=== PATIENT | female | born 1945 | race Caucasian/White ===

== ENCOUNTER 2017-07-08 23:35 | Day surgery (SDC) | payer OTHER ==
[2017-07-09 00:03] VITALS: BMI 25.8
[2017-07-09] MEDS ORDERED: ONDANSETRON 4 MG/2 ML VIAL IVPUSH ONE (00:38)
[2017-07-09] MEDS ORDERED: PANTOPRAZOLE SODIUM 40 MG VIAL IVPUSH ONE (00:38)
[2017-07-09] MEDS ORDERED: RANITIDINE HCL 150 MG TABLET (FP) PO ONE (00:39)
[2017-07-09] MEDS ORDERED: PANTOPRAZOLE SODIUM 40 MG VIAL ONE (01:04)
[2017-07-09] MEDS ORDERED: ONDANSETRON 4 MG/2 ML VIAL ONE (01:04)
[2017-07-09] MEDS ORDERED: ACETAMINOPHEN 1000 MG/100 ML VIAL (NON FORMULARY) IVPB ONE (01:15)
--- NOTE | 2017-07-09 01:15 | PDOC ---
History of Present Illness <Isai Cavazos - Last Filed: 07/09/17 02:41> - General History Source: Patient Exam Limitations: No Limitations - History of Present Illness Initial Comments: 07/09/17 01:15 Patient is a 72-year-old female with history of Pneumonia, pleural effusion assoc with pulmonary infection, HLD, RA, HTN, DM, lung surgery for complaining of upper quadrant pain for over one month. States the pain is sharp twisting 8.5/10 which has worsened this week. Pain is associated with some acid reflux, nausea, vomiting. States the nausea is intermittent and pain is worse when she tries to eat. She feels bloated, burping and gassy. States she has been to her PMD about this problem and testing was recommended including referral to the drywall finisher. However she has declined further treatment and has tried conservative management. She has not eaten in 3 days due to the pain and nausea. She is however making urine because she has been taking sips of water throughout the day. She has not had a bowel movement in days but attributes this to not eating any food. She is passing gas below. Denies fever, chills, dysuria PMD: Dr. Oscar Hines PMHX: as above PSOCHX: neg cig, drug, etoh ALL: cephalexin GENERAL/CONSTITUTIONAL: [No fever or chills. No weakness. No weight change.] HEAD, EYES, EARS, NOSE AND THROAT: [No change in vision. No ear pain or discharge. No sore throat.] CARDIOVASCULAR: [No chest pain or shortness of breath.] RESPIRATORY: [No cough, wheezing, or hemoptysis.] GASTROINTESTINAL: (+) nausea, vomiting, (+)diarrhea (-) constipation. No rectal bleeding.] GENITOURINARY: [No dysuria, frequency, or change in urination.] MUSCULOSKELETAL: [No joint or muscle swelling or pain. No neck or back pain.] SKIN AND BREASTS: [No rash or easy bruising.] NEUROLOGIC: [No headache, vertigo, loss of consciousness, or loss of sensation.] PSYCHIATRIC: [No depression or anxiety.] ENDOCRINE: [No increased thirst. No abnormal weight change.] HEMATOLOGIC/LYMPHATIC: [No anemia, easy bleeding, or history of blood clots.] ALLERGIC/IMMUNOLOGIC: [No hives or skin allergy. No latex allergy.] GENERAL: [The patient is awake, alert, and fully oriented, moderate painful distress.] HEAD: [Normal with no signs of trauma.] EYES: [Pupils equal, round and reactive to light, extraocular movements intact, sclera anicteric, conjunctiva clear.] ENT: [Ears normal, nares patent, oropharynx clear without exudates. Moist mucous membranes.] NECK: [Normal range of motion, supple without lymphadenopathy, JVD, or masses.] LUNGS: [Breath sounds equal, clear to auscultation bilaterally. No wheezes, and no crackles.] HEART: [Regular rate and rhythm, normal S1 and S2 without murmur, rub.] ABDOMEN: [Soft, (+) Davidson's sign, tenderness epigastrum, normoactive bowel sounds. No guarding, no rebound. No masses.] EXTREMITIES: [Normal range of motion, no edema. No clubbing or cyanosis. No cords, erythema, or tenderness.] NEUROLOGICAL: [Cranial nerves II through XII grossly intact. Normal speech, normal gait.] PSYCH: [Normal mood, normal affect.] SKIN: [Warm, Dry, normal turgor, no rashes or lesions noted.] <Iris Neely - Last Filed: 07/09/17 06:53> - General Chief Complaint: Pain, Acute Stated Complaint: STOMACH PAIN Time Seen by Provider: 07/09/17 00:37 Past History <Isai Cavazos - Last Filed: 07/09/17 02:41> - Past Medical History CVA: No Diabetes: Yes HTN: Yes Hypercholesterolemia: Yes - Suicide/Smoking/Psychosocial Hx Smoking History: Never smoked Have you smoked in the past 12 months: No Information on smoking cessation initiated: No Hx Alcohol Use: No Drug/Substance Use Hx: No Substance Use Type: None Hx Substance Use Treatment: No <Iris Neely - Last Filed: 07/09/17 06:53> - Past Medical History Allergies/Adverse Reactions: Allergies Allergy/AdvReac Type Severity Reaction Status Date / Time cephalexin monohydrate Allergy Severe Difficulty Verified 07/09/17 00:02 [From Keflex] Breathing Home Medications: Ambulatory Orders Lisinopril [Prinivil] 10 mg PO DAILY #30 tablet 04/25/16 Metformin HCl 500 mg PO DAILY 07/09/17 Nebivolol HCl [Bystolic] mg PO 07/09/17 *Physical Exam - Vital Signs Last Vital Signs Temp Pulse Resp BP Pulse Ox 97.9 F 83 18 156/87 98 07/09/17 00:02 07/09/17 00:02 07/09/17 00:02 07/09/17 00:02 07/09/17 00:02 <Isai Cavazos - Last Filed: 07/09/17 02:41> - Vital Signs Last Vital Signs Temp Pulse Resp BP Pulse Ox 97.9 F 83 18 156/87 98 07/09/17 00:02 07/09/17 00:02 07/09/17 00:02 07/09/17 00:02 07/09/17 00:02 <Iris Neely - Last Filed: 07/09/17 06:53> Heart Score/ECG Review - ECG Impressions Comment:: 07/09/17 02:40 Twelve-lead EKG was performed and reviewed by me. There is normal sinus rhythm with a normal rate. Rate of [address] abnormality <Isai Cavazos - Last Filed: 07/09/17 02:41> ED Treatment Course - LABORATORY CBC & Chemistry Diagram: 07/09/17 01:02 07/09/17 01:02 - ADDITIONAL ORDERS Additional order review: Laboratory Results 07/09/17 01:02 Sodium 134 L Potassium 4.5 Chloride 96 L Carbon Dioxide 25 Anion Gap 13 BUN 11 Creatinine 0.6 Creat Clearance w eGFR > 60 Random Glucose 103 Calcium 9.5 Total Bilirubin 0.4 D AST 11 L ALT 14 Alkaline Phosphatase 90 Total Protein 7.7 Albumin 3.5 Lipase 87 07/09/17 01:02 RBC 4.55 MCV 65.0 L D MCHC 31.7 L RDW 17.7 H D MPV 8.2 Neutrophils % 68.8 D Lymphocytes % 24.3 D Monocytes % 6.3 Eosinophils % 0.1 D Basophils % 0.5 - Medications Given in the ED: ED Medications Discontinued Medications Generic Name Dose Route Start Last Admin Trade Name Freq PRN Reason Stop Dose Admin Acetaminophen 1,000 mg 07/09/17 01:15 07/09/17 01:24 Ofirmev Injection - IVPB 07/09/17 01:16 1,000 mg ONCE ONE Administration Ondansetron HCl 4 mg 07/09/17 00:38 07/09/17 01:23 Zofran Injection IVPUSH 07/09/17 00:39 4 mg ONCE ONE Administration Pantoprazole Sodium 40 mg 07/09/17 00:38 07/09/17 01:23 Protonix Iv IVPUSH 07/09/17 00:39 40 mg ONCE ONE Administration Ranitidine HCl 300 mg 07/09/17 00:39 07/09/17 01:23 Zantac - PO 07/09/17 00:40 300 mg ONCE ONE Administration <Isai Cavazos - Last Filed: 07/09/17 02:41> - LABORATORY CBC & Chemistry Diagram: 07/09/17 01:02 07/09/17 01:02 - RADIOLOGY Radiology Studies Ordered: Category Date Time Status ABDOMEN US -LIMITED [US] Stat Ultrasound 07/09/17 00:37 Ordered <Iris Neely - Last Filed: 07/09/17 06:53> Medical Decision Making - Medical Decision Making The patient was seen and evaluated in conjunction with GARO Robles under my direct supervision, ancillary studies were reviewed. I independently interviewed and evaluated the patient and I agree with the plan as outlined by GARO Robles. <Isai Cavazos - Last Filed: 07/09/17 02:41> - Medical Decision Making 07/09/17 01:25 Patient is a 72-year-old female with history of Pneumonia, pleural effusion assoc with pulmonary infection, HLD, RA, HTN, DM, lung surgery for complaining of upper quadrant pain for over one month worse with eating, no fever, chills. ddx incl gastritis, gastric ulcer, cholecystitis, cholelithiasis, Labs, US protonix, zantac, zofran IVF labs reviewed not acute findings 07/09/17 03:13 Patient Full Name: FABIANA CLARKE Patient Accession No: [id number] Patient : 1945 Reason for Exam: ruq pain n/v Referring Physician: Patient Name: VINCE JUNG THIS IS A PRELIMINARY REPORT FROM [facility] DATE OF SERVICE: 2017-07-09 00:43:06 IMAGES: 42 EXAM: ULTRASOUND ABDOMEN INCOMPLETE Cholelithiasis, largest gallstone 2.3 cm. Positive sonographic Davidson's sign and thickened gallbladder wall, 9 mm. Gallbladder lumen size not well seen due to shadowing stones. Findings suspicios for acute cholecystitis. Unremarkable liver, right kidney and visualized aorta and pancreas. Normal common duct diameter, 5 mm. THIS DOCUMENT HAS BEEN ELECTRONICALLY SIGNED Shani Richardson M.D. 07/09/2017 01:27 EST Sean. Please call [facility] [employer] [phone] ([phone]) with questions. INTERPRETING RADIOLOGIST: Shani Richardson MD Electronically Signed: Jul 09, 2017 01:28AM ES US reviewed as above will admit to hospital with surgical f/u 07/09/17 06:40 Surgery consulted no answer to page 07/09/17 06:53 surgery called message left for Dr. Morris <Iris Neely - Last Filed: 07/09/17 06:53> *DC/Admit/Observation/Transfer <Isai Cavazos - Last Filed: 07/09/17 02:41> - Discharge Dispostion Admit: Yes <Iris Neely - Last Filed: 07/09/17 06:53> Diagnosis at time of Disposition: Acute cholecystitis - Discharge Dispostion Condition at time of disposition: Stable
[2017-07-09] MEDS ORDERED: ACETAMINOPHEN INJECTION 100 ML IVPB ONE (01:17)
[2017-07-09] MEDS ORDERED: RANITIDINE HCL 150 MG TABLET (FP) ONE (01:27)
[2017-07-09 01:32] LABS: BASO % 0.5 % (0-2.0); EOS % 0.1 % (0-4.5); HEMATOCRIT 29.6 % (32.4-45.2); HEMOGLOBIN 9.4 GM/dL (10.7-15.3); LYMPH % 24.3 % (8-40); MCH 20.6 pg (25.7-33.7); MCHC 31.7 g/dl (32.0-36.0); MEAN PLT VOLUME 8.2 fl (7.5-11.1); MONO % 6.3 % (3.8-10.2); NEUT % 68.8 % (42.8-82.8); PLATELET COUNT 548 K/MM3 (134-434); RBC 4.55 M/mm3 (3.60-5.2); RDW 17.7 % (11.6-15.6); WHITE BLOOD COUNT 8.6 K/mm3 (4.0-10.0)
[2017-07-09 01:53] LABS: ADD RBC MORPHOLOGY YES
[2017-07-09 01:56] LABS: ALBUMIN 3.5 g/dl (3.4-5.0); ANION GAP 13 (8-16); BILIRUBIN,TOTAL 0.4 mg/dL (0.2-1.0); BLOOD UREA NITROGEN 11 mg/dL (7-18); CALCIUM 9.5 mg/dL (8.5-10.1); CHLORIDE 96 mmol/L (98-107); CO2 25 mmol/L (21-32); CREATININE 0.6 mg/dL (0.55-1.02); GLUCOSE,RANDOM 103 mg/dL (74-106); LIPASE 87 U/L (73-393); POTASSIUM 4.5 mmol/L (3.5-5.1); SGOT/AST 11 U/L (15-37); SGPT/ALT 14 U/L (12-78); SODIUM 134 mmol/L (136-145); TOT PROT 7.7 g/dl (6.4-8.2)
[2017-07-09 01:57] LABS: ALK PHOS 90 U/L (45-117)
[2017-07-09] MEDS ORDERED: morphine SULFATE 4 MG/ML VIAL IVPUSH PRN (06:24)
[2017-07-09] MEDS ORDERED: ONDANSETRON 4 MG/2 ML VIAL IVPUSH PRN (06:24)
[2017-07-09] MEDS ORDERED: SODIUM CHLORIDE 1,000 ML IV SCH (06:30)
--- NOTE | 2017-07-09 06:30 | HP ---
CHIEF COMPLAINT: RUQ pain PCP: robert HISTORY OF PRESENT ILLNESS: This is a 72 year old female with a past medical history as below who presented to the ED with a 1 month history of RUQ pain which has worsened x 1 week and is now associated with intermittent nausea and vomiting. The pain worsens with eating. ER course was notable for: (1) US c/w cholecystitis (2)WBC 8.6 (3) Recent Travel: pt denies PAST MEDICAL HISTORY: PNA with pleural effusion and pneumothorax, HTN, DM, RA PAST SURGICAL HISTORY: lung surgery carpal tunnel release R knee arthroscopic meniscus repair Social History: Smoking: pt denies Alcohol: pt denies Drugs: pt denies Family History: mother age 86 due to sepsis, h/o BrCA and colon CA father age 95, Bladder CA one brother and 3 sons all alive and well Allergies cephalexin monohydrate [From Keflex] Allergy (Severe, Verified 07/09/17 00:02) Difficulty Breathing HOME MEDICATIONS: 3 Medication Instructions Recorded Lisinopril [Prinivil] 10 mg PO DAILY #30 tablet 09/02/15 Metformin HCl 500 mg PO DAILY 07/09/17 Nebivolol HCl [Bystolic] mg PO 07/09/17 REVIEW OF SYSTEMS CONSTITUTIONAL: Absent: fever, chills, diaphoresis, generalized weakness, malaise, loss of appetite, weight change HEENT: Absent: rhinorrhea, nasal congestion, throat pain, throat swelling, difficulty swallowing, mouth swelling, ear pain, eye pain, visual changes CARDIOVASCULAR: Absent: chest pain, syncope, palpitations, irregular heart rate, lightheadedness , peripheral edema RESPIRATORY: Absent: cough, shortness of breath, dyspnea with exertion, orthopnea, wheezing, stridor, hemoptysis GASTROINTESTINAL: abdominal pain, nausea, vomiting Absent: abdominal distension, diarrhea, constipation, melena, hematochezia GENITOURINARY: Absent: dysuria, frequency, urgency, hesitancy, hematuria, flank pain, genital pain MUSCULOSKELETAL: Absent: myalgia, arthralgia, joint swelling, back pain, neck pain SKIN: Absent: rash, itching, pallor HEMATOLOGIC/IMMUNOLOGIC: Absent: easy bleeding, easy bruising, lymphadenopathy, frequent infections ENDOCRINE: Absent: unexplained weight gain, unexplained weight loss, heat intolerance, cold intolerance NEUROLOGIC: Absent: headache, focal weakness or paresthesias, dizziness, unsteady gait, seizure, mental status changes, bladder or bowel incontinence PSYCHIATRIC: Absent: anxiety, depression, suicidal or homicidal ideation, hallucinations. PHYSICAL EXAMINATION Vital Signs - 24 hr 3 07/09/17 07/09/17 00:02 06:24 Temperature 97.9 F 99.2 F Pulse Rate 83 Pulse Rate [ 80 Right Apical] Respiratory 18 18 Rate Blood Pressure 156/87 Blood Pressure 148/63 [Right Arm] O2 Sat by Pulse 98 97 Oximetry (%) GENERAL: Awake, alert, and fully oriented, in no acute distress. HEAD: Normal with no signs of trauma. EYES: Pupils equal, round and reactive to light, extraocular movements intact, sclera anicteric, conjunctiva clear. No lid lag. EARS, NOSE, THROAT: Ears normal, nares patent, oropharynx clear without exudates. Moist mucous membranes. NECK: Normal range of motion, supple without lymphadenopathy, JVD, or masses. LUNGS: Breath sounds equal, clear to auscultation bilaterally. No wheezes, and no crackles. No accessory muscle use. HEART: Regular rate and rhythm, normal S1 and S2 without murmur, rub or gallop. ABDOMEN: Soft, tender RUQ and RLQ, not distended, normoactive bowel sounds, no guarding, no rebound, no masses. No hepatomegaly or splenomegaly. MUSCULOSKELETAL: Normal range of motion at all joints. No bony deformities or tenderness. No CVA tenderness. UPPER EXTREMITIES: 2+ pulses, warm, well-perfused. No cyanosis. No clubbing. No peripheral edema. LOWER EXTREMITIES: 2+ pulses, warm, well-perfused. No calf tenderness. No peripheral edema. NEUROLOGICAL: Cranial nerves II-XII intact. Normal speech. Normal gait. PSYCHIATRIC: Cooperative. Good eye contact. Appropriate mood and affect. SKIN: Warm, dry, normal turgor, no rashes or lesions noted, normal capillary refill. Laboratory Results - last 24 hr 3 07/09/17 07/09/17 01:02 01:02 WBC 8.6 RBC 4.55 Hgb 9.4 L Hct 29.6 L MCV 65.0 L D MCH 20.6 L MCHC 31.7 L RDW 17.7 H D Plt Count 548 H D MPV 8.2 Neutrophils % 68.8 D Lymphocytes % 24.3 D Monocytes % 6.3 Eosinophils % 0.1 D Basophils % 0.5 Sodium 134 L Potassium 4.5 Chloride 96 L Carbon Dioxide 25 Anion Gap 13 BUN 11 Creatinine 0.6 Creat Clearance w eGFR > 60 Random Glucose 103 Calcium 9.5 Total Bilirubin 0.4 D AST 11 L ALT 14 Alkaline Phosphatase 90 Total Protein 7.7 Albumin 3.5 Lipase 87 ASSESSMENT/PLAN: 72yF with PMH DM, HTN, RA and PNA presented to the ED with RUQ pain. Cholelithiasis/cystitis - surgical consult - no active fever or elevated WBC, will defer antibiotics - NPO - NS @ 75cc/hr HTN - will need to verify bystolic dose by PCP - cont lisinopril DM - hold metformin - BGM with novolog SS DVT PPX - deferred, anticipated LOS <48h FEN - NS @ 75cc/hr - BMP in am - NPO Dispo: Pt currently requires further observation. Visit type - Emergency Visit Emergency Visit: Yes ED Registration Date: 07/09/17 Care time: The patient presented to the Emergency Department on the above date and was hospitalized for further evaluation of their emergent condition. - New Patient This patient is new to me today: Yes Date on this admission: 07/09/17 - Critical Care Critical Care patient: No Hospitalist Screening - Colonoscopy Questionnaire Colonoscopy Questionnaire: Colonoscopy Questionnaire - Patient: 50 - 75 years old and never had a screening colonoscopy: Yes History of colon or rectal polyps, or CA: No History of IBD, Crohn's disease or UC: No History of abdominal radiation therapy as a child: No - Relative: 1 with colon or rectal CA, or polyps at age 60 or younger: Yes Colon or rectal CA diagnosed at age 45 or younger: No Multiple relatives with colon or rectal CA: No - Outcome: Screening Result: Positive Screen
--- NOTE | 2017-07-09 09:58 | EKG ---
Test Reason : Blood Pressure : / mmHG Vent. Rate : 082 BPM Atrial Rate : 082 BPM P-R Int : 114 ms QRS Dur : 072 ms QT Int : 362 ms P-R-T Axes : 050 -05 017 degrees QTc Int : 422 ms POOR DATA QUALITY, INTERPRETATION MAY BE ADVERSELY AFFECTED SINUS RHYTHM WITH PREMATURE ATRIAL COMPLEXES POSSIBLE LEFT ATRIAL ENLARGEMENT NONSPECIFIC ST ABNORMALITY ABNORMAL ECG Confirmed by GLENNA DUARTE MD ([id number]) on 07/09/2017 9:58:12 AM Referred By: Confirmed By:GLENNA DUARTE MD
--- NOTE | 2017-07-09 13:12 | CONSULT ---
Consult Consult Specialty:: SURGERY Reason for Consultation:: Acute cholecystitis - History of Present Illness Chief Complaint: RUQ abdominal pain History of Present Illness: This is a 72 year old female with a past medical history as below who presented to the ED with a 1 month history of RUQ pain which has worsened x 1 week and is now associated with intermittent nausea and vomiting. The pain worsens with eating. - History Source History Provided By: Patient Limitations to Obtaining History: No Limitations - Past Medical History Cardio/Vascular: Yes: HTN, Hyperlipdemia Rheumatology: Yes: Rheumatoid Arthritis Endocrine: Yes: Diabetes Mellitus (pre - DM) - Past Surgical History Past Surgical History: Yes: Thoracotomy - Alcohol/Substance Use Hx Alcohol Use: No - Smoking History Smoking history: Never smoked Have you smoked in the past 12 months: No - Social History ADL: Independent History of Recent Travel: No Home Medications - Allergies Allergies/Adverse Reactions: Allergies Allergy/AdvReac Type Severity Reaction Status Date / Time cephalexin monohydrate Allergy Severe Difficulty Verified 07/09/17 00:02 [From Keflex] Breathing - Home Medications Home Medications: Ambulatory Orders Lisinopril [Prinivil] 10 mg PO DAILY #30 tablet 09/02/15 Furosemide 20 mg PO DAILY 07/09/17 Metformin HCl 500 mg PO DAILY 07/09/17 Nebivolol HCl [Bystolic] 10 mg PO DAILY 07/09/17 Physical Exam Vital Signs: Vital Signs Temperature 98.6 F 07/09/17 07:34 Pulse Rate 78 07/09/17 07:34 Respiratory Rate 16 07/09/17 07:34 Blood Pressure 142/73 07/09/17 07:34 O2 Sat by Pulse Oximetry (%) 100 07/09/17 07:34 Constitutional: Yes: Well Nourished, No Distress Eyes: Yes: Conjunctiva Clear HENT: Yes: Normocephalic Neck: Yes: Supple Cardiovascular: Yes: Regular Rate and Rhythm Respiratory: Yes: CTA Bilaterally Gastrointestinal: Yes: Tenderness (at RUQ on deep palpation) ...Rectal Exam: Yes: Deferred Extremities: Yes: WNL Neurological: Yes: Alert, Oriented Labs: CBC, BMP 07/09/17 01:02 07/09/17 01:02 Imaging - Results Ultrasound: Report Reviewed, Image Reviewed (GB with multiple stones and thickened wall) Problem List - Problems (1) Acute cholecystitis Assessment/Plan: Laparoscopic cholecystectomy on this hospital stay. Medical risk assessment IV antibioitcs Code(s): K81.0 - ACUTE CHOLECYSTITIS
[2017-07-09] MEDS ORDERED: NEBIVOLOL 2.5 MG TABLET (FP) PO SCH (14:00)
[2017-07-09] MEDS: LISINOPRIL 10 MG TABLET (FP) PO SCH (14:51)
[2017-07-09] MEDS: FUROSEMIDE 20 MG TABLET (FP) PO SCH (15:37)
--- NOTE | 2017-07-09 16:01 | PN ---
Physical Exam: The hospitalist service has been asked by PCP Dr. Oscar Hines to assess this patient in anticipation of undergoing a cholecystectomy on 07/10/17. SUBJECTIVE: Patient seen and examined. She is unable to tolerate any PO intake as it provokes nausea and pain. OBJECTIVE: Vital Signs Period Temp Pulse Resp BP Sys/Spence Pulse Ox Last 24 Hr 97.9 F-99.2 F 78-83 16-18 142-156/63-87 97-100 GENERAL: The patient is awake, alert, and fully oriented, in no acute distress. LUNGS: Breath sounds equal, clear to auscultation bilaterally, no wheezes, no crackles, no accessory muscle use. HEART: Regular rate and rhythm, S1, S2 without murmur, rub or gallop. ABDOMEN: Tenderness over RUQ and RLQ EXTREMITIES: 2+ pulses, warm, well-perfused, no edema. NEUROLOGICAL: Cranial nerves II through XII grossly intact. Normal speech, gait not observed. Laboratory Results - last 24 hr 07/09/17 07/09/17 07/09/17 01:02 01:02 14:57 WBC 8.6 RBC 4.55 Hgb 9.4 L Hct 29.6 L MCV 65.0 L D MCH 20.6 L MCHC 31.7 L RDW 17.7 H D Plt Count 548 H D MPV 8.2 Neutrophils % 68.8 D Lymphocytes % 24.3 D Monocytes % 6.3 Eosinophils % 0.1 D Basophils % 0.5 Hypochromia 3+ Microcytosis 1+ Schistocytes 1+ Sodium 134 L Potassium 4.5 Chloride 96 L Carbon Dioxide 25 Anion Gap 13 BUN 11 Creatinine 0.6 Creat Clearance w eGFR > 60 POC Glucometer 104 Random Glucose 103 Calcium 9.5 Total Bilirubin 0.4 D AST 11 L ALT 14 Alkaline Phosphatase 90 Total Protein 7.7 Albumin 3.5 Lipase 87 Active Medications Generic Name Dose Route Start Last Admin Trade Name Freq PRN Reason Stop Dose Admin Furosemide 20 mg 07/09/17 15:15 Lasix - PO DAILY PRIYANKA Sodium Chloride 1,000 mls @ 75 mls/hr 07/09/17 06:30 07/09/17 06:31 Normal Saline - IV 75 mls/hr ASDIR PRIYANKA Administration Sodium Chloride 1,000 mls @ 100 mls/hr 07/10/17 00:01 Normal Saline - IV ASDIR PRIYANKA Insulin Aspart 1 vial 07/09/17 16:30 Novolog Vial Sliding Scale - SQ ACHS [facility] Protocol Lisinopril 10 mg 07/09/17 14:00 07/09/17 14:51 Prinivil PO 10 mg DAILY [facility] Administration Morphine Sulfate 2 mg 07/09/17 06:24 Morphine Sulfate IVPUSH Q4H PRN PAIN LEVEL 6-10 Nebivolol 10 mg 07/09/17 15:15 Bystolic - PO DAILY [facility] Ondansetron HCl 4 mg 07/09/17 06:24 Zofran Injection IVPUSH Q6H PRN NAUSEA 07/09/17 US abdomen: partially distended gallbladder with gallstones largest 2.3cm , suggestion of wall-thickening; positive vice president of engineering Davidson's sign; suspicious for acute cholecystitis. ASSESSMENT/PLAN 72 year-old female with a PMH signficant for HTN, pneumonia complicated by pneumothorax, LVATS decortication and partial pleurectomy (August 2015), NIDDM, and rheumatoid arthritis. PSH includes LVATS/partial pleurectomy, bilateral carpal tunnel release surgeries, and right knee meniscus arthroscopic repair. Acute cholecystitis --US findings as above --seen and evaluated by Dr. Morris, plan for lap kian tomorrow --no fever, no leukocytosis --unable to tolerate PO, made NPO Hypertension --BP is stable, 140s/70s --continue lisinopril, bystolic --patient states Dr. Hines prescribed lasix PO 20mg about one month ago but she did not notice any change in her blood pressure nor did it cause her to urinate; she took the lasix for only three days and stopped; hold lasix for now NIDDM --Novolog sliding scale coverage Rheumatoid arthritis --no acute issues --on no medications h/o pneumonia LVATS decortication Partial pleurectomy --hospitalized 08/13-->09/02/15 --stable, no acute issues --will get pulmonary input for ari-operative maximization Patient is planned for a lap cholecystectomy on 07/10/17. Patient has no know coronary artery disease. ECG shows sinus rhythm. An echocardiagram in 08/2015 showed normal LV and RV function and no significant valvular pathology. Her hypertension is well-controlled on her current medication regimen of lisinopril and bystolic, and these medications should be continued during the ari- operative period. Patient has had four previous surgeries and there is no known difficulty with anesthesia. She did report she was intolerant of the smell of a latex mask prior to one of her surgeries as it made her nauseous. She is not allergic to latex and uses latex gloves at home. The benefits of the planned procedure outweigh the relative risks. Visit type - Emergency Visit Emergency Visit: Yes ED Registration Date: 07/09/17 Care time: The patient presented to the Emergency Department on the above date and was hospitalized for further evaluation of their emergent condition. - New Patient This patient is new to me today: Yes Date on this admission: 07/09/17 - Critical Care Critical Care patient: No
[2017-07-09] MEDS: NEBIVOLOL 10 MG TABLET (FP) PO SCH (16:33)
[2017-07-09] MEDS: INSULIN SLIDING SCALE (NOVOLOG) 1 VIAL SQ SCH ×2 (17:36→21:31)
[2017-07-10] MEDS ORDERED: SODIUM CHLORIDE 1,000 ML IV SCH (00:01)
[2017-07-10] MEDS: INSULIN SLIDING SCALE (NOVOLOG) 1 VIAL SQ SCH ×3 (06:45→18:12)
[2017-07-10] MEDS ORDERED: PT OWN MED DRAWER 7, Y5N ONE ×2 (07:46→09:14)
[2017-07-10 07:52] LABS: BASO % 0.8 % (0-2.0); HEMATOCRIT 28.1 % (32.4-45.2); HEMOGLOBIN 8.7 GM/dL (10.7-15.3); MCH 20.4 pg (25.7-33.7); MEAN CELL VOLUME 65.8 fl (80-96); MEAN PLT VOLUME 7.8 fl (7.5-11.1); MONO % 6.6 % (3.8-10.2); NEUT % 68.6 % (42.8-82.8); PLATELET COUNT 505 K/MM3 (134-434); RBC 4.27 M/mm3 (3.60-5.2); RDW 17.5 % (11.6-15.6); WHITE BLOOD COUNT 8.5 K/mm3 (4.0-10.0)
[2017-07-10] MEDS ORDERED: ONDANSETRON 4 MG/2 ML VIAL IVPUSH PRN ×2 (08:06→11:44)
[2017-07-10] MEDS ORDERED: LACTATED RINGERS SOLUTION 1,000 ML IV SCH ×2 (08:15→11:44)
[2017-07-10 08:22] LABS: ANION GAP 11 (8-16); BLOOD UREA NITROGEN 16 mg/dL (7-18); CHLORIDE 102 mmol/L (98-107); CO2 25 mmol/L (21-32); CREATININE 0.7 mg/dL (0.55-1.02); GLUCOSE,RANDOM 68 mg/dL (74-106); MAGNESIUM 1.8 mg/dL (1.8-2.4); PHOSPHOROUS 3.1 mg/dL (2.5-4.9); POTASSIUM 4.2 mmol/L (3.5-5.1); SODIUM 138 mmol/L (136-145)
[2017-07-10] MEDS ORDERED: MIDAZOLAM HCL 2 MG/2 ML SINGLE DOSE VIAL ONE (08:34)
[2017-07-10] MEDS ORDERED: AMPICILLIN NA/SULBACTAM NA 1.5 GM VIAL ONE (08:45)
[2017-07-10] MEDS ORDERED: AMPICILLIN NA/SULBACTAM NA 1.5 GM VIAL IVPB ONE (08:45)
[2017-07-10] MEDS ORDERED: SODIUM CHLORIDE 0.9% P/F 10 ML VIAL IJ ONE (08:45)
[2017-07-10] MEDS ORDERED: DEXAMETHASONE SOD PHOSPHATE 4 MG/1 ML VIAL ONE (08:55)
[2017-07-10] MEDS ORDERED: GLYCOPYRROLATE 0.2 MG/1 ML VIAL ONE (08:55)
[2017-07-10] MEDS ORDERED: LIDOCAINE HCL/PF 2% SDV 5ML VIAL ONE (08:55)
[2017-07-10] MEDS ORDERED: ROCURONIUM BROMIDE 50 MG/5 ML VIAL ONE ×2 (08:55→09:39)
[2017-07-10] MEDS ORDERED: KETOROLAC TROMETHAMINE 30 MG/1 ML VIAL ONE (08:55)
[2017-07-10] MEDS ORDERED: NEOSTIGMINE METHYLSULFATE 0.5 MG/ML - 10 ML MDV ONE (08:56)
[2017-07-10] MEDS ORDERED: PROPOFOL 20 ML ONE (08:56)
[2017-07-10] MEDS ORDERED: ePHEDrine SULFATE 50 MG/1 ML AMPULE ONE (09:08)
[2017-07-10] MEDS ORDERED: BUPIVACAINE HCL/PF 0.5% (5MG/ML) 10 ML VIAL IJ ONE (09:28)
[2017-07-10] MEDS: NEBIVOLOL 10 MG TABLET (FP) PO SCH (10:00)
[2017-07-10] MEDS: FUROSEMIDE 20 MG TABLET (FP) PO SCH (10:00)
[2017-07-10] MEDS: LISINOPRIL 10 MG TABLET (FP) PO SCH (10:00)
[2017-07-10] MEDS ORDERED: ACETAMINOPHEN 1000 MG/100 ML VIAL (NON FORMULARY) IVPB ONE ×2 (11:07→11:44)
[2017-07-10] MEDS ORDERED: ACETAMINOPHEN INJECTION 100 ML IVPB ONE (11:20)
--- NOTE | 2017-07-10 11:56 | OP ---
Operative Note - Note: Operative Date: 07/10/17 Pre-Operative Diagnosis: Acute cholecystitis Operation: Attempted laparoscopic cholecystectomy, LION, Open tube cholecystostomy, GB wall and colonic implant biopsy Findings: Enlarged nodular GB with multiple large stones, dense adhesions of the transverse colon and pylorus. serosal implants of adjacent transverse colon.No liver lesions or peritoneal implants noted. Post-Operative Diagnosis: Other (r/o gallbladder cancer, cholelithiasis) Surgeon: Rodrigo Morris Supervisor Paint Department: Lester Freeman (Supervisor Paint Department Surgeon) Anesthesia: General Specimens Removed: Gallbladder wall, colonic implant Estimated Blood Loss (mls): 20 Operative Report Dictated: Yes
--- NOTE | 2017-07-10 12:06 | PN ---
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 Patient and advised transfer to [facility] for further management with Hepato-biliary Service. Dr. Sheela Clarke of [facility] informed and will make arrangements for transfer. Discussed also with Dr. Hines - PMLucrecia. Problem List - Problems (1) Acute cholecystitis Code(s): K81.0 - ACUTE CHOLECYSTITIS
--- NOTE | 2017-07-10 13:32 | PN ---
Progress Note, Physician History of Present Illness: pt seen/ examined. chart reviewed. evens noted. 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 / son at bedside. - Current Medication List Current Medications: Active Medications Lactated Ringer's (Lactated Ringers Solution) 1,000 mls @ 75 mls/hr IV ASDIR PRIYANKA Insulin Aspart (Novolog Vial Sliding Scale -) 1 vial SQ ACHS PRIYANKA PRN Reason: Protocol Lisinopril (Prinivil) 10 mg PO DAILY PRIYANKA Morphine Sulfate (Morphine Sulfate) 2 mg IVPUSH Q4H PRN PRN Reason: PAIN LEVEL 6-10 Nebivolol (Bystolic -) 10 mg PO DAILY PRIYANKA Ondansetron HCl (Zofran Injection) 4 mg IVPUSH Q6H PRN PRN Reason: NAUSEA - Objective Vital Signs: Vital Signs Temperature 97.5 F L 07/10/17 13:00 Pulse Rate 76 07/10/17 13:00 Respiratory Rate 16 07/10/17 13:00 Blood Pressure 142/69 07/10/17 13:00 O2 Sat by Pulse Oximetry (%) 99 07/10/17 13:00 Constitutional: Yes: No Distress, Anxious Eyes: Yes: Conjunctiva Clear Neck: Yes: Supple Cardiovascular: Yes: Regular Rate and Rhythm Respiratory: Yes: CTA Bilaterally Gastrointestinal: Yes: Soft, Other (dressing +) Edema: No Neurological: Yes: Alert Labs: CBC, BMP 07/10/17 07:10 07/10/17 07:10 Problem List - Problems (1) Acute cholecystitis Code(s): K81.0 - ACUTE CHOLECYSTITIS Assessment/Plan Discussed with surgeon Dr. Morris. findings discussed . Also discussed with pt/ pts family by me as well as Dr. Morris. Arrangements are being made for transfer to [facility]-- Accepted there for further management. Pt and family also in agreement I filled transfer papers. Discussed also with nursing staff. Anticipate transfer later today. I wished pt best wishes !!.
[2017-07-10] MEDS ORDERED: LISINOPRIL 10 MG TABLET (FP) PO SCH (13:45)
[2017-07-10] MEDS ORDERED: NEBIVOLOL 10 MG TABLET (FP) PO SCH (14:00)
[2017-07-10] MEDS: morphine SULFATE 4 MG/ML VIAL IVPUSH PRN ×2 (14:47→18:57)
[2017-07-10 16:02] VITALS: BP 151/76; PULSE 80; TEMP 97.6
--- NOTE | 2017-07-10 16:17 | OP ---
DATE OF OPERATION: 07/10/2017 PROCEDURE: Attempted laparoscopic cholecystectomy, laparoscopic lysis of adhesions, converted to open procedure with tube cholecystostomy, gallbladder wall, and colonic implant biopsy. PREOPERATIVE DIAGNOSIS: Acute cholecystitis. POSTOPERATIVE DIAGNOSIS: Rule out gallbladder cancer and cholelithiasis. SURGEON: Rodrigo Morris MD WATER PROJECT ENGINEER SURGEON: Dr. Lydia MD ANESTHESIA: General endotracheal. FINDINGS: This is a 72-year-old female who presents with a 6-psvlh-bluydyg of right upper quadrant pain radiating to the back associated with worsening of symptoms for the past few days. The patient sought medical attention in the emergency department where an ultrasound showed a gallbladder with thickened jimenez and multiple large stones. The patient was admitted for further management of admitting diagnosis of acute cholecystitis. On physical exam, the patient has positive right upper quadrant tenderness on deep palpation and positive Davidson's sign. The patient was advised removal of the gallbladder and consent was obtained after discussing of the risks, benefits, and alternatives of the procedure. DESCRIPTION OF PROCEDURE: The patient was brought to the operating room and placed in supine position. General endotracheal anesthesia was administered. The abdomen was prepped and draped in the usual sterile fashion. Using 0.5% Marcaine, local anesthesia was administered to the proposed incision sites. The peritoneal cavity was entered using the Optiview technique via a 5-mm umbilical incision using a 5-mm 0-degree scope inserted in a 5-mm optical port. Pneumoperitoneum was established. The peritoneal cavity was carefully inspected and was noted to free of any inadvertent injury. At this point, a very distended gallbladder partially covered with omentum was noted, and an attempt to grasp the fundus resulted in advertent puncture of the gallbladder wall where a large stone was noted to be impacted. The omental adhesions were carefully taken down using the hook dissector connected to monopolar cautery combined with the LigaSure vessel sealing device. Upon taking down the omentum, the transverse colon was noted to be firmly adherent to the body of the gallbladder wall. With the presumption that the patient had possible dense adhesions and possible vesicocolonic fistula, the procedure was converted to an open procedure. The pneumoperitoneum was evacuated, and the ports were removed. A 15-cm right subcostal incision was made using a scalpel blade No. 10. Dissection was carried down to subcutaneous tissue. Further dissection using Bovie cautery was done until the fascia at the anterior rectus sheath and the oblique muscles were incised down to the parietal peritoneum. The parietal peritoneum was again incised using the Bovie cautery to enter the peritoneal cavity. At this point, further attempts to separate the transverse colon from the gallbladder proved to be futile as the colonic wall was firmly adherent to the gallbladder. On further inspection, implants of the transverse colon serosa were noted with some evidence of beginning stricture of the transverse colon. On further exploration, the pylorus of the stomach was also noted to be firmly adherent to the proximal body of the gallbladder rendering removal of the gallbladder difficult without possibly injuring the transverse colon and the pylorus. 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 It was decided to abandon the proposed cholecystectomy, and the inadvertent cholecystostomy was enlarged to remove 3 large 2-cm gallstones. A cholecystostomy tube was constructed by applying 2 rows of pursestring suture with polysorb 2-0 and inserting a 16-Burmese Norman catheter via separate stab wound lateral to the subcostal incision. Biopsy of the gallbladder fundus was sent for proper histologic examination. Also, a small piece of the gallbladder body was also excised also for pathologic examination. The nodular implant of the serosa of the transverse colon was also sent for proper histologic examination. A Kodak-Mora drain was deployed into Morison's pouch and exited via one of the 5-mm port sites and connected to bulb suction. The peritoneal cavity was irrigated with sterile normal saline until the return was clear. The wound was closed with continuous Vicryl 2-0 suture for the peritoneum and continuous PDS loop No. 1 suture for the fascia. The skin was closed with tarik. The patient was then successfully extubated and transferred to the post anesthesia care unit in satisfactory condition. Estimated blood loss was about 20 mL. Wound class clean contaminated. The patient received Unasyn prior to the start of the procedure. Markell [id number] MTDD
[2017-07-11] MEDS ORDERED: LISINOPRIL 10 MG TABLET (FP) PO SCH (10:00)
[2017-07-11] MEDS ORDERED: NEBIVOLOL 10 MG TABLET (FP) PO SCH (10:00)
--- NOTE | 2017-07-11 10:25 | DS ---
Physical Examination Vital Signs: Vital Signs Temperature 97.6 F 07/10/17 16:01 Pulse Rate 80 07/10/17 16:01 Respiratory Rate 20 07/10/17 16:01 Blood Pressure 151/76 07/10/17 16:01 O2 Sat by Pulse Oximetry (%) 100 07/10/17 15:30 Findings/Remarks: see progress note 07/10/17 Labs: CBC, BMP 07/10/17 07:10 07/10/17 07:10 Discharge Summary Reason For Visit: ACUTE CHOLECYSTITIS Hospital Course: transfer to [facility] for further care Condition: Stable - Instructions Referrals: Oscar Hines MD [Staff Physician] - Disposition: TRANSFER ACUTE CARE/OTHER HOSP - Home Medications Comprehensive Discharge Medication List: Ambulatory Orders Lisinopril [Prinivil] 10 mg PO DAILY #30 tablet 09/02/15 Furosemide 20 mg PO DAILY 07/09/17 Metformin HCl 500 mg PO DAILY 07/09/17 Nebivolol HCl [Bystolic] 10 mg PO DAILY 07/09/17
--- NOTE | 2017-07-13 15:32 | PATH ---
Surgical Pathology Report Patient Name: VINCE JUNG [facility]. Rec. #: [id number] /Age/Gender: 1945 (Age: 72) / F Account: [id number] Location: [address] [place] [address]/[facility] Taken: 07/10/2017 Received: 07/12/2017 Reported: 07/13/2017 Physicians: Markell Marinelli M.D. Specimen(s) Received A: GALLSTONES B: IMPLANT OF TRANSVERSE COLON C: GALLBLADDER WALL D: GALLBLADDER INTERCEDED WITH TRANSVERSE COLON BX Clinical History Acute cholecystitis Final Diagnosis A. GALLSTONES, REMOVAL: CHOLELITHIASIS. MACROSCOPIC DIAGNOSIS B. TRANSVERSE COLON, IMPLANT, BIOPSY: CARCINOMA. SCANT EVIDENCE. C. GALLBLADDER WALL, BIOPSY: INVASIVE ADENOCARCINOMA, WELL DIFFERENTIATED. D. GALLBLADDER INTERCEDED WITH TRANSVERSE COLON, BIOPSY: INVASIVE ADENOCARCINOMA, WELL DIFFERENTIATED. Comment: Findings discussed with Dr. Morris. Electronically Signed Leyla Parsons M.D. Gross Description A. Received in formalin labeled "gallstones," are 3 dempsey, irregular calculi averaging 1.7 cm in greatest dimension. No soft tissue is present. No sections are submitted, gross only. B. Received in formalin labeled "implant of transverse colon," is a 0.2 cm in greatest dimension dempsey, irregular portion of soft tissue. The specimen is submitted in toto in one cassette. C. Thin formalin labeled "gallbladder wall," is a 3.0 x 2.2 x 0.4 cm aggregate of multiple dempsey-brown, fragmented portions of soft tissue. The specimen is entirely submitted in 3 cassettes. D. Received in formalin labeled "gallbladder interceded with transverse colon," is a 0.8 cm in greatest dimension dempsey-brown soft tissue fragment. The specimen is submitted in toto in one cassette. 07/12/201707/12/2017
== END 2017-07-10 19:15 | disposition short-term general hospital (02) ==
LOC: JER 23:35 → JERBED 07-09 03:23 → UNDOADMOB 07-09 03:23 → INTOOBSV 07-09 03:23 → JERBED 07-09 06:24 → UNDOADMOB 07-09 06:24 → JASUSAT 07-09 06:24 → J5S 07-09 10:20 → JERBED 07-09 10:20 → JASUSAT 07-10 19:15 → UNDODISOB 07-10 19:15
PROVIDERS: ATTEND Internal Medicine
PROC: 0FJ44ZZ Inspection of Gallbladder, Percutaneous Endoscopic Approach (ICD-10-PCS; principal; 2017-07-09)
PROC: 0FT40ZZ Resection of Gallbladder, Open Approach (ICD-10-PCS; 2017-07-09)
PROC: 0F9400Z Drainage of Gallbladder with Drainage Device, Open Approach (ICD-10-PCS; 2017-07-09)
DX: K80.00 Calculus of gallbladder with acute cholecystitis without obstruction (principal); C23 Malignant neoplasm of gallbladder; I10 Essential (primary) hypertension; E11.9 Type 2 diabetes mellitus without complications; K66.0 Peritoneal adhesions (postprocedural) (postinfection); Z53.8 Procedure and treatment not carried out for other reasons; S36.128A Other injury of gallbladder, initial encounter; X58.XXXA Exposure to other specified factors, initial encounter; Y93.9 Activity, unspecified; Y92.234 Operating room of hospital as the place of occurrence of the external cause; Y99.9 Unspecified external cause status
CPT/HCPCS: 36415; 71045-TC-FY; 74018-TC-FY; 76705-TC; 80048; 80053; 82962; 83690; 83735; 84100; 85025; 88300-TC; 88304-TC; 88305-TC; 93005; 93010; 99284-25; G0378; J0131; J7030

== ENCOUNTER 2017-08-25 07:58 | Day surgery (SDC) | payer OTHER ==
[2017-08-24 11:42] VITALS: BMI 24.8
[2017-08-25 08:30] LABS: BASO % 0.5 % (0-2.0); EOS % 3.9 % (0-4.5); HEMATOCRIT 28.5 % (32.4-45.2); HEMOGLOBIN 9.2 GM/dL (10.7-15.3); LYMPH % 22.1 % (8-40); MCH 23.5 pg (25.7-33.7); MCHC 32.2 g/dl (32.0-36.0); MEAN PLT VOLUME 8.4 fl (7.5-11.1); MONO % 8.6 % (3.8-10.2); NEUT % 64.9 % (42.8-82.8); PLATELET COUNT 440 K/MM3 (134-434); RDW 23.8 % (11.6-15.6); WHITE BLOOD COUNT 10.5 K/mm3 (4.0-10.0)
[2017-08-25 08:44] LABS: INR 1.17 (0.82-1.09); PROTHROMBIN TIME (PATIENT) 13.2 SEC (9.98-11.88)
[2017-08-25] MEDS ORDERED: PORTA CATH FLUSH 10 ML IVPUSH PRN (09:29)
[2017-08-25 12:10] VITALS: TEMP 98.4
[2017-08-25 12:41] VITALS: BP 129/66; PULSE 66
== END 2017-08-25 12:44 | disposition home or self-care (01) ==
LOC: JRADIR 07:58
PROVIDERS: ATTEND Nurse Practitioner Family
PROC: 0JH63XZ Insertion of Tunneled Vascular Access Device into Chest Subcutaneous Tissue and Fascia, Percutaneous Approach (ICD-10-PCS; principal; 2017-08-25)
DX: C23 Malignant neoplasm of gallbladder (principal)
CPT/HCPCS: 36561; C1788; 36415; 77001-TC-FY; 82962; 85025; 85610

== ENCOUNTER 2017-09-01 12:58 | Inpatient (IN) | payer OTHER ==
[2017-09-01 13:06] VITALS: BMI 24.8
--- NOTE | 2017-09-01 13:20 | PDOC ---
History of Present Illness - General History Source: Patient Exam Limitations: No Limitations <Halley Ruiz - Last Filed: 09/01/17 15:33> - General History Source: Patient Exam Limitations: No Limitations - History of Present Illness Initial Comments: 09/01/17 13:49 Patient is a 72-year-old female with a significant past medical history of pneumonia, pleural effusion assoc with pulmonary infection, HLD, RA, HTN, DM, lung surgery, and recent open cholecystectomy after complication with laproscopic procedure (sent to [facility] for the open cholecystectomy), who presents today for discharge from surgical site at right upper quadrant today with associated increased pain and distension to her right upper quadrant for about a week. The patient states the incision was well-healed for about 3 weeks before opening this morning. She reportedly used neosporan and covered the wound with a bandaid. She states she is scheduled to start chemotherapy tomorrow. She states her called Dr. Hines this morning to inform him they were coming to the ED. She denies chest pain, shortness of breath, headache and dizziness. She denies fever, chills, nausea, vomit, diarrhea and constipation. She denies dysuria, frequency, urgency and hematuria. PMD: Dr. Oscar Hines PSOCHX: neg cig, drug, etoh ALL: cephalexin <Anju Moran - Last Filed: 09/01/17 16:03> - General Chief Complaint: Wound Stated Complaint: INCISION OPENING (POST-SURG) Past History - Past Medical History CVA: No COPD: No Diabetes: Yes HTN: Yes Hypercholesterolemia: No - Surgical History Cholecystectomy: Yes Lung Surgery: Yes (2YRS AGO) Neurologic Surgery: No Orthopedic Surgery: Yes (rt knee repair) - Immunization History Immunization Up to Date: No - Suicide/Smoking/Psychosocial Hx Smoking History: Never smoked Have you smoked in the past 12 months: No Information on smoking cessation initiated: No Hx Alcohol Use: No Drug/Substance Use Hx: No Substance Use Type: None Hx Substance Use Treatment: No <Halley Ruiz - Last Filed: 09/01/17 15:33> <Anju Moran - Last Filed: 09/01/17 16:03> - Past Medical History Allergies/Adverse Reactions: Allergies Allergy/AdvReac Type Severity Reaction Status Date / Time cephalexin monohydrate Allergy Severe Difficulty Verified 09/01/17 13:01 [From Keflex] Breathing Home Medications: Ambulatory Orders Lisinopril [Prinivil] 10 mg PO DAILY #30 tablet 09/02/15 Metformin HCl 500 mg PO ASDIR 07/09/17 Nebivolol HCl [Bystolic] 10 mg PO DAILY 07/09/17 Review of Systems - Review of Systems Able to Perform ROS?: Yes Comments:: 09/01/17 14:07 CONSTITUTIONAL: Absent: fever, no chills, no fatigue EYES: Absent: visual changes ENT: Absent: ear pain, no sore throat CARDIOVASCULAR: Absent: chest pain, no palpitations RESPIRATORY: Absent: cough, no SOB GASTROINTESTINAL: (+) right upper abdominal pain, distension and rigidity, Absent: no nausea, no vomiting, no constipation, no diarrhea GENITOURINARY: Absent: dysuria, no frequency, no hematuria MUSCULOSKELETAL: Absent: back pain, no arthralgia, no myalgia SKIN: (+) draining surgical incision to RUQ. Absent: rash NEURO: Absent: headache <Anju Moran - Last Filed: 09/01/17 16:03> *Physical Exam - Vital Signs Last Vital Signs Temp Pulse Resp BP Pulse Ox 98.2 F 87 17 146/82 98 09/01/17 13:01 09/01/17 13:01 09/01/17 13:01 09/01/17 13:01 09/01/17 13:01 <Halley Ruiz - Last Filed: 09/01/17 15:33> - Vital Signs Last Vital Signs Temp Pulse Resp BP Pulse Ox 98.2 F 87 17 146/82 98 09/01/17 13:01 09/01/17 13:01 09/01/17 13:01 09/01/17 13:01 09/01/17 13:01 - Physical Exam Comments: 09/01/17 14:08 GENERAL: The patient is in no acute distress. HEAD: Normal with no signs of trauma. EYES: PERRLA, EOMI, sclera anicteric, conjunctiva clear. ENT: Ears normal, nares patent, oropharynx clear without exudates. Moist mucous membranes. NECK: Normal range of motion, supple without lymphadenopathy, JVD, or masses. LUNGS: Breath sounds equal, clear to auscultation bilaterally. No wheezes, and no crackles. HEART:Regular rate and rhythm, normal S1 and S2 without murmur, rub or gallop. ABDOMEN: Soft, with localized firmness and discomfort to palpation to RUQ. Nontender, normoactive bowel sounds. No guarding, no rebound. No masses palpable. EXTREMITIES: Normal range of motion, no edema. No clubbing or cyanosis. No erythema, or tenderness. NEUROLOGICAL: Cranial nerves II through XII grossly intact. Normal speech. No focal neurological deficits. MUSCULOSKELETAL: Back non-tender to palpation, no CVA tenderness SKIN: (+)Right upper quadrant surgical incision is erythematous, indurated, tender to palpation. There is expressive purulence at the incision site. <Anju Moran - Last Filed: 09/01/17 16:03> ED Treatment Course - LABORATORY CBC & Chemistry Diagram: 09/01/17 14:35 09/01/17 14:35 <Halley Ruiz - Last Filed: 09/01/17 15:33> - LABORATORY CBC & Chemistry Diagram: 09/01/17 14:35 09/01/17 14:35 <Anju Moran - Last Filed: 09/01/17 16:03> Medical Decision Making - Medical Decision Making 09/01/17 14:16 Ms Trevizo is a 72-year-old female presents emergency department with swelling and tenderness at her surgical site. Briefly she is a 72-year-old female with a recent diagnosis of cholecystitis, status postoperative Cholecystectomy which was converted to open cholecystectomy. At that point she was noted to have multiple adhesions and an examination that was concerning for cancer. She was transferred to [facility] [place] where she had a completion of her surgery. She status post right subclavian Mediport. Patient states that postoperatively she had a small wound dehiscence. She had been doing packing and dressing changes. As of 3 weeks ago the wound had been completely close, she was seen by the surgeon and follow-up, and what appeared well. Approximately one week ago she noted increased swelling, pain, erythema of the skin. Symptoms progressively worsened until last night when she noted that the wound opened and began draining. She denies fevers although reports subjective chills. No vomiting, diarrhea. On examination: Patient awake, alert, oriented 3. Heart is regular rate and rhythm Lungs are clear. Abdomen is soft and nondistended. Right upper quadrant surgical incision is erythematous, indurated, tender to palpation. There is expressive purulence at the incision site. Differential diagnosis includes but is not limited to: Cellulitis versus abscess versus seroma Will do: Labs CT abdomen and pelvis to evaluate for collection. Will do vancomycin oh (patient has a severe ALLERGY to Keflex) disease. Case reviewed with Dr. Marya Mahmood. She has seen pt in the ER Will admit Clinical IMpression: cellulitis, abscess, initial presentation 09/01/17 15:32 Laboratory Tests 07/10/17 08/25/17 09/01/17 07:10 08:09 14:35 WBC 10.5 H 11.7 H Hgb 9.2 L 8.6 L Hct 28.5 L 27.2 L Plt Count 440 H 419 Sodium Potassium Chloride Carbon Dioxide Anion Gap 11 BUN Creatinine 0.7 Random Glucose 68 L 09/01/17 14:35 WBC Hgb Hct Plt Count Sodium 139 Potassium 4.3 Chloride 105 Carbon Dioxide 26 Anion Gap 8 BUN 10 Creatinine 0.5 L Random Glucose 128 H <Halley Ruiz - Last Filed: 09/01/17 15:33> - Medical Decision Making 09/01/17 13:37 Called the office of Dr. Hines and was informed Dr. Marya Mahmood is covering today. At this time I am waiting for a call back from Dr. Mahmood to have a doctor to doctor regarding this patient. 09/01/17 13:48 Dr. Mahmood returned the call and the case was discussed 09/01/17 14:05 Dr. Marya Mahmood is at bedside. <Anju Moran - Last Filed: 09/01/17 16:03> *DC/Admit/Observation/Transfer - Discharge Dispostion Admit: Yes <Halley Ruiz - Last Filed: 09/01/17 15:33> - Attestations Scribe Attestion: 09/01/17 14:10 Documentation prepared by Anju Moran, acting as medical transcription editor for Halley Ruiz MD <Anju Moran - Last Filed: 09/01/17 16:03> Diagnosis at time of Disposition: Cellulitis Qualifiers: Site of cellulitis: trunk Site of cellulitis of trunk: abdominal wall Qualified Code(s): L03.311 - Cellulitis of abdominal wall - Discharge Dispostion Condition at time of disposition: Stable
[2017-09-01] MEDS ORDERED: VANCOMYCIN 1,000 MG in DEXTROSE 5%-WATER - 250 ML IVPB ONE (13:35)
--- NOTE | 2017-09-01 13:50 | HP ---
Admitting History and Physical - Primary Care Physician PCP: Oscar Hines - Admission Chief Complaint: abd pain , drainage from surgical wound History of Present Illness: 72 ys old femal well known to me admitted for abdominal wall cellulitis. Pt has recently been diagnosed with adeno CA gallbladder- found to have gallbladder cancer here and was transferred to [facility] for omentectomy, small parts of liver removed, colon, small intestine- per pt. She has a portacath for chemotherapy that was scheduled for tomorrow with Dr De Dios. Few days ago, she has been feeling "not well"- noticed the area around the surgical scar to be red, had developed pain and hardness- she [id number] it was part of the healing process. Yesterday night had opening of the wound with drainage. admits to [facility]- did not record a temp. History Source: Patient Limitations to Obtaining History: No Limitations - Past Medical History Cardiovascular: Yes: HTN, Hyperlipdemia Gastrointestinal: Yes: Cancer (gallbladder) Rheumatology: Yes: Rheumatoid Arthritis Endocrine: Yes: Diabetes Mellitus (pre - DM) - Past Surgical History Past Surgical History: Yes: Thoracotomy - Smoking History Smoking history: Never smoked Have you smoked in the past 12 months: No - Alcohol/Substance Use Hx Alcohol Use: No - Social History ADL: Independent History of Recent Travel: No Home Medications - Allergies Allergies/Adverse Reactions: Allergies Allergy/AdvReac Type Severity Reaction Status Date / Time cephalexin monohydrate Allergy Severe Difficulty Verified 09/01/17 13:01 [From Keflex] Breathing - Home Medications Home Medications: Ambulatory Orders Lisinopril [Prinivil] 10 mg PO DAILY #30 tablet 09/02/15 Metformin HCl 500 mg PO ASDIR PRN 07/09/17 Nebivolol HCl [Bystolic] 10 mg PO DAILY 07/09/17 Review of Systems - Review of Systems Constitutional: reports: Chills, Loss of Appetite. denies: Fever, Weakness Gastrointestinal: reports: Abdominal Pain Physical Examination Vital Signs: Vital Signs Temperature 98.2 F 09/01/17 13:01 Pulse Rate 87 09/01/17 13:01 Respiratory Rate 17 09/01/17 13:01 Blood Pressure 146/82 09/01/17 13:01 O2 Sat by Pulse Oximetry (%) 98 09/01/17 13:01 Constitutional: Yes: No Distress, Calm Cardiovascular: Yes: Regular Rate and Rhythm Respiratory: Yes: CTA Bilaterally Gastrointestinal: Yes: Normal Bowel Sounds, Soft, Other (rt upper quadrant surgical scar-- small dehiscence- drainage of serous fluid, surrounding erythema , tender and indurated) Edema: No Imaging - Results EKG: Image Reviewed (NSR) Problem List - Problems (1) Cellulitis Code(s): L03.90 - CELLULITIS, UNSPECIFIED Qualifiers: Site of cellulitis: trunk Site of cellulitis of trunk: abdominal wall Qualified Code(s): L03.311 - Cellulitis of abdominal wall (2) Gallbladder cancer Code(s): C23 - MALIGNANT NEOPLASM OF GALLBLADDER (3) Wound infection after surgery Code(s): T81.4XXA - INFECTION FOLLOWING A PROCEDURE, INITIAL ENCOUNTER (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
[2017-09-01] MEDS ORDERED: VANCOMYCIN 1 GRAM (PRE-DOCKED) 1,000 MG/250 ML BAG IVPB ONE (14:12)
[2017-09-01 14:45] LABS: BASO % 0.6 % (0-2.0); EOS % 0.7 % (0-4.5); HEMATOCRIT 27.2 % (32.4-45.2); HEMOGLOBIN 8.6 GM/dL (10.7-15.3); LYMPH % 19.3 % (8-40); MCH 22.7 pg (25.7-33.7); MCHC 31.5 g/dl (32.0-36.0); MEAN PLT VOLUME 8.2 fl (7.5-11.1); MONO % 5.7 % (3.8-10.2); NEUT % 73.7 % (42.8-82.8); PLATELET COUNT 419 K/MM3 (134-434); RBC 3.78 M/mm3 (3.60-5.2); RDW 23.1 % (11.6-15.6); WHITE BLOOD COUNT 11.7 K/mm3 (4.0-10.0)
[2017-09-01 15:13] LABS: ALBUMIN 2.8 g/dl (3.4-5.0); ALK PHOS 123 U/L (45-117); ANION GAP 8 (8-16); BILIRUBIN,TOTAL 0.3 mg/dL (0.2-1.0); BLOOD UREA NITROGEN 10 mg/dL (7-18); CALCIUM 8.6 mg/dL (8.5-10.1); CHLORIDE 105 mmol/L (98-107); CO2 26 mmol/L (21-32); CREATININE 0.5 mg/dL (0.55-1.02); GLUCOSE,RANDOM 128 mg/dL (74-106); SGPT/ALT 13 U/L (12-78); SODIUM 139 mmol/L (136-145); TOT PROT 6.8 g/dl (6.4-8.2)
[2017-09-01 15:16] LABS: POTASSIUM 4.3 mmol/L (3.5-5.1); SGOT/AST 20 U/L (15-37)
[2017-09-01] MEDS ORDERED: AZTREONAM 2 GM in DEXTROSE 5%-WATER 100 ML IVPB ONE (15:57)
--- NOTE | 2017-09-01 16:11 | PN ---
Progress Note (short form) - Note Progress Note: ID consult dictated imp/reccd wound infection probable abscess 72 year old female with gallbladder cancer- recent surgery in July first here and then at [facility]- discharged from there about one month ago doing well at home wound healing nicely over the weekend noted some chills, incision became hard and indurated then had some drainage overnight from the incision - no fevers in the ED started on vancomycin keflex allergy noted would add azactam and flagyl for bowel coverage ct scan still pending-r/o abscess d/w ED doctor Problem List - Problems (1) Wound infection after surgery Code(s): T81.4XXA - INFECTION FOLLOWING A PROCEDURE, INITIAL ENCOUNTER (2) Gallbladder cancer Code(s): C23 - MALIGNANT NEOPLASM OF GALLBLADDER
--- NOTE | 2017-09-01 16:18 | PN ---
Progress Note (short form) - Note Progress Note: Consult dictated 72 year old female presented to [facility] ER and found to have cholelithiasis with multiple GI complaints. At time of surgery found to have extensive gall bladder cancer and patient transferred to [facility]. On 07/14/17 underwent partial hepatectomy, cholecystectomy, duodenctomy, gastrojejunostomy, and partial colectomy. Found to have invasive adenocarcinoma involving serosal sufaces of colon and duodenum, extending to involve colon. Omentectomy positive for adenoca. Adenoca involving 4/5 lymph nodes - pericolonic. Gallbladder with adenoca with extension into hepatic parenchyma. Had colon, hepatic flexure, duodenal resection, omentectomy, cholecystectomy, and partial hepatectomy. Patient was scheduled for chemotherapy on 09/02. (Cis mesa grande and Gemcitibine) Over last several days, developed painful area of surgical scar with cellulitis , and drainage. CT pending to assess possibility of abscess Chemotherapy to be deferred. Of note, patient also had an occlusive thrombus in the left gastrocnemius, No anticoagulation administered in view of its distal poition which had not progressed on repeat sono. Suggest: ID Sono/duplex LE's DVT prophylaxis Surgical assessment GI assessment New port has been placed by Dr. Wells and dressing can be removed on 09/02.
--- NOTE | 2017-09-01 16:48 | CONS ---
DATE OF CONSULTATION: 09/01/2017 HISTORY OF PRESENT ILLNESS: This is a 72-year-old female who is seen in the ER for evaluation of erythema, cellulitis, drainage at the site of a right upper quadrant surgical scar. The patient is a 72-year-old female who presented with nonspecific GI complaints over several months' duration. She developed anorexia, early satiety, emesis. She presented to the [facility] ER and was found to have cholelithiasis. She initially underwent a laparoscopic surgery which was converted to an open procedure. She was found to have extensive gallbladder cancer, and the procedure was cancelled. She was transferred to [facility] on July 14, 2017, underwent a partial hepatectomy, cholecystectomy, duodenectomy, gastrojejunostomy, and partial colectomy with 4 positive nodes. Pathology revealed lymph nodes, 2 lymph nodes in the portal area negative for cancer. There was adenocarcinoma involving the omentum and fibroadipose tissue of the omentum. There was adenocarcinoma involving the serosal surface of the colon and duodenum extending to involve the mucosa of the colon. There was adenocarcinoma involving 4 or 5 lymph nodes. 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 It was a stage T4, N2, M1. Postoperatively, the patient was seen and plans were to begin adjunctive chemotherapy with cisplatinum and Gemzar. The patient unfortunately developed over the past several days pain in the right upper quadrant at the surgical scar with tenderness, erythema, and drainage. It appears she has cellulitis and perhaps even an abscess of the surgical scar site. The patient also underwent venous imaging of the lower extremity, and she had full patency and normal vessel compressibility of the left common femoral, left saphenofemoral junction, left proximal femoral, left mid femoral, and left distal femoral, left popliteal, left peroneal, left posterior tibial, left greater saphenous above the knee, and left greater saphenous veins. There was acute occlusive thrombus seen in the left gastrocnemius. It demonstrated an incompressible vein. HEALTHCARE MAINTENANCE: The patient had a mammogram in 2016. She never had a colonoscopy. She never had endoscopy. She had a Pap smear more than 30 years ago. A CAT scan was done which revealed multiple pulmonary nodules. REVIEW OF SYSTEMS: No headaches. No diplopia. No epistaxis. No dysphagia. No chest pain. Right upper quadrant pain. Erythema. Tenderness. Drainage. No dysuria, hematuria. Various musculoskeletal complaints. LABORATORY: Temperature 98.2, blood pressure 146/82 weight 123. Chemistry: Sodium 139, potassium 43, chloride 105, CO2 of 26, BUN 10, creatinine clearance greater than 60, glucose 128, lactate 0.9, calcium 8.6, bilirubin 0.3 AST 20, ALT 13, alkaline phosphatase 123, protein 6.8, albumin 2.8, WBC 11.7, hematocrit 27.2, MCV 72, platelets 419, 74 polycytes, 19 lymphocytes. CAT scan pending. IMPRESSION: Patient with history of gallbladder cancer, invasive adenocarcinoma status post partial hepatectomy, status post cholecystectomy, status post , status post gastrojejunostomy, status post partial colectomy with 4 positive nodes. Currently with cellulitis at the surgical site with some drainage, questionable abscess, CT pending. Chemotherapy which was planned, to be deferred. Will monitor. Thank you. RILEY HART M.D. [id number]
--- NOTE | 2017-09-01 18:20 | CONS ---
DATE OF CONSULTATION: 09/01/2017 HISTORY OF PRESENT ILLNESS: This is a 72-year-old woman who I know from an extensive admission in 2016 when she had pneumonia and empyema requiring VATS decortication. She did well with that admission and apparently came here in early July 09 when she was admitted with acute cholecystitis. She was taken to the operating room where she was found to have malignant gallbladder cancer. She was transferred to [facility] for further management. At [facility] she underwent further resection of the gallbladder tumor including part of her liver, part of her pancreas, and part of her colon; this is all according to the patient. No records are currently available. She was there for 2 weeks and ultimately discharged home. She says she has been home for about a month. She went for her postoperative check a week later where the wound was healing very nicely, there were no drains, everything had been removed. She was getting ready to start chemotherapy, which was scheduled to start tomorrow. This past weekend she developed chills. She noted that the incision became indurated and warm. Last night she started having some drainage, and she presented to the emergency room. In the ER she was noted to have minimal drainage from the site. She denies chest pain, shortness of breath. She has no headache or dizziness. She has no diarrhea or dysuria. She has no nausea or vomiting. She has been able to eat. She is allergic to CEPHALEXIN. PAST MEDICAL HISTORY: Notable for diabetes, hypertension, hypercholesterolemia. She had empyema and required VATS decortication. She is status post cholecystectomy , and the extensive right upper quadrant surgery in July of this year, and she has had right knee repair. SOCIAL HISTORY: No history of any cigarette or substance use. She is , she lives with her spouse. She is allergic to KEFLEX. Her medications at home include lisinopril, metformin, and Bystolic. REVIEW OF SYSTEMS: Notable for right upper quadrant pain. PHYSICAL EXAMINATION: General: She is awake and alert. Vital signs: Temperature 98.2, pulse 87, blood pressure 146/82, respiratory rate 17. She weighs 123 pounds. HEENT: Normocephalic. Eyes are anicteric. Neck: Supple. Lungs: Clear to auscultation. Heart: Regular rate and rhythm. Abdomen: Soft. She has erythema extending along her entire right upper quadrant incision which is large, about 10 cm. She has minimal drainage from the middle of the wound. LABORATORY: Notable for a white count of 11.7, hemoglobin 8.6, platelets of 419. BUN and creatinine are 8 and 0.5. Urinalysis is negative, and cultures are pending. CAT scan is still pending. IMPRESSION: In summary, this is an elderly woman, 72-year-old with gallbladder cancer, status post extensive right upper quadrant surgery, most likely has a wound infection, probable abscess. No fevers in the ER, but she has had some chills. Cultures have been sent. She was started on vancomycin. She has a KEFLEX allergy. Would add Azactam and Flagyl for gram-negative and anaerobic coverage for bowel coverage. CAT scan is still pending. The above was discussed with the ER doctor as well as her primary doctor. Further recommendations to follow. Drainage from the wound has been sent as well for culture. HOPE GRIFFIN M.D. [id number] ALEJANDRA
[2017-09-02] MEDS: AZTREONAM 1 GM in DEXTROSE 5%-WATER - 50 ML IVPB SCH ×3 (03:05→17:24)
[2017-09-02] MEDS ORDERED: PT OWN MED DRAWER 7, Y5N ONE ×2 (10:01→16:52)
[2017-09-02] MEDS: NEBIVOLOL 10 MG TABLET (FP) PO SCH (10:05)
[2017-09-02] MEDS: LISINOPRIL 10 MG TABLET (FP) PO SCH (10:05)
[2017-09-02 10:40] LABS: HEMATOCRIT 26.3 % (32.4-45.2); HEMOGLOBIN 8.6 GM/dL (10.7-15.3); MCH 23.3 pg (25.7-33.7); MCHC 32.6 g/dl (32.0-36.0); MEAN CELL VOLUME 71.4 fl (80-96); MEAN PLT VOLUME 7.9 fl (7.5-11.1); PLATELET COUNT 418 K/MM3 (134-434); RBC 3.69 M/mm3 (3.60-5.2); RDW 22.7 % (11.6-15.6); WHITE BLOOD COUNT 6.8 K/mm3 (4.0-10.0)
--- NOTE | 2017-09-02 10:48 | PN ---
Progress Note, Physician Chief Complaint: ID History as summarized and reviewed Currently she looks and feels well - Current Medication List Current Medications: Active Medications Heparin Sodium (Porcine) (Heparin -) 5,000 unit SQ BID [facility] Metronidazole (Flagyl 500mg Premixed Ivpb -) 500 mg in 100 mls @ 100 mls/hr IVPB Q8H-IV [facility] Last Admin: 09/02/17 10:06 Dose: 100 mls/hr Aztreonam 1 gm/ Dextrose 50 mls @ 100 mls/hr IVPB Q8H-IV [facility] PRN Reason: Protocol Last Admin: 09/02/17 03:05 Dose: 100 mls/hr Vancomycin HCl 1,000 mg/ (Dextrose) 250 mls @ 166.667 mls/hr IVPB Q24H [facility] PRN Reason: Protocol Lisinopril (Prinivil) 10 mg PO DAILY [facility] Last Admin: 09/02/17 10:05 Dose: 10 mg Nebivolol (Bystolic -) 10 mg PO DAILY [facility] Last Admin: 09/02/17 10:05 Dose: 10 mg - Objective Vital Signs: Vital Signs Temperature 98.4 F 09/02/17 06:21 Pulse Rate 68 09/02/17 06:21 Respiratory Rate 18 09/02/17 06:21 Blood Pressure 136/63 09/02/17 06:21 O2 Sat by Pulse Oximetry (%) 18 L 09/01/17 16:50 Constitutional: Yes: No Distress Neck: Yes: WNL, Supple Cardiovascular: Yes: Regular Rate and Rhythm, S1, S2 Respiratory: Yes: WNL, Regular, CTA Bilaterally Gastrointestinal: Yes: WNL, Normal Bowel Sounds, Soft (tenderness along incision little serosanguinous drainage NO erythema) Assessment/Plan Laboratory Tests 09/01/17 09/02/17 14:35 10:20 WBC 11.7 H Pending Hgb Pending Hct Pending Plt Count Pending Assessment Suspect post operative hematoma Issue of cellulitis raised (erythema ) Continue current antibiotics as ordered Surgical consult Will call Dr Arturo Martinez MD
[2017-09-02 11:04] LABS: ALBUMIN 2.7 g/dl (3.4-5.0); ALK PHOS 115 U/L (45-117); ANION GAP 9 (8-16); BILIRUBIN,TOTAL 0.3 mg/dL (0.2-1.0); BLOOD UREA NITROGEN 7 mg/dL (7-18); CALCIUM 8.4 mg/dL (8.5-10.1); CHLORIDE 105 mmol/L (98-107); CO2 28 mmol/L (21-32); CREATININE 0.5 mg/dL (0.55-1.02); GLUCOSE,RANDOM 137 mg/dL (74-106); POTASSIUM 3.6 mmol/L (3.5-5.1); SGOT/AST 11 U/L (15-37); SGPT/ALT 11 U/L (12-78); SODIUM 142 mmol/L (136-145); TOT PROT 6.6 g/dl (6.4-8.2)
[2017-09-02] MEDS: VANCOMYCIN 1,000 MG in DEXTROSE 5%-WATER - 250 ML IVPB SCH (11:07)
--- NOTE | 2017-09-02 12:02 | PN ---
Progress Note, Physician Chief Complaint: no distress - Current Medication List Current Medications: Active Medications Heparin Sodium (Porcine) (Heparin -) 5,000 unit SQ BID [facility] Metronidazole (Flagyl 500mg Premixed Ivpb -) 500 mg in 100 mls @ 100 mls/hr IVPB Q8H-IV [facility] Last Admin: 09/02/17 10:06 Dose: 100 mls/hr Aztreonam 1 gm/ Dextrose 50 mls @ 100 mls/hr IVPB Q8H-IV [facility] PRN Reason: Protocol Last Admin: 09/02/17 11:07 Dose: 100 mls/hr Vancomycin HCl 1,000 mg/ (Dextrose) 250 mls @ 166.667 mls/hr IVPB Q24H [facility] PRN Reason: Protocol Last Admin: 09/02/17 11:07 Dose: 166.667 mls/hr Lisinopril (Prinivil) 10 mg PO DAILY [facility] Last Admin: 09/02/17 10:05 Dose: 10 mg Nebivolol (Bystolic -) 10 mg PO DAILY [facility] Last Admin: 09/02/17 10:05 Dose: 10 mg - Objective Vital Signs: Vital Signs Temperature 98.4 F 09/02/17 06:21 Pulse Rate 68 09/02/17 06:21 Respiratory Rate 18 09/02/17 06:21 Blood Pressure 136/63 09/02/17 06:21 O2 Sat by Pulse Oximetry (%) 18 L 09/01/17 16:50 Constitutional: Yes: No Distress, Calm Cardiovascular: Yes: Regular Rate and Rhythm Respiratory: Yes: CTA Bilaterally Gastrointestinal: Yes: Normal Bowel Sounds, Soft, Tenderness, Other (decreased erythema at right upper quadrant , serous fluid +, indurated, tender) Edema: No Labs: CBC, BMP 09/02/17 10:20 09/02/17 10:20 Problem List - Problems (1) Cellulitis Code(s): L03.90 - CELLULITIS, UNSPECIFIED Qualifiers: Site of cellulitis: trunk Site of cellulitis of trunk: abdominal wall Qualified Code(s): L03.311 - Cellulitis of abdominal wall (2) Gallbladder cancer Code(s): C23 - MALIGNANT NEOPLASM OF GALLBLADDER (3) Wound infection after surgery Code(s): T81.4XXA - INFECTION FOLLOWING A PROCEDURE, INITIAL ENCOUNTER (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
--- NOTE | 2017-09-02 12:59 | EKG ---
Test Reason : Blood Pressure : / mmHG Vent. Rate : 071 BPM Atrial Rate : 071 BPM P-R Int : 124 ms QRS Dur : 074 ms QT Int : 390 ms P-R-T Axes : 057 -10 014 degrees QTc Int : 423 ms NORMAL SINUS RHYTHM NORMAL ECG WHEN COMPARED WITH ECG OF 09-JUL-2017 01:11, PREMATURE ATRIAL COMPLEXES ARE NO LONGER PRESENT Confirmed by BERNARDO SEXTON MD ([id number]) on 09/02/2017 12:58:35 PM Referred By: Confirmed By:BERNARDO SEXTON MD
--- NOTE | 2017-09-02 19:40 | CONSULT ---
Consult - History of Present Illness History of Present Illness: 72 ys old female admitted for abdominal wound drainage. Pt has recently been diagnosed with adeno CA of the gallbladder, was transferred to [facility] and underwent radical cholecystectomy with partial gastrectomy and colectomy 2 months ago Few days ago, she has been feeling "not well"- noticed the area around the surgical scar to be red, had developed pain and hardness- she [id number] it was part of the healing process. Yesterday night had opening of the wound with drainage. admits to chills- did not record a temp. - Past Medical History Cardio/Vascular: Yes: HTN, Hyperlipdemia Gastrointestinal: Yes: Cancer (gallbladder) ...: No Rheumatology: Yes: Rheumatoid Arthritis Endocrine: Yes: Diabetes Mellitus (pre - DM) - Past Surgical History Past Surgical History: Yes: Thoracotomy - Alcohol/Substance Use Hx Alcohol Use: No - Smoking History Smoking history: Never smoked Have you smoked in the past 12 months: No - Social History ADL: Independent History of Recent Travel: No Home Medications - Allergies Allergies/Adverse Reactions: Allergies Allergy/AdvReac Type Severity Reaction Status Date / Time cephalexin monohydrate Allergy Severe Difficulty Verified 09/01/17 13:01 [From Keflex] Breathing - Home Medications Home Medications: Ambulatory Orders Lisinopril [Prinivil] 10 mg PO DAILY #30 tablet 09/02/15 Metformin HCl 500 mg PO ASDIR PRN 07/09/17 Nebivolol HCl [Bystolic] 10 mg PO DAILY 07/09/17 Physical Exam Vital Signs: Vital Signs Temperature 98.1 F 09/02/17 14:25 Pulse Rate 70 09/02/17 14:25 Respiratory Rate 18 09/02/17 10:00 Blood Pressure 146/68 09/02/17 14:25 O2 Sat by Pulse Oximetry (%) 18 L 09/01/17 16:50 Wound/Incision: Yes: Clean/Dry, Draining (thick purulent fluid at medial aspect of extended Nelli incision) Labs: CBC, BMP 09/02/17 10:20 09/02/17 10:20 Problem List - Problems (1) Wound infection after surgery Assessment/Plan: delayed post-op wound infection Wound opening enlarged to 3 cm and 2 cc of thick purulent fluid was drained. The wound cavity (4 x 2 cm) was irrigated with sterile NS and lightly packed with sterile gauze. For daily wound care with NS irrigation and light gauze packing continue antimicrobial Rx. Code(s): T81.4XXA - INFECTION FOLLOWING A PROCEDURE, INITIAL ENCOUNTER
[2017-09-02] MEDS: HEPARIN NA (PORCINE) 5,000 UNITS/ML 1ML VIAL SQ SCH (21:27)
[2017-09-03] MEDS ORDERED: PT OWN MED DRAWER 7, Y5N ONE ×3 (02:42→17:22)
[2017-09-03] MEDS: AZTREONAM 1 GM in DEXTROSE 5%-WATER - 50 ML IVPB SCH ×3 (02:43→17:24)
[2017-09-03 08:18] LABS: HEMATOCRIT 25.6 % (32.4-45.2); HEMOGLOBIN 8.5 GM/dL (10.7-15.3); MCH 23.5 pg (25.7-33.7); MCHC 33.1 g/dl (32.0-36.0); MEAN CELL VOLUME 71.1 fl (80-96); PLATELET COUNT 419 K/MM3 (134-434); RBC 3.61 M/mm3 (3.60-5.2); RDW 22.5 % (11.6-15.6); WHITE BLOOD COUNT 6.6 K/mm3 (4.0-10.0)
[2017-09-03 09:02] LABS: ALBUMIN 2.5 g/dl (3.4-5.0); ALK PHOS 99 U/L (45-117); ANION GAP 5 (8-16); BILIRUBIN,TOTAL 0.3 mg/dL (0.2-1.0); BLOOD UREA NITROGEN 7 mg/dL (7-18); CHLORIDE 108 mmol/L (98-107); CO2 28 mmol/L (21-32); CREATININE 0.4 mg/dL (0.55-1.02); GLUCOSE,RANDOM 109 mg/dL (74-106); POTASSIUM 3.7 mmol/L (3.5-5.1); SGOT/AST 7 U/L (15-37); SGPT/ALT 8 U/L (12-78); SODIUM 141 mmol/L (136-145); TOT PROT 5.9 g/dl (6.4-8.2)
[2017-09-03] MEDS: LISINOPRIL 10 MG TABLET (FP) PO SCH (09:17)
[2017-09-03] MEDS: HEPARIN NA (PORCINE) 5,000 UNITS/ML 1ML VIAL SQ SCH ×2 (09:17→21:33)
[2017-09-03] MEDS: NEBIVOLOL 10 MG TABLET (FP) PO SCH (09:18)
--- NOTE | 2017-09-03 09:43 | PN ---
Progress Note (short form) - Note Progress Note: Pt seen/ examined. Chart reviewed comfortable s/p i/d yesterday Vital Signs Temp 98 F 09/03/17 05:09 Pulse 68 09/03/17 05:09 Resp 20 09/03/17 05:09 BP 148/85 09/03/17 05:09 Pulse Ox 18 L 09/01/17 16:50 Intake & Output 09/02/17 09/02/17 09/03/17 11:59 23:59 11:59 Intake Total 250 800 150 Balance 250 800 150 Weight 125 lb 4 oz 123 lb Intake: IVPB 150 250 150 Oral 100 550 Other: Voiding Method Toilet Toilet # Unmeasured Voids Void 1 2 2 Bowel Movement Yes Yes No # Bowel Movements 1 1 Weight Measurement Method Built in Bedscale Built in Bedscale Active Medications Heparin Sodium (Porcine) (Heparin -) 5,000 unit SQ BID [facility] Last Admin: 09/03/17 09:17 Dose: 5,000 unit Metronidazole (Flagyl 500mg Premixed Ivpb -) 500 mg in 100 mls @ 100 mls/hr IVPB Q8H-IV [facility] Last Admin: 09/03/17 09:13 Dose: 100 mls/hr Aztreonam 1 gm/ Dextrose 50 mls @ 100 mls/hr IVPB Q8H-IV [facility] PRN Reason: Protocol Last Admin: 09/03/17 09:18 Dose: 100 mls/hr Vancomycin HCl 1,000 mg/ (Dextrose) 250 mls @ 166.667 mls/hr IVPB Q24H [facility] PRN Reason: Protocol Last Admin: 09/02/17 11:07 Dose: 166.667 mls/hr Lisinopril (Prinivil) 10 mg PO DAILY [facility] Last Admin: 09/03/17 09:17 Dose: 10 mg Nebivolol (Bystolic -) 10 mg PO DAILY [facility] Last Admin: 09/03/17 09:18 Dose: 10 mg CBC, BMP 09/03/17 07:25 09/03/17 07:25 Microbiology 09/01/17 13:31 Blood Culture - Preliminary Blood - Peripheral Venous NO GROWTH OBTAINED AFTER 24 HOURS, INCUBATION TO CONTINUE FOR 4 DAYS. 09/01/17 13:31 Blood Culture - Preliminary Blood - Peripheral Venous NO GROWTH OBTAINED AFTER 24 HOURS, INCUBATION TO CONTINUE FOR 4 DAYS. Physical Constitutional: Yes: No Distress, Calm Cardiovascular: Yes: Regular Rate and Rhythm. Chest -- Port + Respiratory: Yes: CTA Bilaterally Gastrointestinal: Yes: Normal Bowel Sounds, Soft, Tenderness, Other (decreased erythema at right upper quadrant , serous fluid +, indurated, tender) Edema: No Problem List - Problems (1) Cellulitis Code(s): L03.90 - CELLULITIS, UNSPECIFIED Qualifiers: Site of cellulitis: trunk Site of cellulitis of trunk: abdominal wall Qualified Code(s): L03.311 - Cellulitis of abdominal wall (2) Gallbladder cancer Code(s): C23 - MALIGNANT NEOPLASM OF GALLBLADDER (3) Wound infection after surgery Code(s): T81.4XXA - INFECTION FOLLOWING A PROCEDURE, INITIAL ENCOUNTER (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 will follow
[2017-09-03] MEDS: VANCOMYCIN 1,000 MG in DEXTROSE 5%-WATER - 250 ML IVPB SCH (11:52)
--- NOTE | 2017-09-03 12:21 | PN ---
Progress Note (short form) - Note Progress Note: Patient seen and examined Surgical note reviewed post op wound infection/abscess opened , drained, irrigated and packed. Patient offers no complaints and feels well. Last Vital Signs Temp Pulse Resp BP Pulse Ox 98 F 68 20 148/85 18 L 09/03/17 05:09 09/03/17 05:09 09/03/17 05:09 09/03/17 05:09 09/01/17 16:50 HEENT: CAM, EOM Intact Oropharynx: No thrush, No mucositis Cor: RSR, No murmurs, No gallops Lungs: Clear to P&A Abd: Soft, Normal bowel sounds, No organomegaly, wound site dressed Ext:No significant edema Skin: No rashes, Integument intact CBC, BMP 09/03/17 07:25 09/03/17 07:25 Current Medications Generic Name Dose Route Start Last Admin Trade Name Freq PRN Reason Stop Dose Admin Heparin Sodium (Porcine) 5,000 unit 09/02/17 22:00 09/03/17 09:17 Heparin - SQ 5,000 unit BID [facility] Administration Metronidazole 500 mg in 100 mls @ 100 mls/hr 09/02/17 02:00 09/03/17 09:13 Flagyl 500mg Premixed Ivpb - IVPB 100 mls/hr Q8H-IV [facility] Administration Aztreonam 1 gm/ Dextrose 50 mls @ 100 mls/hr 09/02/17 02:00 09/03/17 09:18 IVPB 100 mls/hr Q8H-IV [facility] Administration Protocol Vancomycin HCl 1,000 mg/ 250 mls @ 166.667 mls/hr 09/02/17 10:00 09/03/17 11: 52 Dextrose IVPB 166.667 mls/hr Q24H [facility] Administration Protocol Lisinopril 10 mg 09/02/17 10:00 09/03/17 09:17 Prinivil PO 10 mg DAILY [facility] Administration Nebivolol 10 mg 09/02/17 10:00 09/03/17 09:18 Bystolic - PO 10 mg DAILY [facility] Administration Impression: Post op wound/abscess collection drained, irrigated , and packed On IV antibiotics per ID Anemia Plan current therapy Defer chemotherapy for now.
--- NOTE | 2017-09-03 14:15 | PN ---
Progress Note, Physician Chief Complaint: ID Appreciated Dr Morris intervention opening wound with finding of purulent drainage Vancomycin metronidazole and Aztreonam - Current Medication List Current Medications: Active Medications Heparin Sodium (Porcine) (Heparin -) 5,000 unit SQ BID [facility] Last Admin: 09/03/17 09:17 Dose: 5,000 unit Metronidazole (Flagyl 500mg Premixed Ivpb -) 500 mg in 100 mls @ 100 mls/hr IVPB Q8H-IV [facility] Last Admin: 09/03/17 09:13 Dose: 100 mls/hr Aztreonam 1 gm/ Dextrose 50 mls @ 100 mls/hr IVPB Q8H-IV [facility] PRN Reason: Protocol Last Admin: 09/03/17 09:18 Dose: 100 mls/hr Vancomycin HCl 1,000 mg/ (Dextrose) 250 mls @ 166.667 mls/hr IVPB Q24H [facility] PRN Reason: Protocol Last Admin: 09/03/17 11:52 Dose: 166.667 mls/hr Lisinopril (Prinivil) 10 mg PO DAILY [facility] Last Admin: 09/03/17 09:17 Dose: 10 mg Nebivolol (Bystolic -) 10 mg PO DAILY [facility] Last Admin: 09/03/17 09:18 Dose: 10 mg - Objective Vital Signs: Vital Signs Temperature 98 F 09/03/17 05:09 Pulse Rate 68 09/03/17 05:09 Respiratory Rate 20 09/03/17 05:09 Blood Pressure 148/85 09/03/17 05:09 O2 Sat by Pulse Oximetry (%) 18 L 09/01/17 16:50 Constitutional: Yes: No Distress HENT: Yes: WNL, Atraumatic Neck: Yes: WNL, Supple Cardiovascular: Yes: Regular Rate and Rhythm, S1, S2. No: Murmur Respiratory: Yes: WNL, Regular, CTA Bilaterally Gastrointestinal: Yes: WNL, Normal Bowel Sounds, Hepatomegaly, Other (wound open some bloody drainage on dressing but no pus seen). No: Tenderness Labs: CBC, BMP 09/03/17 07:25 09/03/17 07:25 Assessment/Plan Microbiology 09/01/17 13:34 Skin - Cellulitis Gram Stain - Final 09/01/17 13:34 Skin - Cellulitis Wound Culture - Preliminary Non Lactose Fermenting Gnb 09/01/17 13:31 Blood - Peripheral Venous Blood Culture - Preliminary NO GROWTH OBTAINED AFTER 24 HOURS, INCUBATION TO CONTINUE FOR 4 DAYS. 09/01/17 13:31 Blood - Peripheral Venous Blood Culture - Preliminary NO GROWTH OBTAINED AFTER 24 HOURS, INCUBATION TO CONTINUE FOR 4 DAYS. Laboratory Tests 09/03/17 09/03/17 07:25 07:25 WBC 6.6 Hct 25.6 L Plt Count 419 BUN 7 Creatinine 0.4 L Assessment Surgical wound infection Original wound culture NLF gram negative Not sure if deeper wound c/s sent yesterday Plan She looks well no fever or WBC elevation Sent wound culture from within wound Await prelim culture Same antibiotic Vanco mac Martinez MD
[2017-09-04] MEDS ORDERED: PT OWN MED DRAWER 7, Y5N ONE ×3 (02:00→16:41)
[2017-09-04] MEDS: AZTREONAM 1 GM in DEXTROSE 5%-WATER - 50 ML IVPB SCH ×3 (02:03→17:10)
--- NOTE | 2017-09-04 09:00 | PN ---
Progress Note (short form) - Note Progress Note: pt seen/ examined comfortable pain under control afebrile feels better eating ok Vital Signs Temp 97.6 F 09/04/17 06:00 Pulse 67 09/04/17 06:00 Resp 18 09/04/17 06:00 BP 162/93 09/04/17 06:00 Pulse Ox 97 09/03/17 22:00 Intake & Output 09/03/17 09/03/17 09/04/17 11:59 23:59 11:59 Intake Total 900 150 150 Balance 900 150 150 Weight 123 lb 126 lb 6 oz Intake: IVPB 550 150 150 Oral 350 Other: Voiding Method Toilet Toilet # Unmeasured Voids Void 1 2 4 Bowel Movement No Weight Measurement Method Built in Bedscale Built in Bedscale Active Medications Heparin Sodium (Porcine) (Heparin -) 5,000 unit SQ BID [facility] Last Admin: 09/03/17 21:33 Dose: 5,000 unit Metronidazole (Flagyl 500mg Premixed Ivpb -) 500 mg in 100 mls @ 100 mls/hr IVPB Q8H-IV [facility] Last Admin: 09/04/17 02:03 Dose: 100 mls/hr Aztreonam 1 gm/ Dextrose 50 mls @ 100 mls/hr IVPB Q8H-IV [facility] PRN Reason: Protocol Last Admin: 09/04/17 02:03 Dose: 100 mls/hr Vancomycin HCl 1,000 mg/ (Dextrose) 250 mls @ 166.667 mls/hr IVPB Q24H [facility] PRN Reason: Protocol Last Admin: 09/03/17 11:52 Dose: 166.667 mls/hr Lisinopril (Prinivil) 10 mg PO DAILY [facility] Last Admin: 09/03/17 09:17 Dose: 10 mg Nebivolol (Bystolic -) 10 mg PO DAILY [facility] Last Admin: 09/03/17 09:18 Dose: 10 mg CBC, BMP 09/03/17 07:25 09/03/17 07:25 Microbiology 09/01/17 13:31 Blood Culture - Preliminary Blood - Peripheral Venous NO GROWTH OBTAINED AFTER 48 HOURS, INCUBATION TO CONTINUE FOR 3 DAYS. 09/01/17 13:31 Blood Culture - Preliminary Blood - Peripheral Venous NO GROWTH OBTAINED AFTER 48 HOURS, INCUBATION TO CONTINUE FOR 3 DAYS. 09/01/17 13:34 Gram Stain - Final Skin - Cellulitis Wound Culture - Preliminary Non Lactose Fermenting Gnb Physical Constitutional: Yes: No Distress, Calm. comfortable. Cardiovascular: Yes: Regular Rate and Rhythm. Chest -- Port + Respiratory: Yes: CTA Bilaterally Gastrointestinal: Yes: Normal Bowel Sounds, Soft, Tenderness, Other (decreased erythema at right upper quadrant , serous fluid +, indurated, tender) Edema: No Problem List - Problems (1) Cellulitis Code(s): L03.90 - CELLULITIS, UNSPECIFIED Qualifiers: Site of cellulitis: trunk Site of cellulitis of trunk: abdominal wall Qualified Code(s): L03.311 - Cellulitis of abdominal wall (2) Gallbladder cancer Code(s): C23 - MALIGNANT NEOPLASM OF GALLBLADDER (3) Wound infection after surgery Code(s): T81.4XXA - INFECTION FOLLOWING A PROCEDURE, INITIAL ENCOUNTER (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 monitor bp. will follow discussed with pts also.
--- NOTE | 2017-09-04 09:41 | PN ---
Progress Note (short form) - Note Progress Note: ID Doing well No complaints Selected Entries 09/04/17 06:00 Temperature 97.6 F Pulse Rate 67 Respiratory 18 Rate Blood Pressure 162/93 Abd soft nontender incision packed no cellulitis min drainage on packing only Microbiology 09/01/17 13:34 Skin - Cellulitis Gram Stain - Final 09/01/17 13:34 Skin - Cellulitis Wound Culture - Preliminary Non Lactose Fermenting Gnb Laboratory Tests 09/03/17 09/03/17 07:25 07:25 WBC 6.6 Hgb 8.5 L Hct 25.6 L Plt Count 419 Creatinine 0.4 L Creat Clearance w eGFR > 60 Assessment Clinically she can be discharged Culture available latter today and could go home preferably with po antibiotic based on culture. Hopefully not some panresistant organism As drainage accomplished she could go with nothing in that case Juan GE
[2017-09-04] MEDS: NEBIVOLOL 10 MG TABLET (FP) PO SCH (09:54)
[2017-09-04] MEDS: LISINOPRIL 10 MG TABLET (FP) PO SCH (09:54)
[2017-09-04] MEDS: HEPARIN NA (PORCINE) 5,000 UNITS/ML 1ML VIAL SQ SCH ×2 (09:56→21:40)
--- NOTE | 2017-09-04 11:54 | PN ---
Progress Note (short form) - Note Progress Note: Patient has no new complaints Denies wound pain and excessive wound drainage Abd: wound with minimal purulent drainage and no fluid collection from wound cavity A/P: resolving delayed wuond infection antibitic management per ID daily wound care with NS irrigation and light packing to keep skin open until cavity is obliterated with granulation tissue. Problem List - Problems (1) Wound infection after surgery Code(s): T81.4XXA - INFECTION FOLLOWING A PROCEDURE, INITIAL ENCOUNTER
[2017-09-04 19:46] VITALS: TEMP 97.8
[2017-09-05] MEDS ORDERED: PT OWN MED DRAWER 7, Y5N ONE ×2 (02:55→10:06)
[2017-09-05] MEDS: AZTREONAM 1 GM in DEXTROSE 5%-WATER - 50 ML IVPB SCH ×2 (02:59→10:41)
--- NOTE | 2017-09-05 10:00 | PN ---
Progress Note, Physician Chief Complaint: ID Aztreonam continues Feels well - Current Medication List Current Medications: Active Medications Heparin Sodium (Porcine) (Heparin -) 5,000 unit SQ BID [facility] Last Admin: 09/04/17 21:40 Dose: 5,000 unit Aztreonam 1 gm/ Dextrose 50 mls @ 100 mls/hr IVPB Q8H-IV PRIYANKA PRN Reason: Protocol Last Admin: 09/05/17 02:59 Dose: 100 mls/hr Lisinopril (Prinivil) 10 mg PO DAILY [facility] Last Admin: 09/04/17 09:54 Dose: 10 mg Nebivolol (Bystolic -) 10 mg PO DAILY [facility] Last Admin: 09/04/17 09:54 Dose: 10 mg - Objective Vital Signs: Vital Signs Temperature 97.8 F 09/05/17 06:00 Pulse Rate 54 L 09/05/17 06:00 Respiratory Rate 20 09/05/17 06:00 Blood Pressure 134/58 09/05/17 06:00 O2 Sat by Pulse Oximetry (%) 96 09/04/17 21:00 Constitutional: Yes: Well Nourished, No Distress Neck: Yes: WNL, Supple Cardiovascular: Yes: WNL, Regular Rate and Rhythm, S1, S2 Respiratory: Yes: WNL, Regular, CTA Bilaterally Gastrointestinal: Yes: WNL, Normal Bowel Sounds, Soft, Other (Wound clear packed ). No: Tenderness, Tenderness, Epigastrium Labs: CBC, BMP 09/03/17 07:25 09/03/17 07:25 Assessment/Plan Microbiology 09/03/17 17:00 Abdomen Gram Stain - Final 09/01/17 13:34 Skin - Cellulitis Gram Stain - Final 09/01/17 13:34 Skin - Cellulitis Wound Culture - Final Enterobacter Cloacae 09/03/17 17:00 Abdomen Wound Culture - Preliminary NO GROWTH OBTAINED AFTER 24 HOURS INCUBATION, REINCUBATED. 09/01/17 13:31 Blood - Peripheral Venous Blood Culture - Preliminary NO GROWTH OBTAINED AFTER 72 HOURS, INCUBATION TO CONTINUE FOR 2 DAYS. 09/01/17 13:31 Blood - Peripheral Venous Blood Culture - Preliminary NO GROWTH OBTAINED AFTER 72 HOURS, INCUBATION TO CONTINUE FOR 2 DAYS. Laboratory Tests 09/03/17 09/03/17 07:25 07:25 WBC 6.6 Plt Count 419 BUN 7 Creatinine 0.4 L Assessment Wound infection Enterobacter Doing well now wound packed Plan Give Levoflox 500mg daily for 5 days Surgical follow up Discussed wit Dr Arturo Martinez MD
[2017-09-05] MEDS: LISINOPRIL 10 MG TABLET (FP) PO SCH (10:23)
[2017-09-05] MEDS: HEPARIN NA (PORCINE) 5,000 UNITS/ML 1ML VIAL SQ SCH (10:23)
[2017-09-05] MEDS: NEBIVOLOL 10 MG TABLET (FP) PO SCH (10:23)
[2017-09-05 11:55] VITALS: BP 146/78; PULSE 62
--- NOTE | 2017-09-05 13:25 | DS ---
Physical Examination Vital Signs: Vital Signs Temperature 97.8 F 09/05/17 06:00 Pulse Rate 62 09/05/17 10:00 Respiratory Rate 18 09/05/17 10:00 Blood Pressure 146/78 09/05/17 10:00 O2 Sat by Pulse Oximetry (%) 96 09/04/17 21:00 Findings/Remarks: feels well. no complains Constitutional: Yes: No Distress, Calm Eyes: Yes: Conjunctiva Clear Neck: Yes: Supple Cardiovascular: Yes: Regular Rate and Rhythm Respiratory: Yes: CTA Bilaterally Gastrointestinal: Yes: Soft Edema: No Wound/Incision: Yes: Dressing Dry and Intact Neurological: Yes: Alert Psychiatric: Yes: Alert Labs: CBC, BMP 09/03/17 07:25 09/03/17 07:25 Discharge Summary Reason For Visit: CELLULITIS Current Active Problems Cellulitis (Acute) Gallbladder cancer (Acute) Wound infection after surgery (Acute) Hospital Course: Admitted for infection at surgical site treated with Abx s/p i/d w/c - Enterococci much better stable for d/c pt taught hew to irrigate and clean will d/c on po levaquin pt in agreement f/u closely in office meds reviewed/ reconcilled discussed with nursing staff d/c time 35 min in examining/ documenting and coordating care. Condition: Stable - Instructions Referrals: Oscar Hines MD [Primary Care Provider] - Disposition: HOME - Home Medications Comprehensive Discharge Medication List: Ambulatory Orders Lisinopril [Prinivil] 10 mg PO DAILY #30 tablet 09/02/15 Nebivolol HCl [Bystolic] 10 mg PO DAILY 07/09/17 levoFLOXacin [Levaquin -] 500 mg PO DAILY@0600 5 Days #5 tablet 09/05/17
== END 2017-09-05 14:15 | disposition home or self-care (01) | DRG 863 ==
LOC: JER 12:58 → JERBED 14:26 → J6S 17:55
PROVIDERS: ADMIT Internal Medicine; ATTEND Internal Medicine
DX: T81.4XXA Infection following a procedure, initial encounter (principal); L03.311 Cellulitis of abdominal wall; C23 Malignant neoplasm of gallbladder; E78.5 Hyperlipidemia, unspecified; I10 Essential (primary) hypertension; M06.9 Rheumatoid arthritis, unspecified; E11.9 Type 2 diabetes mellitus without complications; Z79.84 Long term (current) use of oral hypoglycemic drugs; Y83.8 Other surgical procedures as the cause of abnormal reaction of the patient, or of later complication, without mention of misadventure at the time of the procedure; D64.9 Anemia, unspecified; B95.2 Enterococcus as the cause of diseases classified elsewhere
CPT/HCPCS: 36415; 74177-TC; 80053; 83605; 85025; 85027; 87040; 87070; 87186; 87205; 93005; 93010; 99283-25; G0480; J1644

== ENCOUNTER 2017-09-23 07:32 | Day surgery (SDC) | payer OTHER ==
[2017-09-23] MEDS ORDERED: SODIUM CHLORIDE 500 ML IV ONE (08:00)
[2017-09-23] MEDS ORDERED: DEXAMETHASONE INJECTION 20 MG in SODIUM CHLORIDE 50 ML IVPB ONE (08:30)
[2017-09-23] MEDS ORDERED: PALONOSETRON HCL 0.25 MG/5 ML VIAL IVPUSH ONE (08:30)
[2017-09-23] MEDS ORDERED: GEMCITABINE HCL 1,482 MG in SODIUM CHLORIDE 250 ML IV ONE (09:00)
[2017-09-23] MEDS ORDERED: SODIUM CHLORIDE IV ONE (09:30)
[2017-09-23] MEDS ORDERED: CISPLATIN IV ONE (09:30)
[2017-09-23 09:52] LABS: BASO % 0.4 % (0-2.0); EOS % 2.4 % (0-4.5); HEMATOCRIT 27.7 % (32.4-45.2); HEMOGLOBIN 8.7 GM/dL (10.7-15.3); LYMPH % 23.1 % (8-40); MCH 22.3 pg (25.7-33.7); MCHC 31.6 g/dl (32.0-36.0); MEAN CELL VOLUME 70.5 fl (80-96); MEAN PLT VOLUME 8.5 fl (7.5-11.1); NEUT % 65.1 % (42.8-82.8); PLATELET COUNT 470 K/MM3 (134-434); RBC 3.92 M/mm3 (3.60-5.2); WHITE BLOOD COUNT 10.2 K/mm3 (4.0-10.0)
[2017-09-23 10:17] LABS: ANION GAP 6 (8-16); BILIRUBIN,DIRECT < 0.2 mg/dL (0.0-0.2); BILIRUBIN,TOTAL 0.3 mg/dL (0.2-1.0); BLOOD UREA NITROGEN 12 mg/dL (7-18); CALCIUM 8.5 mg/dL (8.5-10.1); CHLORIDE 104 mmol/L (98-107); CO2 27 mmol/L (21-32); CREATININE 0.6 mg/dL (0.55-1.02); GLUCOSE,RANDOM 107 mg/dL (74-106); MAGNESIUM 1.6 mg/dL (1.8-2.4); POTASSIUM 4.2 mmol/L (3.5-5.1); SGOT/AST 14 U/L (15-37); SGPT/ALT 13 U/L (12-78); SODIUM 137 mmol/L (136-145); TOT PROT 6.9 g/dl (6.4-8.2)
[2017-09-23 10:18] LABS: ALK PHOS 148 U/L (45-117)
[2017-09-23] MEDS ORDERED: POTASSIUM CHLORIDE 10 MEQ, MAGNESIUM SULFATE 1 GM in SODIUM CHLORIDE 500 ML IVPB ONE (10:30)
[2017-09-23] MEDS ORDERED: IRON SUCROSE INJECTION 100 MG in SODIUM CHLORIDE 100 ML IVPB ONE (13:30)
[2017-09-23] MEDS ORDERED: CYANOCOBALAMIN (VITAMIN B-12) 1000 MCG/1 ML VIAL IM ONE (13:30)
[2017-09-23] MEDS: MAGNESIUM SULFATE IN WATER 2 GM/50 ML IVPB IVPB ONE ×2 (13:37→13:47)
[2017-09-23 16:17] VITALS: PULSE 69
[2017-09-23 16:18] VITALS: TEMP 98.2
[2017-09-23 16:31] VITALS: BP 149/84
== END 2017-09-23 16:00 | disposition home or self-care (01) ==
LOC: JONCBLOOD 07:32 → JONCCHEMO 07:32 → J7W 11:28 → JONCCHEMO 16:00
PROVIDERS: ATTEND Internal Medicine Hematology & Oncology
PROC: 3E033GC Introduction of Other Therapeutic Substance into Peripheral Vein, Percutaneous Approach (ICD-10-PCS; principal; 2017-09-23)
DX: D64.9 Anemia, unspecified (principal); C23 Malignant neoplasm of gallbladder
CPT/HCPCS: 36415; 76705; 80053; 80076; 83735; 85025; 96365; 96367; 96372; J1756

== ENCOUNTER 2017-10-06 07:38 | Day surgery (SDC) | payer OTHER ==
[2017-10-06] MEDS ORDERED: SODIUM CHLORIDE 500 ML IV ONE ×2 (08:00→13:15)
[2017-10-06] MEDS ORDERED: DEXAMETHASONE INJECTION 20 MG in SODIUM CHLORIDE 50 ML IVPB ONE (08:30)
[2017-10-06] MEDS ORDERED: PALONOSETRON HCL 0.25 MG/5 ML VIAL IVPUSH ONE (08:30)
[2017-10-06] MEDS ORDERED: GEMCITABINE HCL 1,482 MG in SODIUM CHLORIDE 250 ML IV ONE (09:00)
[2017-10-06] MEDS ORDERED: POTASSIUM CHLORIDE 10 MEQ, MAGNESIUM SULFATE 1 GM in SODIUM CHLORIDE 500 ML IVPB ONE (09:30)
[2017-10-06 11:18] LABS: BASO % 1.4 % (0-2.0); EOS % 2.7 % (0-4.5); HEMATOCRIT 30.2 % (32.4-45.2); HEMOGLOBIN 9.6 GM/dL (10.7-15.3); LYMPH % 25.4 % (8-40); MCH 22.5 pg (25.7-33.7); MCHC 31.8 g/dl (32.0-36.0); MEAN CELL VOLUME 70.9 fl (80-96); MEAN PLT VOLUME 7.7 fl (7.5-11.1); MONO % 7.6 % (3.8-10.2); NEUT % 62.9 % (42.8-82.8); PLATELET COUNT 356 K/MM3 (134-434); RBC 4.25 M/mm3 (3.60-5.2); RDW 21.5 % (11.6-15.6); WHITE BLOOD COUNT 7.8 K/mm3 (4.0-10.0)
[2017-10-06 11:40] LABS: ALBUMIN 3.3 g/dl (3.4-5.0); ANION GAP 7 (8-16); BLOOD UREA NITROGEN 12 mg/dL (7-18); CALCIUM 8.6 mg/dL (8.5-10.1); CHLORIDE 106 mmol/L (98-107); CO2 25 mmol/L (21-32); GLUCOSE,RANDOM 108 mg/dL (74-106); POTASSIUM 4.2 mmol/L (3.5-5.1); SODIUM 138 mmol/L (136-145)
[2017-10-06 12:34] LABS: ALK PHOS 148 U/L (45-117); BILIRUBIN,TOTAL 0.2 mg/dL (0.2-1.0); CREATININE 0.6 mg/dL (0.55-1.02); SGOT/AST 11 U/L (15-37); SGPT/ALT 19 U/L (12-78); TOT PROT 7.5 g/dl (6.4-8.2)
[2017-10-06 13:10] LABS: BILIRUBIN,DIRECT < 0.2 mg/dL (0.0-0.2); MAGNESIUM 1.7 mg/dL (1.8-2.4)
[2017-10-06] MEDS ORDERED: INSULIN (LEVEMIR) 100 UNITS/ML UNITS SQ ONE (13:59)
[2017-10-06 14:14] LABS: ANISOCYTOSIS 1+; PLATELET ESTIMATE NORMAL
[2017-10-06 18:18] VITALS: TEMP 97.8
[2017-10-06 18:30] VITALS: BP 148/78; PULSE 74
[2017-10-06] MEDS ORDERED: PORTA CATH FLUSH 10 ML IVPUSH ONE (18:30)
== END 2017-10-06 21:55 | disposition home or self-care (01) ==
LOC: JONCNONCHE 07:38 → JONCCHEMO 07:38 → J7W 12:42 → JONCCHEMO 21:55
PROVIDERS: ATTEND Internal Medicine Hematology & Oncology
DX: Z51.11 Encounter for antineoplastic chemotherapy (principal); C23 Malignant neoplasm of gallbladder
CPT/HCPCS: 36415; 80053; 80076; 83735; 85025; 96361; 96375; 96413; J1100; J2469

== ENCOUNTER 2017-10-14 07:16 | Day surgery (SDC) | payer OTHER ==
[2017-10-14] MEDS ORDERED: SODIUM CHLORIDE 500 ML IV ONE (08:00)
[2017-10-14] MEDS ORDERED: DEXAMETHASONE INJECTION 20 MG in SODIUM CHLORIDE 50 ML IVPB ONE (08:30)
[2017-10-14] MEDS ORDERED: PALONOSETRON HCL 0.25 MG/5 ML VIAL IVPUSH ONE (08:30)
[2017-10-14] MEDS ORDERED: GEMCITABINE HCL 1,482 MG in SODIUM CHLORIDE 250 ML IV ONE (09:00)
[2017-10-14] MEDS ORDERED: SODIUM CHLORIDE IV ONE (09:30)
[2017-10-14] MEDS ORDERED: CISPLATIN IV ONE (09:30)
[2017-10-14 12:27] LABS: BASO % 0.4 % (0-2.0); EOS % 1.6 % (0-4.5); HEMATOCRIT 28.6 % (32.4-45.2); HEMOGLOBIN 9.1 GM/dL (10.7-15.3); LYMPH % 28.8 % (8-40); MCH 22.3 pg (25.7-33.7); MCHC 31.7 g/dl (32.0-36.0); MEAN CELL VOLUME 70.3 fl (80-96); MEAN PLT VOLUME 7.9 fl (7.5-11.1); MONO % 7.5 % (3.8-10.2); NEUT % 61.7 % (42.8-82.8); PLATELET COUNT 294 K/MM3 (134-434); RBC 4.06 M/mm3 (3.60-5.2); RDW 20.1 % (11.6-15.6); WHITE BLOOD COUNT 6.6 K/mm3 (4.0-10.0)
[2017-10-14 12:54] LABS: CHLORIDE 104 mmol/L (98-107); POTASSIUM 3.8 mmol/L (3.5-5.1); SODIUM 137 mmol/L (136-145)
[2017-10-14 13:13] LABS: ALBUMIN 3.2 g/dl (3.4-5.0); ALK PHOS 130 U/L (45-117); ANION GAP 10 (8-16); BILIRUBIN,DIRECT < 0.2 mg/dL (0.0-0.2); BILIRUBIN,TOTAL 0.2 mg/dL (0.2-1.0); BLOOD UREA NITROGEN 14 mg/dL (7-18); CALCIUM 8.6 mg/dL (8.5-10.1); CO2 23 mmol/L (21-32); CREATININE 0.5 mg/dL (0.55-1.02); GLUCOSE,RANDOM 114 mg/dL (74-106); MAGNESIUM 1.5 mg/dL (1.8-2.4); SGOT/AST 10 U/L (15-37); SGPT/ALT 17 U/L (12-78); TOT PROT 7.1 g/dl (6.4-8.2)
[2017-10-14 17:48] VITALS: TEMP 98
[2017-10-14] MEDS ORDERED: PORTA CATH FLUSH 10 ML IVPUSH ONE ×2 (17:48→17:51)
[2017-10-14 17:53] VITALS: BP 159/88; PULSE 80
[2017-10-15] MEDS ORDERED: POTASSIUM CHLORIDE 10 MEQ, MAGNESIUM SULFATE 1 GM in SODIUM CHLORIDE 500 ML IVPB ONE (10:30)
== END 2017-10-14 17:30 | disposition home or self-care (01) ==
LOC: JONCCHEMO 07:16 → J7W 11:28 → JONCCHEMO 17:30
PROVIDERS: ATTEND Internal Medicine Hematology & Oncology
PROC: 3E04305 Introduction of Other Antineoplastic into Central Vein, Percutaneous Approach (ICD-10-PCS; principal; 2017-10-14)
PROC: 3E043GC Introduction of Other Therapeutic Substance into Central Vein, Percutaneous Approach (ICD-10-PCS; 2017-10-14)
PROC: 3E0437Z Introduction of Electrolytic and Water Balance Substance into Central Vein, Percutaneous Approach (ICD-10-PCS; 2017-10-14)
DX: Z51.11 Encounter for antineoplastic chemotherapy (principal); C23 Malignant neoplasm of gallbladder; E11.9 Type 2 diabetes mellitus without complications
CPT/HCPCS: 36415; 80048; 80076; 83735; 85025; 96361; 96375; 96413; 96417; J1100; J2469

== ENCOUNTER 2017-10-28 07:33 | Day surgery (SDC) | payer OTHER ==
[2017-10-28] MEDS ORDERED: SODIUM CHLORIDE 500 ML IV ONE (09:00)
[2017-10-28 09:06] LABS: BASO % 1.4 % (0-2.0); HEMATOCRIT 30.9 % (32.4-45.2); HEMOGLOBIN 9.4 GM/dL (10.7-15.3); MCHC 30.6 g/dl (32.0-36.0); MEAN CELL VOLUME 71.9 fl (80-96); MEAN PLT VOLUME 8.2 fl (7.5-11.1); MONO % 5.1 % (3.8-10.2); NEUT % 70.5 % (42.8-82.8); PLATELET COUNT 518 K/MM3 (134-434); RDW 22.1 % (11.6-15.6); WHITE BLOOD COUNT 18.8 K/mm3 (4.0-10.0)
[2017-10-28 09:36] LABS: ALBUMIN 3.2 g/dl (3.4-5.0); ANION GAP 11 (8-16); BILIRUBIN,TOTAL 0.1 mg/dL (0.2-1.0); BLOOD UREA NITROGEN 13 mg/dL (7-18); CALCIUM 8.5 mg/dL (8.5-10.1); CHLORIDE 105 mmol/L (98-107); CO2 24 mmol/L (21-32); CREATININE 0.5 mg/dL (0.55-1.02); GLUCOSE,RANDOM 87 mg/dL (74-106); SGPT/ALT 20 U/L (12-78); SODIUM 140 mmol/L (136-145); TOT PROT 6.9 g/dl (6.4-8.2)
[2017-10-28 09:37] LABS: ALK PHOS 166 U/L (45-117)
[2017-10-28 09:38] LABS: POTASSIUM 4.7 mmol/L (3.5-5.1); SGOT/AST 19 U/L (15-37)
[2017-10-28] MEDS ORDERED: PALONOSETRON HCL 0.25 MG/5 ML VIAL IVPUSH ONE (10:00)
[2017-10-28] MEDS ORDERED: DEXAMETHASONE INJECTION 20 MG in SODIUM CHLORIDE 100 ML IVPB ONE (10:00)
[2017-10-28 10:19] VITALS: TEMP 98
[2017-10-28] MEDS ORDERED: PORTA CATH FLUSH 10 ML IVPUSH ONE (10:21)
[2017-10-28] MEDS ORDERED: GEMCITABINE HCL 1,482 MG in SODIUM CHLORIDE 250 ML IV ONE (10:30)
[2017-10-28] MEDS ORDERED: SODIUM CHLORIDE IV ONE (11:00)
[2017-10-28] MEDS ORDERED: CISPLATIN IV ONE (11:00)
[2017-10-28 11:13] LABS: ALBUMIN 3.3 g/dl (3.4-5.0); ALK PHOS 167 U/L (45-117); BILIRUBIN,DIRECT < 0.2 mg/dL (0.0-0.2); BILIRUBIN,TOTAL 0.2 mg/dL (0.2-1.0); MAGNESIUM 1.4 mg/dL (1.8-2.4); SGOT/AST 14 U/L (15-37); SGPT/ALT 20 U/L (12-78); TOT PROT 6.8 g/dl (6.4-8.2)
[2017-10-28 11:30] LABS: ANISOCYTOSIS 1+; MACROCYTOSIS 1+
[2017-10-28] MEDS ORDERED: POTASSIUM CHLORIDE 10 MEQ, MAGNESIUM SULFATE 1 GM in SODIUM CHLORIDE 500 ML IVPB ONE (12:00)
[2017-10-28] MEDS ORDERED: MAGNESIUM 1GM/D5W - 1 GM/100 ML IVPB IVPB ONE (12:15)
[2017-10-28 17:10] VITALS: BP 134/75; PULSE 74
== END 2017-10-28 15:35 | disposition home or self-care (01) ==
LOC: JONCCHEMO 07:33 → J7W 09:32 → JONCCHEMO 15:35
PROVIDERS: ATTEND Internal Medicine Hematology & Oncology
DX: Z51.11 Encounter for antineoplastic chemotherapy (principal); C23 Malignant neoplasm of gallbladder
CPT/HCPCS: 36415; 80053; 80076; 83735; 85025; 96361; 96366; 96367; 96375; 96413; 96417; J1100; J2469

== ENCOUNTER 2017-10-29 07:22 | Day surgery (SDC) | payer OTHER ==
[2017-10-29] MEDS ORDERED: IRON SUCROSE INJECTION 200 MG in SODIUM CHLORIDE 100 ML IVPB ONE (10:00)
[2017-10-29] MEDS ORDERED: SODIUM CHLORIDE 500 ML IV ONE (10:00)
[2017-10-29] MEDS ORDERED: MAGNESIUM SULF 50% (8.12 MEQ/2 ML-1 GM VIAL) ONE (11:36)
[2017-10-29] MEDS ORDERED: DEXTROSE IV SCH (12:00)
[2017-10-29] MEDS ORDERED: POTASSIUM ACETATE IV SCH (12:00)
[2017-10-29] MEDS ORDERED: [UNRECOGNIZED DRUG - OTHER] IV SCH (12:00)
[2017-10-29] MEDS ORDERED: MAGNESIUM SULFATE IV SCH (12:00)
[2017-10-29 12:28] LABS: BASO % 0.5 % (0-2.0); EOS % 0.6 % (0-4.5); HEMATOCRIT 26.8 % (32.4-45.2); HEMOGLOBIN 8.5 GM/dL (10.7-15.3); LYMPH % 8.6 % (8-40); MCH 22.4 pg (25.7-33.7); MCHC 31.6 g/dl (32.0-36.0); MEAN CELL VOLUME 70.8 fl (80-96); MONO % 7.9 % (3.8-10.2); NEUT % 82.4 % (42.8-82.8); PLATELET COUNT 568 K/MM3 (134-434); RBC 3.79 M/mm3 (3.60-5.2); RDW 21.6 % (11.6-15.6); WHITE BLOOD COUNT 14.9 K/mm3 (4.0-10.0)
[2017-10-29 12:59] LABS: ANION GAP 9 (8-16); BLOOD UREA NITROGEN 15 mg/dL (7-18); CALCIUM 8.3 mg/dL (8.5-10.1); CHLORIDE 106 mmol/L (98-107); CO2 25 mmol/L (21-32); CREATININE 0.6 mg/dL (0.55-1.02); GLUCOSE,RANDOM 109 mg/dL (74-106); MAGNESIUM 1.8 mg/dL (1.8-2.4); POTASSIUM 4.1 mmol/L (3.5-5.1); SODIUM 140 mmol/L (136-145)
[2017-10-29] MEDS ORDERED: POTASSIUM CHLORIDE 20 MEQ, MAGNESIUM SULFATE 1 GM in DEXTROSE 5%-0.45% SALINE 1,000 ML IVPB ONE (13:30)
--- NOTE | 2017-10-29 13:43 | HP ---
Admitting History and Physical - Admission Chief Complaint: Dehydration. chemotherapy induced. 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 - Smoking History Smoking history: Never smoked Have you smoked in the past 12 months: No - Alcohol/Substance Use Hx Alcohol Use: No - Social History ADL: Independent History of Recent Travel: No Home Medications - Allergies Allergies/Adverse Reactions: Allergies Allergy/AdvReac Type Severity Reaction Status Date / Time cephalexin monohydrate Allergy Severe Difficulty Verified 09/01/17 13:01 [From [employer]] Breathing - Home Medications Home Medications: Ambulatory Orders Lisinopril [Prinivil] 10 mg PO DAILY #30 tablet 09/02/15 Nebivolol HCl [Bystolic] 10 mg PO DAILY 07/09/17 levoFLOXacin [Levaquin -] 500 mg PO DAILY@0600 5 Days #5 tablet 09/05/17 Review of Systems - Review of Systems Constitutional: reports: Unintentional Wgt. Loss Eyes: denies: Blurred Vision, Double Vision HENT: denies: Difficult Swallowing Neck: denies: Decreased ROM, Swollen Glands, Tenderness Cardiovascular: denies: Chest Pain, Shortness of Breath Respiratory: denies: Cough, Exercise Intolerance, SOB, SOB on Exertion Gastrointestinal: reports: Nausea, Vomiting Breasts: reports: No Symptoms Reported Musculoskeletal: denies: Back Pain Integumentary: reports: Wound, Other (RUQ) Neurological: reports: No Symptoms Endocrine: reports: No Symptoms Hematology/Lymphatic: denies: Easily Bruised, Excessive Bleeding, Swollen Glands Psychiatric: reports: No Symptoms Physical Examination Constitutional: Yes: No Distress Eyes: Yes: PERRL. No: Sclera Icterus HENT: Yes: Normocephalic. No: Epistaxis, Hoarseness, Thrush, Tonsillar Exudate Neck: Yes: Supple, Trachea Midline. No: Lymphadenopathy, Tenderness, Thyromegaly Cardiovascular: Yes: Regular Rate and Rhythm Respiratory: Yes: CTA Bilaterally Gastrointestinal: Yes: Vomiting, Other (RUQ wound) Renal/: No: CVA Tenderness - Left, CVA Tenderness - Right Breast(s): Yes: WNL, Left, Right Musculoskeletal: Yes: Back Pain Extremities: Yes: WNL Edema: No Integumentary: No: Erythema, Rash Wound/Incision: Yes: Other (RUQ site of prior GB surgerdrainage) ...Motor Strength: WNL Psychiatric: Yes: WNL Labs: CBC, BMP 10/29/17 11:45 10/29/17 11:45 Problem List - Problems (1) Gallbladder cancer Assessment/Plan: s/p surgery . On chemotherapy with Cis platin and gemzar Cycle , day 2 - for hydration. Code(s): C23 - MALIGNANT NEOPLASM OF GALLBLADDER (2) Wound infection after surgery Assessment/Plan: RUQ drainage s/p gall bladder surgery. Code(s): T81.4XXA - INFECTION FOLLOWING A PROCEDURE, INITIAL ENCOUNTER (3) Iron deficiency anemia due to chronic blood loss Assessment/Plan: For IV venofer Code(s): D50.0 - IRON DEFICIENCY ANEMIA SECONDARY TO BLOOD LOSS (CHRONIC) (4) Dehydration Assessment/Plan: post chemotherapy. Code(s): E86.0 - DEHYDRATION
[2017-10-29 17:31] VITALS: BP 155/80; PULSE 60; TEMP 97.9
[2017-10-29] MEDS ORDERED: PORTA CATH FLUSH 10 ML IVPUSH ONE (17:31)
== END 2017-10-29 16:40 | disposition home or self-care (01) ==
LOC: JONCNONCHE 07:22 → J7W 11:18 → JONCNONCHE 16:40
PROVIDERS: ATTEND Internal Medicine Hematology & Oncology
PROC: 3E033GC Introduction of Other Therapeutic Substance into Peripheral Vein, Percutaneous Approach (ICD-10-PCS; principal; 2017-10-29)
DX: D50.9 Iron deficiency anemia, unspecified (principal)
CPT/HCPCS: 36415; 80048; 83735; 85025; 96360; 96361; 96365; J1756

== ENCOUNTER 2017-11-04 07:20 | Day surgery (SDC) | payer OTHER ==
[2017-11-04] MEDS ORDERED: SODIUM CHLORIDE 500 ML IV ONE (09:00)
[2017-11-04 09:19] LABS: BASO % 1.5 % (0-2.0); EOS % 0.7 % (0-4.5); HEMATOCRIT 28.7 % (32.4-45.2); HEMOGLOBIN 9.1 GM/dL (10.7-15.3); LYMPH % 31.3 % (8-40); MCH 22.5 pg (25.7-33.7); MCHC 31.6 g/dl (32.0-36.0); MEAN CELL VOLUME 71.2 fl (80-96); MEAN PLT VOLUME 8.1 fl (7.5-11.1); MONO % 5.8 % (3.8-10.2); NEUT % 60.7 % (42.8-82.8); PLATELET COUNT 520 K/MM3 (134-434); RBC 4.03 M/mm3 (3.60-5.2); RDW 21.7 % (11.6-15.6); WHITE BLOOD COUNT 7.7 K/mm3 (4.0-10.0)
[2017-11-04 09:44] LABS: ALBUMIN 3.6 g/dl (3.4-5.0); ALK PHOS 130 U/L (45-117); ANION GAP 6 (8-16); BILIRUBIN,TOTAL 0.1 mg/dL (0.2-1.0); BLOOD UREA NITROGEN 10 mg/dL (7-18); CALCIUM 8.9 mg/dL (8.5-10.1); CHLORIDE 107 mmol/L (98-107); CO2 28 mmol/L (21-32); CREATININE 0.6 mg/dL (0.55-1.02); GLUCOSE,RANDOM 89 mg/dL (74-106); POTASSIUM 4.7 mmol/L (3.5-5.1); SGOT/AST 13 U/L (15-37); SGPT/ALT 25 U/L (12-78); SODIUM 141 mmol/L (136-145); TOT PROT 7.3 g/dl (6.4-8.2)
[2017-11-04 09:45] LABS: ALBUMIN 3.5 g/dl (3.4-5.0); BILIRUBIN,DIRECT < 0.2 mg/dL (0.0-0.2); BILIRUBIN,TOTAL 0.2 mg/dL (0.2-1.0); MAGNESIUM 1.7 mg/dL (1.8-2.4); SGOT/AST 14 U/L (15-37); SGPT/ALT 24 U/L (12-78); TOT PROT 7.2 g/dl (6.4-8.2)
[2017-11-04 09:46] LABS: ALK PHOS 132 U/L (45-117)
[2017-11-04] MEDS ORDERED: PALONOSETRON HCL 0.25 MG/5 ML VIAL IVPUSH ONE (10:00)
[2017-11-04] MEDS ORDERED: DEXAMETHASONE INJECTION 20 MG in SODIUM CHLORIDE 50 ML IVPB ONE (10:00)
[2017-11-04] MEDS ORDERED: SODIUM CHLORIDE IV ONE (10:30)
[2017-11-04] MEDS ORDERED: CISPLATIN IV ONE (10:30)
[2017-11-04] MEDS ORDERED: GEMCITABINE HCL 1,482 MG in SODIUM CHLORIDE 250 ML IV ONE (11:30)
[2017-11-04] MEDS ORDERED: POTASSIUM CHLORIDE 10 MEQ, MAGNESIUM SULFATE 1 GM in SODIUM CHLORIDE 500 ML IVPB ONE (12:00)
[2017-11-04 17:45] VITALS: BP 150/78; PULSE 69; TEMP 97.8
== END 2017-11-04 16:00 | disposition home or self-care (01) ==
LOC: JONCCHEMO 07:20 → J7W 09:53 → JONCCHEMO 16:00
PROVIDERS: ATTEND Internal Medicine Hematology & Oncology
DX: C23 Malignant neoplasm of gallbladder (principal)
CPT/HCPCS: 36415; 80053; 80076; 83735; 85025; 96361; 96367; 96375; 96413; 96415; 96417; J1100; J2469

== ENCOUNTER → 2017-11-19 | Day surgery (SDC) | payer OTHER | END | disposition home or self-care (01) | LOC: JRADIR 10:23 | PROVIDERS: ATTEND Surgery | PROC: BW11YZZ Fluoroscopy of Abdomen and Pelvis using Other Contrast (ICD-10-PCS; principal; 2017-11-19) | DX: K63.2 Fistula of intestine (principal); Z98.890 Other specified postprocedural states | CPT/HCPCS: 20501; 74150-TC; 76080-TC-FY ==

== ENCOUNTER 2017-12-23 07:43 | Day surgery (SDC) | payer OTHER ==
[2017-12-23] MEDS ORDERED: MAGNESIUM SULFATE IVPB SCH (10:30)
[2017-12-23] MEDS ORDERED: IRON SUCROSE INJECTION 300 MG in SODIUM CHLORIDE 250 ML IVPB ONE (10:30)
[2017-12-23] MEDS ORDERED: POTASSIUM CHLORIDE 20 MEQ, MAGNESIUM SULFATE 1 GM in DEXTROSE 5%-NORMAL SALINE 500 ML IVPB SCH (10:30)
[2017-12-23] MEDS ORDERED: DEXTROSE 5% IVPB SCH (10:30)
[2017-12-23] MEDS ORDERED: POTASSIUM CHLORIDE IVPB SCH (10:30)
[2017-12-23] MEDS ORDERED: NORMAL SALINE IVPB SCH (10:30)
[2017-12-23 17:38] VITALS: TEMP 97.8
[2017-12-23 17:51] VITALS: BP 146/72; PULSE 68
[2017-12-23] MEDS ORDERED: PORTA CATH FLUSH 10 ML IVPUSH ONE (17:51)
== END 2017-12-23 15:45 | disposition home or self-care (01) ==
LOC: JONCCHEMO 07:43 → J7W 09:59 → JONCCHEMO 15:45
PROVIDERS: ATTEND Internal Medicine Hematology & Oncology
PROC: 3E033GC Introduction of Other Therapeutic Substance into Peripheral Vein, Percutaneous Approach (ICD-10-PCS; principal; 2017-12-23)
DX: D50.9 Iron deficiency anemia, unspecified (principal); C23 Malignant neoplasm of gallbladder; D70.9 Neutropenia, unspecified; C79.9 Secondary malignant neoplasm of unspecified site
CPT/HCPCS: 96361; 96365; 96415; 96417; J1756

== ENCOUNTER 2017-12-30 07:21 | Day surgery (SDC) | payer OTHER ==
[2017-12-30] MEDS ORDERED: SODIUM CHLORIDE 500 ML IV ONE (09:00)
[2017-12-30] MEDS ORDERED: DEXAMETHASONE INJECTION 20 MG in SODIUM CHLORIDE 50 ML IVPB ONE (10:00)
[2017-12-30] MEDS ORDERED: PALONOSETRON HCL 0.25 MG/5 ML VIAL IVPUSH ONE (10:00)
[2017-12-30] MEDS ORDERED: CISPLATIN IV ONE (10:30)
[2017-12-30] MEDS ORDERED: SODIUM CHLORIDE IV ONE (10:30)
[2017-12-30 10:33] LABS: BASO % 0.2 % (0-2.0); EOS % 2.8 % (0-4.5); HEMATOCRIT 29.3 % (32.4-45.2); HEMOGLOBIN 9.8 GM/dL (10.7-15.3); LYMPH % 30.8 % (8-40); MCH 25.9 pg (25.7-33.7); MCHC 33.4 g/dl (32.0-36.0); MEAN CELL VOLUME 77.6 fl (80-96); MEAN PLT VOLUME 7.9 fl (7.5-11.1); MONO % 4.6 % (3.8-10.2); NEUT % 61.6 % (42.8-82.8); PLATELET COUNT 182 K/MM3 (134-434); RBC 3.78 M/mm3 (3.60-5.2); RDW 21.6 % (11.6-15.6); WHITE BLOOD COUNT 6.3 K/mm3 (4.0-10.0)
[2017-12-30 11:03] LABS: ALBUMIN 3.4 g/dl (3.4-5.0); ANION GAP 9 MMOL/L (8-16); BILIRUBIN,DIRECT < 0.2 mg/dL (0.0-0.2); BILIRUBIN,TOTAL 0.2 mg/dL (0.2-1.0); BLOOD UREA NITROGEN 13 mg/dL (7-18); CALCIUM 8.6 mg/dL (8.5-10.1); CHLORIDE 105 mmol/L (98-107); CO2 28 mmol/L (21-32); CREATININE 0.4 mg/dL (0.55-1.02); GLUCOSE,RANDOM 93 mg/dL (74-106); MAGNESIUM 1.2 mg/dL (1.8-2.4); POTASSIUM 3.8 mmol/L (3.5-5.1); SGOT/AST 20 U/L (15-37); SODIUM 142 mmol/L (136-145); TOT PROT 6.7 g/dl (6.4-8.2)
[2017-12-30 11:09] LABS: ALK PHOS 101 U/L (45-117); SGPT/ALT 26 U/L (12-78)
[2017-12-30] MEDS ORDERED: GEMCITABINE HCL 1,482 MG in SODIUM CHLORIDE 250 ML IV ONE (11:30)
[2017-12-30] MEDS ORDERED: POTASSIUM CHLORIDE 10 MEQ, MAGNESIUM SULFATE 1 GM in SODIUM CHLORIDE 500 ML IVPB ONE (12:00)
[2017-12-30] MEDS ORDERED: MAGNESIUM SULF 50% (8.12 MEQ/2 ML-1 GM VIAL) IVPB ONE (12:00)
[2017-12-30 12:12] VITALS: TEMP 97.4
[2017-12-30] MEDS ORDERED: PORTA CATH FLUSH 10 ML IVPUSH ONE (12:20)
[2017-12-30 15:40] LABS: ANISOCYTOSIS 1+; PLATELET ESTIMATE ADEQUATE
[2017-12-30 16:28] VITALS: BP 160/87; PULSE 76
== END 2017-12-30 16:00 | disposition home or self-care (01) ==
LOC: JONCCHEMO 07:21 → J7W 09:55 → JONCCHEMO 16:00
PROVIDERS: ATTEND Internal Medicine Hematology & Oncology
DX: Z51.11 Encounter for antineoplastic chemotherapy (principal); C23 Malignant neoplasm of gallbladder; C79.9 Secondary malignant neoplasm of unspecified site; D70.9 Neutropenia, unspecified; D50.9 Iron deficiency anemia, unspecified
CPT/HCPCS: 36415; 80048; 80076; 83735; 85025; 96361; 96375; 96413; 96417; J1100; J2469

== ENCOUNTER 2017-12-31 07:22 | Day surgery (SDC) | payer OTHER ==
[2017-12-31] MEDS ORDERED: PEGFILGRASTIM 6 MG/0.6 ML DISP.SYRIN SQ ONE (10:00)
[2017-12-31 17:04] VITALS: BP 158/70; PULSE 68
[2017-12-31 17:06] VITALS: TEMP 68
== END 2017-12-31 12:45 | disposition home or self-care (01) ==
LOC: JONCCHEMO 07:22 → J7W 12:20 → JONCCHEMO 12:45
PROVIDERS: ATTEND Internal Medicine Hematology & Oncology
PROC: 3E013GC Introduction of Other Therapeutic Substance into Subcutaneous Tissue, Percutaneous Approach (ICD-10-PCS; principal; 2017-12-31)
DX: C23 Malignant neoplasm of gallbladder (principal); C79.9 Secondary malignant neoplasm of unspecified site; D50.9 Iron deficiency anemia, unspecified; D70.9 Neutropenia, unspecified; Z76.89 Persons encountering health services in other specified circumstances
CPT/HCPCS: 96372; J2505

== ENCOUNTER 2018-01-13 07:36 | Day surgery (SDC) | payer OTHER ==
[2018-01-13] MEDS ORDERED: SODIUM CHLORIDE 500 ML IV ONE (08:00)
[2018-01-13] MEDS ORDERED: PALONOSETRON HCL 0.25 MG/5 ML VIAL IVPUSH ONE (08:30)
[2018-01-13] MEDS ORDERED: DEXAMETHASONE INJECTION 20 MG in SODIUM CHLORIDE 50 ML IVPB ONE (08:30)
[2018-01-13] MEDS ORDERED: GEMCITABINE HCL 1,482 MG in SODIUM CHLORIDE 250 ML IV ONE (09:00)
[2018-01-13 09:29] LABS: BASO % 0.2 % (0-2.0); EOS % 0.9 % (0-4.5); HEMATOCRIT 30.7 % (32.4-45.2); LYMPH % 19.3 % (8-40); MCH 26.4 pg (25.7-33.7); MCHC 32.6 g/dl (32.0-36.0); MEAN PLT VOLUME 7.6 fl (7.5-11.1); NEUT % 70.6 % (42.8-82.8); PLATELET COUNT 515 K/MM3 (134-434); RBC 3.79 M/mm3 (3.60-5.2); RDW 21.7 % (11.6-15.6); WHITE BLOOD COUNT 14.2 K/mm3 (4.0-10.0)
[2018-01-13] MEDS ORDERED: SODIUM CHLORIDE IV ONE (09:30)
[2018-01-13] MEDS ORDERED: CISPLATIN IV ONE (09:30)
[2018-01-13 10:05] LABS: ALBUMIN 3.5 g/dl (3.4-5.0); ALK PHOS 135 U/L (45-117); BILIRUBIN,DIRECT < 0.2 mg/dL (0.0-0.2); BILIRUBIN,TOTAL 0.2 mg/dL (0.2-1.0); MAGNESIUM 1.2 mg/dL (1.8-2.4); SGOT/AST 14 U/L (15-37); SGPT/ALT 21 U/L (12-78); TOT PROT 6.7 g/dl (6.4-8.2)
[2018-01-13 10:19] LABS: ALBUMIN 3.4 g/dl (3.4-5.0); ALK PHOS 140 U/L (45-117); ANION GAP 15 MMOL/L (8-16); BILIRUBIN,TOTAL 0.2 mg/dL (0.2-1.0); BLOOD UREA NITROGEN 10 mg/dL (7-18); CALCIUM 8.3 mg/dL (8.5-10.1); CHLORIDE 108 mmol/L (98-107); CO2 18 mmol/L (21-32); CREATININE 0.5 mg/dL (0.55-1.02); GLUCOSE,RANDOM 97 mg/dL (74-106); SGOT/AST 25 U/L (15-37); SGPT/ALT 22 U/L (12-78); SODIUM 141 mmol/L (136-145); TOT PROT 6.7 g/dl (6.4-8.2)
[2018-01-13] MEDS ORDERED: POTASSIUM CHLORIDE 10 MEQ, MAGNESIUM SULFATE 1 GM in SODIUM CHLORIDE 500 ML IVPB ONE (10:30)
[2018-01-13] MEDS ORDERED: MAGNESIUM SULF 50% (8.12 MEQ/2 ML-1 GM VIAL) IVPB ONE (11:00)
[2018-01-13 11:32] LABS: ANISOCYTOSIS 1+; MACROCYTOSIS 0; PLATELET ESTIMATE INCREASED
[2018-01-13] MEDS ORDERED: IRON SUCROSE INJECTION 100 MG in SODIUM CHLORIDE 100 ML IVPB ONE (13:15)
[2018-01-13 14:37] VITALS: TEMP 97.7
[2018-01-13] MEDS ORDERED: PORTA CATH FLUSH 10 ML IVPUSH ONE (14:37)
[2018-01-13 17:08] VITALS: BP 163/97; PULSE 82
== END 2018-01-13 17:09 | disposition home or self-care (01) ==
LOC: JONCCHEMO 07:36 → J7W 09:56 → JONCCHEMO 17:09
PROVIDERS: ATTEND Internal Medicine Hematology & Oncology
PROC: 3E04305 Introduction of Other Antineoplastic into Central Vein, Percutaneous Approach (ICD-10-PCS; principal; 2018-01-13)
PROC: 3E043GC Introduction of Other Therapeutic Substance into Central Vein, Percutaneous Approach (ICD-10-PCS; 2018-01-13)
PROC: 3E0437Z Introduction of Electrolytic and Water Balance Substance into Central Vein, Percutaneous Approach (ICD-10-PCS; 2018-01-13)
DX: Z51.11 Encounter for antineoplastic chemotherapy (principal); C23 Malignant neoplasm of gallbladder; I10 Essential (primary) hypertension; D64.9 Anemia, unspecified
CPT/HCPCS: 36415; 80053; 80076; 83735; 85025; 96361; 96367; 96375; 96413; 96417; J1100; J1756; J2469

== ENCOUNTER 2018-01-20 07:32 | Day surgery (SDC) | payer OTHER ==
[2018-01-20] MEDS ORDERED: SODIUM CHLORIDE 500 ML IV ONE ×2 (08:00→14:00)
[2018-01-20] MEDS ORDERED: PALONOSETRON HCL 0.25 MG/5 ML VIAL IVPUSH ONE (08:30)
[2018-01-20] MEDS ORDERED: DEXAMETHASONE INJECTION 20 MG in SODIUM CHLORIDE 50 ML IVPB ONE (08:30)
[2018-01-20] MEDS ORDERED: GEMCITABINE HCL 1,482 MG in SODIUM CHLORIDE 250 ML IV ONE (09:00)
[2018-01-20] MEDS ORDERED: SODIUM CHLORIDE IV ONE (09:30)
[2018-01-20] MEDS ORDERED: CISPLATIN IV ONE (09:30)
[2018-01-20 09:54] LABS: BASO % 0.8 % (0-2.0); EOS % 0.5 % (0-4.5); HEMOGLOBIN 10.1 GM/dL (10.7-15.3); LYMPH % 30.1 % (8-40); MCH 26.9 pg (25.7-33.7); MCHC 32.7 g/dl (32.0-36.0); MEAN CELL VOLUME 82.2 fl (80-96); MEAN PLT VOLUME 7.8 fl (7.5-11.1); MONO % 7.2 % (3.8-10.2); NEUT % 61.4 % (42.8-82.8); PLATELET COUNT 384 K/MM3 (134-434); RBC 3.77 M/mm3 (3.60-5.2); WHITE BLOOD COUNT 7.5 K/mm3 (4.0-10.0)
[2018-01-20 10:29] LABS: ALBUMIN 3.7 g/dl (3.4-5.0); ANION GAP 7 MMOL/L (8-16); BILIRUBIN,DIRECT < 0.2 mg/dL (0.0-0.2); BLOOD UREA NITROGEN 18 mg/dL (7-18); CALCIUM 9.2 mg/dL (8.5-10.1); CHLORIDE 104 mmol/L (98-107); CO2 28 mmol/L (21-32); GLUCOSE,RANDOM 110 mg/dL (74-106); MAGNESIUM 1.7 mg/dL (1.8-2.4); POTASSIUM 5.2 mmol/L (3.5-5.1); SGOT/AST 18 U/L (15-37); SGPT/ALT 23 U/L (13-61); SODIUM 139 mmol/L (136-145)
[2018-01-20] MEDS ORDERED: POTASSIUM CHLORIDE 10 MEQ, MAGNESIUM SULFATE 1 GM in SODIUM CHLORIDE 500 ML IVPB ONE (10:30)
[2018-01-20 10:37] LABS: ALK PHOS 112 U/L (45-117); ALK PHOS 113 U/L (45-117); BILIRUBIN,TOTAL 0.1 mg/dL (0.2-1.0); BILIRUBIN,TOTAL 0.2 mg/dL (0.2-1.0); CREATININE 0.7 mg/dL (0.55-1.02); SGOT/AST 12 U/L (15-37); SGPT/ALT 23 U/L (13-61); TOT PROT 6.8 g/dl (6.4-8.2); TOT PROT 6.9 g/dl (6.4-8.2)
[2018-01-20 11:36] LABS: ANISOCYTOSIS 3+; MACROCYTOSIS 0; PLATELET ESTIMATE NORMAL
[2018-01-20] MEDS ORDERED: IRON SUCROSE INJECTION 100 MG in SODIUM CHLORIDE 100 ML IVPB ONE (12:15)
[2018-01-20 18:08] VITALS: PULSE 68; TEMP 97.7
[2018-01-20 18:25] VITALS: BP 151/65
[2018-01-20] MEDS ORDERED: PORTA CATH FLUSH 10 ML IVPUSH ONE (18:25)
== END 2018-01-20 17:20 | disposition home or self-care (01) ==
LOC: JONCCHEMO 07:32 → J7W 10:43 → JONCCHEMO 17:30
PROVIDERS: ATTEND Internal Medicine Hematology & Oncology
DX: Z51.11 Encounter for antineoplastic chemotherapy (principal); C23 Malignant neoplasm of gallbladder; D50.9 Iron deficiency anemia, unspecified; C79.9 Secondary malignant neoplasm of unspecified site; D70.9 Neutropenia, unspecified
CPT/HCPCS: 36415; 80053; 80076; 83735; 85025; 96361; 96367; 96375; 96413; 96417; J1100; J1756; J2469

== ENCOUNTER 2018-01-21 07:24 | Day surgery (SDC) | payer OTHER ==
[2018-01-21] MEDS ORDERED: PEGFILGRASTIM 6 MG/0.6 ML DISP.SYRIN SQ ONE (09:00)
[2018-01-21 15:19] VITALS: BP 162/78; PULSE 67; TEMP 97.7
== END 2018-01-21 13:30 | disposition home or self-care (01) ==
LOC: JONCCHEMO 07:24 → J7W 13:22 → JONCCHEMO 13:30
PROVIDERS: ATTEND Internal Medicine Hematology & Oncology
PROC: 3E013GC Introduction of Other Therapeutic Substance into Subcutaneous Tissue, Percutaneous Approach (ICD-10-PCS; principal; 2018-01-21)
DX: C23 Malignant neoplasm of gallbladder (principal); C79.9 Secondary malignant neoplasm of unspecified site; D50.9 Iron deficiency anemia, unspecified; Z76.89 Persons encountering health services in other specified circumstances
CPT/HCPCS: 96372; J2505

== ENCOUNTER 2018-02-03 07:27 | Day surgery (SDC) | payer OTHER ==
[2018-02-03] MEDS ORDERED: SODIUM CHLORIDE 500 ML IV ONE (08:00)
[2018-02-03] MEDS ORDERED: DEXAMETHASONE INJECTION 20 MG in SODIUM CHLORIDE 50 ML IVPB ONE (08:30)
[2018-02-03] MEDS ORDERED: PALONOSETRON HCL 0.25 MG/5 ML VIAL IVPUSH ONE (08:30)
[2018-02-03] MEDS ORDERED: GEMCITABINE HCL 1,482 MG in SODIUM CHLORIDE 250 ML IV ONE (09:00)
[2018-02-03 09:02] LABS: BASO % 0.4 % (0-2.0); EOS % 1.2 % (0-4.5); HEMOGLOBIN 10.6 GM/dL (10.7-15.3); LYMPH % 16.6 % (8-40); MCH 27.5 pg (25.7-33.7); MCHC 32.2 g/dl (32.0-36.0); MEAN CELL VOLUME 85.4 fl (80-96); MEAN PLT VOLUME 7.9 fl (7.5-11.1); MONO % 9.6 % (3.8-10.2); NEUT % 72.2 % (42.8-82.8); PLATELET COUNT 383 K/MM3 (134-434); RBC 3.87 M/mm3 (3.60-5.2); RDW 22.2 % (11.6-15.6); WHITE BLOOD COUNT 16.8 K/mm3 (4.0-10.0)
[2018-02-03] MEDS ORDERED: CISPLATIN IV ONE (09:30)
[2018-02-03] MEDS ORDERED: SODIUM CHLORIDE IV ONE (09:30)
[2018-02-03 09:37] LABS: ALBUMIN 3.7 g/dl (3.4-5.0); ALK PHOS 151 U/L (45-117); ANION GAP 11 MMOL/L (8-16); BILIRUBIN,DIRECT < 0.2 mg/dL (0.0-0.2); BILIRUBIN,TOTAL 0.2 mg/dL (0.2-1); BLOOD UREA NITROGEN 16 mg/dL (7-18); CALCIUM 9.3 mg/dL (8.5-10.1); CHLORIDE 103 mmol/L (98-107); CO2 26 mmol/L (21-32); CREATININE 0.7 mg/dL (0.55-1.3); GLUCOSE,RANDOM 92 mg/dL (74-106); MAGNESIUM 1.5 mg/dL (1.8-2.4); POTASSIUM 5.2 mmol/L (3.5-5.1); SGOT/AST 12 U/L (15-37); SGPT/ALT 22 U/L (13-61); SODIUM 140 mmol/L (136-145); TOT PROT 7.1 g/dl (6.4-8.2)
[2018-02-03] MEDS ORDERED: amLODIPine BESYLATE 5 MG TABLET (FP) PO PRN (09:55)
[2018-02-03] MEDS ORDERED: MAGNESIUM SULF 50% (8.12 MEQ/2 ML-1 GM VIAL) ONE (10:08)
[2018-02-03] MEDS ORDERED: MAGNESIUM SULF 50% (8.12 MEQ/2 ML-1 GM VIAL) IVPB ONE (10:15)
[2018-02-03] MEDS ORDERED: POTASSIUM CHLORIDE 10 MEQ, MAGNESIUM SULFATE 1 GM in SODIUM CHLORIDE 500 ML IVPB ONE (10:30)
[2018-02-03] MEDS ORDERED: SODIUM CHLORIDE IVPB ONE (10:45)
[2018-02-03] MEDS ORDERED: MAGNESIUM SULFATE IVPB ONE (10:45)
[2018-02-03 11:19] LABS: ANISOCYTOSIS 1+; MACROCYTOSIS 1+; PLATELET ESTIMATE NORMAL
[2018-02-03 16:40] VITALS: TEMP 98.1
[2018-02-03 16:48] VITALS: BP 137/72; PULSE 68
[2018-02-03] MEDS ORDERED: PORTA CATH FLUSH 10 ML IVPUSH ONE (16:48)
[2018-02-04 08:08] LABS: SERUM IRON SATURATION 14 % (15-55); TOTAL IRON BINDING CAPACITY 312 ug/dL (250-450); UIBC 268 ug/dL (118-369)
== END 2018-02-03 15:15 | disposition home or self-care (01) ==
LOC: JONCCHEMO 07:27 → J7W 09:46 → JONCCHEMO 15:15
PROVIDERS: ATTEND Internal Medicine Hematology & Oncology
DX: Z51.11 Encounter for antineoplastic chemotherapy (principal); C23 Malignant neoplasm of gallbladder; C79.9 Secondary malignant neoplasm of unspecified site; D50.9 Iron deficiency anemia, unspecified
CPT/HCPCS: 36415; 80053; 80076; 82728; 83540; 83550; 83735; 85025; 96361; 96367; 96375; 96413; 96417; J1100; J2469

== ENCOUNTER 2018-02-10 07:30 | Day surgery (SDC) | payer OTHER ==
[2018-02-10] MEDS ORDERED: SODIUM CHLORIDE 500 ML IV ONE ×2 (09:00→13:30)
[2018-02-10] MEDS ORDERED: PALONOSETRON HCL 0.25 MG/5 ML VIAL IVPUSH ONE (10:00)
[2018-02-10] MEDS ORDERED: DEXAMETHASONE INJECTION 20 MG in SODIUM CHLORIDE 50 ML IVPB ONE (10:00)
[2018-02-10] MEDS ORDERED: CISPLATIN IV ONE (10:30)
[2018-02-10] MEDS ORDERED: SODIUM CHLORIDE IV ONE (10:30)
[2018-02-10 10:37] LABS: BASO % 1.7 % (0-2.0); EOS % 2.5 % (0-4.5); HEMATOCRIT 32.1 % (32.4-45.2); HEMOGLOBIN 10.4 GM/dL (10.7-15.3); LYMPH % 43.5 % (8-40); MCH 28.2 pg (25.7-33.7); MCHC 32.2 g/dl (32.0-36.0); MEAN CELL VOLUME 87.7 fl (80-96); MEAN PLT VOLUME 8.7 fl (7.5-11.1); MONO % 11.3 % (3.8-10.2); PLATELET COUNT 331 K/MM3 (134-434); RBC 3.66 M/mm3 (3.60-5.2); RDW 20.9 % (11.6-15.6); WHITE BLOOD COUNT 4.8 K/mm3 (4.0-10.0)
[2018-02-10 11:17] LABS: ACANTHOCYTES 1+; ALBUMIN 3.5 g/dl (3.4-5.0); ALK PHOS 115 U/L (45-117); ANION GAP 7 MMOL/L (8-16); ANISOCYTOSIS 2+; BILIRUBIN,DIRECT < 0.2 mg/dL (0.0-0.2); BILIRUBIN,TOTAL 0.1 mg/dL (0.2-1); BLOOD UREA NITROGEN 14 mg/dL (7-18); CALCIUM 9.1 mg/dL (8.5-10.1); CHLORIDE 105 mmol/L (98-107); CO2 25 mmol/L (21-32); CREATININE 0.5 mg/dL (0.55-1.3); GLUCOSE,RANDOM 96 mg/dL (74-106); MACROCYTOSIS 0; MAGNESIUM 1.6 mg/dL (1.8-2.4); PLATELET ESTIMATE NORMAL; SGOT/AST 16 U/L (15-37); SGPT/ALT 25 U/L (13-61); SICKELED CELLS 1+; SODIUM 138 mmol/L (136-145); TOT PROT 6.7 g/dl (6.4-8.2)
[2018-02-10] MEDS ORDERED: GEMCITABINE HCL 1,482 MG in SODIUM CHLORIDE 250 ML IV ONE (11:30)
[2018-02-10] MEDS ORDERED: POTASSIUM CHLORIDE 10 MEQ, MAGNESIUM SULFATE 1 GM in SODIUM CHLORIDE 500 ML IVPB ONE (12:00)
[2018-02-10] MEDS ORDERED: FOSAPREPITANT DIMEGLUMINE 150 MG in SODIUM CHLORIDE 150 ML IVPB ONE (13:15)
[2018-02-10] MEDS ORDERED: MAGNESIUM SULF 50% (8.12 MEQ/2 ML-1 GM VIAL) IVPB ONE (13:30)
[2018-02-10] MEDS ORDERED: PORTA CATH FLUSH 10 ML IVPUSH ONE (17:23)
[2018-02-10 17:24] VITALS: BP 149/65; PULSE 74; TEMP 98.1
== END 2018-02-10 17:35 | disposition home or self-care (01) ==
LOC: JONCCHEMO 07:30 → J7W 11:02 → JONCCHEMO 17:35
PROVIDERS: ATTEND Internal Medicine Hematology & Oncology
DX: Z51.11 Encounter for antineoplastic chemotherapy (principal); C23 Malignant neoplasm of gallbladder; C79.9 Secondary malignant neoplasm of unspecified site; D50.9 Iron deficiency anemia, unspecified
CPT/HCPCS: 36415; 80053; 80076; 83735; 85025; 96361; 96367; 96375; 96413; 96417; J1100; J1453; J2469

== ENCOUNTER 2018-02-11 07:18 | Day surgery (SDC) | payer OTHER ==
[2018-02-11] MEDS ORDERED: PEGFILGRASTIM 6 MG/0.6 ML DISP.SYRIN SQ ONE (10:00)
[2018-02-11 15:37] VITALS: BP 178/82; PULSE 72; TEMP 97.8
== END 2018-02-11 13:45 | disposition home or self-care (01) ==
LOC: JONCCHEMO 07:18 → J7W 13:30 → JONCCHEMO 13:45
PROVIDERS: ATTEND Internal Medicine Hematology & Oncology
PROC: 3E013GC Introduction of Other Therapeutic Substance into Subcutaneous Tissue, Percutaneous Approach (ICD-10-PCS; principal; 2018-02-11)
DX: C23 Malignant neoplasm of gallbladder (principal); C79.9 Secondary malignant neoplasm of unspecified site; D50.9 Iron deficiency anemia, unspecified; Z76.89 Persons encountering health services in other specified circumstances
CPT/HCPCS: 96372; J2505

== ENCOUNTER 2018-02-24 07:38 | Day surgery (SDC) | payer OTHER ==
[2018-02-24] MEDS ORDERED: SODIUM CHLORIDE 500 ML IV ONE (09:00)
[2018-02-24] MEDS ORDERED: PALONOSETRON HCL 0.25 MG/5 ML VIAL IVPUSH ONE (10:00)
[2018-02-24] MEDS ORDERED: DEXAMETHASONE INJECTION 20 MG in SODIUM CHLORIDE 50 ML IVPB ONE (10:00)
[2018-02-24] MEDS ORDERED: SODIUM CHLORIDE IV ONE (10:30)
[2018-02-24] MEDS ORDERED: CISPLATIN IV ONE (10:30)
[2018-02-24 11:22] LABS: ALBUMIN 3.6 g/dl (3.4-5.0); ALK PHOS 160 U/L (45-117); ANION GAP 10 MMOL/L (8-16); BILIRUBIN,DIRECT 0.1 mg/dL (0.0-0.2); BILIRUBIN,TOTAL 0.2 mg/dL (0.2-1); BLOOD UREA NITROGEN 15 mg/dL (7-18); CALCIUM 8.8 mg/dL (8.5-10.1); CHLORIDE 105 mmol/L (98-107); CO2 26 mmol/L (21-32); CREATININE 0.5 mg/dL (0.55-1.3); GLUCOSE,RANDOM 97 mg/dL (74-106); POTASSIUM 4.9 mmol/L (3.5-5.1); SGOT/AST 20 U/L (15-37); SGPT/ALT 23 U/L (13-61); SODIUM 141 mmol/L (136-145); TOT PROT 6.8 g/dl (6.4-8.2)
[2018-02-24] MEDS ORDERED: GEMCITABINE HCL 1,482 MG in SODIUM CHLORIDE 250 ML IV ONE (11:30)
[2018-02-24] MEDS ORDERED: SODIUM CHLORIDE 500 ML IV STA (11:53)
[2018-02-24] MEDS ORDERED: POTASSIUM CHLORIDE 10 MEQ, MAGNESIUM SULFATE 1 GM in SODIUM CHLORIDE 500 ML IVPB ONE (12:00)
[2018-02-24 12:38] LABS: MAGNESIUM 1.4 mg/dL (1.8-2.4)
[2018-02-24 14:08] LABS: BASO % 0.5 % (0-2.0); EOS % 0.9 % (0-4.5); HEMATOCRIT 29.6 % (32.4-45.2); HEMOGLOBIN 9.5 GM/dL (10.7-15.3); LYMPH % 16.8 % (8-40); MCH 27.9 pg (25.7-33.7); MCHC 32.1 g/dl (32.0-36.0); MEAN PLT VOLUME 7.9 fl (7.5-11.1); MONO % 8.2 % (3.8-10.2); NEUT % 73.6 % (42.8-82.8); PLATELET COUNT 378 K/MM3 (134-434); RBC 3.41 M/mm3 (3.60-5.2); RDW 22.3 % (11.6-15.6); WHITE BLOOD COUNT 15.2 K/mm3 (4.0-10.0)
[2018-02-24] MEDS ORDERED: MAGNESIUM SULF 50% (8.12 MEQ/2 ML-1 GM VIAL) ONE (14:49)
[2018-02-24 15:06] LABS: ANISOCYTOSIS 2+; MACROCYTOSIS 1+; OVALOCYTE 1+; PLATELET ESTIMATE NORMAL
[2018-02-24] MEDS ORDERED: MAGNESIUM SULF 50% (8.12 MEQ/2 ML-1 GM VIAL) IVPB ONE ×2 (15:15→15:41)
[2018-02-24 16:34] VITALS: TEMP 97.5
[2018-02-24] MEDS ORDERED: PORTA CATH FLUSH 10 ML IVPUSH ONE (16:34)
[2018-02-24 17:33] VITALS: BP 148/60; PULSE 72
== END 2018-02-24 17:35 | disposition home or self-care (01) ==
LOC: JONCCHEMO 07:38 → J7W 12:13 → JONCCHEMO 17:35
PROVIDERS: ATTEND Internal Medicine Hematology & Oncology
DX: Z51.11 Encounter for antineoplastic chemotherapy (principal); C23 Malignant neoplasm of gallbladder; C79.9 Secondary malignant neoplasm of unspecified site
CPT/HCPCS: 36415; 80053; 80076; 82728; 83735; 85025; 96361; 96367; 96375; 96413; 96417; J1100; J2469

== ENCOUNTER 2018-03-03 07:16 | Day surgery (SDC) | payer OTHER ==
[2018-03-03] MEDS ORDERED: SODIUM CHLORIDE 500 ML IV ONE (09:00)
[2018-03-03] MEDS ORDERED: PALONOSETRON HCL 0.25 MG/5 ML VIAL IVPUSH ONE (10:00)
[2018-03-03] MEDS ORDERED: DEXAMETHASONE INJECTION 20 MG in SODIUM CHLORIDE 50 ML IVPB ONE (10:00)
[2018-03-03] MEDS ORDERED: CISPLATIN IV ONE (10:30)
[2018-03-03] MEDS ORDERED: SODIUM CHLORIDE IV ONE (10:30)
[2018-03-03 11:14] LABS: BASO % 0.7 % (0-2.0); EOS % 0.8 % (0-4.5); LYMPH % 28.6 % (8-40); MCH 28.7 pg (25.7-33.7); MCHC 33.4 g/dl (32.0-36.0); MEAN CELL VOLUME 85.9 fl (80-96); MEAN PLT VOLUME 7.5 fl (7.5-11.1); MONO % 6.9 % (3.8-10.2); PLATELET COUNT 348 K/MM3 (134-434); RBC 3.49 M/mm3 (3.60-5.2); RDW 20.8 % (11.6-15.6); WHITE BLOOD COUNT 7.3 K/mm3 (4.0-10.0)
[2018-03-03] MEDS ORDERED: amLODIPine BESYLATE 5 MG TABLET (FP) PO ONE (11:15)
[2018-03-03] MEDS ORDERED: amLODIPine BESYLATE 5 MG TABLET (FP) PO PRN (11:16)
[2018-03-03] MEDS ORDERED: GEMCITABINE HCL 1,482 MG in SODIUM CHLORIDE 250 ML IV ONE (11:30)
[2018-03-03 11:55] LABS: ALBUMIN 3.8 g/dl (3.4-5.0); ALK PHOS 113 U/L (45-117); ANION GAP 8 MMOL/L (8-16); BILIRUBIN,DIRECT 0.1 mg/dL (0.0-0.2); BILIRUBIN,TOTAL 0.3 mg/dL (0.2-1); BLOOD UREA NITROGEN 13 mg/dL (7-18); CALCIUM 8.5 mg/dL (8.5-10.1); CHLORIDE 105 mmol/L (98-107); CO2 27 mmol/L (21-32); CREATININE 0.4 mg/dL (0.55-1.3); GLUCOSE,RANDOM 93 mg/dL (74-106); MAGNESIUM 1.4 mg/dL (1.8-2.4); POTASSIUM 4.2 mmol/L (3.5-5.1); SGOT/AST 14 U/L (15-37); SGPT/ALT 24 U/L (13-61); SODIUM 140 mmol/L (136-145); TOT PROT 6.7 g/dl (6.4-8.2)
[2018-03-03] MEDS ORDERED: POTASSIUM CHLORIDE 10 MEQ, MAGNESIUM SULFATE 1 GM in SODIUM CHLORIDE 500 ML IVPB ONE (12:00)
[2018-03-03 14:09] LABS: ANISOCYTOSIS 1+; MACROCYTOSIS 1+; PLATELET ESTIMATE NORMAL
[2018-03-03] MEDS ORDERED: MAGNESIUM SULF 50% (8.12 MEQ/2 ML-1 GM VIAL) ONE (15:00)
[2018-03-03] MEDS ORDERED: MAGNESIUM SULFATE IVPB ONE (15:15)
[2018-03-03] MEDS ORDERED: SODIUM CHLORIDE IVPB ONE (15:15)
[2018-03-03 15:16] VITALS: TEMP 16
[2018-03-03] MEDS ORDERED: PORTA CATH FLUSH 10 ML IVPUSH ONE (15:16)
[2018-03-03 17:23] VITALS: BP 144/66; PULSE 72
== END 2018-03-03 17:25 | disposition home or self-care (01) ==
LOC: JONCCHEMO 07:16 → J7W 10:39 → JONCCHEMO 17:25
PROVIDERS: ATTEND Internal Medicine Hematology & Oncology
DX: Z51.11 Encounter for antineoplastic chemotherapy (principal); C23 Malignant neoplasm of gallbladder; C79.9 Secondary malignant neoplasm of unspecified site
CPT/HCPCS: 36415; 80048; 80076; 82728; 83735; 85025; 96361; 96375; 96413; 96417; J1100; J2469

== ENCOUNTER 2018-03-04 07:37 | Day surgery (SDC) | payer OTHER ==
[2018-03-04] MEDS ORDERED: PEGFILGRASTIM 6 MG/0.6 ML DISP.SYRIN SQ ONE (10:00)
[2018-03-04 16:39] VITALS: BP 159/56; PULSE 66; TEMP 97.7
== END 2018-03-04 15:45 | disposition home or self-care (01) ==
LOC: JONCCHEMO 07:37 → J7W 15:34 → JONCCHEMO 15:45
PROVIDERS: ATTEND Internal Medicine Hematology & Oncology
PROC: 3E013GC Introduction of Other Therapeutic Substance into Subcutaneous Tissue, Percutaneous Approach (ICD-10-PCS; principal; 2018-03-04)
DX: C23 Malignant neoplasm of gallbladder (principal); C79.9 Secondary malignant neoplasm of unspecified site; Z76.89 Persons encountering health services in other specified circumstances
CPT/HCPCS: 96372; J2505

== ENCOUNTER 2018-03-17 07:28 | Day surgery (SDC) | payer OTHER ==
[2018-03-17] MEDS ORDERED: SODIUM CHLORIDE 500 ML IV ONE (08:00)
[2018-03-17] MEDS ORDERED: PALONOSETRON HCL 0.25 MG/5 ML VIAL IVPUSH ONE (08:30)
[2018-03-17] MEDS ORDERED: DEXAMETHASONE INJECTION 20 MG in SODIUM CHLORIDE 50 ML IVPB ONE (08:30)
[2018-03-17] MEDS ORDERED: GEMCITABINE HCL 1,482 MG in SODIUM CHLORIDE 250 ML IV ONE (09:00)
[2018-03-17] MEDS ORDERED: SODIUM CHLORIDE IV ONE (09:30)
[2018-03-17] MEDS ORDERED: CISPLATIN IV ONE (09:30)
[2018-03-17 09:38] VITALS: TEMP 97.7
[2018-03-17 10:28] LABS: BASO % 0.5 % (0-2.0); EOS % 0.8 % (0-4.5); HEMATOCRIT 34.2 % (32.4-45.2); LYMPH % 17.5 % (8-40); MCH 28.5 pg (25.7-33.7); MCHC 32.3 g/dl (32.0-36.0); MEAN CELL VOLUME 88.4 fl (80-96); MEAN PLT VOLUME 8.1 fl (7.5-11.1); MONO % 8.7 % (3.8-10.2); NEUT % 72.5 % (42.8-82.8); PLATELET COUNT 358 K/MM3 (134-434); RBC 3.87 M/mm3 (3.60-5.2); RDW 22.3 % (11.6-15.6); WHITE BLOOD COUNT 5.3 K/mm3 (4.0-10.0)
[2018-03-17] MEDS ORDERED: POTASSIUM CHLORIDE 10 MEQ, MAGNESIUM SULFATE 1 GM in SODIUM CHLORIDE 500 ML IVPB ONE (10:30)
[2018-03-17 10:49] LABS: ALBUMIN 3.8 g/dl (3.4-5.0); ALK PHOS 145 U/L (45-117); ANION GAP 7 MMOL/L (8-16); BILIRUBIN,DIRECT 0.1 mg/dL (0.0-0.2); BILIRUBIN,TOTAL 0.2 mg/dL (0.2-1); BLOOD UREA NITROGEN 17 mg/dL (7-18); CALCIUM 8.8 mg/dL (8.5-10.1); CHLORIDE 104 mmol/L (98-107); CO2 29 mmol/L (21-32); CREATININE 0.6 mg/dL (0.55-1.3); GLUCOSE,RANDOM 97 mg/dL (74-106); MAGNESIUM 1.3 mg/dL (1.8-2.4); POTASSIUM 4.2 mmol/L (3.5-5.1); SGOT/AST 17 U/L (15-37); SGPT/ALT 22 U/L (13-61); SODIUM 140 mmol/L (136-145); TOT PROT 6.8 g/dl (6.4-8.2)
[2018-03-17] MEDS ORDERED: MAGNESIUM SULF 50% (8.12 MEQ/2 ML-1 GM VIAL) IVPB ONE (11:30)
[2018-03-17 11:39] LABS: ANISOCYTOSIS 1+; MACROCYTOSIS 1+; OVALOCYTE 1+; PLATELET ESTIMATE NORMAL
[2018-03-17] MEDS ORDERED: PORTA CATH FLUSH 10 ML IVPUSH ONE (15:11)
[2018-03-17 16:37] VITALS: BP 151/64; PULSE 76
== END 2018-03-17 16:41 | disposition home or self-care (01) ==
LOC: JONCCHEMO 07:28 → J7W 10:31 → JONCCHEMO 16:41
PROVIDERS: ATTEND Internal Medicine Hematology & Oncology
PROC: 3E04305 Introduction of Other Antineoplastic into Central Vein, Percutaneous Approach (ICD-10-PCS; principal; 2018-03-17)
PROC: 3E043GC Introduction of Other Therapeutic Substance into Central Vein, Percutaneous Approach (ICD-10-PCS; 2018-03-17)
PROC: 3E0437Z Introduction of Electrolytic and Water Balance Substance into Central Vein, Percutaneous Approach (ICD-10-PCS; 2018-03-17)
DX: Z51.11 Encounter for antineoplastic chemotherapy (principal); C23 Malignant neoplasm of gallbladder; I10 Essential (primary) hypertension; E11.9 Type 2 diabetes mellitus without complications
CPT/HCPCS: 36415; 80053; 80076; 82378; 83735; 85025; 86301; 96361; 96367; 96375; 96413; 96417; J1100; J2469

== ENCOUNTER 2018-03-24 07:13 | Day surgery (SDC) | payer OTHER ==
[2018-03-24] MEDS ORDERED: SODIUM CHLORIDE 500 ML IV ONE (08:00)
[2018-03-24] MEDS ORDERED: PALONOSETRON HCL 0.25 MG/5 ML VIAL IVPUSH ONE (08:30)
[2018-03-24] MEDS ORDERED: DEXAMETHASONE INJECTION 20 MG in SODIUM CHLORIDE 50 ML IVPB ONE (08:30)
[2018-03-24] MEDS ORDERED: GEMCITABINE HCL 1,482 MG in SODIUM CHLORIDE 250 ML IV ONE (09:00)
[2018-03-24] MEDS ORDERED: CISPLATIN IV ONE (09:30)
[2018-03-24] MEDS ORDERED: SODIUM CHLORIDE IV ONE (09:30)
[2018-03-24] MEDS ORDERED: POTASSIUM CHLORIDE 20 MEQ, MAGNESIUM SULFATE 1 GM in SODIUM CHLORIDE 500 ML IVPB ONE (10:30)
[2018-03-24 11:19] LABS: BASO % 1.2 % (0-2.0); EOS % 0.6 % (0-4.5); HEMATOCRIT 32.2 % (32.4-45.2); HEMOGLOBIN 10.5 GM/dL (10.7-15.3); LYMPH % 27.8 % (8-40); MCH 28.8 pg (25.7-33.7); MCHC 32.5 g/dl (32.0-36.0); MEAN CELL VOLUME 88.5 fl (80-96); MEAN PLT VOLUME 7.9 fl (7.5-11.1); MONO % 9.3 % (3.8-10.2); NEUT % 61.1 % (42.8-82.8); PLATELET COUNT 295 K/MM3 (134-434); RBC 3.64 M/mm3 (3.60-5.2); RDW 20.7 % (11.6-15.6); WHITE BLOOD COUNT 6.2 K/mm3 (4.0-10.0)
[2018-03-24 12:06] LABS: ALBUMIN 3.9 g/dl (3.4-5.0); ALK PHOS 123 U/L (45-117); ANION GAP 8 MMOL/L (8-16); BILIRUBIN,DIRECT 0.1 mg/dL (0.0-0.2); BILIRUBIN,TOTAL 0.2 mg/dL (0.2-1); BLOOD UREA NITROGEN 9 mg/dL (7-18); CALCIUM 8.3 mg/dL (8.5-10.1); CHLORIDE 107 mmol/L (98-107); CO2 24 mmol/L (21-32); CREATININE 0.5 mg/dL (0.55-1.3); GLUCOSE,RANDOM 105 mg/dL (74-106); MAGNESIUM 1.2 mg/dL (1.8-2.4); POTASSIUM 4.4 mmol/L (3.5-5.1); SGOT/AST 17 U/L (15-37); SGPT/ALT 22 U/L (13-61); SODIUM 139 mmol/L (136-145)
[2018-03-24] MEDS ORDERED: SODIUM CHLORIDE 500 ML IV STA (13:13)
[2018-03-24] MEDS ORDERED: MAGNESIUM SULF 50% (8.12 MEQ/2 ML-1 GM VIAL) IVPB ONE (14:00)
[2018-03-24 15:32] LABS: ACANTHOCYTES 1+; ANISOCYTOSIS 2+; MACROCYTOSIS 0; PLATELET ESTIMATE NORMAL; TEAR DROP CELLS 1+
[2018-03-24 17:30] VITALS: BP 148/78; PULSE 76; TEMP 98.3
== END 2018-03-24 17:35 | disposition home or self-care (01) ==
LOC: JONCCHEMO 07:13 → J7W 13:40 → JONCCHEMO 17:35
PROVIDERS: ATTEND Internal Medicine Hematology & Oncology
DX: Z51.11 Encounter for antineoplastic chemotherapy (principal); C23 Malignant neoplasm of gallbladder; E11.9 Type 2 diabetes mellitus without complications; I10 Essential (primary) hypertension
CPT/HCPCS: 36415; 80053; 80076; 83735; 85025; 96361; 96367; 96375; 96413; 96417; J1100; J2469

== ENCOUNTER 2018-03-25 07:33 | Day surgery (SDC) | payer OTHER ==
[2018-03-25] MEDS ORDERED: PEGFILGRASTIM 6 MG/0.6 ML DISP.SYRIN SQ ONE (09:00)
[2018-03-25 14:43] VITALS: BP 168/60; PULSE 74; TEMP 98
== END 2018-03-25 14:44 | disposition home or self-care (01) ==
LOC: JONCCHEMO 07:33 → J7W 14:31 → JONCCHEMO 14:44
PROVIDERS: ATTEND Internal Medicine Hematology & Oncology
PROC: 3E013GC Introduction of Other Therapeutic Substance into Subcutaneous Tissue, Percutaneous Approach (ICD-10-PCS; principal; 2018-03-25)
DX: C23 Malignant neoplasm of gallbladder (principal); E11.9 Type 2 diabetes mellitus without complications; I10 Essential (primary) hypertension; Z76.89 Persons encountering health services in other specified circumstances
CPT/HCPCS: 96372; J2505

== ENCOUNTER 2018-04-07 08:04 | Day surgery (SDC) | payer OTHER ==
[2018-04-07] MEDS ORDERED: SODIUM CHLORIDE 500 ML IV ONE (09:00)
[2018-04-07 09:09] LABS: BASO % 0.5 % (0-2.0); EOS % 0.9 % (0-4.5); HEMATOCRIT 31.4 % (32.4-45.2); HEMOGLOBIN 10.6 GM/dL (10.7-15.3); LYMPH % 10.7 % (8-40); MCH 30.2 pg (25.7-33.7); MCHC 33.6 g/dl (32.0-36.0); MEAN CELL VOLUME 89.8 fl (80-96); MEAN PLT VOLUME 8.3 fl (7.5-11.1); MONO % 8.1 % (3.8-10.2); NEUT % 79.8 % (42.8-82.8); PLATELET COUNT 365 K/MM3 (134-434); RDW 20.4 % (11.6-15.6); WHITE BLOOD COUNT 18.3 K/mm3 (4.0-10.0)
[2018-04-07 09:45] LABS: ALBUMIN 3.7 g/dl (3.4-5.0); ALK PHOS 176 U/L (45-117); ANION GAP 10 MMOL/L (8-16); BILIRUBIN,DIRECT 0.1 mg/dL (0.0-0.2); BILIRUBIN,TOTAL 0.2 mg/dL (0.2-1); BLOOD UREA NITROGEN 16 mg/dL (7-18); CALCIUM 8.4 mg/dL (8.5-10.1); CHLORIDE 105 mmol/L (98-107); CO2 25 mmol/L (21-32); CREATININE 0.8 mg/dL (0.55-1.3); GLUCOSE,RANDOM 121 mg/dL (74-106); MAGNESIUM 1.3 mg/dL (1.8-2.4); POTASSIUM 4.3 mmol/L (3.5-5.1); SGOT/AST 12 U/L (15-37); SGPT/ALT 20 U/L (13-61); SODIUM 140 mmol/L (136-145)
[2018-04-07] MEDS ORDERED: MAGNESIUM SULF 50% (8.12 MEQ/2 ML-1 GM VIAL) IVPB ONE (09:52)
[2018-04-07] MEDS ORDERED: SODIUM CHLORIDE 500 ML IV STA (09:53)
[2018-04-07] MEDS ORDERED: DEXAMETHASONE SODIUM PHOSPHATE 20 MG in SODIUM CHLORIDE 50 ML IVPB ONE (10:00)
[2018-04-07] MEDS ORDERED: PALONOSETRON HCL 0.25 MG/5 ML VIAL IVPUSH ONE (10:00)
[2018-04-07 10:15] VITALS: TEMP 97.7
[2018-04-07] MEDS ORDERED: PORTA CATH FLUSH 10 ML IVPUSH ONE (10:16)
[2018-04-07] MEDS ORDERED: CISPLATIN IV ONE (10:30)
[2018-04-07] MEDS ORDERED: SODIUM CHLORIDE IV ONE (10:30)
[2018-04-07] MEDS ORDERED: GEMCITABINE HCL 1,482 MG in SODIUM CHLORIDE 250 ML IV ONE (11:30)
[2018-04-07] MEDS ORDERED: POTASSIUM CHLORIDE 10 MEQ, MAGNESIUM SULFATE 1 GM in SODIUM CHLORIDE 500 ML IVPB ONE (12:00)
[2018-04-07 12:06] LABS: ANISOCYTOSIS 1+; MACROCYTOSIS 1+; OVALOCYTE 1+; PLATELET ESTIMATE NORMAL
[2018-04-07 15:10] VITALS: BP 138/67; PULSE 73
== END 2018-04-07 14:15 | disposition home or self-care (01) ==
LOC: JONCCHEMO 08:04 → J7W 09:52 → JONCCHEMO 14:15
PROVIDERS: ATTEND Internal Medicine Hematology & Oncology
DX: Z51.11 Encounter for antineoplastic chemotherapy (principal); C23 Malignant neoplasm of gallbladder
CPT/HCPCS: 36415; 80053; 80076; 83735; 85025; 96361; 96367; 96375; 96413; 96417; J2469; J7030

== ENCOUNTER 2018-04-14 07:35 | Day surgery (SDC) | payer OTHER ==
[2018-04-14] MEDS ORDERED: SODIUM CHLORIDE 500 ML IV ONE (09:00)
[2018-04-14 09:35] LABS: BASO % 0.8 % (0-2.0); EOS % 1.4 % (0-4.5); HEMATOCRIT 28.1 % (32.4-45.2); HEMOGLOBIN 9.7 GM/dL (10.7-15.3); LYMPH % 31.4 % (8-40); MCH 30.8 pg (25.7-33.7); MCHC 34.5 g/dl (32.0-36.0); MEAN CELL VOLUME 89.3 fl (80-96); MONO % 8.5 % (3.8-10.2); NEUT % 57.9 % (42.8-82.8); PLATELET COUNT 308 K/MM3 (134-434); RBC 3.14 M/mm3 (3.60-5.2); RDW 18.2 % (11.6-15.6); WHITE BLOOD COUNT 6.6 K/mm3 (4.0-10.0)
[2018-04-14] MEDS ORDERED: PALONOSETRON HCL 0.25 MG/5 ML VIAL IVPUSH ONE (10:00)
[2018-04-14] MEDS ORDERED: DEXAMETHASONE SODIUM PHOSPHATE 20 MG in SODIUM CHLORIDE 50 ML IVPB ONE (10:00)
[2018-04-14 10:03] LABS: ALBUMIN 3.5 g/dl (3.4-5.0); ALK PHOS 118 U/L (45-117); ANION GAP 9 MMOL/L (8-16); BILIRUBIN,DIRECT 0.1 mg/dL (0.0-0.2); BILIRUBIN,TOTAL 0.1 mg/dL (0.2-1); BLOOD UREA NITROGEN 16 mg/dL (7-18); CHLORIDE 105 mmol/L (98-107); CO2 24 mmol/L (21-32); CREATININE 0.6 mg/dL (0.55-1.3); GLUCOSE,RANDOM 104 mg/dL (74-106); MAGNESIUM 1.1 mg/dL (1.8-2.4); POTASSIUM 4.4 mmol/L (3.5-5.1); SGOT/AST 11 U/L (15-37); SGPT/ALT 20 U/L (13-61); SODIUM 137 mmol/L (136-145); TOT PROT 6.4 g/dl (6.4-8.2)
[2018-04-14] MEDS ORDERED: CISPLATIN IV ONE (10:30)
[2018-04-14] MEDS ORDERED: SODIUM CHLORIDE IV ONE (10:30)
[2018-04-14] MEDS ORDERED: GEMCITABINE HCL 1,482 MG in SODIUM CHLORIDE 250 ML IV ONE (11:30)
[2018-04-14] MEDS ORDERED: MAGNESIUM SULF 50% (8.12 MEQ/2 ML-1 GM VIAL) IVPB ONE (12:00)
[2018-04-14] MEDS ORDERED: POTASSIUM CHLORIDE 10 MEQ, MAGNESIUM SULFATE 1 GM in SODIUM CHLORIDE 500 ML IVPB ONE (12:00)
[2018-04-14 16:11] VITALS: BP 126/67; PULSE 69; TEMP 98
[2018-04-14] MEDS ORDERED: PORTA CATH FLUSH 10 ML IVPUSH ONE (16:11)
== END 2018-04-14 17:03 | disposition home or self-care (01) ==
LOC: JONCCHEMO 07:35 → J7W 10:17 → JONCCHEMO 17:03
PROVIDERS: ATTEND Internal Medicine Hematology & Oncology
DX: Z51.11 Encounter for antineoplastic chemotherapy (principal); C23 Malignant neoplasm of gallbladder
CPT/HCPCS: 36415; 80053; 80076; 83735; 85025; 96361; 96367; 96375; 96413; 96417; J2469

== ENCOUNTER 2018-04-15 07:31 | Day surgery (SDC) | payer OTHER ==
[2018-04-15] MEDS ORDERED: PEGFILGRASTIM 6 MG/0.6 ML DISP.SYRIN SQ ONE (10:00)
[2018-04-15 16:38] VITALS: BP 158/70; PULSE 62; TEMP 97.9
== END 2018-04-15 14:15 | disposition home or self-care (01) ==
LOC: JONCCHEMO 07:31 → J7W 13:58 → JONCCHEMO 14:15
PROVIDERS: ATTEND Internal Medicine Hematology & Oncology
PROC: 3E013GC Introduction of Other Therapeutic Substance into Subcutaneous Tissue, Percutaneous Approach (ICD-10-PCS; principal; 2018-04-15)
DX: C23 Malignant neoplasm of gallbladder (principal); Z76.89 Persons encountering health services in other specified circumstances
CPT/HCPCS: 96372; J2505

== ENCOUNTER 2018-05-18 05:45 | Day surgery (SDC) | payer OTHER ==
[2018-05-18] MEDS ORDERED: PALONOSETRON HCL 0.25 MG/5 ML VIAL IVPUSH ONE (08:00)
[2018-05-18] MEDS ORDERED: SODIUM CHLORIDE 250 ML IV ONE (08:00)
[2018-05-18] MEDS ORDERED: DEXAMETHASONE SODIUM PHOSPHATE 20 MG in SODIUM CHLORIDE 50 ML IVPB ONE (08:00)
[2018-05-18] MEDS ORDERED: WATER IVPB ONE (08:30)
[2018-05-18] MEDS ORDERED: WATER IV ONE (08:30)
[2018-05-18] MEDS ORDERED: OXALIPLATIN IV ONE (08:30)
[2018-05-18] MEDS ORDERED: DEXTROSE 5% IVPB ONE (08:30)
[2018-05-18] MEDS ORDERED: DEXTROSE 5% IV ONE (08:30)
[2018-05-18] MEDS ORDERED: LEUCOVORIN IVPB ONE (08:30)
[2018-05-18] MEDS ORDERED: FLUOROURACIL CP ONE (10:30)
[2018-05-18] MEDS ORDERED: SODIUM CHLORIDE CP ONE (10:30)
[2018-05-18 13:00] VITALS: PULSE 66; TEMP 98.1
[2018-05-18 13:02] VITALS: BP 154/73
== END 2018-05-18 12:30 | disposition home or self-care (01) ==
LOC: JONCCHEMO 05:45 → J7W 08:58 → JONCCHEMO 12:30
PROVIDERS: ATTEND Internal Medicine Hematology & Oncology
DX: Z51.11 Encounter for antineoplastic chemotherapy (principal); C23 Malignant neoplasm of gallbladder
CPT/HCPCS: 96366; 96367; 96375; 96413; 96415; 96417; G0498; J2469; J9263

== ENCOUNTER 2018-05-20 05:37 | Day surgery (SDC) | payer OTHER ==
[2018-05-20 12:58] VITALS: BP 139/89; PULSE 62; TEMP 97.7
[2018-05-20] MEDS ORDERED: PORTA CATH FLUSH 10 ML IVPUSH ONE (12:59)
== END 2018-05-20 11:50 | disposition home or self-care (01) ==
LOC: JONCCHEMO 05:37 → J7W 11:29 → JONCCHEMO 11:50
PROVIDERS: ATTEND Internal Medicine Hematology & Oncology
PROC: 3E013GC Introduction of Other Therapeutic Substance into Subcutaneous Tissue, Percutaneous Approach (ICD-10-PCS; principal; 2018-05-20)
DX: Z53.8 Procedure and treatment not carried out for other reasons (principal)

== ENCOUNTER 2018-06-01 10:17 | Day surgery (SDC) | payer OTHER ==
[~2018-06-01 10:17] MED LIST: DEXAMETHASONE SODIUM PHOSPHATE 20 MG in SODIUM CHLORIDE 50 ML IVPB ONE; PALONOSETRON HCL 0.25 MG/5 ML VIAL IVPUSH ONE; SODIUM CHLORIDE 250 ML IV ONE
[2018-06-01] MEDS ORDERED: DEXTROSE 5% IV ONE (10:30)
[2018-06-01] MEDS ORDERED: LEUCOVORIN IVPB ONE (10:30)
[2018-06-01] MEDS ORDERED: DEXTROSE 5% IVPB ONE (10:30)
[2018-06-01] MEDS ORDERED: OXALIPLATIN IV ONE (10:30)
[2018-06-01] MEDS ORDERED: WATER IVPB ONE (10:30)
[2018-06-01] MEDS ORDERED: WATER IV ONE (10:30)
[2018-06-01] MEDS ORDERED: MAGNESIUM SULF 50% (8.12 MEQ/2 ML-1 GM VIAL) IVPB ONE (11:00)
[2018-06-01] MEDS ORDERED: SODIUM CHLORIDE CP ONE (12:30)
[2018-06-01] MEDS ORDERED: FLUOROURACIL CP ONE (12:30)
[2018-06-01 16:29] VITALS: TEMP 97.9
[2018-06-01 16:39] VITALS: BP 162/70; PULSE 77
[2018-06-01] MEDS ORDERED: PORTA CATH FLUSH 10 ML IVPUSH ONE (16:39)
== END 2018-06-01 15:00 | disposition home or self-care (01) ==
LOC: JONCCHEMO 10:17 → J7W 10:17 → JONCCHEMO 15:00
PROVIDERS: ATTEND Internal Medicine Hematology & Oncology
DX: Z51.11 Encounter for antineoplastic chemotherapy (principal); C23 Malignant neoplasm of gallbladder
CPT/HCPCS: 96366; 96367; 96375; 96413; 96415; 96417; G0498; J2469; J9263

== ENCOUNTER 2018-06-03 06:38 | Day surgery (SDC) | payer OTHER ==
[2018-06-03 13:57] VITALS: BP 164/77; PULSE 63; TEMP 97.5
[2018-06-03] MEDS ORDERED: PORTA CATH FLUSH 10 ML IVPUSH ONE (14:23)
== END 2018-06-03 14:24 | disposition home or self-care (01) ==
LOC: JONCNONCHE 06:38 → J7W 13:33 → JONCNONCHE 14:24
PROVIDERS: ATTEND Internal Medicine Hematology & Oncology
PROC: 3E013GC Introduction of Other Therapeutic Substance into Subcutaneous Tissue, Percutaneous Approach (ICD-10-PCS; principal; 2018-06-03)
DX: Z53.8 Procedure and treatment not carried out for other reasons (principal)

== ENCOUNTER 2018-06-15 07:18 | Day surgery (SDC) | payer OTHER ==
[2018-06-15] MEDS ORDERED: SODIUM CHLORIDE 250 ML IV ONE (09:30)
[2018-06-15] MEDS ORDERED: PALONOSETRON HCL 0.25 MG/5 ML VIAL IVPUSH ONE (10:00)
[2018-06-15] MEDS ORDERED: DEXAMETHASONE SODIUM PHOSPHATE 20 MG in SODIUM CHLORIDE 50 ML IVPB ONE (10:00)
[2018-06-15] MEDS ORDERED: WATER IVPB ONE (10:30)
[2018-06-15] MEDS ORDERED: OXALIPLATIN IV ONE (10:30)
[2018-06-15] MEDS ORDERED: DEXTROSE 5% IV ONE (10:30)
[2018-06-15] MEDS ORDERED: DEXTROSE 5% IVPB ONE (10:30)
[2018-06-15] MEDS ORDERED: LEUCOVORIN IVPB ONE (10:30)
[2018-06-15] MEDS ORDERED: WATER IV ONE (10:30)
[2018-06-15] MEDS ORDERED: MAGNESIUM SULF 50% (8.12 MEQ/2 ML-1 GM VIAL) IVPB ONE (10:30)
[2018-06-15] MEDS ORDERED: SODIUM CHLORIDE CP ONE (12:30)
[2018-06-15] MEDS ORDERED: FLUOROURACIL CP ONE (12:30)
[2018-06-15] MEDS ORDERED: PORTA CATH FLUSH 10 ML IVPUSH ONE (16:16)
[2018-06-15 16:17] VITALS: BP 144/79; PULSE 74; TEMP 98
== END 2018-06-15 15:00 | disposition home or self-care (01) ==
LOC: JONCCHEMO 07:18 → J7W 08:47 → JONCCHEMO 15:00
PROVIDERS: ATTEND Internal Medicine Hematology & Oncology
DX: Z51.11 Encounter for antineoplastic chemotherapy (principal); C23 Malignant neoplasm of gallbladder
CPT/HCPCS: 96366; 96367; 96375; 96413; 96415; 96417; G0498; J2469; J9263

== ENCOUNTER 2018-06-16 22:31 | Emergency (ER) | payer OTHER ==
[2018-06-16 22:47] VITALS: BP 162/67; PULSE 62; TEMP 98.1; BMI 28.1
--- NOTE | 2018-06-16 23:44 | PDOC ---
Attending Attestation - HPI HPI: 06/17/18 00:14 The patient is a 72 year old female with a PMH of dm, htn, on chemo with Dr. De Dios for lung nodules presents to the ER for malfunction of her chemo port. Patient noticed some bleeding from the chemo port. Patient reports that she was able to reconnect her pump and stop the bleeding. Patient notes the infusion was unable to run because the tubing was clotted. Patient denies any symptoms. Allergies: Cephalexin monohydrate PSHx: cholecystectomy, lung surgery, right knee repair Social Hx: No reported alcohol, drug or cigarette use. - Physicial Exam PE: 06/17/18 00:18 ADULT PHYSICAL EXAM Constitutional: Awake, alert, oriented. No acute distress. Cardiovascular: Regular rate. Regular rhythm. S1, S2 regular. Distal pulses are 2+ and symmetric. Pulmonary/Chest: No evidence of respiratory distress. Clear to auscultation bilaterally No wheezing, rales or rhonchi. (+) Clotted blood in the tubing; port is not actively bleeding. Abdominal: Soft and non-distended. There is no tenderness. No rebound, guarding or rigidity. No organomegaly. No palpable masses. Good bowel sounds. Musculoskeletal: No edema. No cyanosis. No clubbing. Full range of motion in all extremities. Nocalf tenderness. Radial/pedal pulses are intact and 2+ bilaterally Skin: Skin is warm and dry. No petechiae. No purpura. Neurological: Alert and oriented to person, place, and time. Cranial nerves II -XII are grossly intact. Psychiatric: Good eye contact. Normal interaction, affect and behavior. <Zee Will - Last Filed: 06/17/18 00:15> - Resident Resident Name: Ruth Sharp - Attending Attestation I have performed the following: I have examined & evaluated the patient, The case was reviewed & discussed with the resident, I agree w/resident's findings & plan, Exceptions are as noted - Medical Decision Making 06/16/18 23:44 I, Dr. Maria Luisa Jiménez, DO, attest that this document has been prepared under my direction and personally reviewed by me in its entirety. I further attest, that it accurately reflects all work, treatment, procedures and medical decision -making performed by me. 06/17/18 00:02 a/p: 72yo female currently on chemo with dr. de dios for lung nodules with a malfunction of her chemo port tonight and had some bleeding -no active bleeding -was able to reconnect her pump and stop the bleeding, but now has blood clotted in the tubing and her infusion will not run -will replace her chemo access external needle and will reconnect her chemo port and will be stable for dc home -denies all complaints -sitting up and smiling -nontoxic in appearance 06/17/18 00:04 resident was able to obtain new port access from the chemo infusion floor and will have the nurse replace the access 06/17/18 01:26 the access has been replaced and the pump is running. the patient is stable for dc to home and follow up tomorrow as scheduled. <Maria Luisa Jiménez - Last Filed: 06/17/18 01:27>
--- NOTE | 2018-06-16 23:52 | PDOC ---
History of Present Illness - General Chief Complaint: Bleeding from PICC Line Stated Complaint: CHEMO PATIENT Time Seen by Provider: 06/16/18 23:13 - History of Present Illness Initial Comments: Farzana Trevizo is a 72yo woman with a PMH of HTN, gallbladder CA s/p surgical resection, GERD, and lung CA currently receiving chemotherapy who presents with bleeding from her chemo port. She states that she was receiving a 48hr chemotherapy infusion at home, and the catheter accidentally disconnected while she was cooking. She did not initially notice until she felt wetness on her shirt and noticed that the disconnected end of the catheter was bleeding into her shirt. She held it upright immediately to prevent additional bleeding, turned off the infusion, and came to the ED immediately. Ms Trevizo states that she did not bleed other than what is visible on her shirt. She denies dizziness, SOB, or any other symptom at this time. She reports only her chronic GERD and numbness/tingling secondary to her chemotherapy. Past History - Past Medical History Allergies/Adverse Reactions: Allergies Allergy/AdvReac Type Severity Reaction Status Date / Time cephalexin monohydrate Allergy Severe Difficulty Verified 09/01/17 13:01 [From [employer]] Breathing Home Medications: Ambulatory Orders Lisinopril [Prinivil] 10 mg PO DAILY #30 tablet 09/02/15 Nebivolol HCl [Bystolic] 10 mg PO DAILY 07/09/17 levoFLOXacin [Levaquin -] 500 mg PO DAILY@0600 5 Days #5 tablet 09/05/17 CVA: No COPD: No Diabetes: Yes HTN: Yes Hypercholesterolemia: No - Surgical History Cholecystectomy: Yes Lung Surgery: Yes (2YRS AGO) Neurologic Surgery: No Orthopedic Surgery: Yes (rt knee repair) - Immunization History Immunization Up to Date: No - Suicide/Smoking/Psychosocial Hx Smoking History: Unknown if ever smoked Have you smoked in the past 12 months: No Hx Alcohol Use: No Drug/Substance Use Hx: No Substance Use Type: None Hx Substance Use Treatment: No Review of Systems - Review of Systems Comments:: General: No fevers, no chills, no weight or appetite change, no malaise HEENT: No changes in vision, no changes in hearing, no congestion, no sore throat CV: No chest pain, no palpitations, no LE edema. h/o HTN Pulm: No SOB, no cough, no wheezing GI: No nausea or vomiting, no change in bowel habits, no melena. +GERD : No frequency, no urgency, no dysuria Musc: No back pain, no joint swelling, no recent injury Skin: No rash, no lesions, no erythema Endo: No excessive thirst, no heat/cold intolerance Heme: No unusual bruising or bleeding, no swollen glands Neuro: No syncope, +numbness/tingling in extremities. No focal weakness Vasc: No claudication Psych: No recent change in mood, no SI or HI *Physical Exam - Vital Signs Last Vital Signs Temp Pulse Resp BP Pulse Ox 98.1 F 62 20 162/67 98 06/16/18 22:42 06/16/18 22:42 06/16/18 22:42 06/16/18 22:42 06/16/18 22:42 - Physical Exam Comments: General: Comfortable, no acute distress HEENT: PERRL, EOMI, MMM, voice normal, normal neck ROM Cards: RRR Pulm: Comfortable on room air Chest: Chemo port in right upper anterior chest w/ catheter in place. Coagulated blood noted in catheter. Abd: Soft, nontender, nondistended Ext: Atraumatic. No LE edema. ROM intact. Vasc: Extremities WWP. Skin: Normal color, no rashes or lesions Neuro: A&Ox3, CN grossly intact, normal speech, motor/sensory grossly intact and symmetric Psych: Mood appropriate to situation Moderate Sedation - Procedure Monitoring Vital Signs: Procedure Monitoring Vital Signs Temperature 98.1 F 06/16/18 22:42 Pulse Rate 62 06/16/18 22:42 Respiratory Rate 20 06/16/18 22:42 Blood Pressure 162/67 06/16/18 22:42 O2 Sat by Pulse Oximetry (%) 98 06/16/18 22:42 Medical Decision Making - Medical Decision Making 06/16/18 23:52 Farzana Trevizo is a 72yo woman with a PMH of HTN, gallbladder CA s/p surgical resection, GERD, and lung CA currently receiving chemotherapy who presents with bleeding from her chemo port after her infusion catheter accidentally disconnected at home. - No longer bleeding, catheter re-connected in triage - No new or concerning symptoms. Pt reports a minimal amount of bleeding, almost entirely visible on her clothes. No labs or additional workup at this time. - Chemo catheter appears to be hemolized, will likely need to be replaced. May need to obtain from heme/onc floor. 06/17/18 00:17 - New port access kit obtained from 7th floor infusion room - Replaced successfully by nurse Osmin - Pt has appointment for catheter removal tomorrow at 2pm. Advised to keep appointment. Discussed return precautions. She states understanding. 06/17/18 00:41 - Difficulty getting chemotherapy infusion started again. Heme/onc floor called ; hematology nurse will come to the ED to restart the infusion Update: - Port flushed, infusion reconnected and restarted. Observed running without issues prior to discharge - Discussed follow up - Ms Trevizo has a scheduled appointment tomorrow with heme/onc at 2pm and plans to attend the appointment. Will return to the ED for any additional bleeding. Seen and discussed with Dr Jiménez. Ruth Sharp PGY1 *DC/Admit/Observation/Transfer Diagnosis at time of Disposition: Bleeding - Discharge Dispostion Disposition: HOME Condition at time of disposition: Stable Decision to Admit order: No - Referrals Referrals: Oscar Hines MD [Primary Care Provider] - Isai De Dios MD [Staff Physician] - - Patient Instructions Additional Instructions: Discharge Instructions: - You were seen in the emergency department for bleeding from your chemotherapy catheter. Your catheter was replaced and was working properly prior to discharge - Please go to your previously scheduled follow up appointment tomorrow afternoon for catheter removal and follow up. - Seek immediate medical care if you have any additional bleeding, feel lightheaded or weak, lose consciousness, feel your heart racing, or have any medical emergency such as chest pain or shortness of breath. - Post Discharge Activity
[2018-06-17] MEDS ORDERED: ALTEPLASE 2 MG VIAL IVPUSH ONE (01:02)
[2018-06-17] MEDS ORDERED: ALTEPLASE 2 MG VIAL ONE (01:03)
== END 2018-06-17 01:40 | disposition home or self-care (01) ==
LOC: JER 22:31
DX: T82.514A Breakdown (mechanical) of infusion catheter, initial encounter (principal); Y82.8 Other medical devices associated with adverse incidents; Y92.098 Other place in other non-institutional residence as the place of occurrence of the external cause; C34.90 Malignant neoplasm of unspecified part of unspecified bronchus or lung; I10 Essential (primary) hypertension; K21.9 Gastro-esophageal reflux disease without esophagitis; E11.9 Type 2 diabetes mellitus without complications
CPT/HCPCS: 99281-25

== ENCOUNTER 2018-06-17 06:39 | Day surgery (SDC) | payer OTHER ==
[2018-06-17 18:16] VITALS: BP 114/66; PULSE 61; TEMP 98.2
[2018-06-17] MEDS ORDERED: PORTA CATH FLUSH 10 ML IVPUSH ONE (18:17)
== END 2018-06-17 17:30 | disposition home or self-care (01) ==
LOC: JONCCHEMO 06:39 → J7W 14:15 → JONCCHEMO 17:30
PROVIDERS: ATTEND Internal Medicine Hematology & Oncology

== ENCOUNTER 2018-06-29 06:40 | Day surgery (SDC) | payer OTHER ==
[2018-06-29] MEDS ORDERED: PALONOSETRON HCL 0.25 MG/5 ML VIAL IVPUSH ONE (08:00)
[2018-06-29] MEDS ORDERED: DEXAMETHASONE SODIUM PHOSPHATE 20 MG in SODIUM CHLORIDE 50 ML IVPB ONE (08:00)
[2018-06-29] MEDS ORDERED: SODIUM CHLORIDE 250 ML IV ONE (08:00)
[2018-06-29] MEDS ORDERED: DEXTROSE 5% IV ONE (08:30)
[2018-06-29] MEDS ORDERED: LEUCOVORIN IVPB ONE (08:30)
[2018-06-29] MEDS ORDERED: WATER IVPB ONE (08:30)
[2018-06-29] MEDS ORDERED: WATER IV ONE (08:30)
[2018-06-29] MEDS ORDERED: DEXTROSE 5% IVPB ONE (08:30)
[2018-06-29] MEDS ORDERED: OXALIPLATIN IV ONE (08:30)
[2018-06-29] MEDS ORDERED: SODIUM CHLORIDE CP ONE (10:30)
[2018-06-29] MEDS ORDERED: FLUOROURACIL CP ONE (10:30)
[2018-06-29 11:22] LABS: ALBUMIN 3.4 g/dl (3.4-5.0); ALK PHOS 121 U/L (45-117); BILIRUBIN,DIRECT 0.1 mg/dL (0.0-0.2); BILIRUBIN,TOTAL 0.2 mg/dL (0.2-1); MAGNESIUM 1.5 mg/dL (1.8-2.4); SGOT/AST 24 U/L (15-37); SGPT/ALT 32 U/L (13-61); TOT PROT 6.6 g/dl (6.4-8.2)
[2018-06-29] MEDS ORDERED: amLODIPine BESYLATE 5 MG TABLET (FP) PO ONE (12:00)
[2018-06-29] MEDS ORDERED: MAGNESIUM SULF 50% (8.12 MEQ/2 ML-1 GM VIAL) IVPB ONE (12:00)
[2018-06-29 12:30] LABS: ANION GAP 7 MMOL/L (8-16); BLOOD UREA NITROGEN 17 mg/dL (7-18); CALCIUM 8.4 mg/dL (8.5-10.1); CHLORIDE 106 mmol/L (98-107); CO2 26 mmol/L (21-32); CREATININE 0.6 mg/dL (0.55-1.3); GLUCOSE,RANDOM 98 mg/dL (74-106); POTASSIUM 4.4 mmol/L (3.5-5.1); SODIUM 139 mmol/L (136-145)
[2018-06-29 16:39] VITALS: BP 146/70; PULSE 66; TEMP 98.1
[2018-06-29] MEDS ORDERED: PORTA CATH FLUSH 10 ML IVPUSH ONE (16:39)
== END 2018-06-29 15:40 | disposition home or self-care (01) ==
LOC: JONCCHEMO 06:40 → J7W 09:23 → JONCCHEMO 15:40
PROVIDERS: ATTEND Internal Medicine Hematology & Oncology
DX: Z51.11 Encounter for antineoplastic chemotherapy (principal); C23 Malignant neoplasm of gallbladder
CPT/HCPCS: 36415; 80053; 80076; 83735; 96361; 96366; 96367; 96375; 96413; 96415; 96417; J2469; J9263

== ENCOUNTER 2018-07-01 07:09 | Day surgery (SDC) | payer OTHER ==
[2018-07-01] MEDS ORDERED: PORTA CATH FLUSH 10 ML IVPUSH ONE (13:50)
[2018-07-01 13:51] VITALS: BP 152/55; PULSE 54; TEMP 98.2
== END 2018-07-01 13:50 | disposition home or self-care (01) ==
LOC: JONCCHEMO 07:09 → J7W 13:42 → JONCCHEMO 13:50
PROVIDERS: ATTEND Internal Medicine Hematology & Oncology
DX: Z53.8 Procedure and treatment not carried out for other reasons (principal)

== ENCOUNTER 2018-07-13 08:22 | Day surgery (SDC) | payer OTHER ==
[~2018-07-13 08:22] MED LIST changes: -DEXAMETHASONE SODIUM PHOSPHATE 20 MG in SODIUM CHLORIDE 50 ML IVPB ONE; -PALONOSETRON HCL 0.25 MG/5 ML VIAL IVPUSH ONE; -SODIUM CHLORIDE 250 ML IV ONE; +SODIUM CHLORIDE 500 ML IV ONE
[2018-07-13] MEDS ORDERED: PALONOSETRON HCL 0.25 MG/5 ML VIAL IVPUSH ONE (09:30)
[2018-07-13] MEDS ORDERED: DEXAMETHASONE SODIUM PHOSPHATE 20 MG in SODIUM CHLORIDE 50 ML IVPB ONE (09:30)
[2018-07-13] MEDS ORDERED: LEUCOVORIN IVPB ONE (10:00)
[2018-07-13] MEDS ORDERED: OXALIPLATIN IV ONE (10:00)
[2018-07-13] MEDS ORDERED: DEXTROSE 5% IVPB ONE (10:00)
[2018-07-13] MEDS ORDERED: WATER IV ONE (10:00)
[2018-07-13] MEDS ORDERED: WATER IVPB ONE (10:00)
[2018-07-13] MEDS ORDERED: DEXTROSE 5% IV ONE (10:00)
[2018-07-13] MEDS ORDERED: MAGNESIUM SULF 50% (8.12 MEQ/2 ML-1 GM VIAL) IVPB ONE (10:45)
[2018-07-13 11:13] LABS: BASO % 0.6 % (0-2.0); EOS % 2.2 % (0-4.5); HEMATOCRIT 33.7 % (32.4-45.2); HEMOGLOBIN 11.4 GM/dL (10.7-15.3); LYMPH % 31.4 % (8-40); MCH 30.2 pg (25.7-33.7); MCHC 33.8 g/dl (32.0-36.0); MEAN CELL VOLUME 89.3 fl (80-96); MEAN PLT VOLUME 8.6 fl (7.5-11.1); MONO % 12.1 % (3.8-10.2); NEUT % 53.7 % (42.8-82.8); PLATELET COUNT 183 K/MM3 (134-434); RBC 3.77 M/mm3 (3.60-5.2); RDW 13.6 % (11.6-15.6); WHITE BLOOD COUNT 5.6 K/mm3 (4.0-10.0)
[2018-07-13 11:44] LABS: ALBUMIN 3.4 g/dl (3.4-5.0); ALK PHOS 141 U/L (45-117); ANION GAP 6 MMOL/L (8-16); BILIRUBIN,DIRECT < 0.1 mg/dL (0.0-0.2); BILIRUBIN,TOTAL 0.4 mg/dL (0.2-1); BLOOD UREA NITROGEN 24 mg/dL (7-18); CALCIUM 8.3 mg/dL (8.5-10.1); CHLORIDE 108 mmol/L (98-107); CO2 26 mmol/L (21-32); CREATININE 0.7 mg/dL (0.55-1.3); GLUCOSE,RANDOM 110 mg/dL (74-106); MAGNESIUM 1.3 mg/dL (1.8-2.4); POTASSIUM 3.8 mmol/L (3.5-5.1); SGOT/AST 21 U/L (15-37); SGPT/ALT 29 U/L (13-61); SODIUM 140 mmol/L (136-145); TOT PROT 6.3 g/dl (6.4-8.2)
[2018-07-13] MEDS ORDERED: SODIUM CHLORIDE IV ONE (12:00)
[2018-07-13] MEDS ORDERED: FLUOROURACIL IV ONE (12:00)
[2018-07-13 16:35] VITALS: BP 152/81; PULSE 68; TEMP 98.3
[2018-07-13] MEDS ORDERED: PORTA CATH FLUSH 10 ML IVPUSH ONE (16:35)
== END 2018-07-13 15:45 | disposition home or self-care (01) ==
LOC: JONCCHEMO 08:22 → J7W 10:05 → JONCCHEMO 15:45
PROVIDERS: ATTEND Internal Medicine Hematology & Oncology
DX: Z51.11 Encounter for antineoplastic chemotherapy (principal); C23 Malignant neoplasm of gallbladder
CPT/HCPCS: 36415; 80048; 80076; 83735; 85025; 96361; 96366; 96367; 96375; 96413; 96415; 96417; G0498; J2469; J9263

== ENCOUNTER 2018-07-15 07:09 | Day surgery (SDC) | payer OTHER ==
[2018-07-15 17:36] VITALS: BP 139/59; PULSE 67; TEMP 97.8
[2018-07-15] MEDS ORDERED: PORTA CATH FLUSH 10 ML IVPUSH ONE (17:37)
== END 2018-07-15 17:39 | disposition home or self-care (01) ==
LOC: JONCCHEMO 07:09 → J7W 17:15 → JONCCHEMO 17:39
PROVIDERS: ATTEND Internal Medicine Hematology & Oncology
DX: Z53.8 Procedure and treatment not carried out for other reasons (principal)

== ENCOUNTER 2018-07-22 07:19 | Day surgery (SDC) | payer OTHER ==
[2018-07-22] MEDS ORDERED: MAGNESIUM SULFATE 2 GM in DEXTROSE 5%-WATER - 100 ML IVPB ONE (10:30)
[2018-07-22 12:25] VITALS: PULSE 66; TEMP 98.2
[2018-07-22 12:32] VITALS: BP 138/64
[2018-07-22] MEDS ORDERED: PORTA CATH FLUSH 10 ML IVPUSH ONE (12:32)
== END 2018-07-22 12:15 | disposition home or self-care (01) ==
LOC: JONCCHEMO 07:19 → J7W 10:47 → JONCCHEMO 12:15
PROVIDERS: ATTEND Internal Medicine Hematology & Oncology
DX: C23 Malignant neoplasm of gallbladder (principal); Z76.89 Persons encountering health services in other specified circumstances
CPT/HCPCS: 96365; 96417

== ENCOUNTER 2018-07-25 07:07 | Day surgery (SDC) | payer OTHER ==
[2018-07-25] MEDS ORDERED: MAGNESIUM SULFATE 2 GM in DEXTROSE 5%-WATER - 100 ML IVPB ONE (10:00)
[2018-07-25 17:23] VITALS: BP 143/86; PULSE 68
[2018-07-25] MEDS ORDERED: PORTA CATH FLUSH 10 ML IVPUSH ONE (17:23)
== END 2018-07-25 14:15 | disposition home or self-care (01) ==
LOC: JONCNONCHE 07:07 → J7W 12:54 → JONCNONCHE 14:15
PROVIDERS: ATTEND Internal Medicine Hematology & Oncology
PROC: 3E043GC Introduction of Other Therapeutic Substance into Central Vein, Percutaneous Approach (ICD-10-PCS; principal; 2018-07-25)
DX: Z76.89 Persons encountering health services in other specified circumstances (principal); C23 Malignant neoplasm of gallbladder
CPT/HCPCS: 96365

== ENCOUNTER 2018-07-27 07:22 | Day surgery (SDC) | payer OTHER ==
[2018-07-27] MEDS ORDERED: amLODIPine BESYLATE 5 MG TABLET (FP) PO ONE (09:45)
[2018-07-27] MEDS ORDERED: MAGNESIUM SULF 50% (8.12 MEQ/2 ML-1 GM VIAL) IVPB ONE (09:45)
[2018-07-27] MEDS ORDERED: PALONOSETRON HCL 0.25 MG/5 ML VIAL IVPUSH ONE (10:00)
[2018-07-27] MEDS ORDERED: ATROPINE SO4 0.4 MG/1 ML VIAL NR ONE (10:00)
[2018-07-27] MEDS ORDERED: DEXAMETHASONE SODIUM PHOSPHATE 10 MG in SODIUM CHLORIDE 50 ML IVPB ONE (10:00)
[2018-07-27] MEDS ORDERED: DEXTROSE 5% IVPB ONE (10:30)
[2018-07-27] MEDS ORDERED: DEXTROSE 5% IV ONE (10:30)
[2018-07-27] MEDS ORDERED: WATER IV ONE (10:30)
[2018-07-27] MEDS ORDERED: OXALIPLATIN IV ONE (10:30)
[2018-07-27] MEDS ORDERED: WATER IVPB ONE (10:30)
[2018-07-27] MEDS ORDERED: LEUCOVORIN IVPB ONE (10:30)
[2018-07-27 10:46] LABS: BLOOD UREA NITROGEN 17 mg/dL (7-18); CHLORIDE 105 mmol/L (98-107); CREATININE 0.8 mg/dL (0.55-1.3); GLUCOSE,RANDOM 102 mg/dL (74-106); POTASSIUM 4.5 mmol/L (3.5-5.1); SODIUM 138 mmol/L (136-145)
[2018-07-27 10:47] LABS: ALBUMIN 3.5 g/dl (3.4-5.0); ALK PHOS 141 U/L (45-117); ANION GAP 6 MMOL/L (8-16); BILIRUBIN,DIRECT 0.1 mg/dL (0.0-0.2); BILIRUBIN,TOTAL 0.4 mg/dL (0.2-1); CALCIUM 8.9 mg/dL (8.5-10.1); CO2 28 mmol/L (21-32); MAGNESIUM 1.4 mg/dL (1.8-2.4); SGOT/AST 22 U/L (15-37); SGPT/ALT 32 U/L (13-61); TOT PROT 6.6 g/dl (6.4-8.2)
[2018-07-27] MEDS ORDERED: IRINOTECAN HCL 260 MG in DEXTROSE 5%-WATER - 500 ML IVPB ONE (11:00)
[2018-07-27] MEDS ORDERED: FLUOROURACIL 2,500 MG/50 ML VIAL IVPUSH ONE (12:00)
[2018-07-27] MEDS ORDERED: FLUOROURACIL CP ONE (12:30)
[2018-07-27] MEDS ORDERED: SODIUM CHLORIDE CP ONE (12:30)
[2018-07-27 14:12] VITALS: TEMP 98.1
[2018-07-27 14:35] VITALS: BP 160/73; PULSE 64
== END 2018-07-27 14:00 | disposition home or self-care (01) ==
LOC: JONCCHEMO 07:22 → J7W 09:24 → JONCCHEMO 14:00
PROVIDERS: ATTEND Internal Medicine Hematology & Oncology
PROC: 3E04305 Introduction of Other Antineoplastic into Central Vein, Percutaneous Approach (ICD-10-PCS; principal; 2018-07-27)
PROC: 3E04305 Introduction of Other Antineoplastic into Central Vein, Percutaneous Approach (ICD-10-PCS; 2018-07-27)
PROC: 3E043GC Introduction of Other Therapeutic Substance into Central Vein, Percutaneous Approach (ICD-10-PCS; 2018-07-27)
DX: Z51.11 Encounter for antineoplastic chemotherapy (principal); C23 Malignant neoplasm of gallbladder
CPT/HCPCS: 36415; 80048; 80076; 82378; 83735; 86301; 96367; 96368; 96375; 96413; 96415; 96417; G0498; J2469; J9263

== ENCOUNTER 2018-07-29 05:58 | Day surgery (SDC) | payer OTHER ==
[2018-07-29 18:32] VITALS: BP 126/70; PULSE 68; TEMP 97.9
[2018-07-29] MEDS ORDERED: PORTA CATH FLUSH 10 ML IVPUSH ONE (18:32)
== END 2018-07-29 14:20 | disposition home or self-care (01) ==
LOC: JONCCHEMO 05:58 → J7W 13:58 → JONCCHEMO 14:20
PROVIDERS: ATTEND Internal Medicine Hematology & Oncology
PROC: 3E013GC Introduction of Other Therapeutic Substance into Subcutaneous Tissue, Percutaneous Approach (ICD-10-PCS; principal; 2018-07-29)
DX: Z53.8 Procedure and treatment not carried out for other reasons (principal)

== ENCOUNTER 2018-08-10 07:10 | Day surgery (SDC) | payer OTHER ==
[2018-08-10] MEDS ORDERED: PALONOSETRON HCL 0.25 MG/5 ML VIAL IVPUSH ONE (10:00)
[2018-08-10] MEDS ORDERED: DEXAMETHASONE SODIUM PHOSPHATE 10 MG in SODIUM CHLORIDE 50 ML IVPB ONE (10:00)
[2018-08-10] MEDS ORDERED: DEXTROSE 5% IVPB ONE (10:30)
[2018-08-10] MEDS ORDERED: WATER IV ONE (10:30)
[2018-08-10] MEDS ORDERED: WATER IVPB ONE (10:30)
[2018-08-10] MEDS ORDERED: DEXTROSE 5% IV ONE (10:30)
[2018-08-10] MEDS ORDERED: OXALIPLATIN IV ONE (10:30)
[2018-08-10] MEDS ORDERED: LEUCOVORIN IVPB ONE (10:30)
[2018-08-10 11:39] LABS: ALBUMIN 3.5 g/dl (3.4-5.0); ALK PHOS 128 U/L (45-117); ANION GAP 7 MMOL/L (8-16); BILIRUBIN,DIRECT 0.1 mg/dL (0.0-0.2); BILIRUBIN,TOTAL 0.2 mg/dL (0.2-1); BLOOD UREA NITROGEN 15 mg/dL (7-18); CALCIUM 8.2 mg/dL (8.5-10.1); CHLORIDE 106 mmol/L (98-107); CO2 27 mmol/L (21-32); CREATININE 0.7 mg/dL (0.55-1.3); GLUCOSE,RANDOM 128 mg/dL (74-106); MAGNESIUM 1.3 mg/dL (1.8-2.4); SGOT/AST 24 U/L (15-37); SGPT/ALT 28 U/L (13-61); SODIUM 140 mmol/L (136-145); TOT PROT 6.6 g/dl (6.4-8.2)
[2018-08-10] MEDS ORDERED: FLUOROURACIL CP ONE (12:30)
[2018-08-10] MEDS ORDERED: SODIUM CHLORIDE CP ONE (12:30)
[2018-08-10] MEDS ORDERED: MAGNESIUM SULF 50% (8.12 MEQ/2 ML-1 GM VIAL) IVPB ONE (14:45)
[2018-08-10 17:09] VITALS: BP 161/69; PULSE 73; TEMP 98.1
[2018-08-10] MEDS ORDERED: PORTA CATH FLUSH 10 ML IVPUSH ONE (17:10)
== END 2018-08-10 16:30 | disposition home or self-care (01) ==
LOC: JONCCHEMO 07:10 → J7W 09:36 → JONCCHEMO 16:30
PROVIDERS: ATTEND Internal Medicine Hematology & Oncology
DX: Z51.11 Encounter for antineoplastic chemotherapy (principal); C23 Malignant neoplasm of gallbladder
CPT/HCPCS: 36415; 80048; 80076; 83735; 96366; 96367; 96375; 96413; 96415; 96417; G0498; J2469; J9263

== ENCOUNTER 2018-08-12 07:20 | Day surgery (SDC) | payer OTHER ==
[2018-08-12 15:53] VITALS: BP 159/72; PULSE 62; TEMP 98.2
[2018-08-12] MEDS ORDERED: PORTA CATH FLUSH 10 ML IVPUSH ONE (15:53)
== END 2018-08-12 15:30 | disposition home or self-care (01) ==
LOC: JONCCHEMO 07:20 → J7W 15:03 → JONCCHEMO 15:30
PROVIDERS: ATTEND Internal Medicine Hematology & Oncology
DX: Z53.8 Procedure and treatment not carried out for other reasons (principal)

== ENCOUNTER 2018-08-24 07:06 | Day surgery (SDC) | payer OTHER ==
[2018-08-24] MEDS ORDERED: DEXAMETHASONE SODIUM PHOSPHATE 10 MG in SODIUM CHLORIDE 50 ML IVPB ONE (08:00)
[2018-08-24] MEDS ORDERED: PALONOSETRON HCL 0.25 MG/5 ML VIAL IVPUSH ONE (08:00)
[2018-08-24] MEDS ORDERED: WATER IVPB ONE (08:30)
[2018-08-24] MEDS ORDERED: OXALIPLATIN IV ONE (08:30)
[2018-08-24] MEDS ORDERED: LEUCOVORIN IVPB ONE (08:30)
[2018-08-24] MEDS ORDERED: DEXTROSE 5% IVPB ONE (08:30)
[2018-08-24] MEDS ORDERED: DEXTROSE 5% IV ONE (08:30)
[2018-08-24] MEDS ORDERED: WATER IV ONE (08:30)
[2018-08-24] MEDS ORDERED: MAGNESIUM SULF 50% (8.12 MEQ/2 ML-1 GM VIAL) IVPB ONE (09:30)
[2018-08-24 10:15] LABS: ALBUMIN 3.4 g/dl (3.4-5.0); ALK PHOS 140 U/L (45-117); ANION GAP 4 MMOL/L (8-16); BILIRUBIN,TOTAL 0.2 mg/dL (0.2-1); BLOOD UREA NITROGEN 15 mg/dL (7-18); CALCIUM 8.9 mg/dL (8.5-10.1); CHLORIDE 106 mmol/L (98-107); CO2 29 mmol/L (21-32); CREATININE 0.7 mg/dL (0.55-1.3); GLUCOSE,RANDOM 102 mg/dL (74-106); MAGNESIUM 1.5 mg/dL (1.8-2.4); POTASSIUM 4.1 mmol/L (3.5-5.1); SGOT/AST 27 U/L (15-37); SGPT/ALT 33 U/L (13-61); SODIUM 138 mmol/L (136-145); TOT PROT 6.9 g/dl (6.4-8.2)
[2018-08-24] MEDS ORDERED: FLUOROURACIL CP ONE (10:30)
[2018-08-24] MEDS ORDERED: SODIUM CHLORIDE CP ONE (10:30)
[2018-08-24] MEDS ORDERED: amLODIPine BESYLATE 5 MG TABLET (FP) PO ONE (10:30)
[2018-08-24] MEDS ORDERED: PORTA CATH FLUSH 10 ML IVPUSH ONE (15:43)
[2018-08-24 15:47] VITALS: BP 154/82; PULSE 67; TEMP 98.3
== END 2018-08-24 14:30 | disposition home or self-care (01) ==
LOC: JONCCHEMO 07:06 → J7W 09:01 → JONCCHEMO 14:30 → J7W 14:41
PROVIDERS: ATTEND Internal Medicine Hematology & Oncology
PROC: 3E04305 Introduction of Other Antineoplastic into Central Vein, Percutaneous Approach (ICD-10-PCS; principal; 2018-08-24)
PROC: 3E04305 Introduction of Other Antineoplastic into Central Vein, Percutaneous Approach (ICD-10-PCS; 2018-08-24)
PROC: 3E043GC Introduction of Other Therapeutic Substance into Central Vein, Percutaneous Approach (ICD-10-PCS; 2018-08-24)
DX: Z51.11 Encounter for antineoplastic chemotherapy (principal); C23 Malignant neoplasm of gallbladder; I10 Essential (primary) hypertension; E11.9 Type 2 diabetes mellitus without complications
CPT/HCPCS: 36415; 80053; 83735; 96366; 96367; 96375; 96413; 96415; 96417; G0498; J2469; J9263

== ENCOUNTER 2018-08-26 07:04 | Day surgery (SDC) | payer OTHER ==
[2018-08-26 17:58] VITALS: BP 162/84; PULSE 71; TEMP 98.3
[2018-08-26] MEDS ORDERED: PORTA CATH FLUSH 10 ML IVPUSH ONE (17:58)
== END 2018-08-26 13:15 | disposition home or self-care (01) ==
LOC: JONCCHEMO 07:04 → J7W 13:17
PROVIDERS: ATTEND Internal Medicine Hematology & Oncology
PROC: 2W54XYZ Removal of Other Device on Chest Wall (ICD-10-PCS; principal; 2018-08-26)
DX: Z53.8 Procedure and treatment not carried out for other reasons (principal)

== ENCOUNTER 2018-09-28 07:15 | Day surgery (SDC) | payer OTHER ==
[2018-09-28] MEDS ORDERED: PALONOSETRON HCL 0.25 MG/5 ML VIAL IVPUSH ONE (10:00)
[2018-09-28] MEDS ORDERED: DEXAMETHASONE SODIUM PHOSPHATE 10 MG in SODIUM CHLORIDE 50 ML IVPB ONE (10:00)
[2018-09-28 10:01] LABS: BASO % 0.4 % (0-2.0); EOS % 2.2 % (0-4.5); HEMATOCRIT 36.4 % (32.4-45.2); HEMOGLOBIN 11.7 GM/dL (10.7-15.3); LYMPH % 32.3 % (8-40); MCHC 32.1 g/dl (32.0-36.0); MEAN CELL VOLUME 90.4 fl (80-96); MEAN PLT VOLUME 9.3 fl (7.5-11.1); MONO % 10.5 % (3.8-10.2); NEUT % 54.6 % (42.8-82.8); PLATELET COUNT 190 K/MM3 (134-434); RBC 4.03 M/mm3 (3.60-5.2); RDW 15.6 % (11.6-15.6); WHITE BLOOD COUNT 6.4 K/mm3 (4.0-10.0)
[2018-09-28 10:16] LABS: ALBUMIN 3.6 g/dl (3.4-5.0); BILIRUBIN,TOTAL 0.2 mg/dL (0.2-1); CALCIUM 9.1 mg/dL (8.5-10.1); CREATININE 0.7 mg/dL (0.55-1.3); MAGNESIUM 1.9 mg/dL (1.8-2.4); POTASSIUM 4.5 mmol/L (3.5-5.1); PREALBUMIN 22.8 mg/dl (20-40); TOT PROT 6.7 g/dl (6.4-8.2)
[2018-09-28] MEDS ORDERED: DEXTROSE 5% IVPB ONE (10:30)
[2018-09-28] MEDS ORDERED: LEUCOVORIN IVPB ONE (10:30)
[2018-09-28] MEDS ORDERED: DEXTROSE 5% IV ONE (10:30)
[2018-09-28] MEDS ORDERED: WATER IVPB ONE (10:30)
[2018-09-28] MEDS ORDERED: OXALIPLATIN IV ONE (10:30)
[2018-09-28] MEDS ORDERED: WATER IV ONE (10:30)
[2018-09-28] MEDS ORDERED: FLUOROURACIL CP ONE (12:30)
[2018-09-28] MEDS ORDERED: SODIUM CHLORIDE CP ONE (12:30)
[2018-09-28] MEDS ORDERED: PORTA CATH FLUSH 10 ML IVPUSH ONE (16:23)
[2018-09-28 16:24] VITALS: BP 144/79; PULSE 67; TEMP 98
== END 2018-09-28 14:20 | disposition home or self-care (01) ==
LOC: JONCCHEMO 07:15 → J7W 09:00 → JONCCHEMO 14:20
PROVIDERS: ATTEND Internal Medicine Hematology & Oncology
PROC: 3E04305 Introduction of Other Antineoplastic into Central Vein, Percutaneous Approach (ICD-10-PCS; principal; 2018-09-28)
PROC: 3E043GC Introduction of Other Therapeutic Substance into Central Vein, Percutaneous Approach (ICD-10-PCS; 2018-09-28)
DX: Z51.11 Encounter for antineoplastic chemotherapy (principal); C23 Malignant neoplasm of gallbladder; E11.9 Type 2 diabetes mellitus without complications; I10 Essential (primary) hypertension
CPT/HCPCS: 36415; 80053; 83735; 84134; 85025; 96374; 96375; G0498; J2469

== ENCOUNTER 2018-09-30 07:12 | Day surgery (SDC) | payer OTHER | END 2018-09-30 13:05 | disposition home or self-care (01) | LOC: JONCCHEMO 07:12 → J7W 12:42 → JONCCHEMO 13:05 ==

== ENCOUNTER 2018-10-12 07:01 | Day surgery (SDC) | payer OTHER | END 2018-10-12 14:20 | disposition home or self-care (01) | LOC: JONCCHEMO 07:01 → J7W 09:28 → JONCCHEMO 14:20 ==

== ENCOUNTER 2018-10-19 05:52 | Day surgery (SDC) | payer OTHER ==
[2018-10-19] MEDS ORDERED: DEXAMETHASONE SODIUM PHOSPHATE 8 MG, ONDANSETRON INJECTION 8 MG in SODIUM CHLORIDE 100 ML IVPB ONE (09:00)
[2018-10-19] MEDS ORDERED: WATER IVPB ONE (09:30)
[2018-10-19] MEDS ORDERED: DEXTROSE 5% IVPB ONE (09:30)
[2018-10-19] MEDS ORDERED: LEUCOVORIN IVPB ONE (09:30)
[2018-10-19 09:34] LABS: BLOOD UREA NITROGEN 33.3 mg/dL (7-18); CALCIUM 8.6 mg/dL (8.5-10.1); CREATININE 0.7 mg/dL (0.55-1.3); MAGNESIUM 1.6 mg/dL (1.8-2.4); POTASSIUM 3.9 mmol/L (3.5-5.1)
[2018-10-19] MEDS ORDERED: SODIUM CHLORIDE 250 ML IV ONE (10:00)
[2018-10-19] MEDS ORDERED: MAGNESIUM SULF 50% (8.12 MEQ/2 ML-1 GM VIAL) IVPB ONE (10:00)
[2018-10-19] MEDS ORDERED: MAGNESIUM SULF 50% (8.12 MEQ/2 ML-1 GM VIAL) ONE (10:19)
[2018-10-19 10:26] LABS: ALBUMIN 3.6 g/dl (3.4-5.0); BILIRUBIN,DIRECT 0.1 mg/dL (0.0-0.2); BILIRUBIN,TOTAL 0.2 mg/dL (0.2-1); TOT PROT 6.9 g/dl (6.4-8.2)
[2018-10-19] MEDS ORDERED: FLUOROURACIL 500 MG/10 ML VIAL IVPUSH ONE (10:30)
[2018-10-19 16:27] VITALS: BP 131/67; PULSE 69; TEMP 98.2
[2018-10-19] MEDS ORDERED: PORTA CATH FLUSH 10 ML IVPUSH ONE (16:27)
== END 2018-10-19 15:20 | disposition home or self-care (01) ==
LOC: JONCCHEMO 05:52 → J7W 08:35 → JONCCHEMO 15:20
PROVIDERS: ATTEND Internal Medicine Hematology & Oncology
PROC: 3E04305 Introduction of Other Antineoplastic into Central Vein, Percutaneous Approach (ICD-10-PCS; principal; 2018-10-19)
PROC: 3E043GC Introduction of Other Therapeutic Substance into Central Vein, Percutaneous Approach (ICD-10-PCS; 2018-10-19)
PROC: 3E043GC Introduction of Other Therapeutic Substance into Central Vein, Percutaneous Approach (ICD-10-PCS; 2018-10-19)
DX: Z51.11 Encounter for antineoplastic chemotherapy (principal); C23 Malignant neoplasm of gallbladder
CPT/HCPCS: 36415; 80048; 80076; 83735; 96361; 96409; 96415; 96417; J2405; J9190

== ENCOUNTER 2018-10-26 07:15 | Day surgery (SDC) | payer OTHER ==
[2018-10-26] MEDS ORDERED: DEXAMETHASONE SODIUM PHOSPHATE 8 MG, ONDANSETRON INJECTION 8 MG in SODIUM CHLORIDE 100 ML IVPB ONE (09:00)
[2018-10-26] MEDS ORDERED: LEUCOVORIN IVPB ONE (09:30)
[2018-10-26] MEDS ORDERED: DEXTROSE 5% IVPB ONE (09:30)
[2018-10-26] MEDS ORDERED: WATER IVPB ONE (09:30)
[2018-10-26] MEDS ORDERED: FLUOROURACIL 2,500 MG/50 ML VIAL IVPUSH ONE (10:30)
[2018-10-26] MEDS ORDERED: MAGNESIUM SULF 50% (8.12 MEQ/2 ML-1 GM VIAL) IVPB ONE (10:30)
[2018-10-26 11:11] LABS: ALBUMIN 3.5 g/dl (3.4-5.0); BILIRUBIN,DIRECT 0.1 mg/dL (0.0-0.2); BILIRUBIN,TOTAL 0.3 mg/dL (0.2-1); BLOOD UREA NITROGEN 18.4 mg/dL (7-18); CALCIUM 8.6 mg/dL (8.5-10.1); CREATININE 0.7 mg/dL (0.55-1.3); MAGNESIUM 1.5 mg/dL (1.8-2.4); POTASSIUM 3.9 mmol/L (3.5-5.1); TOT PROT 6.6 g/dl (6.4-8.2)
[2018-10-26 17:46] VITALS: TEMP 97.9
[2018-10-26 17:56] VITALS: BP 121/46; PULSE 55
[2018-10-26] MEDS ORDERED: PORTA CATH FLUSH 10 ML IVPUSH ONE (17:56)
== END 2018-10-26 15:30 | disposition home or self-care (01) ==
LOC: JONCCHEMO 07:15 → J7W 10:17 → JONCCHEMO 15:30
PROVIDERS: ATTEND Internal Medicine Hematology & Oncology
PROC: 3E04305 Introduction of Other Antineoplastic into Central Vein, Percutaneous Approach (ICD-10-PCS; principal; 2018-10-26)
PROC: 3E043GC Introduction of Other Therapeutic Substance into Central Vein, Percutaneous Approach (ICD-10-PCS; 2018-10-26)
DX: Z51.11 Encounter for antineoplastic chemotherapy (principal); C23 Malignant neoplasm of gallbladder
CPT/HCPCS: 36415; 80048; 80076; 83735; 96365; 96366; 96367; 96375; 96409; 96415; 96417; J2405

== ENCOUNTER 2018-11-09 07:17 | Day surgery (SDC) | payer OTHER ==
[2018-11-09] MEDS ORDERED: DEXAMETHASONE SODIUM PHOSPHATE 8 MG, ONDANSETRON INJECTION 8 MG in SODIUM CHLORIDE 100 ML IVPB ONE (09:00)
[2018-11-09] MEDS ORDERED: DEXTROSE 5% IVPB ONE (09:30)
[2018-11-09] MEDS ORDERED: WATER IVPB ONE (09:30)
[2018-11-09] MEDS ORDERED: LEUCOVORIN IVPB ONE (09:30)
[2018-11-09] MEDS ORDERED: FLUOROURACIL 2,500 MG/50 ML VIAL IVPUSH ONE (10:30)
[2018-11-09] MEDS ORDERED: MAGNESIUM SULF 50% (8.12 MEQ/2 ML-1 GM VIAL) IVPB ONE (10:30)
[2018-11-09 11:31] LABS: ALBUMIN 3.6 g/dl (3.4-5.0); BILIRUBIN,DIRECT 0.1 mg/dL (0.0-0.2); BILIRUBIN,TOTAL 0.2 mg/dL (0.2-1); BLOOD UREA NITROGEN 17.8 mg/dL (7-18); CALCIUM 8.7 mg/dL (8.5-10.1); CREATININE 0.9 mg/dL (0.55-1.3); MAGNESIUM 1.8 mg/dL (1.8-2.4); POTASSIUM 4.2 mmol/L (3.5-5.1); TOT PROT 6.5 g/dl (6.4-8.2)
[2018-11-09 17:13] VITALS: TEMP 97.9
[2018-11-09 17:28] VITALS: BP 139/49; PULSE 53
[2018-11-09] MEDS ORDERED: PORTA CATH FLUSH 10 ML IVPUSH ONE (17:28)
== END 2018-11-09 15:45 | disposition home or self-care (01) ==
LOC: JONCCHEMO 07:17 → J7W 10:18 → JONCCHEMO 15:45
PROVIDERS: ATTEND Internal Medicine Hematology & Oncology
PROC: 3E04305 Introduction of Other Antineoplastic into Central Vein, Percutaneous Approach (ICD-10-PCS; principal; 2018-11-09)
PROC: 3E043GC Introduction of Other Therapeutic Substance into Central Vein, Percutaneous Approach (ICD-10-PCS; 2018-11-09)
PROC: 3E043GC Introduction of Other Therapeutic Substance into Central Vein, Percutaneous Approach (ICD-10-PCS; 2018-11-09)
DX: Z51.11 Encounter for antineoplastic chemotherapy (principal); C23 Malignant neoplasm of gallbladder
CPT/HCPCS: 36415; 80048; 80076; 83735; 86301; 96365; 96366; 96367; 96375; 96409; 96415; 96417; J2405

== ENCOUNTER 2018-11-16 06:48 | Day surgery (SDC) | payer OTHER ==
[2018-11-16] MEDS ORDERED: DEXAMETHASONE SODIUM PHOSPHATE 8 MG, ONDANSETRON INJECTION 8 MG in SODIUM CHLORIDE 100 ML IVPB ONE (10:00)
[2018-11-16] MEDS ORDERED: MAGNESIUM SULF 50% (8.12 MEQ/2 ML-1 GM VIAL) IVPB ONE (10:15)
[2018-11-16] MEDS ORDERED: LEUCOVORIN IVPB ONE (10:30)
[2018-11-16] MEDS ORDERED: WATER IVPB ONE (10:30)
[2018-11-16] MEDS ORDERED: DEXTROSE 5% IVPB ONE (10:30)
[2018-11-16 10:49] LABS: HEMATOCRIT 33.7 % (32.4-45.2); MCH 29.8 pg (25.7-33.7); MCHC 32.7 g/dl (32.0-36.0); MEAN PLT VOLUME 8.4 fl (7.5-11.1); PLATELET COUNT 206 K/MM3 (134-434); RDW 15.3 % (11.6-15.6)
[2018-11-16 11:05] LABS: ALBUMIN 3.5 g/dl (3.4-5.0); BILIRUBIN,DIRECT 0.1 mg/dL (0.0-0.2); BILIRUBIN,TOTAL 0.1 mg/dL (0.2-1); BLOOD UREA NITROGEN 28.7 mg/dL (7-18); CALCIUM 8.7 mg/dL (8.5-10.1); CREATININE 0.9 mg/dL (0.55-1.3); MAGNESIUM 1.9 mg/dL (1.8-2.4); POTASSIUM 4.1 mmol/L (3.5-5.1); TOT PROT 6.4 g/dl (6.4-8.2)
[2018-11-16] MEDS ORDERED: FLUOROURACIL 2,500 MG/50 ML VIAL IVPUSH ONE (11:30)
[2018-11-16 14:53] VITALS: TEMP 98.3
[2018-11-16] MEDS ORDERED: PORTA CATH FLUSH 10 ML IVPUSH ONE (14:58)
[2018-11-16 15:08] VITALS: BP 125/55; PULSE 65
== END 2018-11-16 15:25 | disposition home or self-care (01) ==
LOC: JONCCHEMO 06:48 → J7W 09:45 → JONCCHEMO 15:25
PROVIDERS: ATTEND Internal Medicine Hematology & Oncology
PROC: 3E043GC Introduction of Other Therapeutic Substance into Central Vein, Percutaneous Approach (ICD-10-PCS; principal; 2018-11-16)
PROC: 3E043GC Introduction of Other Therapeutic Substance into Central Vein, Percutaneous Approach (ICD-10-PCS; 2018-11-16)
DX: C23 Malignant neoplasm of gallbladder (principal); D64.9 Anemia, unspecified; C79.9 Secondary malignant neoplasm of unspecified site; E11.9 Type 2 diabetes mellitus without complications; I10 Essential (primary) hypertension; E83.42 Hypomagnesemia
CPT/HCPCS: 36415; 80048; 80076; 83735; 85027; 96365; 96366; 96367; 96375; 96415; 96417; J2405

== ENCOUNTER 2018-11-23 07:21 | Day surgery (SDC) | payer OTHER ==
[2018-11-23 09:12] LABS: BASO % 0.4 % (0-2.0); EOS % 4.1 % (0-4.5); HEMATOCRIT 31.1 % (32.4-45.2); HEMOGLOBIN 10.5 GM/dL (10.7-15.3); LYMPH % 44.3 % (8-40); MCH 30.7 pg (25.7-33.7); MCHC 33.9 g/dl (32.0-36.0); MEAN CELL VOLUME 90.7 fl (80-96); MEAN PLT VOLUME 8.2 fl (7.5-11.1); MONO % 5.1 % (3.8-10.2); NEUT % 46.1 % (42.8-82.8); PLATELET COUNT 166 K/MM3 (134-434); RBC 3.43 M/mm3 (3.60-5.2); WHITE BLOOD COUNT 5.9 K/mm3 (4.0-10.0)
[2018-11-23 09:32] LABS: ALBUMIN 3.3 g/dl (3.4-5.0); BILIRUBIN,DIRECT 0.1 mg/dL (0.0-0.2); BILIRUBIN,TOTAL 0.3 mg/dL (0.2-1); BLOOD UREA NITROGEN 26.8 mg/dL (7-18); CALCIUM 8.4 mg/dL (8.5-10.1); CREATININE 0.9 mg/dL (0.55-1.3); MAGNESIUM 1.7 mg/dL (1.8-2.4); POTASSIUM 3.9 mmol/L (3.5-5.1); TOT PROT 6.1 g/dl (6.4-8.2)
[2018-11-23] MEDS ORDERED: MAGNESIUM SULF 50% (8.12 MEQ/2 ML-1 GM VIAL) IVPB ONE (09:46)
[2018-11-23] MEDS ORDERED: DEXAMETHASONE SODIUM PHOSPHATE 8 MG, ONDANSETRON INJECTION 8 MG in SODIUM CHLORIDE 100 ML IVPB ONE (10:00)
[2018-11-23] MEDS ORDERED: DEXTROSE 5% IVPB ONE (10:30)
[2018-11-23] MEDS ORDERED: WATER IVPB ONE (10:30)
[2018-11-23] MEDS ORDERED: LEUCOVORIN IVPB ONE (10:30)
[2018-11-23] MEDS ORDERED: FLUOROURACIL 500 MG/10 ML VIAL IVPUSH ONE (11:30)
[2018-11-23 12:57] VITALS: TEMP 97.9
[2018-11-23 14:34] VITALS: BP 120/60; PULSE 72
== END 2018-11-23 14:20 | disposition home or self-care (01) ==
LOC: JONCCHEMO 07:21 → J7W 09:38 → JONCCHEMO 14:20
PROVIDERS: ATTEND Internal Medicine Hematology & Oncology
PROC: 3E04305 Introduction of Other Antineoplastic into Central Vein, Percutaneous Approach (ICD-10-PCS; principal; 2018-11-23)
PROC: 3E043GC Introduction of Other Therapeutic Substance into Central Vein, Percutaneous Approach (ICD-10-PCS; 2018-11-23)
PROC: 3E043GC Introduction of Other Therapeutic Substance into Central Vein, Percutaneous Approach (ICD-10-PCS; 2018-11-23)
DX: Z51.11 Encounter for antineoplastic chemotherapy (principal); C23 Malignant neoplasm of gallbladder; C79.9 Secondary malignant neoplasm of unspecified site; D64.9 Anemia, unspecified; E11.9 Type 2 diabetes mellitus without complications; I10 Essential (primary) hypertension; E83.42 Hypomagnesemia
CPT/HCPCS: 36415; 80048; 80076; 83735; 85025; 86301; 96365; 96366; 96367; 96409; 96415; 96417; J9190

== ENCOUNTER 2018-12-07 05:38 | Day surgery (SDC) | payer OTHER ==
[2018-12-07] MEDS ORDERED: MAGNESIUM SULF 50% (8.12 MEQ/2 ML-1 GM VIAL) IVPB ONE (09:30)
[2018-12-07 09:53] LABS: ALBUMIN 3.5 g/dl (3.4-5.0); BILIRUBIN,DIRECT 0.1 mg/dL (0.0-0.2); BILIRUBIN,TOTAL 0.3 mg/dL (0.2-1); BLOOD UREA NITROGEN 24.6 mg/dL (7-18); CALCIUM 8.8 mg/dL (8.5-10.1); CREATININE 0.9 mg/dL (0.55-1.3); MAGNESIUM 1.6 mg/dL (1.8-2.4); POTASSIUM 3.6 mmol/L (3.5-5.1); TOT PROT 6.3 g/dl (6.4-8.2)
[2018-12-07] MEDS ORDERED: MAGNESIUM SULFATE 2 GM in SODIUM CHLORIDE 100 ML IVPB ONE (10:00)
[2018-12-07] MEDS ORDERED: DEXTROSE 5% IVPB ONE (10:30)
[2018-12-07] MEDS ORDERED: LEUCOVORIN IVPB ONE (10:30)
[2018-12-07] MEDS ORDERED: WATER IVPB ONE (10:30)
[2018-12-07] MEDS: DEXAMETHASONE SODIUM PHOSPHATE 8 MG, ONDANSETRON INJECTION 8 MG in SODIUM CHLORIDE 100 ML IVPB ONE ×2 (11:22→11:24)
[2018-12-07] MEDS ORDERED: FLUOROURACIL 2,500 MG/50 ML VIAL IVPUSH ONE (11:30)
[2018-12-07 14:59] VITALS: BP 116/52; PULSE 62; TEMP 98.4
[2018-12-07] MEDS ORDERED: PORTA CATH FLUSH 10 ML IVPUSH ONE (14:59)
== END 2018-12-07 14:10 | disposition home or self-care (01) ==
LOC: JONCCHEMO 05:38 → J7W 08:39 → JONCCHEMO 14:10
PROVIDERS: ATTEND Internal Medicine Hematology & Oncology
PROC: 3E04305 Introduction of Other Antineoplastic into Central Vein, Percutaneous Approach (ICD-10-PCS; principal; 2018-12-07)
PROC: 3E033GC Introduction of Other Therapeutic Substance into Peripheral Vein, Percutaneous Approach (ICD-10-PCS; 2018-12-07)
DX: Z51.11 Encounter for antineoplastic chemotherapy (principal); C23 Malignant neoplasm of gallbladder; I10 Essential (primary) hypertension; D64.9 Anemia, unspecified; E11.9 Type 2 diabetes mellitus without complications; H40.9 Unspecified glaucoma
CPT/HCPCS: 36415; 80048; 80053; 80076; 83735; 96365; 96366; 96367; 96375; 96409; 96415; 96417

== ENCOUNTER 2018-12-14 07:15 | Day surgery (SDC) | payer OTHER ==
[2018-12-14] MEDS ORDERED: DEXAMETHASONE SODIUM PHOSPHATE 8 MG, ONDANSETRON INJECTION 8 MG in SODIUM CHLORIDE 100 ML IVPB ONE (09:30)
[2018-12-14 09:42] LABS: BASO % 0.8 % (0-2.0); EOS % 3.6 % (0-4.5); HEMATOCRIT 32.6 % (32.4-45.2); HEMOGLOBIN 10.8 GM/dL (10.7-15.3); LYMPH % 45.9 % (8-40); MCH 30.6 pg (25.7-33.7); MEAN CELL VOLUME 92.7 fl (80-96); MEAN PLT VOLUME 8.5 fl (7.5-11.1); MONO % 10.2 % (3.8-10.2); NEUT % 39.5 % (42.8-82.8); PLATELET COUNT 216 K/MM3 (134-434); RBC 3.52 M/mm3 (3.60-5.2); RDW 16.6 % (11.6-15.6); WHITE BLOOD COUNT 6.2 K/mm3 (4.0-10.0)
[2018-12-14] MEDS ORDERED: MAGNESIUM SULF 50% (8.12 MEQ/2 ML-1 GM VIAL) IVPB ONE (10:00)
[2018-12-14] MEDS ORDERED: WATER IVPB ONE (10:00)
[2018-12-14] MEDS ORDERED: DEXTROSE 5% IVPB ONE (10:00)
[2018-12-14] MEDS ORDERED: LEUCOVORIN IVPB ONE (10:00)
[2018-12-14 10:10] LABS: ALBUMIN 3.4 g/dl (3.4-5.0); BLOOD UREA NITROGEN 25.9 mg/dL (7-18); CALCIUM 8.7 mg/dL (8.5-10.1); CREATININE 1.5 mg/dL (0.55-1.3); MAGNESIUM 1.5 mg/dL (1.8-2.4); TOT PROT 6.4 g/dl (6.4-8.2)
[2018-12-14 10:38] LABS: BILIRUBIN,TOTAL 1.1 mg/dL (0.2-1)
[2018-12-14] MEDS ORDERED: SODIUM CHLORIDE 500 ML IV STA (10:56)
[2018-12-14] MEDS ORDERED: FLUOROURACIL 500 MG/10 ML VIAL IVPUSH ONE (11:00)
[2018-12-14] MEDS ORDERED: PORTA CATH FLUSH 10 ML IVPUSH ONE (14:52)
[2018-12-14 14:53] VITALS: BP 130/71; PULSE 78; TEMP 98.1
== END 2018-12-14 14:59 | disposition home or self-care (01) ==
LOC: JONCCHEMO 07:15 → J7W 09:11 → JONCCHEMO 14:59
PROVIDERS: ATTEND Internal Medicine Hematology & Oncology
PROC: 3E04305 Introduction of Other Antineoplastic into Central Vein, Percutaneous Approach (ICD-10-PCS; principal; 2018-12-14)
PROC: 3E043GC Introduction of Other Therapeutic Substance into Central Vein, Percutaneous Approach (ICD-10-PCS; 2018-12-14)
PROC: 3E043GC Introduction of Other Therapeutic Substance into Central Vein, Percutaneous Approach (ICD-10-PCS; 2018-12-14)
DX: Z51.11 Encounter for antineoplastic chemotherapy (principal); C23 Malignant neoplasm of gallbladder; I10 Essential (primary) hypertension; E11.9 Type 2 diabetes mellitus without complications
CPT/HCPCS: 36415; 80053; 83735; 85025; 96361; 96365; 96366; 96367; 96375; 96409; 96415; 96417; J2405; J9190

== ENCOUNTER 2018-12-21 07:08 | Day surgery (SDC) | payer OTHER ==
[2018-12-21 08:57] LABS: BASO % 0.8 % (0-2.0); EOS % 3.6 % (0-4.5); HEMATOCRIT 32.3 % (32.4-45.2); HEMOGLOBIN 10.7 GM/dL (10.7-15.3); LYMPH % 34.3 % (8-40); MCH 30.8 pg (25.7-33.7); MCHC 33.1 g/dl (32.0-36.0); MEAN PLT VOLUME 7.8 fl (7.5-11.1); MONO % 7.4 % (3.8-10.2); NEUT % 53.9 % (42.8-82.8); PLATELET COUNT 174 K/MM3 (134-434); RBC 3.48 M/mm3 (3.60-5.2); RDW 17.4 % (11.6-15.6); WHITE BLOOD COUNT 6.9 K/mm3 (4.0-10.0)
[2018-12-21 09:27] LABS: ALBUMIN 3.4 g/dl (3.4-5.0); BILIRUBIN,DIRECT 0.1 mg/dL (0.0-0.2); BILIRUBIN,TOTAL 0.2 mg/dL (0.2-1); BLOOD UREA NITROGEN 19.6 mg/dL (7-18); CALCIUM 8.8 mg/dL (8.5-10.1); MAGNESIUM 1.7 mg/dL (1.8-2.4); POTASSIUM 4.3 mmol/L (3.5-5.1); TOT PROT 6.2 g/dl (6.4-8.2)
[2018-12-21] MEDS ORDERED: DEXAMETHASONE SODIUM PHOSPHATE 8 MG, ONDANSETRON INJECTION 8 MG in SODIUM CHLORIDE 100 ML IVPB ONE (09:30)
[2018-12-21] MEDS ORDERED: DEXTROSE 5% IVPB ONE (10:00)
[2018-12-21] MEDS ORDERED: LEUCOVORIN IVPB ONE (10:00)
[2018-12-21] MEDS ORDERED: WATER IVPB ONE (10:00)
[2018-12-21] MEDS ORDERED: SODIUM CHLORIDE 1,000 ML IV SCH (10:30)
[2018-12-21] MEDS ORDERED: MAGNESIUM SULF 50% (8.12 MEQ/2 ML-1 GM VIAL) IVPB ONE (10:30)
[2018-12-21] MEDS ORDERED: FLUOROURACIL 500 MG/10 ML VIAL IVPUSH ONE (11:00)
[2018-12-21 16:16] VITALS: TEMP 98
[2018-12-21] MEDS ORDERED: PORTA CATH FLUSH 10 ML IVPUSH ONE (16:22)
[2018-12-21 16:47] VITALS: BP 141/51; PULSE 57
== END 2018-12-21 16:48 | disposition home or self-care (01) ==
LOC: JONCCHEMO 07:08 → J7W 10:02 → JONCCHEMO 16:48
PROVIDERS: ATTEND Internal Medicine Hematology & Oncology
PROC: 3E04305 Introduction of Other Antineoplastic into Central Vein, Percutaneous Approach (ICD-10-PCS; principal; 2018-12-21)
PROC: 3E043GC Introduction of Other Therapeutic Substance into Central Vein, Percutaneous Approach (ICD-10-PCS; 2018-12-21)
PROC: 3E043GC Introduction of Other Therapeutic Substance into Central Vein, Percutaneous Approach (ICD-10-PCS; 2018-12-21)
DX: Z51.11 Encounter for antineoplastic chemotherapy (principal); C23 Malignant neoplasm of gallbladder; I10 Essential (primary) hypertension; E11.9 Type 2 diabetes mellitus without complications
CPT/HCPCS: 36415; 80048; 80076; 83735; 85025; 96361; 96365; 96366; 96367; 96375; 96409; 96415; 96417; J2405; J7030; J9190

== ENCOUNTER 2019-01-04 07:08 | Day surgery (SDC) | payer OTHER ==
[2019-01-04] MEDS ORDERED: DEXAMETHASONE SODIUM PHOSPHATE 8 MG, ONDANSETRON INJECTION 8 MG in SODIUM CHLORIDE 100 ML IVPB ONE (09:30)
[2019-01-04] MEDS ORDERED: WATER IVPB ONE (10:00)
[2019-01-04] MEDS ORDERED: DEXTROSE 5% IVPB ONE (10:00)
[2019-01-04] MEDS ORDERED: LEUCOVORIN IVPB ONE (10:00)
[2019-01-04 10:39] LABS: BASO % 0.7 % (0-2.0); EOS % 4.7 % (0-4.5); HEMATOCRIT 31.4 % (32.4-45.2); HEMOGLOBIN 10.6 GM/dL (10.7-15.3); MCH 30.9 pg (25.7-33.7); MCHC 33.7 g/dl (32.0-36.0); MEAN CELL VOLUME 91.8 fl (80-96); MEAN PLT VOLUME 7.6 fl (7.5-11.1); NEUT % 44.6 % (42.8-82.8); PLATELET COUNT 203 K/MM3 (134-434); RBC 3.42 M/mm3 (3.60-5.2); RDW 18.3 % (11.6-15.6)
[2019-01-04] MEDS ORDERED: FLUOROURACIL 500 MG/10 ML VIAL IVPUSH ONE (11:00)
[2019-01-04 11:16] LABS: ALBUMIN 3.5 g/dl (3.4-5.0); BILIRUBIN,DIRECT 0.1 mg/dL (0.0-0.2); BILIRUBIN,TOTAL 0.4 mg/dL (0.2-1); BLOOD UREA NITROGEN 17.4 mg/dL (7-18); CALCIUM 8.9 mg/dL (8.5-10.1); CREATININE 0.8 mg/dL (0.55-1.3); MAGNESIUM 1.8 mg/dL (1.8-2.4); POTASSIUM 3.7 mmol/L (3.5-5.1); TOT PROT 6.3 g/dl (6.4-8.2)
[2019-01-04 14:08] VITALS: PULSE 61; TEMP 98
[2019-01-04 15:08] VITALS: BP 111/43
[2019-01-04] MEDS ORDERED: PORTA CATH FLUSH 10 ML IVPUSH ONE (18:10)
== END 2019-01-04 14:30 | disposition home or self-care (01) ==
LOC: JONCCHEMO 07:08 → J7W 10:34 → JONCCHEMO 14:30
PROVIDERS: ATTEND Internal Medicine Hematology & Oncology
PROC: 3E04305 Introduction of Other Antineoplastic into Central Vein, Percutaneous Approach (ICD-10-PCS; principal; 2019-01-04)
PROC: 3E043GC Introduction of Other Therapeutic Substance into Central Vein, Percutaneous Approach (ICD-10-PCS; 2019-01-04)
DX: Z51.11 Encounter for antineoplastic chemotherapy (principal); C23 Malignant neoplasm of gallbladder; I10 Essential (primary) hypertension; E11.9 Type 2 diabetes mellitus without complications
CPT/HCPCS: 36415; 80048; 80076; 82728; 83540; 83550; 83735; 85025; 96365; 96367; 96375; 96409; J2405; J9190

== ENCOUNTER 2019-01-11 07:31 | Day surgery (SDC) | payer OTHER ==
[2019-01-11] MEDS ORDERED: DEXAMETHASONE SODIUM PHOSPHATE 8 MG, ONDANSETRON INJECTION 8 MG in SODIUM CHLORIDE 100 ML IVPB ONE (10:00)
[2019-01-11] MEDS ORDERED: WATER IVPB ONE (10:30)
[2019-01-11] MEDS ORDERED: MAGNESIUM SULF 50% (8.12 MEQ/2 ML-1 GM VIAL) IVPB ONE (10:30)
[2019-01-11] MEDS ORDERED: DEXTROSE 5% IVPB ONE (10:30)
[2019-01-11] MEDS ORDERED: LEUCOVORIN IVPB ONE (10:30)
[2019-01-11 10:50] LABS: BASO % 0.3 % (0-2.0); EOS % 3.1 % (0-4.5); HEMATOCRIT 29.9 % (32.4-45.2); LYMPH % 44.6 % (8-40); MCH 31.1 pg (25.7-33.7); MCHC 33.4 g/dl (32.0-36.0); MEAN CELL VOLUME 93.2 fl (80-96); MEAN PLT VOLUME 8.5 fl (7.5-11.1); MONO % 7.8 % (3.8-10.2); NEUT % 44.2 % (42.8-82.8); PLATELET COUNT 193 K/MM3 (134-434); RBC 3.21 M/mm3 (3.60-5.2); RDW 18.5 % (11.6-15.6); WHITE BLOOD COUNT 6.2 K/mm3 (4.0-10.0)
[2019-01-11 11:14] LABS: ALBUMIN 3.4 g/dl (3.4-5.0); BILIRUBIN,DIRECT 0.1 mg/dL (0.0-0.2); BILIRUBIN,TOTAL 0.3 mg/dL (0.2-1); BLOOD UREA NITROGEN 27.6 mg/dL (7-18); CALCIUM 8.6 mg/dL (8.5-10.1); CREATININE 0.8 mg/dL (0.55-1.3); MAGNESIUM 1.6 mg/dL (1.8-2.4)
[2019-01-11] MEDS ORDERED: SODIUM CHLORIDE 500 ML IV ONE (11:30)
[2019-01-11] MEDS ORDERED: FLUOROURACIL 2,500 MG/50 ML VIAL IVPUSH ONE (11:30)
[2019-01-11 16:12] VITALS: TEMP 97.9
[2019-01-11] MEDS ORDERED: PORTA CATH FLUSH 10 ML IVPUSH ONE (16:13)
[2019-01-11 16:31] VITALS: PULSE 63
[2019-01-11 16:39] VITALS: BP 95/47
== END 2019-01-11 16:40 | disposition home or self-care (01) ==
LOC: JONCCHEMO 07:31 → J7W 09:38 → JONCCHEMO 16:40
PROVIDERS: ATTEND Internal Medicine Hematology & Oncology
PROC: 3E033GC Introduction of Other Therapeutic Substance into Peripheral Vein, Percutaneous Approach (ICD-10-PCS; principal; 2019-01-11)
PROC: 3E0337Z Introduction of Electrolytic and Water Balance Substance into Peripheral Vein, Percutaneous Approach (ICD-10-PCS; 2019-01-11)
DX: Z76.89 Persons encountering health services in other specified circumstances (principal); C23 Malignant neoplasm of gallbladder; I10 Essential (primary) hypertension; E11.9 Type 2 diabetes mellitus without complications
CPT/HCPCS: 36415; 80053; 80076; 82728; 83540; 83550; 83735; 85025; 96361; 96365; 96366; 96367; 96375; 96409; 96415; 96417

== ENCOUNTER 2019-01-18 10:02 | Day surgery (SDC) | payer OTHER ==
[2019-01-18 09:38] LABS: BASO % 0.4 % (0-2.0); EOS % 3.5 % (0-4.5); HEMATOCRIT 29.4 % (32.4-45.2); HEMOGLOBIN 9.7 GM/dL (10.7-15.3); LYMPH % 31.7 % (8-40); MCH 31.1 pg (25.7-33.7); MEAN CELL VOLUME 94.3 fl (80-96); MEAN PLT VOLUME 8.1 fl (7.5-11.1); MONO % 5.3 % (3.8-10.2); NEUT % 59.1 % (42.8-82.8); PLATELET COUNT 166 K/MM3 (134-434); RBC 3.11 M/mm3 (3.60-5.2); RDW 17.7 % (11.6-15.6); WHITE BLOOD COUNT 6.7 K/mm3 (4.0-10.0)
[~2019-01-18 10:02] MED LIST changes: +DEXAMETHASONE SODIUM PHOSPHATE 8 MG, ONDANSETRON INJECTION 8 MG in SODIUM CHLORIDE 100 ML IVPB ONE; -SODIUM CHLORIDE 500 ML IV ONE
[2019-01-18 10:15] LABS: ALBUMIN 3.2 g/dl (3.4-5.0); BILIRUBIN,DIRECT 0.2 mg/dL (0.0-0.2); BILIRUBIN,TOTAL 0.4 mg/dL (0.2-1); BLOOD UREA NITROGEN 18.2 mg/dL (7-18); CALCIUM 8.9 mg/dL (8.5-10.1); MAGNESIUM 1.4 mg/dL (1.8-2.4); POTASSIUM 4.4 mmol/L (3.5-5.1); TOT PROT 5.8 g/dl (6.4-8.2)
[2019-01-18] MEDS ORDERED: WATER IVPB ONE (10:30)
[2019-01-18] MEDS ORDERED: LEUCOVORIN IVPB ONE (10:30)
[2019-01-18] MEDS ORDERED: DEXTROSE 5% IVPB ONE (10:30)
[2019-01-18] MEDS ORDERED: MAGNESIUM SULF 50% (8.12 MEQ/2 ML-1 GM VIAL) IVPB ONE (10:40)
[2019-01-18] MEDS ORDERED: FLUOROURACIL 2,500 MG/50 ML VIAL IVPUSH ONE (11:30)
[2019-01-18 16:09] VITALS: PULSE 76; TEMP 98.1
[2019-01-18] MEDS ORDERED: PORTA CATH FLUSH 10 ML IVPUSH ONE (16:09)
[2019-01-18 16:24] VITALS: BP 104/64
== END 2019-01-18 13:26 | disposition home or self-care (01) ==
LOC: JONCCHEMO 10:02 → J7W 10:03 → JONCCHEMO 13:26
PROVIDERS: ATTEND Internal Medicine Hematology & Oncology
DX: Z76.89 Persons encountering health services in other specified circumstances (principal); C23 Malignant neoplasm of gallbladder; I10 Essential (primary) hypertension; E11.9 Type 2 diabetes mellitus without complications
CPT/HCPCS: 36415; 80048; 80076; 83735; 85025; 96365; 96366; 96367; 96375; 96409; 96415; 96417

== ENCOUNTER 2019-02-01 05:27 | Day surgery (SDC) | payer OTHER ==
[2019-02-01] MEDS ORDERED: WATER IVPB ONE (09:30)
[2019-02-01] MEDS ORDERED: DEXTROSE 5% IVPB ONE (09:30)
[2019-02-01] MEDS ORDERED: DEXAMETHASONE INJECTION 8 MG, ONDANSETRON INJECTION 8 MG in SODIUM CHLORIDE 100 ML IVPB ONE (09:30)
[2019-02-01] MEDS ORDERED: LEUCOVORIN IVPB ONE (09:30)
[2019-02-01] MEDS ORDERED: FLUOROURACIL 500 MG/10 ML VIAL IVPUSH ONE (10:30)
[2019-02-01] MEDS ORDERED: MAGNESIUM SULF 50% (8.12 MEQ/2 ML-1 GM VIAL) IVPB ONE (10:30)
[2019-02-01 10:40] LABS: BASO % 0.9 % (0-2.0); EOS % 3.8 % (0-4.5); HEMATOCRIT 27.8 % (32.4-45.2); HEMOGLOBIN 9.3 GM/dL (10.7-15.3); LYMPH % 23.2 % (8-40); MCH 31.2 pg (25.7-33.7); MCHC 33.4 g/dl (32.0-36.0); MEAN CELL VOLUME 93.4 fl (80-96); MONO % 13.6 % (3.8-10.2); NEUT % 58.5 % (42.8-82.8); PLATELET COUNT 246 K/MM3 (134-434); RBC 2.98 M/mm3 (3.60-5.2); RDW 18.1 % (11.6-15.6); WHITE BLOOD COUNT 6.3 K/mm3 (4.0-10.0)
[2019-02-01 11:06] LABS: BLOOD UREA NITROGEN 15.4 mg/dL (7-18); CALCIUM 8.3 mg/dL (8.5-10.1); CREATININE 0.7 mg/dL (0.55-1.3); MAGNESIUM 1.4 mg/dL (1.8-2.4); POTASSIUM 3.5 mmol/L (3.5-5.1)
[2019-02-01 15:06] VITALS: TEMP 98.3
[2019-02-01 15:10] VITALS: BP 129/64; PULSE 63
[2019-02-01] MEDS ORDERED: PORTA CATH FLUSH 10 ML IVPUSH ONE (15:10)
== END 2019-02-01 15:10 | disposition home or self-care (01) ==
LOC: JONCCHEMO 05:27 → J7W 09:51 → JONCCHEMO 15:10
PROVIDERS: ATTEND Internal Medicine Hematology & Oncology
PROC: 3E04305 Introduction of Other Antineoplastic into Central Vein, Percutaneous Approach (ICD-10-PCS; principal; 2019-02-01)
PROC: 3E043GC Introduction of Other Therapeutic Substance into Central Vein, Percutaneous Approach (ICD-10-PCS; 2019-02-01)
PROC: 3E043GC Introduction of Other Therapeutic Substance into Central Vein, Percutaneous Approach (ICD-10-PCS; 2019-02-01)
DX: Z51.11 Encounter for antineoplastic chemotherapy (principal); C23 Malignant neoplasm of gallbladder
CPT/HCPCS: 36415; 80048; 82728; 83540; 83550; 83735; 85025; 96365; 96366; 96367; 96375; 96409; 96415; 96417; J1100; J9190

== ENCOUNTER 2019-02-08 05:46 | Day surgery (SDC) | payer OTHER ==
[2019-02-08] MEDS ORDERED: DEXAMETHASONE SODIUM PHOSPHATE 8 MG, ONDANSETRON INJECTION 8 MG in SODIUM CHLORIDE 100 ML IVPB ONE (09:30)
[2019-02-08] MEDS ORDERED: LEUCOVORIN IVPB ONE (10:00)
[2019-02-08] MEDS ORDERED: WATER IVPB ONE (10:00)
[2019-02-08] MEDS ORDERED: DEXTROSE 5% IVPB ONE (10:00)
[2019-02-08] MEDS ORDERED: FLUOROURACIL 500 MG/10 ML VIAL IVPUSH ONE (11:00)
[2019-02-08 11:09] LABS: BASO % 0.5 % (0-2.0); EOS % 3.1 % (0-4.5); HEMATOCRIT 30.8 % (32.4-45.2); HEMOGLOBIN 10.3 GM/dL (10.7-15.3); LYMPH % 31.7 % (8-40); MCH 31.2 pg (25.7-33.7); MCHC 33.5 g/dl (32.0-36.0); MEAN CELL VOLUME 93.2 fl (80-96); MONO % 10.5 % (3.8-10.2); NEUT % 54.2 % (42.8-82.8); PLATELET COUNT 314 K/MM3 (134-434); RBC 3.31 M/mm3 (3.60-5.2); RDW 17.6 % (11.6-15.6); WHITE BLOOD COUNT 9.3 K/mm3 (4.0-10.0)
[2019-02-08 11:42] LABS: ALBUMIN 3.5 g/dl (3.4-5.0); BILIRUBIN,DIRECT 0.1 mg/dL (0.0-0.2); BILIRUBIN,TOTAL 0.3 mg/dL (0.2-1); BLOOD UREA NITROGEN 23.1 mg/dL (7-18); CALCIUM 9.3 mg/dL (8.5-10.1); MAGNESIUM 1.5 mg/dL (1.8-2.4); POTASSIUM 4.3 mmol/L (3.5-5.1); TOT PROT 6.5 g/dl (6.4-8.2)
[2019-02-08 12:40] LABS: ANISOCYTOSIS 1+; MACROCYTOSIS 1+; OVALOCYTE 1+; PLATELET ESTIMATE NORMAL
[2019-02-08] MEDS ORDERED: MAGNESIUM SULF 50% (8.12 MEQ/2 ML-1 GM VIAL) IVPB ONE (13:15)
[2019-02-08 17:40] VITALS: TEMP 98.2
[2019-02-08] MEDS ORDERED: PORTA CATH FLUSH 10 ML IVPUSH ONE (17:40)
[2019-02-08 17:41] VITALS: BP 121/58; PULSE 64
== END 2019-02-08 16:30 | disposition home or self-care (01) ==
LOC: JONCCHEMO 05:46 → J7W 09:59 → JONCCHEMO 16:30
PROVIDERS: ATTEND Internal Medicine Hematology & Oncology
PROC: 3E033GC Introduction of Other Therapeutic Substance into Peripheral Vein, Percutaneous Approach (ICD-10-PCS; principal; 2019-02-08)
PROC: 3E013GC Introduction of Other Therapeutic Substance into Subcutaneous Tissue, Percutaneous Approach (ICD-10-PCS; 2019-02-08)
DX: Z76.89 Persons encountering health services in other specified circumstances (principal); C23 Malignant neoplasm of gallbladder
CPT/HCPCS: 36415; 80048; 80076; 83735; 85025; 96367; 96375; 96409; 96415; 96417; J2405; J9190

== ENCOUNTER 2019-02-15 07:12 | Day surgery (SDC) | payer OTHER ==
[2019-02-15] MEDS ORDERED: DEXAMETHASONE SODIUM PHOSPHATE 8 MG, ONDANSETRON INJECTION 8 MG in SODIUM CHLORIDE 100 ML IVPB ONE (09:30)
[2019-02-15] MEDS ORDERED: LEUCOVORIN IVPB ONE (10:00)
[2019-02-15] MEDS ORDERED: WATER IVPB ONE (10:00)
[2019-02-15] MEDS ORDERED: DEXTROSE 5% IVPB ONE (10:00)
[2019-02-15 10:57] LABS: BASO % 0.7 % (0-2.0); EOS % 3.8 % (0-4.5); HEMATOCRIT 32.3 % (32.4-45.2); HEMOGLOBIN 10.6 GM/dL (10.7-15.3); MCH 31.1 pg (25.7-33.7); MCHC 32.8 g/dl (32.0-36.0); MEAN PLT VOLUME 8.3 fl (7.5-11.1); MONO % 6.5 % (3.8-10.2); PLATELET COUNT 213 K/MM3 (134-434); RDW 17.8 % (11.6-15.6); WHITE BLOOD COUNT 8.3 K/mm3 (4.0-10.0)
[2019-02-15] MEDS ORDERED: FLUOROURACIL 2,500 MG/50 ML VIAL IVPUSH ONE (11:00)
[2019-02-15 11:23] LABS: ALBUMIN 3.5 g/dl (3.4-5.0); BILIRUBIN,TOTAL 0.4 mg/dL (0.2-1); BLOOD UREA NITROGEN 17.9 mg/dL (7-18); CALCIUM 8.9 mg/dL (8.5-10.1); CREATININE 0.9 mg/dL (0.55-1.3); MAGNESIUM 1.4 mg/dL (1.8-2.4); POTASSIUM 4.2 mmol/L (3.5-5.1); TOT PROT 6.3 g/dl (6.4-8.2)
[2019-02-15 17:07] VITALS: BP 133/57; PULSE 75; TEMP 97.7
[2019-02-15] MEDS ORDERED: PORTA CATH FLUSH 10 ML IVPUSH ONE (17:07)
== END 2019-02-15 15:30 | disposition home or self-care (01) ==
LOC: JONCCHEMO 07:12 → J7W 11:44 → JONCCHEMO 15:30
PROVIDERS: ATTEND Internal Medicine Hematology & Oncology
PROC: 3E04305 Introduction of Other Antineoplastic into Central Vein, Percutaneous Approach (ICD-10-PCS; principal; 2019-02-15)
PROC: 3E043GC Introduction of Other Therapeutic Substance into Central Vein, Percutaneous Approach (ICD-10-PCS; 2019-02-15)
DX: Z51.11 Encounter for antineoplastic chemotherapy (principal); C23 Malignant neoplasm of gallbladder
CPT/HCPCS: 36415; 80053; 83735; 85025; 96365; 96366; 96367; 96375; 96409; 96415; 96417; J2405

== ENCOUNTER 2019-03-08 05:31 | Day surgery (SDC) | payer OTHER ==
[2019-03-08 09:38] LABS: BASO % 0.7 % (0-2.0); HEMATOCRIT 31.3 % (32.4-45.2); HEMOGLOBIN 10.3 GM/dL (10.7-15.3); LYMPH % 37.5 % (8-40); MCH 31.5 pg (25.7-33.7); MCHC 33.1 g/dl (32.0-36.0); MEAN CELL VOLUME 95.3 fl (80-96); MONO % 13.2 % (3.8-10.2); NEUT % 44.6 % (42.8-82.8); PLATELET COUNT 196 K/MM3 (134-434); RBC 3.28 M/mm3 (3.60-5.2); RDW 17.2 % (11.6-15.6); WHITE BLOOD COUNT 5.1 K/mm3 (4.0-10.0)
[2019-03-08] MEDS ORDERED: DEXAMETHASONE SODIUM PHOSPHATE 8 MG, ONDANSETRON INJECTION 8 MG in SODIUM CHLORIDE 100 ML IVPB ONE (10:00)
[2019-03-08 10:05] LABS: ALBUMIN 3.3 g/dl (3.4-5.0); BILIRUBIN,TOTAL 0.3 mg/dL (0.2-1); BLOOD UREA NITROGEN 16.6 mg/dL (7-18); CALCIUM 8.9 mg/dL (8.5-10.1); CREATININE 0.9 mg/dL (0.55-1.3); MAGNESIUM 1.9 mg/dL (1.8-2.4); POTASSIUM 3.7 mmol/L (3.5-5.1); TOT PROT 6.2 g/dl (6.4-8.2)
[2019-03-08] MEDS ORDERED: LEUCOVORIN IVPB ONE (10:30)
[2019-03-08] MEDS ORDERED: DEXTROSE 5% IVPB ONE (10:30)
[2019-03-08] MEDS ORDERED: WATER IVPB ONE (10:30)
[2019-03-08] MEDS ORDERED: FLUOROURACIL 2,500 MG/50 ML VIAL IVPUSH ONE (11:30)
[2019-03-08 15:21] VITALS: TEMP 97.9
[2019-03-08 15:22] VITALS: BP 148/70; PULSE 77
== END 2019-03-08 14:15 | disposition home or self-care (01) ==
LOC: JONCCHEMO 05:31 → J7W 11:01 → JONCCHEMO 14:15
PROVIDERS: ATTEND Internal Medicine Hematology & Oncology
PROC: 3E04305 Introduction of Other Antineoplastic into Central Vein, Percutaneous Approach (ICD-10-PCS; principal; 2019-03-08)
PROC: 3E043GC Introduction of Other Therapeutic Substance into Central Vein, Percutaneous Approach (ICD-10-PCS; 2019-03-08)
DX: Z51.11 Encounter for antineoplastic chemotherapy (principal); C23 Malignant neoplasm of gallbladder
CPT/HCPCS: 36415; 80053; 83735; 85025; 96365; 96366; 96375; 96409

== ENCOUNTER 2019-03-15 07:09 | Day surgery (SDC) | payer OTHER ==
[2019-03-15] MEDS ORDERED: DEXAMETHASONE SODIUM PHOSPHATE 8 MG, ONDANSETRON INJECTION 8 MG in SODIUM CHLORIDE 100 ML IVPB ONE (10:00)
[2019-03-15] MEDS ORDERED: WATER IVPB ONE (10:30)
[2019-03-15] MEDS ORDERED: LEUCOVORIN IVPB ONE (10:30)
[2019-03-15] MEDS ORDERED: DEXTROSE 5% IVPB ONE (10:30)
[2019-03-15 11:10] LABS: BASO % 0.5 % (0-2.0); EOS % 2.2 % (0-4.5); HEMATOCRIT 32.5 % (32.4-45.2); HEMOGLOBIN 10.7 GM/dL (10.7-15.3); LYMPH % 24.1 % (8-40); MCH 31.3 pg (25.7-33.7); MCHC 32.9 g/dl (32.0-36.0); MEAN CELL VOLUME 95.1 fl (80-96); MONO % 8.6 % (3.8-10.2); NEUT % 64.6 % (42.8-82.8); PLATELET COUNT 247 K/MM3 (134-434); RBC 3.42 M/mm3 (3.60-5.2); RDW 16.6 % (11.6-15.6)
[2019-03-15] MEDS ORDERED: FLUOROURACIL 2,500 MG/50 ML VIAL IVPUSH ONE (11:30)
[2019-03-15 11:49] LABS: ALBUMIN 3.5 g/dl (3.4-5.0); BILIRUBIN,DIRECT 0.1 mg/dL (0.0-0.2); BILIRUBIN,TOTAL 0.3 mg/dL (0.2-1); BLOOD UREA NITROGEN 18.9 mg/dL (7-18); CALCIUM 8.6 mg/dL (8.5-10.1); CREATININE 0.9 mg/dL (0.55-1.3); MAGNESIUM 1.5 mg/dL (1.8-2.4); POTASSIUM 3.6 mmol/L (3.5-5.1); TOT PROT 6.4 g/dl (6.4-8.2)
[2019-03-15] MEDS ORDERED: MAGNESIUM SULF 50% (8.12 MEQ/2 ML-1 GM VIAL) IVPB ONE (13:04)
[2019-03-15 16:29] VITALS: TEMP 98.8
[2019-03-15 16:32] VITALS: BP 104/50; PULSE 65
== END 2019-03-15 16:00 | disposition home or self-care (01) ==
LOC: JONCCHEMO 07:09 → J7W 10:14 → JONCCHEMO 16:00
PROVIDERS: ATTEND Internal Medicine Hematology & Oncology
PROC: 3E04305 Introduction of Other Antineoplastic into Central Vein, Percutaneous Approach (ICD-10-PCS; principal; 2019-03-15)
PROC: 3E043GC Introduction of Other Therapeutic Substance into Central Vein, Percutaneous Approach (ICD-10-PCS; 2019-03-15)
PROC: 3E043GC Introduction of Other Therapeutic Substance into Central Vein, Percutaneous Approach (ICD-10-PCS; 2019-03-15)
DX: Z51.11 Encounter for antineoplastic chemotherapy (principal); C23 Malignant neoplasm of gallbladder
CPT/HCPCS: 36415; 80053; 80076; 83735; 85025; 96365; 96366; 96367; 96409

== ENCOUNTER 2019-03-22 05:47 | Day surgery (SDC) | payer OTHER ==
[2019-03-22] MEDS ORDERED: MAGNESIUM SULFATE IVPB ONE ×2 (10:00)
[2019-03-22] MEDS ORDERED: DEXTROSE IVPB ONE ×2 (10:00)
[2019-03-22] MEDS ORDERED: POTASSIUM CHLORIDE IVPB ONE ×2 (10:00)
[2019-03-22] MEDS ORDERED: [UNRECOGNIZED DRUG - OTHER] IVPB ONE (10:00)
[2019-03-22] MEDS ORDERED: [UNRECOGNIZED DRUG - OTHER] IVPB ONE (10:00)
[2019-03-22] MEDS ORDERED: DEXAMETHASONE SODIUM PHOSPHATE 8 MG, ONDANSETRON INJECTION 8 MG in SODIUM CHLORIDE 100 ML IVPB ONE (10:00)
[2019-03-22 10:08] LABS: BASO % 0.5 % (0-2.0); EOS % 1.9 % (0-4.5); HEMATOCRIT 32.8 % (32.4-45.2); HEMOGLOBIN 10.8 GM/dL (10.7-15.3); LYMPH % 27.4 % (8-40); MCHC 32.8 g/dl (32.0-36.0); MEAN CELL VOLUME 94.5 fl (80-96); MONO % 7.7 % (3.8-10.2); NEUT % 62.5 % (42.8-82.8); PLATELET COUNT 231 K/MM3 (134-434); RBC 3.47 M/mm3 (3.60-5.2); RDW 16.5 % (11.6-15.6); WHITE BLOOD COUNT 7.3 K/mm3 (4.0-10.0)
[2019-03-22 10:47] LABS: ALBUMIN 3.6 g/dl (3.4-5.0); BILIRUBIN,TOTAL 0.4 mg/dL (0.2-1); BLOOD UREA NITROGEN 20.6 mg/dL (7-18); CALCIUM 9.1 mg/dL (8.5-10.1); CREATININE 0.7 mg/dL (0.55-1.3); MAGNESIUM 1.5 mg/dL (1.8-2.4); POTASSIUM 3.9 mmol/L (3.5-5.1); TOT PROT 6.7 g/dl (6.4-8.2)
[2019-03-22] MEDS ORDERED: LEUCOVORIN IVPB ONE (11:30)
[2019-03-22] MEDS ORDERED: DEXTROSE 5% IVPB ONE (11:30)
[2019-03-22] MEDS ORDERED: FLUOROURACIL 2,500 MG/50 ML VIAL IVPUSH ONE (11:30)
[2019-03-22] MEDS ORDERED: WATER IVPB ONE (11:30)
[2019-03-22 13:44] VITALS: TEMP 98.2
[2019-03-22] MEDS ORDERED: PORTA CATH FLUSH 10 ML IVPUSH ONE (13:44)
[2019-03-22 15:17] VITALS: BP 124/69; PULSE 73
== END 2019-03-22 15:19 | disposition home or self-care (01) ==
LOC: JONCCHEMO 05:47 → J7W 09:22 → JONCCHEMO 15:19
PROVIDERS: ATTEND Internal Medicine Hematology & Oncology
PROC: 3E04305 Introduction of Other Antineoplastic into Central Vein, Percutaneous Approach (ICD-10-PCS; principal; 2019-03-22)
PROC: 3E043GC Introduction of Other Therapeutic Substance into Central Vein, Percutaneous Approach (ICD-10-PCS; 2019-03-22)
PROC: 3E043GC Introduction of Other Therapeutic Substance into Central Vein, Percutaneous Approach (ICD-10-PCS; 2019-03-22)
DX: Z51.11 Encounter for antineoplastic chemotherapy (principal); C23 Malignant neoplasm of gallbladder
CPT/HCPCS: 36415; 80053; 82378; 82728; 83540; 83550; 83735; 85025; 96365; 96366; 96367; 96409; J2405

== ENCOUNTER 2019-04-19 08:21 | Day surgery (SDC) | payer OTHER ==
[2019-04-19 09:10] LABS: BASO % 0.7 % (0-2.0); EOS % 3.5 % (0-4.5); HEMATOCRIT 32.5 % (32.4-45.2); HEMOGLOBIN 10.9 GM/dL (10.7-15.3); LYMPH % 36.3 % (8-40); MCH 30.7 pg (25.7-33.7); MCHC 33.5 g/dl (32.0-36.0); MEAN CELL VOLUME 91.6 fl (80-96); MEAN PLT VOLUME 8.1 fl (7.5-11.1); MONO % 11.2 % (3.8-10.2); NEUT % 48.3 % (42.8-82.8); PLATELET COUNT 243 K/MM3 (134-434); RBC 3.54 M/mm3 (3.60-5.2); RDW 15.5 % (11.6-15.6); WHITE BLOOD COUNT 6.1 K/mm3 (4.0-10.0)
[2019-04-19 09:38] LABS: ALBUMIN 3.4 g/dl (3.4-5.0); BILIRUBIN,DIRECT 0.1 mg/dL (0.0-0.2); BILIRUBIN,TOTAL 0.3 mg/dL (0.2-1); BLOOD UREA NITROGEN 24.6 mg/dL (7-18); CALCIUM 8.8 mg/dL (8.5-10.1); CREATININE 0.8 mg/dL (0.55-1.3); MAGNESIUM 1.5 mg/dL (1.8-2.4); POTASSIUM 4.1 mmol/L (3.5-5.1); TOT PROT 6.5 g/dl (6.4-8.2)
[2019-04-19] MEDS ORDERED: DEXAMETHASONE SODIUM PHOSPHATE 8 MG, ONDANSETRON INJECTION 8 MG in SODIUM CHLORIDE 100 ML IVPB ONE (10:00)
[2019-04-19] MEDS ORDERED: MAGNESIUM SULF 50% (8.12 MEQ/2 ML-1 GM VIAL) ONE (10:14)
[2019-04-19] MEDS ORDERED: LEUCOVORIN IVPB ONE (10:30)
[2019-04-19] MEDS ORDERED: WATER IVPB ONE (10:30)
[2019-04-19] MEDS ORDERED: DEXTROSE 5% IVPB ONE (10:30)
[2019-04-19] MEDS ORDERED: SODIUM CHLORIDE 250 ML IV ONE (11:00)
[2019-04-19] MEDS ORDERED: MAGNESIUM SULF 50% (8.12 MEQ/2 ML-1 GM VIAL) IVPB ONE (11:00)
[2019-04-19] MEDS ORDERED: FLUOROURACIL 500 MG/10 ML VIAL IVPUSH ONE (11:30)
[2019-04-19 17:05] VITALS: BP 125/57; PULSE 68; TEMP 98
[2019-04-19] MEDS ORDERED: PORTA CATH FLUSH 10 ML IVPUSH ONE (17:05)
== END 2019-04-19 14:45 | disposition home or self-care (01) ==
LOC: JONCCHEMO 08:21 → J7W 08:27 → JONCCHEMO 14:45
PROVIDERS: ATTEND Internal Medicine Hematology & Oncology
PROC: 3E04305 Introduction of Other Antineoplastic into Central Vein, Percutaneous Approach (ICD-10-PCS; principal; 2019-04-19)
PROC: 3E043GC Introduction of Other Therapeutic Substance into Central Vein, Percutaneous Approach (ICD-10-PCS; 2019-04-19)
PROC: 3E043GC Introduction of Other Therapeutic Substance into Central Vein, Percutaneous Approach (ICD-10-PCS; 2019-04-19)
DX: Z51.11 Encounter for antineoplastic chemotherapy (principal); C23 Malignant neoplasm of gallbladder
CPT/HCPCS: 36415; 80053; 80076; 83735; 85025; 96365; 96366; 96367; 96409; J9190

== ENCOUNTER 2019-04-26 07:14 | Day surgery (SDC) | payer OTHER ==
[2019-04-26] MEDS ORDERED: DEXAMETHASONE SODIUM PHOSPHATE 8 MG, ONDANSETRON INJECTION 8 MG in SODIUM CHLORIDE 100 ML IVPB ONE (09:30)
[2019-04-26] MEDS ORDERED: DEXTROSE 5% IVPB ONE (10:00)
[2019-04-26] MEDS ORDERED: WATER IVPB ONE (10:00)
[2019-04-26] MEDS ORDERED: LEUCOVORIN IVPB ONE (10:00)
[2019-04-26] MEDS ORDERED: FLUOROURACIL 500 MG/10 ML VIAL IVPUSH ONE (11:00)
[2019-04-26 11:11] LABS: BASO % 0.5 % (0-2.0); EOS % 3.1 % (0-4.5); HEMATOCRIT 35.1 % (32.4-45.2); HEMOGLOBIN 11.6 GM/dL (10.7-15.3); LYMPH % 29.9 % (8-40); MCH 30.2 pg (25.7-33.7); MEAN CELL VOLUME 91.5 fl (80-96); MEAN PLT VOLUME 8.8 fl (7.5-11.1); MONO % 9.7 % (3.8-10.2); NEUT % 56.8 % (42.8-82.8); PLATELET COUNT 267 K/MM3 (134-434); RBC 3.84 M/mm3 (3.60-5.2); RDW 15.5 % (11.6-15.6)
[2019-04-26 11:36] LABS: ALBUMIN 3.8 g/dl (3.4-5.0); BILIRUBIN,TOTAL 0.2 mg/dL (0.2-1); BLOOD UREA NITROGEN 24.2 mg/dL (7-18); CALCIUM 8.7 mg/dL (8.5-10.1); CREATININE 0.9 mg/dL (0.55-1.3); MAGNESIUM 1.4 mg/dL (1.8-2.4); POTASSIUM 3.8 mmol/L (3.5-5.1); TOT PROT 6.8 g/dl (6.4-8.2)
[2019-04-26] MEDS ORDERED: MAGNESIUM SULF 50% (8.12 MEQ/2 ML-1 GM VIAL) IVPB ONE (12:36)
[2019-04-26 15:22] VITALS: BP 140/73; PULSE 79; TEMP 97.5
[2019-04-26] MEDS ORDERED: PORTA CATH FLUSH 10 ML IVPUSH ONE (15:22)
== END 2019-04-26 16:20 | disposition home or self-care (01) ==
LOC: JONCCHEMO 07:14 → J7W 10:06 → JONCCHEMO 16:20
PROVIDERS: ATTEND Internal Medicine Hematology & Oncology
PROC: 3E043GC Introduction of Other Therapeutic Substance into Central Vein, Percutaneous Approach (ICD-10-PCS; principal; 2019-04-26)
PROC: 3E043GC Introduction of Other Therapeutic Substance into Central Vein, Percutaneous Approach (ICD-10-PCS; 2019-04-26)
DX: Z76.89 Persons encountering health services in other specified circumstances (principal); C23 Malignant neoplasm of gallbladder
CPT/HCPCS: 36415; 80053; 83735; 85025; 96365; 96366; 96367; 96375; J2405; J9190

== ENCOUNTER 2019-05-17 05:36 | Day surgery (SDC) | payer OTHER ==
[2019-05-17 09:22] LABS: BASO % 0.6 % (0-2.0); EOS % 4.1 % (0-4.5); HEMATOCRIT 35.9 % (32.4-45.2); HEMOGLOBIN 11.7 GM/dL (10.7-15.3); LYMPH % 38.1 % (8-40); MCH 29.7 pg (25.7-33.7); MCHC 32.6 g/dl (32.0-36.0); MEAN CELL VOLUME 91.3 fl (80-96); MEAN PLT VOLUME 8.2 fl (7.5-11.1); MONO % 10.1 % (3.8-10.2); NEUT % 47.1 % (42.8-82.8); PLATELET COUNT 250 K/MM3 (134-434); RBC 3.93 M/mm3 (3.60-5.2); RDW 15.2 % (11.6-15.6); WHITE BLOOD COUNT 6.3 K/mm3 (4.0-10.0)
[2019-05-17 09:56] LABS: ALBUMIN 3.5 g/dl (3.4-5.0); BILIRUBIN,TOTAL 0.2 mg/dL (0.2-1); BLOOD UREA NITROGEN 18.9 mg/dL (7-18); CALCIUM 9.3 mg/dL (8.5-10.1); CREATININE 0.8 mg/dL (0.55-1.3); MAGNESIUM 1.7 mg/dL (1.8-2.4); POTASSIUM 4.4 mmol/L (3.5-5.1); TOT PROT 6.7 g/dl (6.4-8.2)
[2019-05-17] MEDS ORDERED: DEXAMETHASONE SODIUM PHOSPHATE 8 MG, ONDANSETRON INJECTION 8 MG in SODIUM CHLORIDE 100 ML IVPB ONE (10:00)
[2019-05-17] MEDS ORDERED: DEXTROSE 5% IVPB ONE (10:30)
[2019-05-17] MEDS ORDERED: LEUCOVORIN IVPB ONE (10:30)
[2019-05-17] MEDS ORDERED: WATER IVPB ONE (10:30)
[2019-05-17] MEDS ORDERED: MAGNESIUM SULF 50% (8.12 MEQ/2 ML-1 GM VIAL) IVPB SCH (10:45)
[2019-05-17] MEDS ORDERED: ACETAMINOPHEN 325 MG TABLET (FP) ONE (11:02)
[2019-05-17] MEDS ORDERED: FLUOROURACIL 2,500 MG/50 ML VIAL IVPUSH ONE (11:30)
[2019-05-17 16:29] VITALS: TEMP 97.8
[2019-05-17 16:33] VITALS: BP 124/69; PULSE 66
[2019-05-17] MEDS ORDERED: PORTA CATH FLUSH 10 ML IVPUSH ONE (16:33)
== END 2019-05-17 14:30 | disposition home or self-care (01) ==
LOC: JONCCHEMO 05:36 → J7W 09:44 → JONCCHEMO 14:30
PROVIDERS: ATTEND Internal Medicine Hematology & Oncology
PROC: 3E04305 Introduction of Other Antineoplastic into Central Vein, Percutaneous Approach (ICD-10-PCS; principal; 2019-05-17)
PROC: 3E043GC Introduction of Other Therapeutic Substance into Central Vein, Percutaneous Approach (ICD-10-PCS; 2019-05-17)
PROC: 3E043GC Introduction of Other Therapeutic Substance into Central Vein, Percutaneous Approach (ICD-10-PCS; 2019-05-17)
DX: Z51.11 Encounter for antineoplastic chemotherapy (principal); C23 Malignant neoplasm of gallbladder
CPT/HCPCS: 36415; 80053; 83735; 85025; 96365; 96366; 96367; 96409

== ENCOUNTER 2019-05-24 07:05 | Day surgery (SDC) | payer OTHER ==
[2019-05-24] MEDS ORDERED: DEXAMETHASONE SODIUM PHOSPHATE 8 MG, ONDANSETRON INJECTION 8 MG in SODIUM CHLORIDE 100 ML IVPB ONE (10:00)
[2019-05-24] MEDS ORDERED: MAGNESIUM SULF 50% (8.12 MEQ/2 ML-1 GM VIAL) IVPB ONE (10:15)
[2019-05-24] MEDS ORDERED: DEXTROSE 5% IVPB ONE (10:30)
[2019-05-24] MEDS ORDERED: LEUCOVORIN IVPB ONE (10:30)
[2019-05-24] MEDS ORDERED: WATER IVPB ONE (10:30)
[2019-05-24 10:39] LABS: BASO % 0.7 % (0-2.0); EOS % 3.5 % (0-4.5); HEMOGLOBIN 11.5 GM/dL (10.7-15.3); LYMPH % 34.4 % (8-40); MCH 29.8 pg (25.7-33.7); MCHC 32.9 g/dl (32.0-36.0); MEAN CELL VOLUME 90.4 fl (80-96); MEAN PLT VOLUME 8.3 fl (7.5-11.1); MONO % 7.5 % (3.8-10.2); NEUT % 53.9 % (42.8-82.8); PLATELET COUNT 265 K/MM3 (134-434); RBC 3.88 M/mm3 (3.60-5.2); WHITE BLOOD COUNT 6.8 K/mm3 (4.0-10.0)
[2019-05-24 11:24] LABS: ALBUMIN 3.6 g/dl (3.4-5.0); ALK PHOS 107 U/L (45-117); BILIRUBIN,DIRECT < 0.1 mg/dL (0.0-0.2); BILIRUBIN,TOTAL 0.3 mg/dL (0.2-1); MAGNESIUM 1.4 mg/dL (1.8-2.4); SGOT/AST 13 U/L (15-37); SGPT/ALT 23 U/L (13-61); TOT PROT 6.7 g/dl (6.4-8.2)
[2019-05-24] MEDS ORDERED: FLUOROURACIL 2,500 MG/50 ML VIAL IVPUSH ONE (11:30)
[2019-05-24 12:08] LABS: BLOOD UREA NITROGEN 17.7 mg/dL (7-18)
[2019-05-24 13:52] VITALS: TEMP 97.7
[2019-05-24] MEDS ORDERED: PORTA CATH FLUSH 10 ML IVPUSH ONE (14:06)
[2019-05-24 14:54] VITALS: BP 148/74; PULSE 68
== END 2019-05-24 14:30 | disposition home or self-care (01) ==
LOC: JONCCHEMO 07:05 → J7W 10:00 → JONCCHEMO 14:30
PROVIDERS: ATTEND Internal Medicine Hematology & Oncology
PROC: 3E04305 Introduction of Other Antineoplastic into Central Vein, Percutaneous Approach (ICD-10-PCS; principal; 2019-05-24)
PROC: 3E04305 Introduction of Other Antineoplastic into Central Vein, Percutaneous Approach (ICD-10-PCS; 2019-05-24)
PROC: 3E043GC Introduction of Other Therapeutic Substance into Central Vein, Percutaneous Approach (ICD-10-PCS; 2019-05-24)
PROC: 3E043GC Introduction of Other Therapeutic Substance into Central Vein, Percutaneous Approach (ICD-10-PCS; 2019-05-24)
DX: Z51.11 Encounter for antineoplastic chemotherapy (principal); C23 Malignant neoplasm of gallbladder; I10 Essential (primary) hypertension; E11.9 Type 2 diabetes mellitus without complications; D64.9 Anemia, unspecified
CPT/HCPCS: 36415; 80048; 80076; 83735; 85025; 96365; 96366; 96367; 96409

== ENCOUNTER 2019-05-31 05:29 | Day surgery (SDC) | payer OTHER ==
[2019-05-31] MEDS ORDERED: DEXAMETHASONE SODIUM PHOSPHATE 8 MG, ONDANSETRON INJECTION 8 MG in SODIUM CHLORIDE 100 ML IVPB ONE (09:30)
[2019-05-31] MEDS ORDERED: DEXTROSE 5% IVPB ONE (10:00)
[2019-05-31] MEDS ORDERED: WATER IVPB ONE (10:00)
[2019-05-31] MEDS ORDERED: LEUCOVORIN IVPB ONE (10:00)
[2019-05-31 10:55] LABS: BASO % 0.5 % (0-2.0); HEMATOCRIT 36.4 % (32.4-45.2); HEMOGLOBIN 12.1 GM/dL (10.7-15.3); LYMPH % 28.3 % (8-40); MCH 29.7 pg (25.7-33.7); MCHC 33.2 g/dl (32.0-36.0); MEAN CELL VOLUME 89.5 fl (80-96); MEAN PLT VOLUME 8.2 fl (7.5-11.1); MONO % 7.2 % (3.8-10.2); PLATELET COUNT 231 K/MM3 (134-434); RBC 4.06 M/mm3 (3.60-5.2); RDW 14.9 % (11.6-15.6); WHITE BLOOD COUNT 8.4 K/mm3 (4.0-10.0)
[2019-05-31] MEDS ORDERED: LISINOPRIL 10 MG TABLET (FP) PO ONE (11:00)
[2019-05-31] MEDS ORDERED: FLUOROURACIL 500 MG/10 ML VIAL IVPUSH ONE (11:00)
[2019-05-31] MEDS ORDERED: MAGNESIUM SULF 50% (8.12 MEQ/2 ML-1 GM VIAL) IVPB ONE (11:00)
[2019-05-31 11:30] LABS: ALBUMIN 3.9 g/dl (3.4-5.0); BILIRUBIN,DIRECT 0.1 mg/dL (0.0-0.2); BILIRUBIN,TOTAL 0.2 mg/dL (0.2-1); MAGNESIUM 1.5 mg/dL (1.8-2.4)
[2019-05-31 12:00] LABS: BLOOD UREA NITROGEN 21.4 mg/dL (7-18); CREATININE 0.7 mg/dL (0.55-1.3); POTASSIUM 3.8 mmol/L (3.5-5.1)
[2019-05-31 14:21] VITALS: TEMP 98
[2019-05-31] MEDS ORDERED: PORTA CATH FLUSH 10 ML IVPUSH ONE (14:33)
[2019-05-31 16:31] VITALS: BP 137/63; PULSE 76
== END 2019-05-31 16:10 | disposition home or self-care (01) ==
LOC: JONCCHEMO 05:29 → J7W 09:50 → JONCCHEMO 16:10
PROVIDERS: ATTEND Internal Medicine Hematology & Oncology
PROC: 3E04305 Introduction of Other Antineoplastic into Central Vein, Percutaneous Approach (ICD-10-PCS; principal; 2019-05-31)
PROC: 3E043GC Introduction of Other Therapeutic Substance into Central Vein, Percutaneous Approach (ICD-10-PCS; 2019-05-31)
PROC: 3E043GC Introduction of Other Therapeutic Substance into Central Vein, Percutaneous Approach (ICD-10-PCS; 2019-05-31)
DX: Z51.11 Encounter for antineoplastic chemotherapy (principal); C23 Malignant neoplasm of gallbladder; E11.9 Type 2 diabetes mellitus without complications
CPT/HCPCS: 36415; 80053; 80076; 83735; 85025; 96365; 96366; 96367; 96409; J2405; J9190

== ENCOUNTER 2019-06-14 05:39 | Day surgery (SDC) | payer OTHER ==
[2019-06-14] MEDS ORDERED: DEXAMETHASONE SODIUM PHOSPHATE 8 MG, ONDANSETRON INJECTION 8 MG in SODIUM CHLORIDE 100 ML IVPB ONE (09:30)
[2019-06-14] MEDS ORDERED: DEXTROSE 5% IVPB ONE (10:00)
[2019-06-14] MEDS ORDERED: WATER IVPB ONE (10:00)
[2019-06-14] MEDS ORDERED: LEUCOVORIN IVPB ONE (10:00)
[2019-06-14] MEDS ORDERED: MAGNESIUM SULF 50% (8.12 MEQ/2 ML-1 GM VIAL) ONE (10:30)
[2019-06-14] MEDS ORDERED: MAGNESIUM SULF 50% (8.12 MEQ/2 ML-1 GM VIAL) IVPB ONE (11:00)
[2019-06-14] MEDS ORDERED: FLUOROURACIL 500 MG/10 ML VIAL IVPUSH ONE (11:00)
[2019-06-14 11:14] LABS: BASO % 0.7 % (0-2.0); EOS % 4.2 % (0-4.5); HEMATOCRIT 35.9 % (32.4-45.2); HEMOGLOBIN 11.9 GM/dL (10.7-15.3); LYMPH % 31.8 % (8-40); MCH 29.7 pg (25.7-33.7); MCHC 33.2 g/dl (32.0-36.0); MEAN CELL VOLUME 89.5 fl (80-96); MONO % 12.3 % (3.8-10.2); PLATELET COUNT 212 K/MM3 (134-434); RBC 4.01 M/mm3 (3.60-5.2); RDW 15.5 % (11.6-15.6); WHITE BLOOD COUNT 6.1 K/mm3 (4.0-10.0)
[2019-06-14 11:48] LABS: ALBUMIN 3.6 g/dl (3.4-5.0); BILIRUBIN,DIRECT 0.1 mg/dL (0.0-0.2); BILIRUBIN,TOTAL 0.3 mg/dL (0.2-1); BLOOD UREA NITROGEN 17.7 mg/dL (7-18); CALCIUM 8.8 mg/dL (8.5-10.1); CREATININE 0.9 mg/dL (0.55-1.3); MAGNESIUM 1.7 mg/dL (1.8-2.4); POTASSIUM 3.9 mmol/L (3.5-5.1); TOT PROT 6.9 g/dl (6.4-8.2)
[2019-06-14 14:42] VITALS: TEMP 97.8
[2019-06-14 16:16] VITALS: BP 136/74; PULSE 82
== END 2019-06-14 16:00 | disposition home or self-care (01) ==
LOC: JONCCHEMO 05:39 → J7W 10:22 → JONCCHEMO 16:00
PROVIDERS: ATTEND Internal Medicine Hematology & Oncology
PROC: 3E04305 Introduction of Other Antineoplastic into Central Vein, Percutaneous Approach (ICD-10-PCS; principal; 2019-06-14)
PROC: 3E043GC Introduction of Other Therapeutic Substance into Central Vein, Percutaneous Approach (ICD-10-PCS; 2019-06-14)
PROC: 3E043GC Introduction of Other Therapeutic Substance into Central Vein, Percutaneous Approach (ICD-10-PCS; 2019-06-14)
DX: Z51.11 Encounter for antineoplastic chemotherapy (principal); C23 Malignant neoplasm of gallbladder; E11.9 Type 2 diabetes mellitus without complications
CPT/HCPCS: 36415; 80048; 80076; 82728; 83540; 83550; 83735; 85025; 96365; 96366; 96367; 96409; J2405; J9190

== ENCOUNTER 2019-06-21 05:41 | Day surgery (SDC) | payer OTHER ==
[2019-06-21] MEDS ORDERED: DEXAMETHASONE SODIUM PHOSPHATE 8 MG, ONDANSETRON INJECTION 8 MG in SODIUM CHLORIDE 100 ML IVPB ONE (09:30)
[2019-06-21] MEDS ORDERED: LEUCOVORIN CALCIUM IVPB ONE (10:00)
[2019-06-21] MEDS ORDERED: WATER IVPB ONE (10:00)
[2019-06-21] MEDS ORDERED: DEXTROSE 5% IVPB ONE (10:00)
[2019-06-21] MEDS ORDERED: FLUOROURACIL 500 MG/10 ML VIAL IVPUSH ONE (11:00)
[2019-06-21 11:56] LABS: BASO % 0.7 % (0-2.0); EOS % 3.5 % (0-4.5); HEMATOCRIT 35.7 % (32.4-45.2); HEMOGLOBIN 11.9 GM/dL (10.7-15.3); LYMPH % 35.6 % (8-40); MCH 29.6 pg (25.7-33.7); MCHC 33.2 g/dl (32.0-36.0); MEAN CELL VOLUME 89.2 fl (80-96); MEAN PLT VOLUME 8.7 fl (7.5-11.1); MONO % 8.7 % (3.8-10.2); NEUT % 51.5 % (42.8-82.8); PLATELET COUNT 214 K/MM3 (134-434); RBC 4.01 M/mm3 (3.60-5.2); RDW 15.5 % (11.6-15.6); WHITE BLOOD COUNT 6.6 K/mm3 (4.0-10.0)
[2019-06-21 12:24] LABS: ALBUMIN 3.7 g/dl (3.4-5.0); BILIRUBIN,DIRECT 0.1 mg/dL (0.0-0.2); BILIRUBIN,TOTAL 0.4 mg/dL (0.2-1); BLOOD UREA NITROGEN 22.9 mg/dL (7-18); CALCIUM 8.8 mg/dL (8.5-10.1); POTASSIUM 3.6 mmol/L (3.5-5.1); TOT PROT 6.6 g/dl (6.4-8.2)
[2019-06-21 13:38] LABS: MAGNESIUM 1.3 mg/dL (1.8-2.4)
[2019-06-21] MEDS ORDERED: MAGNESIUM SULF 50% (8.12 MEQ/2 ML-1 GM VIAL) IVPB ONE (14:30)
[2019-06-21 16:43] VITALS: TEMP 97.8
[2019-06-21] MEDS ORDERED: PORTA CATH FLUSH 10 ML IVPUSH ONE (17:18)
[2019-06-21 17:35] VITALS: BP 100/49; PULSE 59
== END 2019-06-21 17:45 | disposition home or self-care (01) ==
LOC: JONCCHEMO 05:41 → J7W 10:47 → JONCCHEMO 17:45
PROVIDERS: ATTEND Internal Medicine Hematology & Oncology
PROC: 3E033GC Introduction of Other Therapeutic Substance into Peripheral Vein, Percutaneous Approach (ICD-10-PCS; principal; 2019-06-21)
PROC: 3E04305 Introduction of Other Antineoplastic into Central Vein, Percutaneous Approach (ICD-10-PCS; 2019-06-21)
PROC: 3E043GC Introduction of Other Therapeutic Substance into Central Vein, Percutaneous Approach (ICD-10-PCS; 2019-06-21)
DX: Z76.89 Persons encountering health services in other specified circumstances (principal); C23 Malignant neoplasm of gallbladder; I10 Essential (primary) hypertension
CPT/HCPCS: 36415; 80048; 80076; 83735; 85025; 96366; 96367; 96409; J2405; J9190

== ENCOUNTER 2019-06-27 13:10 | Inpatient (IN) | payer OTHER ==
[2019-06-27 13:27] VITALS: BMI 26.4
[2019-06-27] MEDS ORDERED: morphine CARPU-JECT 4 MG/1 ML DISP.SYRIN IVPUSH ONE (14:31)
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
--- NOTE | 2019-06-27 14:43 | PDOC ---
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 This morning lost balance and tripped on stairs, falling forward down 5 steps, hitting head on cement and then onto her car fender, landed on L shoulder. Denies LOC, vision changes, not on anticoagulation. Can still move and feel L arm. Denies fever, headache, nausea/vomiting, neck pain, chest pain/SOB. Has R medial knee pain with resulting balance instability for past 2mo after dog ran into knee. Ambulates with 2 hands steadying herself at home. Dr Chris galindo Past History - Past Medical History Allergies/Adverse Reactions: Allergies Allergy/AdvReac Type Severity Reaction Status Date / Time cephalexin monohydrate Allergy Severe Difficulty Verified 09/01/17 13:01 [From Keflex] Breathing Home Medications: Ambulatory Orders Lisinopril [Prinivil] 10 mg PO DAILY #30 tablet 09/02/15 Nebivolol HCl [Bystolic] 10 mg PO DAILY 07/09/17 Gabapentin 300 mg PO HS 12/14/18 CVA: No COPD: No Diabetes: No HTN: Yes Hypercholesterolemia: No Other medical history: GALLBLADDER CA WITH MEJIA TO LUNG - Surgical History Cholecystectomy: Yes Lung Surgery: Yes (2YRS AGO) Neurologic Surgery: No Orthopedic Surgery: Yes (rt knee repair) - Immunization History Immunization Up to Date: No - Psycho Social/Smoking Cessation Hx Smoking History: Never smoked Have you smoked in the past 12 months: No Hx Alcohol Use: No Drug/Substance Use Hx: No Substance Use Type: None Hx Substance Use Treatment: No Review of Systems - Review of Systems Constitutional: No: Chills, Fever HEENTM: No: Eye Pain, Nose Pain Respiratory: No: Cough, Shortness of Breath, Stridor Cardiac (ROS): No: Chest Pain, Palpitations ABD/GI: No: Abdominal Distended, Constipated, Diarrhea, Nausea, Vomiting : No: Burning, Dysuria Musculoskeletal: Yes: Joint Pain. No: Back Pain Integumentary: No: Bruising, Flushing Neurological: No: Headache, Seizure Psychiatric: No: Anxiety, Depression Endocrine: No: Intolerance to Cold, Intolerance to Heat Hematologic/Lymphatic: No: Anemia, Blood Clots *Physical Exam - Vital Signs Last Vital Signs Temp Pulse Resp BP Pulse Ox 97.4 F L 58 L 20 124/55 L 100 06/27/19 13:23 06/27/19 13:23 06/27/19 13:23 06/27/19 13:23 06/27/19 13:23 - Physical Exam General Appearance: Yes: Nourished, Appropriately Dressed, Moderate Distress HEENT: positive: EOMI, HUNTER, Normal Voice, Hearing Grossly Normal, Other (2x 3cm lacerations over L eyebrow, no active bleeding). negative: Scleral Icterus (R), Scleral Icterus (L) Neck: positive: Supple. negative: Tender, Rigid Respiratory/Chest: positive: Lungs Clear, Normal Breath Sounds. negative: Chest Tender, Respiratory Distress Cardiovascular: positive: Regular Rhythm, S1, S2, Bradycardia. negative: Edema , Murmur Comments:: 06/27/19 15:25 2+ radial pulses vanessa Gastrointestinal/Abdominal: positive: Normal Bowel Sounds, Flat, Soft. negative : Tender, Organomegaly Extremity: positive: Normal Capillary Refill, Other (L arm normal sensation, 5/ 5 wrist/finger strength, tender glenohumeral joint and proximal forearm, palpable deformity L shoulder) Integumentary: positive: Normal Color. negative: Dry Neurologic: positive: presser and blocker knitted goods II-XII NML intact, Fully Oriented, Alert, Normal Mood/ Affect, Normal Response, Motor Strength 5/5, Respond to painful stimul, Responsive. negative: Sensory Deficit, Confused, Disoriented Procedures - Laceration/Wound Repair Left Face Wound Length: 2.6 to 5.0 cm (2x 3cm lacerations and 1cm laceration cephalad/ lateral to L eye) Wound Explored: clean Wound's Depth, Shape: into muscle Irrigated w/ Saline: Yes Amount of Anesthetic (ccs): 0 Wound Debrided: minimal Wound Repaired With: Dermabond Layer Closure: No Sterile Dressing Applied: No ED Treatment Course - LABORATORY CBC & Chemistry Diagram: 06/27/19 15:10 06/27/19 15:10 Medical Decision Making - Medical Decision Making 06/27/19 14:43 Head/facial bone/c-spine CT - no acute brain bleed/infarct/mass, stable vanessa noncalcified upper lobe pulm nodules, no cervical fx L shoulder XR - closed comminuted L humeral head fracture R knee XR - no fracture/dislocation EKG sinus bradycardia, HR 58, QTc 408, unchanged TWI III, V1 WBC 10.9 --- 74-year-old female with 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 Arm neurovascular intact. Leukocytosis likely stress/chemo related XR showed closed comminuted L humeral head fracture. L arm neurovascular intact. R knee likely MCL strain vs meniscal tear. No knee fracture/dislocation on XR Given 4 morphine, 0.5L NS. Face lacs repaired w dermabond. Placed arm in sling Consulted Dr Perez ortho - advised not emergent surgery, place sling, will eval pt tmrw Pt uses both hands to steady herself and walk around house, does not feel safe walking w 1 useable hand Admitted m/s Dr Norton for closed L humeral head fracture requiring PT and ortho eval - pending facial bone CT PCP Donny Discharge - Discharge Information Problems reviewed: Yes Clinical Impression/Diagnosis: Fracture of humeral head, left, closed Qualifiers: Encounter type: initial encounter Qualified Code(s): S42.292A - Other displaced fracture of upper end of left humerus, initial encounter for closed fracture Face lacerations Qualifiers: Encounter type: initial encounter Qualified Code(s): S01.81XA - Laceration without foreign body of other part of head, initial encounter Condition: Improved - Follow up/Referral Referrals: Oscar Hines MD [Primary Care Provider] - - Patient Discharge Instructions - Post Discharge Activity
[2019-06-27] MEDS ORDERED: morphine SULFATE 4 MG/ML VIAL ONE (14:52)
[2019-06-27] MEDS ORDERED: SODIUM CHLORIDE 0.9% 500 ML INFUS.BAG IV ONE (15:19)
--- NOTE | 2019-06-27 15:27 | PDOC ---
Attending Attestation - Resident Resident Name: Joey Pittman - ED Attending Attestation I have performed the following: I have examined & evaluated the patient, The case was reviewed & discussed with the resident, I agree w/resident's findings & plan, Exceptions are as noted - HPI HPI: 74 yo F history gallbladder CA with mets, on chemo, presents with L shoulder pain s/p fall. She states she lost balance, fell on stairs, hit her head on cement, then fell onto car fender, injuring her face and left shoulder. No LOC. Denies weakness, numbness, vision changes, LOC. No N/V, cp, SOB. She sustained laceration to her L periorbital area and c/o pain to the L shoulder. - Physicial Exam PE: GENERAL: Awake, alert, and fully oriented, in no acute distress HEAD: +2 lacerations to the superior orbital rim EYES: PERRLA, EOMI, sclera anicteric, conjunctiva clear ENT: Auricles normal inspection, hearing grossly normal, nares patent, oropharynx clear without exudates. Moist mucosa NECK: Normal ROM, supple, no lymphadenopathy, JVD, or masses LUNGS: Breath sounds equal, clear to auscultation bilaterally. No wheezes, and no crackles HEART: Regular rate and rhythm, normal S1 and S2, no murmurs, rubs or gallops ABDOMEN: Soft, nontender, normoactive bowel sounds. No guarding, no rebound. No masses EXTREMITIES: +Pain to the L shoulder, dec ROM due to pain. +Tenderness to the proximal humerus, +deformity. Remainder of extremities with normal range of motion, no edema. No clubbing or cyanosis. No cords, erythema, or tenderness NEUROLOGICAL: Cranial nerves II through XII grossly intact. Normal speech, normal gait. Motor and sensation intact SKIN: Warm, dry, normal turgor, no rashes or lesions noted. - Medical Decision Making Pt with head injury, proximal humerus fracture. Will obtain CTH, c-spine, facial bones. Lac repair. Sling to LUE. Will admit, as she is unable to ambulate without using her arms for assistance.
[2019-06-27 15:52] LABS: BASO % 0.3 % (0-2.0); EOS % 0.5 % (0-4.5); HEMATOCRIT 35.7 % (32.4-45.2); HEMOGLOBIN 11.8 GM/dL (10.7-15.3); LYMPH % 11.1 % (8-40); MCH 29.8 pg (25.7-33.7); MCHC 33.2 g/dl (32.0-36.0); MEAN CELL VOLUME 89.9 fl (80-96); MEAN PLT VOLUME 8.4 fl (7.5-11.1); MONO % 4.6 % (3.8-10.2); NEUT % 83.5 % (42.8-82.8); PLATELET COUNT 194 K/MM3 (134-434); RBC 3.97 M/mm3 (3.60-5.2); RDW 16.2 % (11.6-15.6); WHITE BLOOD COUNT 10.9 K/mm3 (4.0-10.0)
--- NOTE | 2019-06-27 16:11 | EKG ---
Test Reason : Blood Pressure : / mmHG Vent. Rate : 058 BPM Atrial Rate : 058 BPM P-R Int : 134 ms QRS Dur : 072 ms QT Int : 416 ms P-R-T Axes : 000 -11 007 degrees QTc Int : 408 ms SINUS BRADYCARDIA MARKED T WAVE ABNORMALITY, CONSIDER INFERIOR ISCHEMIA ABNORMAL ECG Confirmed by MD FAUSTO, NICOLE ([id number]) on 06/27/2019 4:11:33 PM Referred By: Confirmed By:NICOLE LAMBERT MD
[2019-06-27 16:28] LABS: ALBUMIN 3.8 g/dl (3.4-5.0); BILIRUBIN,TOTAL 0.4 mg/dL (0.2-1); BLOOD UREA NITROGEN 19.3 mg/dL (7-18); CALCIUM 8.8 mg/dL (8.5-10.1); CREATININE 0.9 mg/dL (0.55-1.3); POTASSIUM 4.5 mmol/L (3.5-5.1); TOT PROT 6.9 g/dl (6.4-8.2)
[2019-06-27 16:33] LABS: INR 1.04 (0.83-1.09); PROTHROMBIN TIME (PATIENT) 12.3 SEC (9.7-13.0)
[2019-06-27] MEDS ORDERED: oxyCODONE HCL 5 MG TABLET PO PRN (18:34)
--- NOTE | 2019-06-27 19:27 | HP ---
Admitting History and Physical - Primary Care Physician PCP: Oscar Hines - Admission Chief Complaint: Mechanical Fall, L- Shoulder Pain, Right Knee Pain History of Present Illness: This is a 74 y/o woman with a significant medical history of Gallbladder CA w/ mets (on 3rd line chemo, 5FU/Leucovoram), HTN. Who presents to the ED with s/p fall, left shoulder pain, and chronic right knee pain. Patient reports falling down the stairs after losing her balance, falling onto her face, hitting her head, left shoulder, on the cement outside and car fender. Patient denies LOC, vision changes. Patient denies fever, chills, cough, SOB, dizziness, headache, CP, palpitations, AP, N/V/D, constipation, dysuria. Patient reports having R medial knee pain with resulting balance instability for the past 2 months, secondary to her dog running into her knee. Last Tetanus- unknown History Source: Patient, Family Member Limitations to Obtaining History: No Limitations - Past Medical History Cardiovascular: Yes: HTN, Hyperlipdemia Hepatobiliary: Yes: Other (gall bladder cancer -s/p surgery) Heme/Onc: Yes: Anemia, Current Chemotherapy, Thrombocytopenia Infectious Disease: Yes: Other (surgical site -RUQ drainage) Rheumatology: Yes: Rheumatoid Arthritis Endocrine: Yes: Diabetes Mellitus (pre - DM) - Past Surgical History Past Surgical History: Yes: Cholecystectomy (Radical), Thoracotomy Additional Past Surgical History: Partial Gastrectomy and Colectomy - Smoking History Smoking history: Never smoked Have you smoked in the past 12 months: No - Alcohol/Substance Use Hx Alcohol Use: No History of Substance Use: reports: None - Social History Usual Living Arrangement: Yes: With Spouse ADL: Independent History of Recent Travel: No Home Medications - Allergies Allergies/Adverse Reactions: Allergies Allergy/AdvReac Type Severity Reaction Status Date / Time cephalexin monohydrate Allergy Severe Difficulty Verified 09/01/17 13:01 [From Keflex] Breathing - Home Medications Home Medications: Ambulatory Orders Lisinopril [Prinivil] 10 mg PO DAILY #30 tablet 09/02/15 Nebivolol HCl [Bystolic] 10 mg PO DAILY 07/09/17 Gabapentin 300 mg PO HS 12/14/18 Acetaminophen W/ Codeine #3 [Tylenol # 3 -] 1 tab PO Q6H #10 tablet MDD 4 Family Medical History Family History: Unable to Obtain Review of Systems - Review of Systems Constitutional: reports: No Symptoms Eyes: reports: No Symptoms HENT: reports: No Symptoms Neck: reports: No Symptoms Cardiovascular: reports: No Symptoms Respiratory: reports: No Symptoms Gastrointestinal: reports: No Symptoms Genitourinary: reports: No Symptoms Breasts: reports: No Symptoms Reported Musculoskeletal: reports: Extremity Pain, Joint Pain, Joint Swelling Integumentary: reports: Bruising, Erythema, Wound Neurological: reports: Unsteady Gait Hematology/Lymphatic: reports: No Symptoms Psychiatric: reports: No Symptoms Pain Intensity: 6 Physical Examination Vital Signs: Vital Signs Temperature 97.4 F L 06/27/19 13:23 Pulse Rate 58 L 06/27/19 13:23 Respiratory Rate 20 06/27/19 13:23 Blood Pressure 124/55 L 06/27/19 13:23 O2 Sat by Pulse Oximetry (%) 100 06/27/19 13:23 Constitutional: Yes: Well Nourished, No Distress, Calm Eyes: Yes: Conjunctiva Clear, EOM Intact, PERRL, Other (Left orbit- eccyhmotic bruising) HENT: Yes: Normocephalic, Other (lac above L- brow- dermabond) Neck: Yes: WNL, Supple, Trachea Midline Cardiovascular: Yes: Regular Rate and Rhythm, S1, S2 Respiratory: Yes: WNL, Regular, CTA Bilaterally Gastrointestinal: Yes: WNL, Normal Bowel Sounds, Soft ...Rectal Exam: Yes: Deferred Renal/: Yes: WNL Breast(s): Yes: WNL Musculoskeletal: Yes: Joint Swelling (TTP), Other (sling to L- arm) Extremities: Yes: Deformity Edema: No Peripheral Pulses WNL: Yes Integumentary: Yes: Bruising, Erythema, Laceration (repaired with dermabond) Wound/Incision: Yes: Other (dermabond- L brow) Neurological: Yes: WNL, Alert, Oriented, Cran Nerves II-XII Intact ...Motor Strength: LUE (LROM), LLE, RUE, RLE Psychiatric: Yes: WNL, Alert, Oriented Labs: CBC, BMP 06/27/19 15:10 06/27/19 15:10 Laboratory Results - last 24 hr 06/27/19 06/27/19 06/27/19 15:10 15:10 15:10 WBC 10.9 H RBC 3.97 Hgb 11.8 Hct 35.7 MCV 89.9 MCH 29.8 MCHC 33.2 RDW 16.2 H Plt Count 194 MPV 8.4 Absolute Neuts (auto) 9.1 H Neutrophils % 83.5 H D Lymphocytes % 11.1 D Monocytes % 4.6 Eosinophils % 0.5 D Basophils % 0.3 Nucleated RBC % 0 PT with INR 12.30 INR 1.04 Sodium 138 Potassium 4.5 Chloride 102 Carbon Dioxide 27 Anion Gap 9 BUN 19.3 H Creatinine 0.9 Est GFR (CKD-EPI)AfAm 74.04 Est GFR (CKD-EPI)NonAf 63.88 Random Glucose 135 H Calcium 8.8 Total Bilirubin 0.4 AST 23 ALT 19 Alkaline Phosphatase 111 Total Protein 6.9 Albumin 3.8 Anti-A Titer Blood Type Antibody Screen 06/27/19 06/27/19 16:00 17:30 WBC RBC Hgb Hct MCV MCH MCHC RDW Plt Count MPV Absolute Neuts (auto) Neutrophils % Lymphocytes % Monocytes % Eosinophils % Basophils % Nucleated RBC % PT with INR INR Sodium Potassium Chloride Carbon Dioxide Anion Gap BUN Creatinine Est GFR (CKD-EPI)AfAm Est GFR (CKD-EPI)NonAf Random Glucose Calcium Total Bilirubin AST ALT Alkaline Phosphatase Total Protein Albumin Anti-A Titer Cancelled Blood Type Cancelled B POSITIVE Antibody Screen Cancelled Negative Intake & Output 06/25/19 06/26/19 06/27/19 06/28/19 23:59 23:59 23:59 23:59 Weight 51.71 kg Current Medications Generic Name Dose Route Start Last Admin Trade Name Freq PRN Reason Stop Dose Admin Gabapentin 300 mg 06/28/19 02:55 Neurontin - PO HS PRN restless leg Lisinopril 10 mg 06/28/19 10:00 Prinivil PO DAILY PRIYANKA Nebivolol 10 mg 06/28/19 10:00 Bystolic - PO DAILY PRIYANKA Oxycodone HCl 5 mg 06/27/19 18:33 Roxicodone - PO Q6H PRN PAIN LEVEL 4 - 6 Oxycodone HCl 10 mg 06/27/19 18:34 06/27/19 22:50 Roxicodone - PO 10 mg Q6H PRN Administration PAIN LEVEL 7 - 10 Imaging - Results X-ray: Report Reviewed, Image Reviewed Cat Scan: Report Reviewed, Image Reviewed EKG: Image Reviewed Problem List - Problems (1) Fracture of humeral head, left, closed Assessment/Plan: Secondary to mechanical fall Shoulder Xray- closed comminuted left humerus head fx Appreciate Ortho consult Sling Elevate extremity Neurovascular checks Ofirmev, Oxycodone prn Code(s): S42.292A - OTH DISP FX OF UPPER END OF LEFT HUMERUS, INIT FOR CLOS FX Qualifiers: Encounter type: initial encounter Qualified Code(s): S42.292A - Other displaced fracture of upper end of left humerus, initial encounter for closed fracture (2) Fall Assessment/Plan: Likely mechanical Shoulder Xray- communited L humeral head fx C-spine- neg fx Head CT- neg ICH Facial Bones CT- neg fx R-Knee xray- neg fx/dislocation Orthostatics Monitor BP PT eval Code(s): W19.XXXA - UNSPECIFIED FALL, INITIAL ENCOUNTER (3) Face lacerations Assessment/Plan: dermabond applied in ED Wound care Head Ct- neg ICH Facial Bones- neg fx Code(s): S01.81XA - LACERATION W/O FOREIGN BODY OF OTH PART OF HEAD, INIT ENCNTR Qualifiers: Encounter type: initial encounter Qualified Code(s): S01.81XA - Laceration without foreign body of other part of head, initial encounter (4) HLD (hyperlipidemia) Assessment/Plan: stable No current med Code(s): E78.5 - HYPERLIPIDEMIA, UNSPECIFIED (5) HTN (hypertension) Assessment/Plan: stable Monitor Bp Continue home med with parameters Monitor renal function Code(s): I10 - ESSENTIAL (PRIMARY) HYPERTENSION Assessment/Plan This is a 74 y/o woman with a significant medical history of Gallbladder CA w/ mets (on 3rd line chemo, 5FU/Leucovoram), HTN. Admitted for L- Humeral Fracture secondary to Mechanical Fall for further evaluation of their emergent condition. Plan: See Problem List FEN PO fluids as tolerated Replete lytes prn Low Na Diet Visit type - Emergency Visit Emergency Visit: Yes ED Registration Date: 06/27/19 Care time: The patient presented to the Emergency Department on the above date and was hospitalized for further evaluation of their emergent condition. - New Patient This patient is new to me today: Yes Date on this admission: 06/27/19 - Critical Care Critical Care patient: No
--- NOTE | 2019-06-27 20:10 | PN ---
Progress Note (short form) - Note Progress Note: Patient seen and examined Well known to me History of metastatic gallbladder ca s/p surgery on 3rd line of chemotherpay with 5FU/ leucovorum. Disease in lungs and retroperitoneum relatively stable and/or improved on therapy. Fell today with trauma to left orbit and sustained fracture of left humeral head. Has right knee with pain and swelling also to be evaluated Non smoker, non drinker, no illicit drugs , no exposures Past history of rheumatoid arthritis, chest surgery and GB surgery, HBP ROS - myalgias, arthralgias neuropathy all prior to fall Last Vital Signs Temp Pulse Resp BP Pulse Ox 97.4 F L 58 L 20 124/55 L 100 06/27/19 13:23 06/27/19 13:23 06/27/19 13:23 06/27/19 13:23 06/27/19 13:23 HEENT: left orbit with ecchymoses and traumatic area s/p fall Oropharynx: No thrush, No mucositis Neck: Supple Nodes: Without adenopathy Breasts: Without masses Cor: RSR, No murmurs, No gallops Lungs: Clear to P&A Abd: Soft, Normal bowel sounds, No organomegaly Ext:left shoulder splinted Skin: No rashes, Integument intact CBC, BMP 06/27/19 15:10 06/27/19 15:10 Current Medications Generic Name Dose Route Start Last Admin Trade Name Freq PRN Reason Stop Dose Admin Oxycodone HCl 5 mg 06/27/19 18:33 Roxicodone - PO Q6H PRN PAIN LEVEL 4 - 6 Oxycodone HCl 10 mg 06/27/19 18:34 Roxicodone - PO Q6H PRN PAIN LEVEL 7 - 10 Impression: Fracture of left humeral head Left orbital trauma Right knee pain Metastatic Gall bladder ca Chemotherapy Due for next cycle of chemotherapy treatment on 06/28- will defer pending ortho evaluation.
[2019-06-27] MEDS ORDERED: oxyCODONE HCL 5 MG TABLET ONE (22:36)
[2019-06-28] MEDS ORDERED: DIPHTH,PERTUSS(ACELL),TET VAC 0.5 ML VIAL IM ONE (05:00)
[2019-06-28 05:27] VITALS: TEMP 98.6
[2019-06-28] MEDS ORDERED: oxyCODONE HCL 5 MG TABLET ONE ×2 (06:05→12:55)
[2019-06-28] MEDS: oxyCODONE HCL 5 MG TABLET PO PRN ×2 (06:07→12:50)
[2019-06-28] MEDS ORDERED: GABAPENTIN 300 MG CAPSULE PO PRN (06:45)
[2019-06-28 08:38] LABS: HEMATOCRIT 30.5 % (32.4-45.2); HEMOGLOBIN 10.2 GM/dL (10.7-15.3); MCH 29.8 pg (25.7-33.7); MCHC 33.3 g/dl (32.0-36.0); MEAN CELL VOLUME 89.4 fl (80-96); MEAN PLT VOLUME 8.6 fl (7.5-11.1); PLATELET COUNT 167 K/MM3 (134-434); RBC 3.42 M/mm3 (3.60-5.2); RDW 15.6 % (11.6-15.6)
[2019-06-28 08:55] LABS: INR 1.16 (0.83-1.09); PROTHROMBIN TIME (PATIENT) 13.7 SEC (9.7-13.0)
[2019-06-28 08:59] LABS: ALBUMIN 3.1 g/dl (3.4-5.0); BILIRUBIN,TOTAL 0.7 mg/dL (0.2-1); BLOOD UREA NITROGEN 16.3 mg/dL (7-18); CALCIUM 8.4 mg/dL (8.5-10.1); CREATININE 0.8 mg/dL (0.55-1.3); MAGNESIUM 1.5 mg/dL (1.8-2.4); TOT PROT 5.8 g/dl (6.4-8.2)
--- NOTE | 2019-06-28 09:29 | PN ---
Progress Note (short form) - Note Progress Note: Pt seen and examined in the ER. She is right hand dominant 74 year old female 1 day s/p fall, and a history of metastatic gall bladder cancer. She c/o pain left upper arm. In sling. AVSS PE LUE is NVI + moderate swelling and ecchymosis Good ROM left elbow, forearm, wrist, fingers X-rays Show a highly comminuted, left proximal humerus fracture, in overall acceptable alignment. Imp 74 yo F, R hand dom, with metastatic CA, highly comminuted left proximal humerus fracture Rec Non operative treatment. Sling No orthopedic reason for admission She should f/u with me in the office in 7-10 days.
[2019-06-28] MEDS ORDERED: LISINOPRIL 10 MG TABLET (FP) PO SCH (10:00)
[2019-06-28] MEDS ORDERED: NEBIVOLOL 10 MG TABLET (FP) PO SCH (10:00)
--- NOTE | 2019-06-28 11:10 | DS ---
Physical Examination Vital Signs: Vital Signs Temperature 98.6 F 06/28/19 04:55 Pulse Rate 66 06/28/19 10:16 Respiratory Rate 20 06/28/19 10:16 Blood Pressure 114/58 L 06/28/19 10:16 O2 Sat by Pulse Oximetry (%) 96 06/28/19 10:16 Constitutional: Yes: No Distress, Calm, Other (left forehead laceration-- surgical glue+, periorbital eccymosis) Cardiovascular: Yes: Regular Rate and Rhythm Respiratory: Yes: CTA Bilaterally Gastrointestinal: Yes: Normal Bowel Sounds, Soft. No: Tenderness Extremities: Yes: Other (left shoulder sling) Edema: No Labs: CBC, BMP 06/28/19 07:57 06/28/19 07:57 Discharge Summary Problems reviewed: Yes Reason For Visit: FRACTURE OF HEAD OF HUMERUS Current Active Problems Face lacerations (Acute) Fall (Acute) Fracture of humeral head, left, closed (Acute) Hospital Course: Admitting History and Physical - Primary Care Physician PCP: Oscar Hines - Admission Chief Complaint: Mechanical Fall, L- Shoulder Pain, Right Knee Pain History of Present Illness: This is a 74 y/o woman with a significant medical history of Gallbladder CA w/ mets (on 3rd line chemo, 5FU/Leucovoram), HTN. Who presents to the ED with s/p fall, left shoulder pain, and chronic right knee pain. Patient reports falling down the stairs after losing her balance, falling onto her face, hitting her head, left shoulder, on the cement outside and car fender. Patient denies LOC, vision changes. Patient denies fever, chills, cough, SOB, dizziness, headache, CP, palpitations, AP, N/V/D, constipation, dysuria. Patient reports having R medial knee pain with resulting balance instability for the past 2 months, secondary to her dog running into her knee. Last Tetanus- unknown Pt examined in ER She is feeling better Seen by Ortho-- recommends sling for shoulder Right knee-- no interventions Holding off chemo for tomorrow Pt may be dc home She ambulates steady with cane-- I had the pt walk in the room Condition: Improved - Instructions Referrals: Oscar Hines MD [Primary Care Provider] - Disposition: HOME - Home Medications Comprehensive Discharge Medication List: Ambulatory Orders Lisinopril [Prinivil] 10 mg PO DAILY #30 tablet 09/02/15 Nebivolol HCl [Bystolic] 10 mg PO DAILY 07/09/17 Gabapentin 300 mg PO HS 12/14/18 Acetaminophen W/ Codeine #3 [Tylenol # 3 -] 1 tab PO Q6H #10 tablet MDD 4
[2019-06-28 12:21] VITALS: BP 109/65; PULSE 67
== END 2019-06-28 13:10 | disposition home or self-care (01) | DRG 563 ==
LOC: JER 13:10 → JERBED 15:13
PROVIDERS: ADMIT Internal Medicine; ATTEND Internal Medicine
DX: S42.292A Other displaced fracture of upper end of left humerus, initial encounter for closed fracture (principal); S01.81XA Laceration without foreign body of other part of head, initial encounter; E78.5 Hyperlipidemia, unspecified; I10 Essential (primary) hypertension; W19.XXXA Unspecified fall, initial encounter; Y92.89 Other specified places as the place of occurrence of the external cause; Y93.89 Activity, other specified; Y99.9 Unspecified external cause status
CPT/HCPCS: 36415; 70450-TC; 70486-TC; 72125-TC; 73030-TC-LT-FY; 73562-TC-RT-FY; 80053; 83735; 85025; 85027; 85610; 86850; 86900; 86901; 93005; 93010; 99285-25

== ENCOUNTER 2019-07-12 05:41 | Day surgery (SDC) | payer OTHER ==
[2019-07-12] MEDS ORDERED: DEXAMETHASONE SODIUM PHOSPHATE 8 MG, ONDANSETRON INJECTION 8 MG in SODIUM CHLORIDE 100 ML IVPB ONE (10:00)
[2019-07-12 10:25] LABS: BASO % 0.9 % (0-2.0); EOS % 3.9 % (0-4.5); HEMATOCRIT 31.5 % (32.4-45.2); HEMOGLOBIN 10.4 GM/dL (10.7-15.3); MCH 29.5 pg (25.7-33.7); MEAN CELL VOLUME 89.3 fl (80-96); MEAN PLT VOLUME 7.9 fl (7.5-11.1); MONO % 11.6 % (3.8-10.2); NEUT % 48.6 % (42.8-82.8); PLATELET COUNT 340 K/MM3 (134-434); RBC 3.52 M/mm3 (3.60-5.2); RDW 16.3 % (11.6-15.6); WHITE BLOOD COUNT 5.5 K/mm3 (4.0-10.0)
[2019-07-12] MEDS ORDERED: LEUCOVORIN IVPB ONE (10:30)
[2019-07-12] MEDS ORDERED: MAGNESIUM SULF 50% (8.12 MEQ/2 ML-1 GM VIAL) IVPB ONE (10:30)
[2019-07-12] MEDS ORDERED: WATER IVPB ONE (10:30)
[2019-07-12] MEDS ORDERED: DEXTROSE 5% IVPB ONE (10:30)
[2019-07-12 10:59] LABS: ALBUMIN 3.3 g/dl (3.4-5.0); BILIRUBIN,TOTAL 0.6 mg/dL (0.2-1); BLOOD UREA NITROGEN 15.4 mg/dL (7-18); CALCIUM 8.9 mg/dL (8.5-10.1); CREATININE 0.8 mg/dL (0.55-1.3); MAGNESIUM 1.8 mg/dL (1.8-2.4); POTASSIUM 4.3 mmol/L (3.5-5.1); TOT PROT 6.5 g/dl (6.4-8.2)
[2019-07-12] MEDS ORDERED: FLUOROURACIL 500 MG/10 ML VIAL IVPUSH ONE (11:30)
[2019-07-12 14:43] VITALS: TEMP 98.1
[2019-07-12 14:44] VITALS: BP 125/41; PULSE 61
== END 2019-07-12 14:48 | disposition home or self-care (01) ==
LOC: JONCCHEMO 05:41 → J7W 10:08 → JONCCHEMO 14:48
PROVIDERS: ATTEND Internal Medicine Hematology & Oncology
PROC: 3E033GC Introduction of Other Therapeutic Substance into Peripheral Vein, Percutaneous Approach (ICD-10-PCS; principal; 2019-07-12)
DX: Z76.89 Persons encountering health services in other specified circumstances (principal); C23 Malignant neoplasm of gallbladder
CPT/HCPCS: 36415; 80053; 82977; 83735; 85025; 96365; 96366; 96367; 96375; J9190

== ENCOUNTER 2019-10-17 07:08 | Day surgery (SDC) | payer OTHER ==
[2019-10-17] MEDS ORDERED: ATROPINE SO4 0.4 MG/1 ML VIAL SQ ONE (10:00)
[2019-10-17] MEDS ORDERED: PALONOSETRON HCL 0.25 MG/5 ML VIAL IVPUSH ONE (10:00)
[2019-10-17] MEDS ORDERED: FOSAPREPITANT DIMEGLUMINE 150 MG in SODIUM CHLORIDE 150 ML IVPB ONE (10:00)
[2019-10-17] MEDS ORDERED: DEXAMETHASONE SODIUM PHOSPHATE 10 MG in SODIUM CHLORIDE 50 ML IVPB ONE (10:00)
[2019-10-17] MEDS ORDERED: LEUCOVORIN INJECTION - 572 MG in DEXTROSE 5%-WATER - 250 ML IVPB ONE (10:30)
[2019-10-17] MEDS ORDERED: SODIUM CHLORIDE 0.9% 500 ML INFUS.BAG IV ONE (10:40)
[2019-10-17 10:47] LABS: BASO % 0.5 % (0-2.0); EOS % 2.8 % (0-4.5); HEMATOCRIT 32.1 % (32.4-45.2); HEMOGLOBIN 10.4 GM/dL (10.7-15.3); LYMPH % 23.3 % (8-40); MCH 28.7 pg (25.7-33.7); MCHC 32.4 g/dl (32.0-36.0); MEAN CELL VOLUME 88.4 fl (80-96); MEAN PLT VOLUME 8.4 fl (7.5-11.1); MONO % 10.8 % (3.8-10.2); NEUT % 62.6 % (42.8-82.8); PLATELET COUNT 267 K/MM3 (134-434); RBC 3.63 M/mm3 (3.60-5.2); RDW 15.8 % (11.6-15.6); WHITE BLOOD COUNT 6.6 K/mm3 (4.0-10.0)
[2019-10-17] MEDS ORDERED: IRINOTECAN HCL IVPB ONE (11:00)
[2019-10-17] MEDS ORDERED: DEXTROSE 5% IVPB ONE (11:00)
[2019-10-17] MEDS ORDERED: WATER IVPB ONE (11:00)
[2019-10-17] MEDS ORDERED: IRON SUCROSE INJECTION 200 MG in SODIUM CHLORIDE 90 ML IVPB ONE (11:00)
[2019-10-17 11:12] LABS: ALBUMIN 3.4 g/dl (3.4-5.0); BILIRUBIN,DIRECT 0.1 mg/dL (0.0-0.2); BILIRUBIN,TOTAL 0.2 mg/dL (0.2-1); BLOOD UREA NITROGEN 15.6 mg/dL (7-18); CALCIUM 8.6 mg/dL (8.5-10.1); MAGNESIUM 1.6 mg/dL (1.8-2.4); POTASSIUM 4.3 mmol/L (3.5-5.1); TOT PROT 6.6 g/dl (6.4-8.2)
[2019-10-17] MEDS ORDERED: MAGNESIUM SULF 50% (8.12 MEQ/2 ML-1 GM VIAL) IVPB ONE (11:18)
[2019-10-17] MEDS ORDERED: SODIUM CHLORIDE CP ONE (12:30)
[2019-10-17] MEDS ORDERED: FLUOROURACIL CP ONE (12:30)
[2019-10-17 18:07] VITALS: TEMP 98.3
[2019-10-17 18:08] VITALS: BP 118/70; PULSE 72
== END 2019-10-17 17:30 | disposition home or self-care (01) ==
LOC: JONCCHEMO 07:08
PROVIDERS: ATTEND Internal Medicine Hematology & Oncology
DX: Z51.11 Encounter for antineoplastic chemotherapy (principal); C23 Malignant neoplasm of gallbladder; D50.9 Iron deficiency anemia, unspecified
CPT/HCPCS: 36415; 80048; 80076; 83735; 85025; 96361; 96366; 96367; 96375; 96413; 96415; G0498; J1453; J1756; J2469; J9206

== ENCOUNTER 2019-10-31 05:42 | Day surgery (SDC) | payer OTHER ==
[2019-10-31] MEDS ORDERED: MAGNESIUM SULFATE 2 GM in DEXTROSE 5%-WATER - 100 ML IVPB ONE (10:00)
[2019-10-31] MEDS ORDERED: IRON SUCROSE INJECTION 200 MG in SODIUM CHLORIDE 100 ML IVPB ONE (10:00)
[2019-10-31] MEDS ORDERED: SODIUM CHLORIDE 500 ML IV ONE (11:00)
[2019-10-31] MEDS ORDERED: PALONOSETRON HCL 0.25 MG/5 ML VIAL IVPUSH ONE (11:00)
[2019-10-31] MEDS ORDERED: FOSAPREPITANT DIMEGLUMINE 150 MG in SODIUM CHLORIDE 150 ML IVPB ONE (11:00)
[2019-10-31] MEDS ORDERED: ATROPINE SO4 0.4 MG/1 ML VIAL SQ ONE (11:00)
[2019-10-31] MEDS ORDERED: DEXAMETHASONE SODIUM PHOSPHATE 10 MG in SODIUM CHLORIDE 50 ML IVPB ONE (11:00)
[2019-10-31] MEDS ORDERED: amLODIPine BESYLATE 5 MG TABLET (FP) PO ONE (11:20)
[2019-10-31] MEDS ORDERED: LEUCOVORIN INJECTION - 572 MG in DEXTROSE 5%-WATER - 250 ML IVPB ONE (11:30)
[2019-10-31 11:44] LABS: BASO % 0.6 % (0-2.0); EOS % 2.4 % (0-4.5); HEMATOCRIT 32.5 % (32.4-45.2); HEMOGLOBIN 10.5 GM/dL (10.7-15.3); LYMPH % 24.5 % (8-40); MCH 28.3 pg (25.7-33.7); MCHC 32.3 g/dl (32.0-36.0); MEAN CELL VOLUME 87.5 fl (80-96); MEAN PLT VOLUME 8.3 fl (7.5-11.1); NEUT % 61.5 % (42.8-82.8); PLATELET COUNT 253 K/MM3 (134-434); RBC 3.72 M/mm3 (3.60-5.2); RDW 15.4 % (11.6-15.6); WHITE BLOOD COUNT 6.1 K/mm3 (4.0-10.0)
[2019-10-31 11:58] LABS: ALBUMIN 3.5 g/dl (3.4-5.0); BILIRUBIN,DIRECT 0.1 mg/dL (0.0-0.2); BILIRUBIN,TOTAL 0.2 mg/dL (0.2-1); BLOOD UREA NITROGEN 8.5 mg/dL (7-18); CALCIUM 8.7 mg/dL (8.5-10.1); CREATININE 0.6 mg/dL (0.55-1.3); MAGNESIUM 1.7 mg/dL (1.8-2.4); TOT PROT 6.3 g/dl (6.4-8.2)
[2019-10-31] MEDS ORDERED: DEXTROSE 5% IVPB ONE (12:00)
[2019-10-31] MEDS ORDERED: IRINOTECAN HCL IVPB ONE (12:00)
[2019-10-31] MEDS ORDERED: WATER IVPB ONE (12:00)
[2019-10-31] MEDS ORDERED: FLUOROURACIL CP ONE (13:30)
[2019-10-31] MEDS ORDERED: SODIUM CHLORIDE CP ONE (13:30)
[2019-10-31] MEDS ORDERED: PORTA CATH FLUSH 10 ML IVPUSH ONE (14:27)
[2019-10-31 14:28] VITALS: TEMP 98.1
[2019-10-31 16:30] LABS: PH,URINE 5.5 (5.0-8.0); URINE APPEARANCE CLEAR; URINE BILIRUBIN NEGATIVE (NEGATIVE); URINE COLOR YELLOW; URINE GLUCOSE (UA) NEGATIVE (NEGATIVE); URINE KETONE NEGATIVE (NEGATIVE); URINE LEUK ESTERASE NEGATIVE (NEGATIVE); URINE NITRITE NEGATIVE (NEGATIVE); URINE PROTEIN NEGATIVE (NEGATIVE); URINE UROBILINOGEN 0.2 mg/dL (0.2-1.0)
[2019-10-31 17:29] VITALS: BP 162/76; PULSE 67
== END 2019-10-31 16:35 | disposition home or self-care (01) ==
LOC: JONCCHEMO 05:42
PROVIDERS: ATTEND Nurse Practitioner Family
DX: Z51.11 Encounter for antineoplastic chemotherapy (principal); C23 Malignant neoplasm of gallbladder; D50.9 Iron deficiency anemia, unspecified
CPT/HCPCS: 36415; 80048; 80076; 81003; 83735; 85025; 87086; 96361; 96366; 96367; 96375; 96413; G0498; J1453; J1756; J2469; J9206

== ENCOUNTER 2019-11-14 09:03 | Day surgery (SDC) | payer OTHER ==
[~2019-11-14 09:03] MED LIST changes: -DEXAMETHASONE SODIUM PHOSPHATE 8 MG, ONDANSETRON INJECTION 8 MG in SODIUM CHLORIDE 100 ML IVPB ONE; +IRON SUCROSE INJECTION 200 MG in SODIUM CHLORIDE 100 ML IVPB ONE; +MAGNESIUM SULFATE IN WATER 2 GM/50 ML IVPB IVPB ONE; +SODIUM CHLORIDE 500 ML IV ONE
[2019-11-14] MEDS ORDERED: PALONOSETRON HCL 0.25 MG/5 ML VIAL IVPUSH ONE (10:30)
[2019-11-14] MEDS ORDERED: FOSAPREPITANT DIMEGLUMINE 150 MG in SODIUM CHLORIDE 145 ML IVPB ONE (10:30)
[2019-11-14] MEDS ORDERED: DEXAMETHASONE SODIUM PHOSPHATE 10 MG in SODIUM CHLORIDE 50 ML IVPB ONE (10:30)
[2019-11-14] MEDS ORDERED: ATROPINE SULFATE 1 MG/10 ML DISP.SYRIN IVPUSH ONE (10:30)
[2019-11-14 10:46] LABS: BASO % 0.5 % (0-2.0); EOS % 2.9 % (0-4.5); HEMATOCRIT 32.8 % (32.4-45.2); HEMOGLOBIN 10.6 GM/dL (10.7-15.3); LYMPH % 23.7 % (8-40); MCH 28.3 pg (25.7-33.7); MCHC 32.4 g/dl (32.0-36.0); MEAN CELL VOLUME 87.4 fl (80-96); MEAN PLT VOLUME 8.2 fl (7.5-11.1); MONO % 11.7 % (3.8-10.2); NEUT % 61.2 % (42.8-82.8); PLATELET COUNT 260 K/MM3 (134-434); RBC 3.75 M/mm3 (3.60-5.2); RDW 15.3 % (11.6-15.6); WHITE BLOOD COUNT 6.9 K/mm3 (4.0-10.0)
[2019-11-14] MEDS ORDERED: LEUCOVORIN INJECTION - 572 MG in DEXTROSE 5%-WATER - 250 ML IVPB ONE (11:00)
[2019-11-14] MEDS ORDERED: DEXTROSE 5% IVPB ONE (11:00)
[2019-11-14] MEDS ORDERED: WATER IVPB ONE (11:00)
[2019-11-14] MEDS ORDERED: IRINOTECAN HCL IVPB ONE (11:00)
[2019-11-14 11:24] LABS: ALBUMIN 3.5 g/dl (3.4-5.0); BILIRUBIN,DIRECT 0.1 mg/dL (0.0-0.2); BILIRUBIN,TOTAL 0.3 mg/dL (0.2-1); BLOOD UREA NITROGEN 9.1 mg/dL (7-18); CALCIUM 8.9 mg/dL (8.5-10.1); CREATININE 0.6 mg/dL (0.55-1.3); MAGNESIUM 1.6 mg/dL (1.8-2.4); POTASSIUM 3.8 mmol/L (3.5-5.1); TOT PROT 6.6 g/dl (6.4-8.2)
[2019-11-14] MEDS ORDERED: FLUOROURACIL CP ONE (13:30)
[2019-11-14] MEDS ORDERED: SODIUM CHLORIDE CP ONE (13:30)
[2019-11-14 15:59] VITALS: TEMP 98.2
[2019-11-14] MEDS ORDERED: PORTA CATH FLUSH 10 ML IVPUSH ONE (15:59)
[2019-11-14 17:04] VITALS: BP 134/64; PULSE 65
== END 2019-11-14 16:38 | disposition home or self-care (01) ==
LOC: JONCCHEMO 09:03
PROVIDERS: ATTEND Nurse Practitioner Family
DX: Z51.11 Encounter for antineoplastic chemotherapy (principal); C23 Malignant neoplasm of gallbladder; D50.9 Iron deficiency anemia, unspecified
CPT/HCPCS: 36415; 80048; 80076; 83735; 85025; 86301; 96361; 96366; 96367; 96375; 96413; G0498; J1453; J1756; J2469; J9206

== ENCOUNTER 2019-11-28 07:15 | Day surgery (SDC) | payer OTHER ==
[2019-11-28] MEDS ORDERED: SODIUM CHLORIDE 500 ML IV ONE (09:00)
[2019-11-28] MEDS ORDERED: SODIUM CHLORIDE 0.9% 500 ML INFUS.BAG IV ONE (09:30)
[2019-11-28 09:39] LABS: BASO % 0.7 % (0-2.0); EOS % 3.6 % (0-4.5); HEMATOCRIT 32.6 % (32.4-45.2); HEMOGLOBIN 10.6 GM/dL (10.7-15.3); LYMPH % 27.1 % (8-40); MCH 28.6 pg (25.7-33.7); MCHC 32.6 g/dl (32.0-36.0); MEAN CELL VOLUME 87.8 fl (80-96); MEAN PLT VOLUME 8.3 fl (7.5-11.1); MONO % 11.6 % (3.8-10.2); PLATELET COUNT 253 K/MM3 (134-434); RBC 3.71 M/mm3 (3.60-5.2); RDW 15.7 % (11.6-15.6); WHITE BLOOD COUNT 6.3 K/mm3 (4.0-10.0)
[2019-11-28] MEDS ORDERED: MAGNESIUM SULFATE IN WATER 2 GM/50 ML IVPB IVPB ONE (10:00)
[2019-11-28] MEDS ORDERED: IRON SUCROSE INJECTION 200 MG in SODIUM CHLORIDE 100 ML IVPB ONE (10:00)
[2019-11-28] MEDS ORDERED: PALONOSETRON HCL 0.25 MG/5 ML VIAL IVPUSH ONE (10:30)
[2019-11-28] MEDS ORDERED: ATROPINE SULFATE 1 MG/10 ML DISP.SYRIN IVPUSH ONE (10:30)
[2019-11-28] MEDS ORDERED: FOSAPREPITANT DIMEGLUMINE 150 MG in SODIUM CHLORIDE 145 ML IVPB ONE (10:30)
[2019-11-28] MEDS ORDERED: DEXAMETHASONE SODIUM PHOSPHATE 10 MG in SODIUM CHLORIDE 50 ML IVPB ONE (10:30)
[2019-11-28 10:40] LABS: ALBUMIN 3.5 g/dl (3.4-5.0); BILIRUBIN,DIRECT 0.1 mg/dL (0.0-0.2); BILIRUBIN,TOTAL 0.2 mg/dL (0.2-1); BLOOD UREA NITROGEN 18.8 mg/dL (7-18); CREATININE 0.7 mg/dL (0.55-1.3); MAGNESIUM 1.8 mg/dL (1.8-2.4); TOT PROT 6.5 g/dl (6.4-8.2)
[2019-11-28] MEDS ORDERED: LEUCOVORIN INJECTION - 572 MG in DEXTROSE 5%-WATER - 250 ML IVPB ONE (11:00)
[2019-11-28] MEDS ORDERED: WATER IVPB ONE (11:00)
[2019-11-28] MEDS ORDERED: DEXTROSE 5% IVPB ONE (11:00)
[2019-11-28] MEDS ORDERED: IRINOTECAN HCL IVPB ONE (11:00)
[2019-11-28] MEDS ORDERED: FLUOROURACIL CP ONE (12:30)
[2019-11-28] MEDS ORDERED: SODIUM CHLORIDE CP ONE (12:30)
[2019-11-28 15:58] VITALS: TEMP 98.3
[2019-11-28 17:34] VITALS: BP 121/55; PULSE 64
[2019-11-28] MEDS ORDERED: PORTA CATH FLUSH 10 ML IVPUSH ONE (17:34)
== END 2019-11-28 15:15 | disposition home or self-care (01) ==
LOC: JONCCHEMO 07:15
PROVIDERS: ATTEND Internal Medicine Hematology & Oncology
DX: Z51.11 Encounter for antineoplastic chemotherapy (principal); C23 Malignant neoplasm of gallbladder; D50.9 Iron deficiency anemia, unspecified; C78.00 Secondary malignant neoplasm of unspecified lung; E11.9 Type 2 diabetes mellitus without complications
CPT/HCPCS: 36415; 80048; 80076; 82728; 83540; 83550; 83735; 85025; 86301; 96361; 96366; 96367; 96375; 96413; G0498; J1453; J1756; J2469; J9206

== ENCOUNTER 2019-12-26 07:28 | Day surgery (SDC) | payer OTHER ==
[~2019-12-26 07:28] MED LIST changes: +DEXAMETHASONE SODIUM PHOSPHATE 10 MG in SODIUM CHLORIDE 50 ML IVPB ONE; +DEXTROSE 5% IV ONE; +DEXTROSE 5% IVPB ONE; +FLUOROURACIL 2,500 MG in SODIUM CHLORIDE 42 ML CP ONE; -IRON SUCROSE INJECTION 200 MG in SODIUM CHLORIDE 100 ML IVPB ONE; +LEUCOVORIN IVPB ONE; +MAGNESIUM SO4 IVPB ONE; -MAGNESIUM SULFATE IN WATER 2 GM/50 ML IVPB IVPB ONE; +OXALIPLATIN IV ONE; +PALONOSETRON HCL 0.25 MG/5 ML VIAL IVPUSH ONE; +SODIUM CHLORIDE 250 ML IV ONE; -SODIUM CHLORIDE 500 ML IV ONE; +WATER IV ONE; +WATER IVPB ONE
[2019-12-26] MEDS ORDERED: SODIUM CHLORIDE 250 ML IV ONE (09:00)
[2019-12-26] MEDS ORDERED: MAGNESIUM SO4 IVPB ONE (09:00)
[2019-12-26] MEDS ORDERED: WATER IVPB ONE ×2 (09:00→10:30)
[2019-12-26] MEDS ORDERED: DEXTROSE 5% IVPB ONE ×2 (09:00→10:30)
[2019-12-26] MEDS ORDERED: IRON SUCROSE INJECTION 200 MG in SODIUM CHLORIDE 100 ML IVPB ONE (09:00)
[2019-12-26] MEDS ORDERED: PALONOSETRON HCL 0.25 MG/5 ML VIAL IVPUSH ONE (10:00)
[2019-12-26] MEDS ORDERED: DEXAMETHASONE SODIUM PHOSPHATE 10 MG in SODIUM CHLORIDE 50 ML IVPB ONE (10:00)
[2019-12-26] MEDS ORDERED: OXALIPLATIN IV ONE (10:30)
[2019-12-26] MEDS ORDERED: DEXTROSE 5% IV ONE (10:30)
[2019-12-26] MEDS ORDERED: WATER IV ONE (10:30)
[2019-12-26] MEDS ORDERED: LEUCOVORIN IVPB ONE (10:30)
[2019-12-26 11:03] LABS: BASO % 0.7 % (0-2.0); EOS % 1.9 % (0-4.5); HEMATOCRIT 34.2 % (32.4-45.2); LYMPH % 21.5 % (8-40); MCH 27.2 pg (25.7-33.7); MCHC 32.1 g/dl (32.0-36.0); MEAN CELL VOLUME 84.8 fl (80-96); MEAN PLT VOLUME 8.5 fl (7.5-11.1); MONO % 9.4 % (3.8-10.2); NEUT % 66.5 % (42.8-82.8); PLATELET COUNT 273 K/MM3 (134-434); RBC 4.03 M/mm3 (3.60-5.2); RDW 15.4 % (11.6-15.6); WHITE BLOOD COUNT 7.8 K/mm3 (4.0-10.0)
[2019-12-26 11:41] LABS: ALBUMIN 3.6 g/dl (3.4-5.0); BILIRUBIN,DIRECT 0.1 mg/dL (0.0-0.2); BILIRUBIN,TOTAL 0.3 mg/dL (0.2-1); BLOOD UREA NITROGEN 14.4 mg/dL (7-18); CALCIUM 9.1 mg/dL (8.5-10.1); CREATININE 0.7 mg/dL (0.55-1.3); MAGNESIUM 1.5 mg/dL (1.8-2.4); TOT PROT 6.8 g/dl (6.4-8.2)
[2019-12-26] MEDS ORDERED: FLUOROURACIL 2,500 MG in SODIUM CHLORIDE 42 ML CP ONE (12:30)
[2019-12-26 16:22] VITALS: TEMP 98.2
[2019-12-26 16:23] VITALS: BP 154/76; PULSE 71
== END 2019-12-26 16:25 | disposition home or self-care (01) ==
LOC: JONCCHEMO 07:28
PROVIDERS: ATTEND Internal Medicine Hematology & Oncology
DX: Z51.11 Encounter for antineoplastic chemotherapy (principal); C23 Malignant neoplasm of gallbladder; C78.80 Secondary malignant neoplasm of unspecified digestive organ; E11.9 Type 2 diabetes mellitus without complications; D50.9 Iron deficiency anemia, unspecified
CPT/HCPCS: 36415; 80048; 80076; 83735; 85025; 96366; 96367; 96375; 96413; 96415; G0498; J1756; J2469; J9263

== ENCOUNTER 2019-12-28 07:16 | Day surgery (SDC) | payer OTHER ==
[2019-12-28 18:10] VITALS: BP 152/61; PULSE 72; TEMP 98.6
[2019-12-28] MEDS ORDERED: PORTA CATH FLUSH 10 ML IVPUSH ONE (18:17)
== END 2019-12-28 16:40 | disposition home or self-care (01) ==
LOC: JONCCHEMO 07:16
PROVIDERS: ATTEND Internal Medicine Hematology & Oncology
DX: Z53.8 Procedure and treatment not carried out for other reasons (principal)

== ENCOUNTER 2020-01-09 07:25 | Day surgery (SDC) | payer OTHER ==
[2020-01-09] MEDS ORDERED: IRON SUCROSE INJECTION 200 MG in SODIUM CHLORIDE 100 ML IVPB ONE (09:00)
[2020-01-09] MEDS ORDERED: MAGNESIUM SULFATE IN WATER 2 GM/50 ML IVPB IVPB ONE (09:00)
[2020-01-09] MEDS ORDERED: SODIUM CHLORIDE 250 ML IV ONE (09:00)
[2020-01-09] MEDS ORDERED: PALONOSETRON HCL 0.25 MG/5 ML VIAL IVPUSH ONE (09:30)
[2020-01-09] MEDS ORDERED: DEXAMETHASONE SODIUM PHOSPHATE 10 MG in SODIUM CHLORIDE 50 ML IVPB ONE (09:30)
[2020-01-09] MEDS ORDERED: OXALIPLATIN IV ONE (10:00)
[2020-01-09] MEDS ORDERED: LEUCOVORIN IVPB ONE (10:00)
[2020-01-09] MEDS ORDERED: WATER IV ONE (10:00)
[2020-01-09] MEDS ORDERED: WATER IVPB ONE (10:00)
[2020-01-09] MEDS ORDERED: DEXTROSE 5% IVPB ONE (10:00)
[2020-01-09] MEDS ORDERED: DEXTROSE 5% IV ONE (10:00)
[2020-01-09 10:50] LABS: BASO % 0.6 % (0-2.0); EOS % 2.4 % (0-4.5); HEMATOCRIT 34.1 % (32.4-45.2); HEMOGLOBIN 11.3 GM/dL (10.7-15.3); LYMPH % 19.4 % (8-40); MCH 28.1 pg (25.7-33.7); MCHC 33.1 g/dl (32.0-36.0); MEAN CELL VOLUME 84.9 fl (80-96); MEAN PLT VOLUME 8.2 fl (7.5-11.1); MONO % 11.5 % (3.8-10.2); NEUT % 66.1 % (42.8-82.8); PLATELET COUNT 255 K/MM3 (134-434); RBC 4.01 M/mm3 (3.60-5.2); RDW 15.4 % (11.6-15.6); WHITE BLOOD COUNT 7.9 K/mm3 (4.0-10.0)
[2020-01-09 11:29] LABS: ALBUMIN 3.6 g/dl (3.4-5.0); BILIRUBIN,DIRECT 0.1 mg/dL (0.0-0.2); BILIRUBIN,TOTAL 0.3 mg/dL (0.2-1); BLOOD UREA NITROGEN 9.8 mg/dL (7-18); CALCIUM 8.9 mg/dL (8.5-10.1); CREATININE 0.8 mg/dL (0.55-1.3); MAGNESIUM 1.5 mg/dL (1.8-2.4); POTASSIUM 4.2 mmol/L (3.5-5.1)
[2020-01-09] MEDS ORDERED: FLUOROURACIL IV ONE (12:00)
[2020-01-09] MEDS ORDERED: SODIUM CHLORIDE IV ONE (12:00)
[2020-01-09 16:23] VITALS: TEMP 98.2
[2020-01-09] MEDS ORDERED: PORTA CATH FLUSH 10 ML IVPUSH ONE (16:23)
[2020-01-09 16:25] VITALS: BP 153/69; PULSE 66
== END 2020-01-09 15:45 | disposition home or self-care (01) ==
LOC: JONCCHEMO 07:25
PROVIDERS: ATTEND Nurse Practitioner Family
PROC: 3E04305 Introduction of Other Antineoplastic into Central Vein, Percutaneous Approach (ICD-10-PCS; principal; 2020-01-09)
PROC: 3E04305 Introduction of Other Antineoplastic into Central Vein, Percutaneous Approach (ICD-10-PCS; 2020-01-09)
PROC: 3E043GC Introduction of Other Therapeutic Substance into Central Vein, Percutaneous Approach (ICD-10-PCS; 2020-01-09)
PROC: 3E0437Z Introduction of Electrolytic and Water Balance Substance into Central Vein, Percutaneous Approach (ICD-10-PCS; 2020-01-09)
DX: Z51.11 Encounter for antineoplastic chemotherapy (principal); C23 Malignant neoplasm of gallbladder; I10 Essential (primary) hypertension; E11.9 Type 2 diabetes mellitus without complications; H40.9 Unspecified glaucoma
CPT/HCPCS: 36415; 80048; 80076; 83735; 85025; 96361; 96366; 96367; 96368; 96413; 96415; G0498; J1756; J2469; J9263

== ENCOUNTER 2020-01-11 05:59 | Day surgery (SDC) | payer OTHER ==
[2020-01-11] MEDS ORDERED: SODIUM CHLORIDE 0.9%/KCL 20 MEQ/1,000 ML INFUS.BAG IV ONE (14:00)
[2020-01-11] MEDS ORDERED: MAGNESIUM SULFATE IN WATER 2 GM/50 ML IVPB IVPB ONE (14:00)
[2020-01-11] MEDS ORDERED: ONDANSETRON INJECTION 8 MG in SODIUM CHLORIDE 50 ML IVPB ONE (14:00)
[2020-01-11 16:26] VITALS: TEMP 98.3
[2020-01-11 17:58] VITALS: BP 156/54; PULSE 73
[2020-01-11 18:40] LABS: BLOOD UREA NITROGEN 19.3 mg/dL (7-18); CALCIUM 8.2 mg/dL (8.5-10.1); CREATININE 0.6 mg/dL (0.55-1.3); POTASSIUM 4.4 mmol/L (3.5-5.1)
== END 2020-01-11 17:58 | disposition home or self-care (01) ==
LOC: JONCCHEMO 05:59
PROVIDERS: ATTEND Nurse Practitioner Family
PROC: 3E0337Z Introduction of Electrolytic and Water Balance Substance into Peripheral Vein, Percutaneous Approach (ICD-10-PCS; principal; 2020-01-11)
PROC: 3E033GC Introduction of Other Therapeutic Substance into Peripheral Vein, Percutaneous Approach (ICD-10-PCS; 2020-01-11)
DX: Z76.89 Persons encountering health services in other specified circumstances (principal); C23 Malignant neoplasm of gallbladder; E11.9 Type 2 diabetes mellitus without complications; I10 Essential (primary) hypertension; H40.9 Unspecified glaucoma
CPT/HCPCS: 36415; 80048; 96361; 96365; 96375

== ENCOUNTER 2020-01-23 06:13 | Day surgery (SDC) | payer OTHER ==
--- OUTSIDE RECORDS SUMMARY | 2020-01-23 06:17 | XMS ---
:1945 Author Organization [facility] Support Name Relationship Address Phone [employer] [place] Unavailable [address] [place] [address] FABIANA [address] [place] [address] FABIANA Spouse [address] [place] [address] Re-disclosure Warning The records that you are about to access may contain information from federally- assisted alcohol or drug abuse programs. If such information is present, then the following federally mandated warning applies: This information has been disclosed to you from records protected by federal confidentiality rules (42 CFR part 2). The federal rules prohibit you from making any further disclosure of this information unless further disclosure is expressly permitted by the written consent of the person to whom it pertains or as otherwise permitted by 42 CFR part 2. A general authorization for the release of medical or other information is NOT sufficient for this purpose. The Federal rules restrict any use of the information to criminally investigate or prosecute any alcohol or drug abuse patient.The records that you are about to access may contain highly sensitive health information, the redisclosure of which is protected by Article 27-F of the [facility] Public Health law. If you continue you may haveaccess to information: Regarding HIV / AIDS; Provided by facilities licensed or operated by the [facility] Office of Mental Health; or Provided by the [facility] Office for People With Developmental Disabilities. If such information is present, then the following [facility] mandated warning applies: This information has been disclosed to you from confidential records which are protected by state law. State law prohibits you from making any further disclosure of this information without the specific written consent of the person to whom it pertains, or as otherwise permitted by law. Any unauthorized further disclosure in violation of state law may result in a fine or longterm sentence or both. A general authorization for the release of medical or other information is NOT sufficient authorization for further disclosure. Insurance Providers Payer name Policy type Policy ID Covered Covered democrat's Policy P angeline / Coverage democrat ID relationship to Kaur Inf ormation type kaur [place] [id number] [employer]ALTH CARE H[place]/EPO [place] [id number] HEALTH CARE HMO/[place]/E[place] [id number] HEALTH CARE HMO/POS/EPO Social History Code Duration Value Status Description Data Source(s ) Smoking Unknown if ever completed Unknown if ever Reema Kearns smoked [facility]
[2020-01-23] MEDS ORDERED: IRON SUCROSE INJECTION 200 MG in SODIUM CHLORIDE 100 ML IVPB ONE (09:30)
[2020-01-23] MEDS ORDERED: MAGNESIUM SULFATE IN WATER 2 GM/50 ML IVPB IVPB ONE (10:00)
[2020-01-23] MEDS ORDERED: SODIUM CHLORIDE 250 ML IV ONE (10:00)
[2020-01-23] MEDS ORDERED: DEXAMETHASONE SODIUM PHOSPHATE 10 MG in SODIUM CHLORIDE 50 ML IVPB ONE (10:30)
[2020-01-23] MEDS ORDERED: PALONOSETRON HCL 0.25 MG/5 ML VIAL IVPUSH ONE (10:30)
[2020-01-23] MEDS ORDERED: WATER IV ONE (11:00)
[2020-01-23] MEDS ORDERED: OXALIPLATIN IV ONE (11:00)
[2020-01-23] MEDS ORDERED: DEXTROSE 5% IVPB ONE (11:00)
[2020-01-23] MEDS ORDERED: WATER IVPB ONE (11:00)
[2020-01-23] MEDS ORDERED: DEXTROSE 5% IV ONE (11:00)
[2020-01-23] MEDS ORDERED: LEUCOVORIN IVPB ONE (11:00)
[2020-01-23 11:33] LABS: BASO % 1.4 % (0-2.0); EOS % 4.1 % (0-4.5); HEMATOCRIT 32.7 % (32.4-45.2); HEMOGLOBIN 10.7 GM/dL (10.7-15.3); LYMPH % 28.6 % (8-40); MCH 28.2 pg (25.7-33.7); MCHC 32.7 g/dl (32.0-36.0); MEAN CELL VOLUME 86.2 fl (80-96); MEAN PLT VOLUME 8.3 fl (7.5-11.1); MONO % 14.5 % (3.8-10.2); NEUT % 51.4 % (42.8-82.8); PLATELET COUNT 202 K/MM3 (134-434); RBC 3.79 M/mm3 (3.60-5.2); RDW 15.8 % (11.6-15.6); WHITE BLOOD COUNT 4.6 K/mm3 (4.0-10.0)
[2020-01-23 11:58] LABS: ALBUMIN 3.6 g/dl (3.4-5.0); BILIRUBIN,DIRECT 0.1 mg/dL (0.0-0.2); BILIRUBIN,TOTAL 0.4 mg/dL (0.2-1); BLOOD UREA NITROGEN 12.9 mg/dL (7-18); CALCIUM 8.5 mg/dL (8.5-10.1); CREATININE 0.7 mg/dL (0.55-1.3); MAGNESIUM 1.6 mg/dL (1.8-2.4); POTASSIUM 3.9 mmol/L (3.5-5.1)
[2020-01-23 12:16] VITALS: TEMP 97.7
[2020-01-23] MEDS ORDERED: SODIUM CHLORIDE CP ONE (13:00)
[2020-01-23] MEDS ORDERED: FLUOROURACIL CP ONE (13:00)
[2020-01-23 18:24] VITALS: BP 140/71; PULSE 63
== END 2020-01-23 16:05 | disposition home or self-care (01) ==
LOC: JONCCHEMO 06:13
PROVIDERS: ATTEND Internal Medicine Hematology & Oncology
PROC: 3E04305 Introduction of Other Antineoplastic into Central Vein, Percutaneous Approach (ICD-10-PCS; principal; 2020-01-23)
PROC: 3E04305 Introduction of Other Antineoplastic into Central Vein, Percutaneous Approach (ICD-10-PCS; 2020-01-23)
PROC: 3E043GC Introduction of Other Therapeutic Substance into Central Vein, Percutaneous Approach (ICD-10-PCS; 2020-01-23)
PROC: 3E0437Z Introduction of Electrolytic and Water Balance Substance into Central Vein, Percutaneous Approach (ICD-10-PCS; 2020-01-23)
DX: Z51.11 Encounter for antineoplastic chemotherapy (principal); C23 Malignant neoplasm of gallbladder; E11.9 Type 2 diabetes mellitus without complications; H40.9 Unspecified glaucoma; I10 Essential (primary) hypertension
CPT/HCPCS: 36415; 80048; 80076; 82728; 83540; 83550; 83735; 84100; 85025; 96361; 96367; 96368; 96375; 96413; 96415; G0498; J1756; J2469; J9263

== ENCOUNTER 2020-01-25 06:28 | Day surgery (SDC) | payer OTHER ==
[2020-01-25 17:19] VITALS: BP 134/59; PULSE 66; TEMP 98.2
== END 2020-01-25 17:00 | disposition home or self-care (01) ==
LOC: JONCCHEMO 06:28
PROVIDERS: ATTEND Internal Medicine Hematology & Oncology
PROC: 2W54XYZ Removal of Other Device on Chest Wall (ICD-10-PCS; principal; 2020-01-25)
DX: Z53.8 Procedure and treatment not carried out for other reasons (principal)

== ENCOUNTER 2020-02-06 06:35 | Day surgery (SDC) | payer OTHER ==
--- OUTSIDE RECORDS SUMMARY | 2020-02-06 06:39 | XMS ---
:1945 Author Organization [facility] Support Name Relationship Address Phone [facility] [place] Unavailable [address] [place] [address] FABIANA [address] [place] [address] FABIANA Spouse [address] [place] [address] Re-disclosure Warning The records that you are [...] is protected by Article 27-F of the [facility] Public Health law. If you continue you may haveaccess to information: Regarding HIV / AIDS; Provided by facilities licensed or operated by the [facility] Office of Mental Health; or Provided by the [facility] Office for People With Developmental Disabilities. If such information is present, then the following [facility] mandated warning applies: This information has been [...] law may result in a fine or retirement sentence or both. A general authorization for the release of medical or other information is NOT sufficient authorization for further disclosure. Insurance Providers Payer name Policy type Policy ID Covered Covered democrat's Policy P angeline / Coverage democrat ID relationship to Kaur Inf ormation type kaur [place] [id number] HEALTH CARE HMO/POS/EPO [place] [id number] HEALTH CARE HMO/POS/EPO [place] [id number] HEALTH CARE HMO/POS/EPO Social History Code Duration Value Status Description Data Source(s ) Smoking Unknown if ever completed Unknown if ever Reema Kearns smoked [facility]
[2020-02-06] MEDS ORDERED: amLODIPine BESYLATE 5 MG TABLET (FP) PO ONE (10:00)
[2020-02-06] MEDS ORDERED: MAGNESIUM SULFATE 2 GM in DEXTROSE 5%-WATER - 100 ML IVPB ONE (10:00)
[2020-02-06] MEDS ORDERED: SODIUM CHLORIDE 250 ML IV ONE (10:00)
[2020-02-06] MEDS ORDERED: IRON SUCROSE INJECTION 200 MG in SODIUM CHLORIDE 100 ML IVPB ONE (10:00)
[2020-02-06] MEDS ORDERED: LOPERAMIDE HCL 2 MG CAPSULE PO ONE (10:00)
[2020-02-06 10:26] LABS: BASO % 2.5 % (0-2.0); EOS % 6.5 % (0-4.5); HEMATOCRIT 33.1 % (32.4-45.2); HEMOGLOBIN 10.6 GM/dL (10.7-15.3); LYMPH % 30.1 % (8-40); MCH 27.5 pg (25.7-33.7); MCHC 32.1 g/dl (32.0-36.0); MEAN CELL VOLUME 85.6 fl (80-96); MEAN PLT VOLUME 8.2 fl (7.5-11.1); MONO % 17.4 % (3.8-10.2); NEUT % 43.5 % (42.8-82.8); PLATELET COUNT 197 K/MM3 (134-434); RBC 3.87 M/mm3 (3.60-5.2); RDW 16.5 % (11.6-15.6)
[2020-02-06 10:48] LABS: ALBUMIN 3.4 g/dl (3.4-5.0); BILIRUBIN,DIRECT 0.1 mg/dL (0.0-0.2); BILIRUBIN,TOTAL 0.3 mg/dL (0.2-1); BLOOD UREA NITROGEN 9.7 mg/dL (7-18); CALCIUM 8.9 mg/dL (8.5-10.1); CREATININE 0.5 mg/dL (0.55-1.3); MAGNESIUM 1.6 mg/dL (1.8-2.4); POTASSIUM 4.1 mmol/L (3.5-5.1); TOT PROT 6.9 g/dl (6.4-8.2)
[2020-02-06] MEDS ORDERED: PALONOSETRON HCL 0.25 MG/5 ML VIAL IVPUSH ONE (11:00)
[2020-02-06] MEDS ORDERED: DEXAMETHASONE SODIUM PHOSPHATE 10 MG in SODIUM CHLORIDE 50 ML IVPB ONE (11:00)
[2020-02-06] MEDS ORDERED: LEUCOVORIN IVPB ONE (11:30)
[2020-02-06] MEDS ORDERED: OXALIPLATIN IV ONE (11:30)
[2020-02-06] MEDS ORDERED: DEXTROSE 5% IVPB ONE (11:30)
[2020-02-06] MEDS ORDERED: WATER IVPB ONE (11:30)
[2020-02-06] MEDS ORDERED: WATER IV ONE (11:30)
[2020-02-06] MEDS ORDERED: DEXTROSE 5% IV ONE (11:30)
[2020-02-06] MEDS ORDERED: SODIUM CHLORIDE CP ONE (13:30)
[2020-02-06] MEDS ORDERED: FLUOROURACIL CP ONE (13:30)
[2020-02-06 15:35] VITALS: BP 137/61; PULSE 63
[2020-02-06 16:54] VITALS: TEMP 98
== END 2020-02-06 14:30 | disposition home or self-care (01) ==
LOC: JONCCHEMO 06:35
PROVIDERS: ATTEND Internal Medicine Hematology & Oncology
PROC: 3E04305 Introduction of Other Antineoplastic into Central Vein, Percutaneous Approach (ICD-10-PCS; principal; 2020-02-06)
PROC: 3E04305 Introduction of Other Antineoplastic into Central Vein, Percutaneous Approach (ICD-10-PCS; 2020-02-06)
PROC: 3E043GC Introduction of Other Therapeutic Substance into Central Vein, Percutaneous Approach (ICD-10-PCS; 2020-02-06)
PROC: 3E0437Z Introduction of Electrolytic and Water Balance Substance into Central Vein, Percutaneous Approach (ICD-10-PCS; 2020-02-06)
DX: Z51.11 Encounter for antineoplastic chemotherapy (principal); C23 Malignant neoplasm of gallbladder; E11.9 Type 2 diabetes mellitus without complications; I10 Essential (primary) hypertension; H40.9 Unspecified glaucoma
CPT/HCPCS: 36415; 80048; 80076; 83735; 85025; 86301; 96361; 96367; 96368; 96375; 96413; 96415; G0498; J2469; J9263

== ENCOUNTER 2020-02-08 06:16 | Day surgery (SDC) | payer OTHER ==
--- OUTSIDE RECORDS SUMMARY | 2020-02-08 07:40 | XMS ---
:1945 Author Organization [facility] Support Name Relationship Address Phone [facility] [place] Unavailable [address] [place] [address] CHRISTIAN JUNG [address] [phone] [place] [address] CHRISTIAN JUNG Spouse [address] [place] [address] Re-disclosure Warning The records that you are [...] is protected by Article 27-F of the [facility] Public Health law. If you continue you may haveaccess to information: Regarding HIV / AIDS; Provided by facilities licensed or operated by the [facility] Office of Mental Health; or Provided by the [facility] Office for People With Developmental Disabilities. If such information is present, then the following [facility] mandated warning applies: This information [...] law may result in a fine or half-way sentence or both. A general authorization for the release of medical or other information is NOT sufficient authorization for further disclosure. Insurance Providers Payer name Policy type Policy ID Covered Covered green party's Policy P angeline / Coverage green party ID relationship to Kaur Inf ormation type kaur [place] [id number] HEALTH CARE HMO/POS/EPO [place] [id number] HEALTH CARE HMO/POS/EPO [place] [id number] HEALTH CARE HMO/POS/EPO Social History Code Duration Value Status Description Data Source(s ) Smoking Unknown if ever completed Unknown if ever Reema Kearns smoked [facility]
[2020-02-08] MEDS ORDERED: MAGNESIUM SULFATE IVPB ONE (15:30)
[2020-02-08] MEDS ORDERED: POTASSIUM CHLORIDE IVPB ONE (15:30)
[2020-02-08] MEDS ORDERED: SODIUM CHLORIDE IVPB ONE (15:30)
[2020-02-08 16:31] VITALS: TEMP 97.8
[2020-02-08 18:15] VITALS: BP 126/60; PULSE 68
== END 2020-02-08 18:16 | disposition home or self-care (01) ==
LOC: JONCCHEMO 06:16
PROVIDERS: ATTEND Internal Medicine Hematology & Oncology
PROC: 3E0437Z Introduction of Electrolytic and Water Balance Substance into Central Vein, Percutaneous Approach (ICD-10-PCS; principal; 2020-02-08)
DX: Z76.89 Persons encountering health services in other specified circumstances (principal); C23 Malignant neoplasm of gallbladder; I10 Essential (primary) hypertension; E11.9 Type 2 diabetes mellitus without complications
CPT/HCPCS: 96360; 96361

== ENCOUNTER 2020-03-12 07:15 | Day surgery (SDC) | payer OTHER ==
[~2020-03-12 07:15] MED LIST changes: -DEXAMETHASONE SODIUM PHOSPHATE 10 MG in SODIUM CHLORIDE 50 ML IVPB ONE; -DEXTROSE 5% IV ONE; -DEXTROSE 5% IVPB ONE; -FLUOROURACIL 2,500 MG in SODIUM CHLORIDE 42 ML CP ONE; -LEUCOVORIN IVPB ONE; -MAGNESIUM SO4 IVPB ONE; -OXALIPLATIN IV ONE; -PALONOSETRON HCL 0.25 MG/5 ML VIAL IVPUSH ONE; -SODIUM CHLORIDE 250 ML IV ONE; +SODIUM CHLORIDE 500 ML IV ONE; -WATER IV ONE; -WATER IVPB ONE
--- OUTSIDE RECORDS SUMMARY | 2020-03-12 07:18 | XMS ---
:1945 Author Organization [facility] Support Name Relationship Address Phone [facility] [place] Unavailable [address] [place] [address] CHRISTIAN JUNG [address] [phone] [place] [address] CHRISTIAN JUNG Spouse [address] [place] [address] Re-disclosure Warning The records that you are [...] is protected by Article 27-F of the [facility] Public Health law. If you continue you may haveaccess to information: Regarding HIV / AIDS; Provided by facilities licensed or operated by the [facility] Office of Mental Health; or Provided by the [facility] Office for People With Developmental Disabilities. If such information is present, then the following [facility] mandated warning applies: This information [...] law may result in a fine or shelter sentence or both. A general authorization for the release of medical or other information is NOT sufficient authorization for further disclosure. Insurance Providers Payer name Policy type Policy ID Covered Covered democrat's Policy P angeline / Coverage democrat ID relationship to Kaur Inf ormation type kaur [place] [id number] SP [id number] HEALTH CARE HMO/POS/EPO [place] [id number] HEALTH CARE HMO/POS/EPO [place] [id number] HEALTH CARE HMO/POS/EPO
[2020-03-12] MEDS ORDERED: SODIUM CHLORIDE 500 ML IV ONE ×2 (09:00→11:30)
[2020-03-12] MEDS ORDERED: MAGNESIUM SULFATE IN WATER 2 GM/50 ML IVPB IVPB ONE (09:00)
[2020-03-12] MEDS ORDERED: PALONOSETRON HCL 0.25 MG/5 ML VIAL IVPUSH ONE (09:30)
[2020-03-12] MEDS ORDERED: DEXAMETHASONE SODIUM PHOSPHATE 10 MG in SODIUM CHLORIDE 50 ML IVPB ONE (09:30)
[2020-03-12] MEDS ORDERED: FOSAPREPITANT DIMEGLUMINE 150 MG in SODIUM CHLORIDE 145 ML IVPB ONE (09:30)
[2020-03-12] MEDS ORDERED: PACLITAXEL PROTEIN BOUND IVPB ONE (10:00)
[2020-03-12] MEDS ORDERED: SODIUM CHLORIDE IVPB ONE (10:00)
[2020-03-12] MEDS ORDERED: GEMCITABINE HCL IV ONE (10:30)
[2020-03-12] MEDS ORDERED: SODIUM CHLORIDE IV ONE ×2 (10:30→11:00)
[2020-03-12 10:39] LABS: BASO % 0.6 % (0-2.0); EOS % 1.3 % (0-4.5); HEMATOCRIT 29.3 % (32.4-45.2); HEMOGLOBIN 9.4 GM/dL (10.7-15.3); LYMPH % 31.4 % (8-40); MCH 26.6 pg (25.7-33.7); MEAN PLT VOLUME 8.4 fl (7.5-11.1); MONO % 5.7 % (3.8-10.2); PLATELET COUNT 169 K/MM3 (134-434); RBC 3.54 M/mm3 (3.60-5.2); RDW 15.3 % (11.6-15.6); WHITE BLOOD COUNT 6.2 K/mm3 (4.0-10.0)
[2020-03-12 11:00] LABS: CALCIUM 8.8 mg/dL (8.5-10.1)
[2020-03-12] MEDS ORDERED: CISPLATIN IV ONE (11:00)
[2020-03-12 11:01] LABS: ALBUMIN 3.3 g/dl (3.4-5.0); BLOOD UREA NITROGEN 13.7 mg/dL (7-18); MAGNESIUM 1.5 mg/dL (1.8-2.4)
[2020-03-12 11:03] LABS: BILIRUBIN,DIRECT 0.1 mg/dL (0.0-0.2)
[2020-03-12 11:04] LABS: CREATININE 0.6 mg/dL (0.55-1.3)
[2020-03-12 11:05] LABS: BILIRUBIN,TOTAL 0.2 mg/dL (0.2-1); TOT PROT 7.2 g/dl (6.4-8.2)
[2020-03-12] MEDS ORDERED: MAGNESIUM SULF 50% (8.12 MEQ/2 ML-1 GM VIAL) IVPB ONE (12:00)
[2020-03-12] MEDS ORDERED: MAGNESIUM 2GM/50ML STERILE WATER IVPB IVPB ONE (14:30)
[2020-03-12 17:22] VITALS: TEMP 98.5
[2020-03-12 17:23] VITALS: PULSE 76
[2020-03-12 17:30] VITALS: BP 127/73
== END 2020-03-12 15:55 | disposition home or self-care (01) ==
LOC: JONCCHEMO 07:15
PROVIDERS: ATTEND Internal Medicine Hematology & Oncology
PROC: 3E013GC Introduction of Other Therapeutic Substance into Subcutaneous Tissue, Percutaneous Approach (ICD-10-PCS; principal; 2020-03-12)
PROC: 3E04329 Introduction of Other Anti-infective into Central Vein, Percutaneous Approach (ICD-10-PCS; 2020-03-12)
DX: C23 Malignant neoplasm of gallbladder (principal); Z76.89 Persons encountering health services in other specified circumstances
CPT/HCPCS: 36415; 80048; 80076; 83735; 85025; 96360; 96372; J1453; J2469; J9264

== ENCOUNTER 2020-03-13 07:18 | Day surgery (SDC) | payer OTHER ==
--- OUTSIDE RECORDS SUMMARY | 2020-03-13 07:25 | XMS ---
:[address] [facility] Support Name Relationship Address Phone [facility] [place] Unavailable [address] [place] [address] CHRISTIAN JUNG [address] [place] [address] CHRISTIAN JUNG Spouse [address] [place] [address] Re-disclosure Warning The records that you are [...] is protected by Article 27-F of the [facility] Public Health law. If you continue you may haveaccess to information: Regarding HIV / AIDS; Provided by facilities licensed or operated by the [facility] Office of Mental Health; or Provided by the [facility] Office for People With Developmental Disabilities. If such information is present, then the following [facility] mandated warning applies: This information has been [...] law may result in a fine or snf sentence or both. A general authorization for the release of medical or other information is NOT sufficient authorization for further disclosure. Insurance Providers Payer name Policy type Policy ID Covered Covered republican's Policy P angeline / Coverage republican ID relationship to Kaur Inf ormation type kaur [place] [id number] SP [id number] HEALTH CARE HMO/POS/EPO [place] [id number] HEALTH CARE HMO/POS/EPO [place] [id number] HEALTH CARE HMO/POS/EPO
[2020-03-13] MEDS ORDERED: POTASSIUM CHLORIDE 20 MEQ, MAGNESIUM SULFATE 2 GM in SODIUM CHLORIDE 500 ML IV ONE (09:00)
[2020-03-13] MEDS ORDERED: MAGNESIUM SULFATE IN WATER 2 GM/50 ML IVPB IVPB ONE (09:00)
[2020-03-13] MEDS ORDERED: PEGFILGRASTIM-CBQV (UDENYCA) 6 MG/0.6 ML SYRINGE SQ ONE (10:00)
[2020-03-13 18:43] VITALS: BP 167/68; PULSE 78
[2020-03-13] MEDS ORDERED: PORTA CATH FLUSH 10 ML IVPUSH ONE (18:43)
[2020-03-13 18:45] VITALS: TEMP 97.5
== END 2020-03-13 18:05 | disposition home or self-care (01) ==
LOC: JONCCHEMO 07:18
PROVIDERS: ATTEND Internal Medicine Hematology & Oncology
PROC: 3E013GC Introduction of Other Therapeutic Substance into Subcutaneous Tissue, Percutaneous Approach (ICD-10-PCS; principal; 2020-03-13)
DX: C23 Malignant neoplasm of gallbladder (principal); Z76.89 Persons encountering health services in other specified circumstances
CPT/HCPCS: 96360; 96372; Q5111

== ENCOUNTER 2020-03-21 11:48 | Inpatient (IN) | payer OTHER ==
[2020-03-21 13:50] LABS: HEMATOCRIT 25.3 % (32.4-45.2); INR 1.14 (0.83-1.09); MCH 26.7 pg (25.7-33.7); MCHC 31.4 g/dl (32.0-36.0); MEAN CELL VOLUME 85.1 fl (80-96); MEAN PLT VOLUME 9.1 fl (7.5-11.1); PLATELET COUNT 45 K/MM3 (134-434); PROTHROMBIN TIME (PATIENT) 13.7 SEC (9.7-13.0); RBC 2.98 M/mm3 (3.60-5.2); RDW 15.3 % (11.6-15.6); WHITE BLOOD COUNT 18.6 K/mm3 (4.0-10.0)
[2020-03-21 13:53] LABS: ACTIVATED PTT 26.1 SECONDS (25.2-36.5)
[2020-03-21 14:13] LABS: POTASSIUM 3.3 mmol/L (3.5-5.1)
[2020-03-21 14:15] LABS: CALCIUM 8.7 mg/dL (8.5-10.1)
[2020-03-21 14:16] LABS: ALBUMIN 3.4 g/dl (3.4-5.0); BLOOD UREA NITROGEN 9.7 mg/dL (7-18)
[2020-03-21 14:19] LABS: CREATININE 0.7 mg/dL (0.55-1.3)
[2020-03-21 14:21] LABS: BILIRUBIN,TOTAL 0.1 mg/dL (0.2-1); TOT PROT 6.8 g/dl (6.4-8.2)
[2020-03-21 15:32] LABS: MACROCYTOSIS 1+; OVALOCYTE 1+; PLATELET ESTIMATE ADEQUATE; TEAR DROP CELLS 1+; TOXIC GRANULATION 1+
[2020-03-21 16:16] LABS: HEMATOCRIT 23.9 % (32.4-45.2); HEMOGLOBIN 7.7 GM/dL (10.7-15.3); MCH 27.5 pg (25.7-33.7); MEAN CELL VOLUME 86.1 fl (80-96); MEAN PLT VOLUME 10.9 fl (7.5-11.1); PLATELET COUNT 55 K/MM3 (134-434); RBC 2.78 M/mm3 (3.60-5.2); RDW 15.3 % (11.6-15.6); WHITE BLOOD COUNT 16.9 K/mm3 (4.0-10.0)
[2020-03-21 17:48] LABS: PLATELET ESTIMATE DECREASED
[2020-03-21 23:33] LABS: PH,URINE 6.5 (5.0-8.0); URINE APPEARANCE CLEAR; URINE BILIRUBIN NEGATIVE (NEGATIVE); URINE COLOR YELLOW; URINE GLUCOSE (UA) NEGATIVE (NEGATIVE); URINE KETONE NEGATIVE (NEGATIVE); URINE LEUK ESTERASE NEGATIVE (NEGATIVE); URINE NITRITE NEGATIVE (NEGATIVE); URINE PROTEIN NEGATIVE (NEGATIVE); URINE UROBILINOGEN 0.2 mg/dL (0.2-1.0)
[2020-03-22 01:44] VITALS: BMI 23.3
[2020-03-22 08:39] LABS: BASO % 0.6 % (0-2.0); EOS % 0.6 % (0-4.5); HEMATOCRIT 26.2 % (32.4-45.2); HEMOGLOBIN 8.5 GM/dL (10.7-15.3); LYMPH % 14.3 % (8-40); MCH 27.4 pg (25.7-33.7); MCHC 32.6 g/dl (32.0-36.0); MEAN CELL VOLUME 84.2 fl (80-96); MONO % 4.6 % (3.8-10.2); NEUT % 79.9 % (42.8-82.8); PLATELET COUNT 120 K/MM3 (134-434); RBC 3.11 M/mm3 (3.60-5.2); RDW 14.7 % (11.6-15.6); WHITE BLOOD COUNT 19.9 K/mm3 (4.0-10.0)
[2020-03-22 08:53] LABS: POTASSIUM 3.7 mmol/L (3.5-5.1)
[2020-03-22 08:55] LABS: CALCIUM 8.4 mg/dL (8.5-10.1)
[2020-03-22 08:56] LABS: BLOOD UREA NITROGEN 4.7 mg/dL (7-18)
[2020-03-22 08:59] LABS: CREATININE 0.6 mg/dL (0.55-1.3)
[2020-03-22 09:00] LABS: BILIRUBIN,TOTAL 0.2 mg/dL (0.2-1); TOT PROT 6.1 g/dl (6.4-8.2)
[2020-03-22] MEDS ORDERED: FLU VACCINE (FLULAVAL) PF 60 MCG/0.5 ML SYRINGE 2020-2021 IM ONE (10:00)
[2020-03-22] MEDS ORDERED: PT OWN MED DRAWER 7, Y5N ONE ×2 (10:03→11:30)
[2020-03-22 10:12] LABS: ANISOCYTOSIS 2+; MACROCYTOSIS 1+; PLATELET ESTIMATE DECREASED
[2020-03-22] MEDS: LISINOPRIL 10 MG TABLET PO SCH (11:36)
[2020-03-22] MEDS: NEBIVOLOL 10 MG TABLET (FP) PO SCH (12:48)
[2020-03-23 06:04] VITALS: TEMP 98.6
[2020-03-23] MEDS: LISINOPRIL 10 MG TABLET PO SCH (12:12)
[2020-03-23] MEDS: NEBIVOLOL 10 MG TABLET (FP) PO SCH (12:12)
[2020-03-23 12:20] VITALS: BP 120/58; PULSE 80
== END 2020-03-23 13:30 | disposition home or self-care (01) | DRG 813 ==
LOC: JER 11:48 → JERBED 16:35 → J5S 22:11 → UNDODISIN 03-22 21:18
PROVIDERS: ADMIT Internal Medicine; ATTEND Internal Medicine
PROC: 30233R1 Transfusion of Nonautologous Platelets into Peripheral Vein, Percutaneous Approach (ICD-10-PCS; principal; 2020-03-21)
PROC: 30233N1 Transfusion of Nonautologous Red Blood Cells into Peripheral Vein, Percutaneous Approach (ICD-10-PCS; 2020-03-21)
DX: D69.59 Other secondary thrombocytopenia (principal); C23 Malignant neoplasm of gallbladder; D64.81 Anemia due to antineoplastic chemotherapy; E11.9 Type 2 diabetes mellitus without complications; I10 Essential (primary) hypertension; D69.6 Thrombocytopenia, unspecified; D64.9 Anemia, unspecified; M06.9 Rheumatoid arthritis, unspecified; T45.1X5A Adverse effect of antineoplastic and immunosuppressive drugs, initial encounter
CPT/HCPCS: 36415; 36430; 71045-TC-FY; 80053; 81003; 85025; 85610; 85730; 86850; 86900; 86901; 86922; 87086; 93005; 93010; 99285-25; C9803; G0008; P9034; P9058; Q2036; U0003

== ENCOUNTER 2020-03-26 06:20 | Day surgery (SDC) | payer OTHER ==
[2020-03-26] MEDS ORDERED: MAGNESIUM SULF 50% (8.12 MEQ/2 ML-1 GM VIAL) IVPB ONE ×2 (08:02→09:00)
[2020-03-26] MEDS ORDERED: SODIUM CHLORIDE 500 ML IV ONE ×2 (09:00→11:30)
[2020-03-26] MEDS ORDERED: PALONOSETRON HCL 0.25 MG/5 ML VIAL IVPUSH ONE (09:30)
[2020-03-26] MEDS ORDERED: DEXAMETHASONE SODIUM PHOSPHATE 10 MG in SODIUM CHLORIDE 50 ML IVPB ONE (09:30)
[2020-03-26] MEDS ORDERED: FOSAPREPITANT DIMEGLUMINE 150 MG in SODIUM CHLORIDE 145 ML IVPB ONE (09:30)
[2020-03-26] MEDS ORDERED: PACLITAXEL PROTEIN BOUND IVPB ONE (10:00)
[2020-03-26] MEDS ORDERED: MAGNESIUM SULFATE IN WATER 2 GM/50 ML IVPB IVPB ONE ×2 (10:00→15:15)
[2020-03-26] MEDS ORDERED: SODIUM CHLORIDE IVPB ONE (10:00)
[2020-03-26] MEDS ORDERED: GEMCITABINE HCL IV ONE (10:30)
[2020-03-26] MEDS ORDERED: SODIUM CHLORIDE IV ONE ×2 (10:30→11:00)
[2020-03-26] MEDS ORDERED: CISPLATIN IV ONE (11:00)
[2020-03-26 11:12] LABS: BASO % 0.4 % (0-2.0); EOS % 0.3 % (0-4.5); HEMATOCRIT 27.1 % (32.4-45.2); HEMOGLOBIN 8.9 GM/dL (10.7-15.3); LYMPH % 9.1 % (8-40); MCH 28.6 pg (25.7-33.7); MCHC 32.8 g/dl (32.0-36.0); MEAN CELL VOLUME 86.9 fl (80-96); MEAN PLT VOLUME 8.7 fl (7.5-11.1); MONO % 6.6 % (3.8-10.2); NEUT % 83.6 % (42.8-82.8); PLATELET COUNT 321 K/MM3 (134-434); RBC 3.12 M/mm3 (3.60-5.2); RDW 16.9 % (11.6-15.6); WHITE BLOOD COUNT 26.3 K/mm3 (4.0-10.0)
[2020-03-26 11:33] LABS: POTASSIUM 3.3 mmol/L (3.5-5.1)
[2020-03-26 11:35] LABS: ALBUMIN 3.3 g/dl (3.4-5.0)
[2020-03-26 11:36] LABS: BLOOD UREA NITROGEN 7.2 mg/dL (7-18); MAGNESIUM 1.3 mg/dL (1.8-2.4)
[2020-03-26 11:38] LABS: BILIRUBIN,DIRECT 0.1 mg/dL (0.0-0.2)
[2020-03-26 11:39] LABS: CREATININE 0.6 mg/dL (0.55-1.3)
[2020-03-26 11:40] LABS: BILIRUBIN,TOTAL 0.2 mg/dL (0.2-1); TOT PROT 6.7 g/dl (6.4-8.2)
[2020-03-26 11:42] LABS: ANISOCYTOSIS 1+; MACROCYTOSIS 0; PLATELET ESTIMATE NORMAL
[2020-03-26] MEDS ORDERED: POTASSIUM CHLORIDE TABS 20 MEQ TABLET.ER (FP) PO ONE (12:00)
[2020-03-26 17:17] VITALS: TEMP 98
[2020-03-26 17:50] VITALS: BP 140/51; PULSE 72
[2020-03-26] MEDS ORDERED: PORTA CATH FLUSH 10 ML IVPUSH ONE (17:50)
== END 2020-03-26 16:45 | disposition home or self-care (01) ==
LOC: JONCCHEMO 06:20
PROVIDERS: ATTEND Internal Medicine Hematology & Oncology
DX: Z51.11 Encounter for antineoplastic chemotherapy (principal); C23 Malignant neoplasm of gallbladder
CPT/HCPCS: 36415; 80048; 80076; 82728; 83540; 83550; 83735; 85025; 96361; 96366; 96367; 96413; 96417; J1453; J2469; J9264

== ENCOUNTER 2020-03-27 06:57 | Day surgery (SDC) | payer OTHER ==
[2020-03-27] MEDS ORDERED: MAGNESIUM SULFATE IN WATER 2 GM/50 ML IVPB IVPB ONE (08:45)
[2020-03-27 14:54] VITALS: BP 163/69; PULSE 86; TEMP 98.1
[2020-03-27] MEDS ORDERED: PORTA CATH FLUSH 10 ML IVPUSH ONE (14:54)
== END 2020-03-27 11:50 | disposition home or self-care (01) ==
LOC: JONCNONCHE 06:57
PROVIDERS: ATTEND Internal Medicine Hematology & Oncology
DX: C23 Malignant neoplasm of gallbladder (principal); Z76.89 Persons encountering health services in other specified circumstances
CPT/HCPCS: 96365

== ENCOUNTER 2020-04-01 07:09 | Day surgery (SDC) | payer OTHER ==
[2020-04-01] MEDS ORDERED: PALONOSETRON HCL 0.25 MG/5 ML VIAL IVPUSH ONE (10:00)
[2020-04-01] MEDS ORDERED: SODIUM CHLORIDE 500 ML IV ONE ×2 (10:00→12:00)
[2020-04-01] MEDS ORDERED: MAGNESIUM SULFATE IN WATER 2 GM/50 ML IVPB IVPB ONE ×2 (10:00→13:15)
[2020-04-01] MEDS ORDERED: DEXAMETHASONE SODIUM PHOSPHATE 10 MG in SODIUM CHLORIDE 50 ML IVPB ONE (10:00)
[2020-04-01] MEDS ORDERED: FOSAPREPITANT DIMEGLUMINE 150 MG in SODIUM CHLORIDE 150 ML IVPB ONE (10:00)
[2020-04-01 10:28] LABS: BASO % 0.9 % (0-2.0); EOS % 0.2 % (0-4.5); HEMATOCRIT 26.5 % (32.4-45.2); HEMOGLOBIN 8.8 GM/dL (10.7-15.3); LYMPH % 18.7 % (8-40); MCH 28.6 pg (25.7-33.7); MCHC 33.1 g/dl (32.0-36.0); MEAN CELL VOLUME 86.4 fl (80-96); MEAN PLT VOLUME 8.6 fl (7.5-11.1); MONO % 5.9 % (3.8-10.2); NEUT % 74.3 % (42.8-82.8); PLATELET COUNT 255 K/MM3 (134-434); RBC 3.07 M/mm3 (3.60-5.2); RDW 17.2 % (11.6-15.6); WHITE BLOOD COUNT 8.9 K/mm3 (4.0-10.0)
[2020-04-01] MEDS ORDERED: PACLITAXEL PROTEIN BOUND IVPB ONE (10:30)
[2020-04-01] MEDS ORDERED: SODIUM CHLORIDE IVPB ONE ×2 (10:30→11:00)
[2020-04-01 10:56] LABS: ALBUMIN 3.5 g/dl (3.4-5.0); BLOOD UREA NITROGEN 10.2 mg/dL (7-18); CALCIUM 8.5 mg/dL (8.5-10.1)
[2020-04-01 10:57] LABS: MAGNESIUM 1.4 mg/dL (1.8-2.4)
[2020-04-01 11:00] LABS: BILIRUBIN,DIRECT 0.1 mg/dL (0.0-0.2); CREATININE 0.5 mg/dL (0.55-1.3)
[2020-04-01] MEDS ORDERED: CISPLATIN IVPB ONE (11:00)
[2020-04-01 11:01] LABS: BILIRUBIN,TOTAL 0.3 mg/dL (0.2-1); TOT PROT 6.8 g/dl (6.4-8.2)
[2020-04-01] MEDS ORDERED: MAGNESIUM SULF 50% (8.12 MEQ/2 ML-1 GM VIAL) IVPB ONE (11:03)
[2020-04-01] MEDS ORDERED: SODIUM CHLORIDE IV ONE (12:00)
[2020-04-01] MEDS ORDERED: GEMCITABINE HCL IV ONE (12:00)
[2020-04-01 16:49] VITALS: TEMP 97.9
[2020-04-01 16:50] VITALS: BP 142/73; PULSE 96
== END 2020-04-01 16:06 | disposition home or self-care (01) ==
LOC: JONCCHEMO 07:09
PROVIDERS: ATTEND Internal Medicine Hematology & Oncology
DX: Z51.11 Encounter for antineoplastic chemotherapy (principal); C23 Malignant neoplasm of gallbladder
CPT/HCPCS: 36415; 80048; 80076; 82728; 83540; 83550; 83735; 85025; 96361; 96375; 96413; 96417; J1453; J2469; J9264

== ENCOUNTER 2020-04-02 07:10 | Day surgery (SDC) | payer OTHER ==
[2020-04-02] MEDS ORDERED: PEGFILGRASTIM-CBQV (UDENYCA) 6 MG/0.6 ML SYRINGE SQ ONE (13:30)
[2020-04-02] MEDS ORDERED: POTASSIUM CHLORIDE 20 MEQ, MAGNESIUM SULFATE 2 GM in SODIUM CHLORIDE 500 ML IV ONE (13:30)
[2020-04-02 15:29] VITALS: TEMP 98
[2020-04-02 15:42] VITALS: BP 146/64; PULSE 84
[2020-04-02] MEDS ORDERED: PORTA CATH FLUSH 10 ML IVPUSH ONE (15:43)
== END 2020-04-02 14:05 | disposition home or self-care (01) ==
LOC: JONCCHEMO 07:10
PROVIDERS: ATTEND Internal Medicine Hematology & Oncology
PROC: 3E013GC Introduction of Other Therapeutic Substance into Subcutaneous Tissue, Percutaneous Approach (ICD-10-PCS; principal; 2020-04-02)
PROC: 3E04329 Introduction of Other Anti-infective into Central Vein, Percutaneous Approach (ICD-10-PCS; 2020-04-02)
DX: C23 Malignant neoplasm of gallbladder (principal); Z76.89 Persons encountering health services in other specified circumstances
CPT/HCPCS: 96360; 96372; Q5111

== ENCOUNTER 2020-04-15 05:33 | Day surgery (SDC) | payer OTHER ==
[2020-04-15] MEDS ORDERED: IRON SUCROSE INJECTION 200 MG in SODIUM CHLORIDE 100 ML IVPB ONE (09:00)
[2020-04-15] MEDS ORDERED: SODIUM CHLORIDE 500 ML IV ONE ×2 (09:00→12:00)
[2020-04-15] MEDS ORDERED: DEXAMETHASONE SODIUM PHOSPHATE 10 MG in SODIUM CHLORIDE 50 ML IVPB ONE (10:00)
[2020-04-15] MEDS ORDERED: PALONOSETRON HCL 0.25 MG/5 ML VIAL IVPUSH ONE (10:00)
[2020-04-15] MEDS ORDERED: FOSAPREPITANT DIMEGLUMINE 150 MG in SODIUM CHLORIDE 150 ML IVPB ONE (10:00)
[2020-04-15] MEDS ORDERED: SODIUM CHLORIDE IVPB ONE (10:30)
[2020-04-15] MEDS ORDERED: PACLITAXEL PROTEIN BOUND IVPB ONE (10:30)
[2020-04-15] MEDS ORDERED: LISINOPRIL 10 MG TABLET PO ONE (10:41)
[2020-04-15] MEDS ORDERED: NEBIVOLOL 10 MG TABLET (FP) PO ONE (10:41)
[2020-04-15] MEDS ORDERED: SODIUM CHLORIDE IV ONE ×2 (11:00→11:30)
[2020-04-15] MEDS ORDERED: GEMCITABINE HCL IV ONE (11:00)
[2020-04-15] MEDS ORDERED: CISPLATIN IV ONE (11:30)
[2020-04-15 12:01] LABS: BASO % 0.4 % (0-2.0); EOS % 0.6 % (0-4.5); HEMATOCRIT 28.6 % (32.4-45.2); LYMPH % 7.9 % (8-40); MCH 28.2 pg (25.7-33.7); MCHC 31.5 g/dl (32.0-36.0); MEAN CELL VOLUME 89.6 fl (80-96); MEAN PLT VOLUME 8.1 fl (7.5-11.1); NEUT % 84.1 % (42.8-82.8); PLATELET COUNT 459 K/MM3 (134-434); RDW 20.3 % (11.6-15.6)
[2020-04-15 12:18] LABS: POTASSIUM 3.9 mmol/L (3.5-5.1)
[2020-04-15 12:21] LABS: BLOOD UREA NITROGEN 6.3 mg/dL (7-18); CALCIUM 8.5 mg/dL (8.5-10.1)
[2020-04-15 12:22] LABS: ALBUMIN 3.4 g/dl (3.4-5.0)
[2020-04-15 12:24] LABS: CREATININE 0.6 mg/dL (0.55-1.3)
[2020-04-15 12:25] LABS: BILIRUBIN,DIRECT 0.1 mg/dL (0.0-0.2)
[2020-04-15 12:26] LABS: BILIRUBIN,TOTAL 0.2 mg/dL (0.2-1); TOT PROT 6.6 g/dl (6.4-8.2)
[2020-04-15 12:29] LABS: WHITE BLOOD COUNT 30.4 K/mm3 (4.0-10.0)
[2020-04-15 12:33] LABS: ANISOCYTOSIS 2+; MACROCYTOSIS 1+; PLATELET ESTIMATE NORMAL
[2020-04-15] MEDS: MAGNESIUM SULFATE 2 GM in DEXTROSE 5%-WATER - 100 ML IVPB SCH ×2 (12:48→13:50)
[2020-04-15 13:03] LABS: MAGNESIUM 1.3 mg/dL (1.8-2.4)
[2020-04-15 18:04] VITALS: TEMP 98.1
[2020-04-15 18:05] VITALS: BP 162/75; PULSE 101
== END 2020-04-15 16:10 | disposition home or self-care (01) ==
LOC: JONCCHEMO 05:33
PROVIDERS: ATTEND Internal Medicine Hematology & Oncology
DX: Z51.11 Encounter for antineoplastic chemotherapy (principal); C23 Malignant neoplasm of gallbladder; C78.00 Secondary malignant neoplasm of unspecified lung; D50.9 Iron deficiency anemia, unspecified
CPT/HCPCS: 36415; 80048; 80076; 83735; 85025; 86301; 96361; 96366; 96367; 96375; 96413; 96417; J1453; J1756; J2469; J9264

== ENCOUNTER 2020-04-22 06:13 | Day surgery (SDC) | payer OTHER ==
[2020-04-22] MEDS ORDERED: IRON SUCROSE INJECTION 200 MG in SODIUM CHLORIDE 100 ML IVPB ONE (09:00)
[2020-04-22] MEDS ORDERED: SODIUM CHLORIDE 500 ML IV ONE ×2 (09:00→12:00)
[2020-04-22] MEDS ORDERED: PALONOSETRON HCL 0.25 MG/5 ML VIAL IVPUSH ONE (10:00)
[2020-04-22] MEDS ORDERED: FOSAPREPITANT DIMEGLUMINE 150 MG in SODIUM CHLORIDE 150 ML IVPB ONE (10:00)
[2020-04-22] MEDS ORDERED: DEXAMETHASONE SODIUM PHOSPHATE 10 MG in SODIUM CHLORIDE 50 ML IVPB ONE (10:00)
[2020-04-22] MEDS ORDERED: PACLITAXEL PROTEIN BOUND IVPB ONE (10:30)
[2020-04-22] MEDS ORDERED: SODIUM CHLORIDE IVPB ONE (10:30)
[2020-04-22] MEDS ORDERED: PORTA CATH FLUSH 10 ML IVPUSH ONE (10:50)
[2020-04-22] MEDS ORDERED: GEMCITABINE HCL IV ONE (11:00)
[2020-04-22] MEDS ORDERED: SODIUM CHLORIDE IV ONE ×2 (11:00→11:30)
[2020-04-22] MEDS: MAGNESIUM SULFATE 2 GM in DEXTROSE 5%-WATER - 100 ML IVPB SCH ×2 (11:05→15:43)
[2020-04-22 11:21] LABS: BASO % 0.5 % (0-2.0); EOS % 0.5 % (0-4.5); HEMATOCRIT 24.7 % (32.4-45.2); HEMOGLOBIN 7.9 GM/dL (10.7-15.3); LYMPH % 13.5 % (8-40); MCH 28.3 pg (25.7-33.7); MCHC 31.8 g/dl (32.0-36.0); MEAN CELL VOLUME 88.8 fl (80-96); MEAN PLT VOLUME 8.3 fl (7.5-11.1); MONO % 7.1 % (3.8-10.2); NEUT % 78.4 % (42.8-82.8); PLATELET COUNT 315 K/MM3 (134-434); RBC 2.79 M/mm3 (3.60-5.2); RDW 19.4 % (11.6-15.6); WHITE BLOOD COUNT 13.8 K/mm3 (4.0-10.0)
[2020-04-22] MEDS ORDERED: CISPLATIN IV ONE (11:30)
[2020-04-22 11:37] LABS: ALBUMIN 3.4 g/dl (3.4-5.0); BLOOD UREA NITROGEN 10.5 mg/dL (7-18); CALCIUM 8.4 mg/dL (8.5-10.1)
[2020-04-22 11:38] LABS: MAGNESIUM 1.4 mg/dL (1.8-2.4)
[2020-04-22 11:40] LABS: BILIRUBIN,DIRECT 0.1 mg/dL (0.0-0.2); CREATININE 0.6 mg/dL (0.55-1.3)
[2020-04-22 11:42] LABS: BILIRUBIN,TOTAL 0.8 mg/dL (0.2-1); TOT PROT 6.7 g/dl (6.4-8.2)
[2020-04-22 16:52] VITALS: BP 130/60
[2020-04-22 17:27] VITALS: PULSE 72; TEMP 98.6
== END 2020-04-22 18:50 | disposition home or self-care (01) ==
LOC: JONCCHEMO 06:13
PROVIDERS: ATTEND Internal Medicine Hematology & Oncology
DX: Z51.11 Encounter for antineoplastic chemotherapy (principal); C23 Malignant neoplasm of gallbladder; C78.00 Secondary malignant neoplasm of unspecified lung; D50.9 Iron deficiency anemia, unspecified
CPT/HCPCS: 36415; 36430; 80048; 80076; 83735; 85025; 86850; 86900; 86901; 86922; 96361; 96366; 96367; 96413; 96417; J1453; J1756; J2469; J9264; P9058

== ENCOUNTER 2020-04-23 09:31 | Day surgery (SDC) | payer OTHER ==
[2020-04-23] MEDS ORDERED: POTASSIUM CHLORIDE 20 MEQ, MAGNESIUM SULFATE 2 GM in SODIUM CHLORIDE 500 ML IV ONE (10:00)
[2020-04-23] MEDS ORDERED: PEGFILGRASTIM-CBQV (UDENYCA) 6 MG/0.6 ML SYRINGE SQ ONE (10:00)
[2020-04-23] MEDS ORDERED: POTASSIUM CHLORIDE 20 MEQ, MAGNESIUM SULFATE 2 GM in DEXTROSE 5%-NORMAL SALINE 1,000 ML IV ONE (12:30)
[2020-04-23 12:57] LABS: BASO % 0.2 % (0-2.0); HEMATOCRIT 23.5 % (32.4-45.2); HEMOGLOBIN 7.6 GM/dL (10.7-15.3); MCH 28.3 pg (25.7-33.7); MCHC 32.1 g/dl (32.0-36.0); MEAN CELL VOLUME 88.1 fl (80-96); MEAN PLT VOLUME 8.1 fl (7.5-11.1); MONO % 6.4 % (3.8-10.2); NEUT % 87.4 % (42.8-82.8); PLATELET COUNT 235 K/MM3 (134-434); RBC 2.67 M/mm3 (3.60-5.2); RDW 19.9 % (11.6-15.6); WHITE BLOOD COUNT 11.6 K/mm3 (4.0-10.0)
[2020-04-23 17:04] VITALS: BP 113/58; PULSE 68; TEMP 98
[2020-04-23] MEDS ORDERED: PORTA CATH FLUSH 10 ML IVPUSH ONE (17:07)
== END 2020-04-23 18:00 | disposition home or self-care (01) ==
LOC: JONCCHEMO 09:31
PROVIDERS: ATTEND Internal Medicine Hematology & Oncology
PROC: 3E04329 Introduction of Other Anti-infective into Central Vein, Percutaneous Approach (ICD-10-PCS; principal; 2020-04-23)
PROC: 3E013GC Introduction of Other Therapeutic Substance into Subcutaneous Tissue, Percutaneous Approach (ICD-10-PCS; 2020-04-23)
DX: C23 Malignant neoplasm of gallbladder (principal); C78.00 Secondary malignant neoplasm of unspecified lung; D50.9 Iron deficiency anemia, unspecified
CPT/HCPCS: 36415; 85025; 96360; 96361; 96374; Q5111

== ENCOUNTER 2020-05-28 07:47 | Day surgery (SDC) | payer OTHER ==
[~2020-05-28 07:47] MED LIST changes: +CISPLATIN IV ONE; +DEXAMETHASONE SODIUM PHOSPHATE 10 MG in SODIUM CHLORIDE 50 ML IVPB ONE; +FOSAPREPITANT DIMEGLUMINE 150 MG in SODIUM CHLORIDE 145 ML IVPB ONE; +GEMCITABINE HCL IV ONE; +IRON SUCROSE INJECTION 200 MG in SODIUM CHLORIDE 100 ML IVPB ONE; +MAGNESIUM SULFATE IN WATER 2 GM/50 ML IVPB IVPB SCH; +PACLITAXEL PROTEIN BOUND IVPB ONE; +PALONOSETRON HCL 0.25 MG/5 ML VIAL IVPUSH ONE; +SODIUM CHLORIDE IV ONE; +SODIUM CHLORIDE IVPB ONE
[2020-05-28] MEDS ORDERED: SODIUM CHLORIDE 500 ML IV ONE ×2 (09:00→12:00)
[2020-05-28] MEDS ORDERED: IRON SUCROSE INJECTION 200 MG in SODIUM CHLORIDE 100 ML IVPB ONE (09:00)
[2020-05-28] MEDS ORDERED: FOSAPREPITANT DIMEGLUMINE 150 MG in SODIUM CHLORIDE 145 ML IVPB ONE (10:00)
[2020-05-28] MEDS ORDERED: PALONOSETRON HCL 0.25 MG/5 ML VIAL IVPUSH ONE (10:00)
[2020-05-28] MEDS ORDERED: DEXAMETHASONE SODIUM PHOSPHATE 10 MG in SODIUM CHLORIDE 50 ML IVPB ONE (10:00)
[2020-05-28] MEDS ORDERED: PACLITAXEL PROTEIN BOUND IVPB ONE (10:30)
[2020-05-28] MEDS ORDERED: SODIUM CHLORIDE IVPB ONE (10:30)
[2020-05-28] MEDS ORDERED: GEMCITABINE HCL IV ONE (11:00)
[2020-05-28] MEDS ORDERED: SODIUM CHLORIDE IV ONE ×2 (11:00→11:30)
[2020-05-28] MEDS ORDERED: CISPLATIN IV ONE (11:30)
[2020-05-28] MEDS: MAGNESIUM SULFATE IN WATER 2 GM/50 ML IVPB IVPB SCH ×2 (11:52→13:24)
[2020-05-28 12:11] LABS: BASO % 0.5 % (0-2.0); EOS % 1.5 % (0-4.5); HEMATOCRIT 22.6 % (32.4-45.2); HEMOGLOBIN 7.4 GM/dL (10.7-15.3); LYMPH % 14.1 % (8-40); MCHC 32.7 g/dl (32.0-36.0); MEAN CELL VOLUME 91.6 fl (80-96); MEAN PLT VOLUME 8.4 fl (7.5-11.1); MONO % 7.4 % (3.8-10.2); NEUT % 76.5 % (42.8-82.8); PLATELET COUNT 341 K/MM3 (134-434); RBC 2.47 M/mm3 (3.60-5.2); RDW 16.3 % (11.6-15.6); WHITE BLOOD COUNT 10.8 K/mm3 (4.0-10.0)
[2020-05-28 12:38] LABS: CALCIUM 8.8 mg/dL (8.5-10.1)
[2020-05-28 12:39] LABS: ALBUMIN 3.2 g/dl (3.4-5.0); MAGNESIUM 1.7 mg/dL (1.8-2.4)
[2020-05-28 12:41] LABS: BILIRUBIN,DIRECT 0.1 mg/dL (0.0-0.2)
[2020-05-28 12:42] LABS: CREATININE 0.6 mg/dL (0.55-1.3)
[2020-05-28 12:43] LABS: BILIRUBIN,TOTAL 0.3 mg/dL (0.2-1); TOT PROT 6.7 g/dl (6.4-8.2)
[2020-05-28] MEDS ORDERED: DEXAMETHASONE SOD PHOSPHATE 10 MG/1 ML VIAL IVPB ONE (17:11)
[2020-05-28] MEDS ORDERED: DEXAMETHASONE INJECTION 6 MG in SODIUM CHLORIDE 50 ML IVPUSH ONE (17:30)
[2020-05-28 18:19] VITALS: BP 114/54; PULSE 80; TEMP 97.7
[2020-05-28] MEDS ORDERED: PORTA CATH FLUSH 10 ML IVPUSH ONE (18:19)
[2020-05-29] MEDS ORDERED: D5-1/2NS+20 MEQ KCL - 20 MEQ/1,000 ML INFUS.BAG IV ONE (10:00)
== END 2020-05-28 18:54 | disposition home or self-care (01) ==
LOC: JONCCHEMO 07:47
PROVIDERS: ATTEND Internal Medicine Hematology & Oncology
DX: Z51.11 Encounter for antineoplastic chemotherapy (principal); C23 Malignant neoplasm of gallbladder; C78.00 Secondary malignant neoplasm of unspecified lung; D50.9 Iron deficiency anemia, unspecified
CPT/HCPCS: 36415; 80048; 80076; 83735; 85025; 86301; 96361; 96366; 96367; 96413; 96417; J1100; J1453; J1756; J2469; J9264

== ENCOUNTER 2020-05-29 07:22 | Day surgery (SDC) | payer OTHER ==
[2020-05-29] MEDS ORDERED: DEXTROSE IVPB ONE (10:00)
[2020-05-29] MEDS ORDERED: POTASSIUM CHLORIDE IVPB ONE (10:00)
[2020-05-29] MEDS ORDERED: MAGNESIUM SULFATE IVPB ONE (10:00)
[2020-05-29] MEDS ORDERED: [UNRECOGNIZED DRUG - OTHER] IVPB ONE (10:00)
[2020-05-29] MEDS ORDERED: FUROSEMIDE 20 MG TABLET (FP) PO ONE (10:45)
[2020-05-29 18:05] VITALS: TEMP 97.5
[2020-05-29 18:47] VITALS: BP 136/61; PULSE 68
[2020-05-29 19:48] LABS: HEMOGLOBIN 9.7 GM/dL (10.7-15.3); MCH 30.3 pg (25.7-33.7); MCHC 33.3 g/dl (32.0-36.0); MEAN PLT VOLUME 9.1 fl (7.5-11.1); PLATELET COUNT 252 K/MM3 (134-434); RBC 3.19 M/mm3 (3.60-5.2); RDW 15.4 % (11.6-15.6); WHITE BLOOD COUNT 10.7 K/mm3 (4.0-10.0)
== END 2020-05-29 18:40 | disposition home or self-care (01) ==
LOC: JONCBLOOD 07:22
PROVIDERS: ATTEND Internal Medicine Hematology & Oncology
PROC: 3E04305 Introduction of Other Antineoplastic into Central Vein, Percutaneous Approach (ICD-10-PCS; principal; 2020-05-29)
PROC: 30243N1 Transfusion of Nonautologous Red Blood Cells into Central Vein, Percutaneous Approach (ICD-10-PCS; 2020-05-29)
DX: Z51.11 Encounter for antineoplastic chemotherapy (principal); C23 Malignant neoplasm of gallbladder; C78.00 Secondary malignant neoplasm of unspecified lung; D63.0 Anemia in neoplastic disease; E11.9 Type 2 diabetes mellitus without complications; D50.9 Iron deficiency anemia, unspecified
CPT/HCPCS: 36415; 36430; 85027; 86850; 86900; 86901; 86922; 96361; 96366; 96367; 96375; 96413; 96417; P9058

== ENCOUNTER 2020-06-03 07:40 | Day surgery (SDC) | payer OTHER ==
[2020-06-03] MEDS ORDERED: SODIUM CHLORIDE 500 ML IV ONE (09:00)
[2020-06-03] MEDS ORDERED: IRON SUCROSE INJECTION 200 MG in SODIUM CHLORIDE 100 ML IVPB ONE (10:00)
[2020-06-03] MEDS ORDERED: FOSAPREPITANT DIMEGLUMINE 150 MG in SODIUM CHLORIDE 145 ML IVPB ONE (10:30)
[2020-06-03] MEDS ORDERED: SODIUM CHLORIDE IVPB ONE (11:00)
[2020-06-03] MEDS ORDERED: PACLITAXEL PROTEIN BOUND IVPB ONE (11:00)
[2020-06-03] MEDS ORDERED: GEMCITABINE HCL IV ONE (11:30)
[2020-06-03] MEDS ORDERED: SODIUM CHLORIDE IV ONE ×2 (11:30→12:00)
[2020-06-03] MEDS ORDERED: CISPLATIN IV ONE (12:00)
[2020-06-03 12:04] LABS: BASO % 0.7 % (0-2.0); EOS % 3.8 % (0-4.5); HEMATOCRIT 25.4 % (32.4-45.2); HEMOGLOBIN 8.4 GM/dL (10.7-15.3); LYMPH % 44.1 % (8-40); MCH 30.2 pg (25.7-33.7); MCHC 33.2 g/dl (32.0-36.0); MEAN CELL VOLUME 91.2 fl (80-96); MEAN PLT VOLUME 8.7 fl (7.5-11.1); MONO % 6.8 % (3.8-10.2); NEUT % 44.6 % (42.8-82.8); PLATELET COUNT 162 K/MM3 (134-434); RBC 2.79 M/mm3 (3.60-5.2); RDW 14.5 % (11.6-15.6); WHITE BLOOD COUNT 3.6 K/mm3 (4.0-10.0)
[2020-06-03 12:28] LABS: POTASSIUM 3.6 mmol/L (3.5-5.1)
[2020-06-03 12:30] LABS: CALCIUM 8.1 mg/dL (8.5-10.1)
[2020-06-03 12:31] LABS: ALBUMIN 2.9 g/dl (3.4-5.0); BLOOD UREA NITROGEN 9.3 mg/dL (7-18); MAGNESIUM 1.2 mg/dL (1.8-2.4)
[2020-06-03 12:33] LABS: BILIRUBIN,DIRECT 0.1 mg/dL (0.0-0.2)
[2020-06-03 12:34] LABS: CREATININE 0.5 mg/dL (0.55-1.3)
[2020-06-03 12:35] LABS: BILIRUBIN,TOTAL 0.2 mg/dL (0.2-1); TOT PROT 6.1 g/dl (6.4-8.2)
[2020-06-03] MEDS: MAGNESIUM SULFATE IN WATER 2 GM/50 ML IVPB IVPB SCH ×2 (12:57→16:25)
[2020-06-03] MEDS ORDERED: DEXAMETHASONE SODIUM PHOSPHATE 6 MG in SODIUM CHLORIDE 50 ML IVPB ONE (13:00)
[2020-06-03] MEDS ORDERED: SODIUM CHLORIDE 150 ML IVPB ONE (13:00)
[2020-06-03] MEDS: DEXAMETHASONE SODIUM PHOSPHATE 10 MG in SODIUM CHLORIDE 50 ML IVPB ONE ×2 (13:52→14:49)
[2020-06-03 16:29] VITALS: TEMP 97.8
[2020-06-03 17:55] VITALS: BP 130/71; PULSE 83
== END 2020-06-03 18:17 | disposition home or self-care (01) ==
LOC: JONCCHEMO 07:40
PROVIDERS: ATTEND Internal Medicine Hematology & Oncology
DX: Z51.11 Encounter for antineoplastic chemotherapy (principal); C23 Malignant neoplasm of gallbladder; C78.00 Secondary malignant neoplasm of unspecified lung; D63.0 Anemia in neoplastic disease; D50.9 Iron deficiency anemia, unspecified; E11.9 Type 2 diabetes mellitus without complications
CPT/HCPCS: 36415; 80048; 80076; 83735; 85025; 93970-TC; 96361; 96366; 96367; 96375; 96413; 96415; 96417; J1453; J9264

== ENCOUNTER 2020-06-04 08:14 | Day surgery (SDC) | payer OTHER ==
[2020-06-04] MEDS ORDERED: PEGFILGRASTIM-CBQV (UDENYCA) 6 MG/0.6 ML SYRINGE SQ ONE (10:00)
[2020-06-04] MEDS ORDERED: IRON SUCROSE INJECTION 200 MG in SODIUM CHLORIDE 90 ML IVPB ONE (10:00)
[2020-06-04] MEDS ORDERED: POTASSIUM CHLORIDE 20 MEQ, MAGNESIUM SULFATE 2 GM in SODIUM CHLORIDE 500 ML IVPB ONE (10:00)
[2020-06-04 13:57] VITALS: TEMP 98
[2020-06-04 13:58] VITALS: BP 156/73; PULSE 85
== END 2020-06-04 13:10 | disposition home or self-care (01) ==
LOC: JONCCHEMO 08:14
PROVIDERS: ATTEND Internal Medicine Hematology & Oncology
PROC: 3E043GC Introduction of Other Therapeutic Substance into Central Vein, Percutaneous Approach (ICD-10-PCS; principal; 2020-06-04)
PROC: 3E043GC Introduction of Other Therapeutic Substance into Central Vein, Percutaneous Approach (ICD-10-PCS; 2020-06-04)
DX: C23 Malignant neoplasm of gallbladder (principal); D50.9 Iron deficiency anemia, unspecified; C78.00 Secondary malignant neoplasm of unspecified lung; D63.0 Anemia in neoplastic disease; E11.9 Type 2 diabetes mellitus without complications
CPT/HCPCS: 96361; 96365; 96372; J1756; Q5111

== ENCOUNTER 2020-06-10 20:07 | Inpatient (IN) | payer OTHER ==
[2020-06-10 21:09] LABS: BASO % 0.2 % (0-2.0); EOS % 0.2 % (0-4.5); HEMATOCRIT 11.5 % (32.4-45.2); LYMPH % 4.5 % (8-40); MCH 30.6 pg (25.7-33.7); MCHC 32.8 g/dl (32.0-36.0); MEAN CELL VOLUME 93.3 fl (80-96); MEAN PLT VOLUME 8.8 fl (7.5-11.1); NEUT % 92.1 % (42.8-82.8); RBC 1.24 M/mm3 (3.60-5.2); RDW 14.3 % (11.6-15.6); WHITE BLOOD COUNT 19.6 K/mm3 (4.0-10.0)
[2020-06-10 21:12] LABS: HEMOGLOBIN 3.8 GM/dL (10.7-15.3); PLATELET COUNT 19 K/MM3 (134-434)
[2020-06-10 21:19] LABS: INR 1.28 (0.83-1.09); PROTHROMBIN TIME (PATIENT) 15.6 SEC (9.7-13.0)
[2020-06-10 21:22] LABS: ACTIVATED PTT 23.4 SECONDS (25.2-36.5)
[2020-06-10 21:28] LABS: POTASSIUM 3.1 mmol/L (3.5-5.1)
[2020-06-10 21:30] LABS: ALBUMIN 2.4 g/dl (3.4-5.0); BLOOD UREA NITROGEN 12.5 mg/dL (7-18); CALCIUM 7.8 mg/dL (8.5-10.1); MAGNESIUM 1.4 mg/dL (1.8-2.4)
[2020-06-10 21:33] LABS: CREATININE 0.5 mg/dL (0.55-1.3)
[2020-06-10 21:35] LABS: BILIRUBIN,TOTAL 0.2 mg/dL (0.2-1); TOT PROT 4.8 g/dl (6.4-8.2)
[2020-06-10 21:39] LABS: ANISOCYTOSIS 2+; MACROCYTOSIS 0; PLATELET ESTIMATE DECREASED; TARGET CELLS 2+
[2020-06-10] MEDS ORDERED: MAGNESIUM SULF 50% (8.12 MEQ/2 ML-1 GM VIAL) IVPB ONE (21:54)
[2020-06-10] MEDS ORDERED: POTASSIUM CHLORIDE TABS 20 MEQ TABLET.ER (FP) PO ONE ×2 (21:54→21:58)
[2020-06-10] MEDS ORDERED: MAGNESIUM SULFATE IN WATER 2 GM/50 ML IVPB IVPB ONE (21:58)
[2020-06-10] MEDS ORDERED: MAGNESIUM 1GM/D5W - 1 GM/100 ML IVPB IVPB ONE (22:00)
[2020-06-11 09:25] LABS: BASO % 0.3 % (0-2.0); EOS % 0.3 % (0-4.5); HEMATOCRIT 20.2 % (32.4-45.2); LYMPH % 11.6 % (8-40); MCH 30.2 pg (25.7-33.7); MCHC 33.4 g/dl (32.0-36.0); MEAN CELL VOLUME 90.4 fl (80-96); MEAN PLT VOLUME 9.8 fl (7.5-11.1); NEUT % 82.8 % (42.8-82.8); RBC 2.24 M/mm3 (3.60-5.2); RDW 13.6 % (11.6-15.6); WHITE BLOOD COUNT 16.9 K/mm3 (4.0-10.0)
[2020-06-11 09:30] LABS: HEMOGLOBIN 6.7 GM/dL (10.7-15.3); PLATELET COUNT 26 K/MM3 (134-434)
[2020-06-11 09:49] LABS: POTASSIUM 3.9 mmol/L (3.5-5.1)
[2020-06-11 10:07] LABS: ALBUMIN 2.3 g/dl (3.4-5.0)
[2020-06-11 10:08] LABS: BLOOD UREA NITROGEN 10.2 mg/dL (7-18); CALCIUM 7.8 mg/dL (8.5-10.1); MAGNESIUM 1.6 mg/dL (1.8-2.4)
[2020-06-11 10:10] LABS: CREATININE 0.5 mg/dL (0.55-1.3); TOT PROT 4.8 g/dl (6.4-8.2)
[2020-06-11 10:43] LABS: ANISOCYTOSIS 1+; PLATELET ESTIMATE DECREASED; ROULEAU 1+
[2020-06-11] MEDS ORDERED: MAGNESIUM SULF 50% (8.12 MEQ/2 ML-1 GM VIAL) IVPB ONE (19:06)
[2020-06-11] MEDS ORDERED: MAGNESIUM SULFATE IN WATER 2 GM/50 ML IVPB IVPB ONE (19:54)
[2020-06-12 07:24] LABS: HEMATOCRIT 22.8 % (32.4-45.2); HEMOGLOBIN 7.8 GM/dL (10.7-15.3); MCH 31.2 pg (25.7-33.7); MCHC 34.3 g/dl (32.0-36.0); MEAN CELL VOLUME 90.9 fl (80-96); MEAN PLT VOLUME 9.7 fl (7.5-11.1); RDW 13.8 % (11.6-15.6)
[2020-06-12 07:34] LABS: PLATELET COUNT 32 K/MM3 (134-434)
[2020-06-12 07:41] LABS: POTASSIUM 3.4 mmol/L (3.5-5.1)
[2020-06-12 07:44] LABS: CALCIUM 7.3 mg/dL (8.5-10.1)
[2020-06-12 07:45] LABS: ALBUMIN 2.1 g/dl (3.4-5.0); BLOOD UREA NITROGEN 8.2 mg/dL (7-18)
[2020-06-12 07:48] LABS: CREATININE 0.3 mg/dL (0.55-1.3)
[2020-06-12 07:50] LABS: BILIRUBIN,TOTAL 0.5 mg/dL (0.2-1); TOT PROT 4.3 g/dl (6.4-8.2)
[2020-06-12] MEDS: NEBIVOLOL 10 MG TABLET (FP) PO SCH (09:04)
[2020-06-12] MEDS: LISINOPRIL 10 MG TABLET PO SCH (09:04)
[2020-06-12] MEDS ORDERED: POTASSIUM CHLORIDE TABS 20 MEQ TABLET.ER (FP) PO ONE (10:30)
[2020-06-13 07:21] LABS: BASO % 0.3 % (0-2.0); EOS % 1.7 % (0-4.5); HEMATOCRIT 30.5 % (32.4-45.2); HEMOGLOBIN 10.5 GM/dL (10.7-15.3); LYMPH % 11.4 % (8-40); MCH 31.2 pg (25.7-33.7); MCHC 34.4 g/dl (32.0-36.0); MEAN CELL VOLUME 90.7 fl (80-96); MEAN PLT VOLUME 9.3 fl (7.5-11.1); NEUT % 81.6 % (42.8-82.8); PLATELET COUNT 67 K/MM3 (134-434); RBC 3.37 M/mm3 (3.60-5.2); RDW 14.9 % (11.6-15.6); WHITE BLOOD COUNT 21.3 K/mm3 (4.0-10.0)
[2020-06-13 07:25] LABS: BLOOD UREA NITROGEN 10.4 mg/dL (7-18); CALCIUM 7.8 mg/dL (8.5-10.1)
[2020-06-13 07:26] LABS: MAGNESIUM 1.5 mg/dL (1.8-2.4)
[2020-06-13 07:29] LABS: CREATININE 0.5 mg/dL (0.55-1.3)
[2020-06-13 09:08] LABS: ANISOCYTOSIS 1+; MACROCYTOSIS 0; PLATELET ESTIMATE DECREASED; TEAR DROP CELLS 1+
[2020-06-13] MEDS: LISINOPRIL 10 MG TABLET PO SCH (10:58)
[2020-06-13] MEDS: NEBIVOLOL 10 MG TABLET (FP) PO SCH (10:59)
[2020-06-13 11:37] VITALS: BMI 23.2
[2020-06-13] MEDS ORDERED: MAGNESIUM SULFATE IN WATER 2 GM/50 ML IVPB IVPB ONE (12:37)
[2020-06-13 15:39] VITALS: BP 118/64; PULSE 82; TEMP 98.2
[2020-06-13] MEDS ORDERED: PT OWN MED DRAWER 7, Y5N ONE (16:26)
== END 2020-06-13 15:53 | disposition home or self-care (01) | DRG 375 ==
LOC: JER 20:07 → JERBED 06-11 01:45 → J4W 06-11 22:56
PROVIDERS: ADMIT Internal Medicine; ATTEND Internal Medicine
PROC: 30233R1 Transfusion of Nonautologous Platelets into Peripheral Vein, Percutaneous Approach (ICD-10-PCS; principal; 2020-06-10)
PROC: 30233N1 Transfusion of Nonautologous Red Blood Cells into Peripheral Vein, Percutaneous Approach (ICD-10-PCS; 2020-06-10)
DX: C78.6 Secondary malignant neoplasm of retroperitoneum and peritoneum (principal); C77.2 Secondary and unspecified malignant neoplasm of intra-abdominal lymph nodes; C23 Malignant neoplasm of gallbladder; C78.00 Secondary malignant neoplasm of unspecified lung; J90 Pleural effusion, not elsewhere classified; I87.1 Compression of vein; R19.8 Other specified symptoms and signs involving the digestive system and abdomen; R19.00 Intra-abdominal and pelvic swelling, mass and lump, unspecified site; I10 Essential (primary) hypertension; K21.9 Gastro-esophageal reflux disease without esophagitis; E78.00 Pure hypercholesterolemia, unspecified; M06.9 Rheumatoid arthritis, unspecified; R73.03 Prediabetes; D69.6 Thrombocytopenia, unspecified; D64.9 Anemia, unspecified; R22.9 Localized swelling, mass and lump, unspecified
CPT/HCPCS: 36415; 36430; 74175-TC; 80048; 80053; 83605; 83735; 84484; 85025; 85027; 85610; 85730; 86922; 87040; 93005; 93010; 99291; C9803; P9034; P9058; Q9967; U0003

== ENCOUNTER 2020-07-01 16:52 | Day surgery (SDC) | payer OTHER ==
[2020-07-01 15:32] LABS: BASO % 0.4 % (0-2.0); EOS % 0.2 % (0-4.5); HEMATOCRIT 25.4 % (32.4-45.2); HEMOGLOBIN 8.4 GM/dL (10.7-15.3); MCH 29.8 pg (25.7-33.7); MEAN CELL VOLUME 90.5 fl (80-96); MEAN PLT VOLUME 7.8 fl (7.5-11.1); MONO % 6.3 % (3.8-10.2); NEUT % 89.1 % (42.8-82.8); PLATELET COUNT 463 K/MM3 (134-434); RDW 15.8 % (11.6-15.6); WHITE BLOOD COUNT 24.6 K/mm3 (4.0-10.0)
[2020-07-01 16:05] LABS: POTASSIUM 3.7 mmol/L (3.5-5.1)
[2020-07-01 16:08] LABS: ALBUMIN 2.2 g/dl (3.4-5.0); CALCIUM 8.3 mg/dL (8.5-10.1)
[2020-07-01 16:09] LABS: BLOOD UREA NITROGEN 9.8 mg/dL (7-18); MAGNESIUM 1.1 mg/dL (1.8-2.4)
[2020-07-01 16:13] LABS: CREATININE 0.4 mg/dL (0.55-1.3)
[2020-07-01 16:14] LABS: BILIRUBIN,TOTAL 0.4 mg/dL (0.2-1); TOT PROT 5.7 g/dl (6.4-8.2)
[2020-07-01 16:33] LABS: ANISOCYTOSIS 1+; MACROCYTOSIS 0; OVALOCYTE 1+; PLATELET ESTIMATE NORMAL
[~2020-07-01 16:52] MED LIST changes: -CISPLATIN IV ONE; +D5-1/2NS+20 MEQ KCL - 20 MEQ/1,000 ML INFUS.BAG IV ONE; -DEXAMETHASONE SODIUM PHOSPHATE 10 MG in SODIUM CHLORIDE 50 ML IVPB ONE; -FOSAPREPITANT DIMEGLUMINE 150 MG in SODIUM CHLORIDE 145 ML IVPB ONE; -GEMCITABINE HCL IV ONE; -IRON SUCROSE INJECTION 200 MG in SODIUM CHLORIDE 100 ML IVPB ONE; +MAGNESIUM 1GM/D5W - 1 GM/100 ML IVPB IVPB ONE; +MAGNESIUM 2GM/50ML STERILE WATER IVPB IVPB ONE; -MAGNESIUM SULFATE IN WATER 2 GM/50 ML IVPB IVPB SCH; -PACLITAXEL PROTEIN BOUND IVPB ONE; -PALONOSETRON HCL 0.25 MG/5 ML VIAL IVPUSH ONE; -SODIUM CHLORIDE 500 ML IV ONE; -SODIUM CHLORIDE IV ONE; -SODIUM CHLORIDE IVPB ONE
[2020-07-01 17:56] VITALS: TEMP 98.1
[2020-07-01] MEDS ORDERED: PORTA CATH FLUSH 10 ML IVPUSH ONE (17:56)
[2020-07-01 18:18] VITALS: BP 152/68; PULSE 95
== END 2020-07-01 18:10 | disposition home or self-care (01) ==
LOC: JONCNONCHE 16:52
PROVIDERS: ATTEND Internal Medicine Hematology & Oncology
PROC: 3E0437Z Introduction of Electrolytic and Water Balance Substance into Central Vein, Percutaneous Approach (ICD-10-PCS; principal; 2020-07-01)
PROC: 3E043GC Introduction of Other Therapeutic Substance into Central Vein, Percutaneous Approach (ICD-10-PCS; 2020-07-01)
DX: C23 Malignant neoplasm of gallbladder (principal); Z76.89 Persons encountering health services in other specified circumstances
CPT/HCPCS: 36415; 80053; 82728; 83540; 83550; 83735; 85025; 96361; 96365; 96366

== ENCOUNTER 2020-07-02 08:07 | Day surgery (SDC) | payer OTHER ==
[2020-07-02] MEDS ORDERED: IRON SUCROSE INJECTION 200 MG in SODIUM CHLORIDE 100 ML IVPB ONE (10:00)
[2020-07-02] MEDS ORDERED: D5-1/2NS+20 MEQ KCL - 20 MEQ/1,000 ML INFUS.BAG IV ONE (10:00)
[2020-07-02] MEDS ORDERED: MAGNESIUM SULFATE IN WATER 2 GM/50 ML IVPB IVPB ONE (10:00)
[2020-07-02 16:40] VITALS: BP 135/57; PULSE 101; TEMP 97.7
== END 2020-07-02 15:00 | disposition home or self-care (01) ==
LOC: JONCNONCHE 08:07
PROVIDERS: ATTEND Internal Medicine Hematology & Oncology
DX: D50.9 Iron deficiency anemia, unspecified (principal)
CPT/HCPCS: J1756

== ENCOUNTER 2020-07-10 07:49 | Day surgery (SDC) | payer OTHER ==
[~2020-07-10 07:49] MED LIST changes: +IRON SUCROSE INJECTION 200 MG in SODIUM CHLORIDE 100 ML IVPB ONE; -MAGNESIUM 1GM/D5W - 1 GM/100 ML IVPB IVPB ONE; -MAGNESIUM 2GM/50ML STERILE WATER IVPB IVPB ONE; +MAGNESIUM SULFATE IN WATER 2 GM/50 ML IVPB IVPB ONE
[2020-07-10] MEDS ORDERED: D5-1/2NS+20 MEQ KCL - 20 MEQ/1,000 ML INFUS.BAG IV ONE (11:30)
[2020-07-10] MEDS ORDERED: MAGNESIUM SULFATE IN WATER 2 GM/50 ML IVPB IVPB ONE (11:30)
[2020-07-10] MEDS ORDERED: IRON SUCROSE INJECTION 200 MG in SODIUM CHLORIDE 100 ML IVPB ONE (11:30)
[2020-07-10 16:11] VITALS: BP 124/64; PULSE 116; TEMP 98.1
== END 2020-07-10 14:05 | disposition home or self-care (01) ==
LOC: JONCNONCHE 07:49
PROVIDERS: ATTEND Internal Medicine Hematology & Oncology
PROC: 3E033GC Introduction of Other Therapeutic Substance into Peripheral Vein, Percutaneous Approach (ICD-10-PCS; principal; 2020-07-10)
DX: D50.9 Iron deficiency anemia, unspecified (principal)
CPT/HCPCS: 96365; J1756

== ENCOUNTER 2020-07-16 00:14 | Inpatient (IN) | payer OTHER ==
[2020-07-16] MEDS ORDERED: ACETAMINOPHEN 1000 MG/100 ML VIAL (NON FORMULARY) IVPB ONE (00:56)
[2020-07-16] MEDS ORDERED: SODIUM CHLORIDE 0.9% 500 ML INFUS.BAG IV ONE ×2 (00:59→05:20)
[2020-07-16] MEDS ORDERED: ACETAMINOPHEN INJECTION 100 ML IVPB ONE (01:05)
[2020-07-16 02:00] LABS: VENOUS BASE EXCESS 0.7 mmol/L (-2-2); VENOUS O2 SATURATION 39.8 % (70-80); VENOUS PCO2 42.3 mmHg (38-52); VENOUS PH 7.4 (7.310-7.410)
[2020-07-16 02:07] LABS: INR 1.58 (0.83-1.09); PROTHROMBIN TIME (PATIENT) 18.9 SEC (9.7-13.0)
[2020-07-16 02:16] LABS: BASO % 0.3 % (0-2.0); HEMOGLOBIN 10.7 GM/dL (10.7-15.3); LYMPH % 1.5 % (8-40); MCH 28.2 pg (25.7-33.7); MCHC 32.3 g/dl (32.0-36.0); MEAN CELL VOLUME 87.2 fl (80-96); MEAN PLT VOLUME 8.8 fl (7.5-11.1); MONO % 2.8 % (3.8-10.2); NEUT % 95.4 % (42.8-82.8); PLATELET COUNT 464 K/MM3 (134-434); RBC 3.78 M/mm3 (3.60-5.2); RDW 17.4 % (11.6-15.6); WHITE BLOOD COUNT 29.3 K/mm3 (4.0-10.0)
[2020-07-16 02:40] LABS: CHLORIDE 96 mmol/L (98-107); POTASSIUM 4.1 mmol/L (3.5-5.1); SODIUM 133 mmol/L (136-145)
[2020-07-16 02:42] LABS: CALCIUM 8.3 mg/dL (8.5-10.1)
[2020-07-16 02:43] LABS: ALBUMIN 1.9 g/dl (3.4-5.0); ANION GAP 12 MMOL/L (8-16); BLOOD UREA NITROGEN 18.6 mg/dL (7-18); CO2 24 mmol/L (21-32); GLUCOSE,RANDOM 123 mg/dL (74-106)
[2020-07-16] MEDS ORDERED: morphine CARPU-JECT 2 MG/1 ML DISP.SYRIN IVPUSH ONE ×2 (02:44→07:26)
[2020-07-16 02:46] LABS: CREATININE 0.9 mg/dL (0.55-1.3); SGOT/AST 10 U/L (15-37); SGPT/ALT 12 U/L (13-61)
[2020-07-16 02:48] LABS: BILIRUBIN,TOTAL 0.7 mg/dL (0.2-1); TOT PROT 6.4 g/dl (6.4-8.2)
[2020-07-16 02:49] LABS: ALK PHOS 128 U/L (45-117)
[2020-07-16] MEDS ORDERED: MORPHINE SULFATE 2 MG/ML VIAL ONE ×2 (02:50→07:48)
[2020-07-16 05:13] LABS: ANISOCYTOSIS 1+; HELMET CELLS 1+; HOWELL-JOLLY BODIES 1+; MACROCYTOSIS 1+; PLATELET ESTIMATE NORMAL
[2020-07-16] MEDS ORDERED: MEROPENEM 1 GM in DEXTROSE 5%-WATER 100 ML IVPB ONE (05:30)
[2020-07-16 07:16] LABS: LIPASE 19 U/L (73-393); MAGNESIUM 1.1 mg/dL (1.8-2.4)
[2020-07-16 07:20] LABS: PHOSPHOROUS 3.9 mg/dL (2.5-4.9)
[2020-07-16] MEDS ORDERED: MAGNESIUM 2GM/50ML STERILE WATER IVPB IVPB ONE (08:20)
[2020-07-16] MEDS ORDERED: MAGNESIUM SULFATE IN WATER 2 GM/50 ML IVPB IVPB ONE (08:27)
[2020-07-16] MEDS: SODIUM CHLORIDE 1,000 ML IV SCH (08:49)
[2020-07-16 10:09] LABS: URINE APPEARANCE CLEAR; URINE BILIRUBIN NEGATIVE (NEGATIVE); URINE COLOR YELLOW; URINE GLUCOSE (UA) NEGATIVE (NEGATIVE); URINE KETONE Trace (NEGATIVE); URINE LEUK ESTERASE NEGATIVE (NEGATIVE); URINE NITRITE NEGATIVE (NEGATIVE); URINE PROTEIN TRACE (NEGATIVE); URINE UROBILINOGEN 0.2 mg/dL (0.2-1.0)
[2020-07-16] MEDS ORDERED: MEROPENEM 1 GM in DEXTROSE 5%-WATER 100 ML IVPB SCH ×3 (13:15→18:00)
[2020-07-16] MEDS ORDERED: VANCOMYCIN 1,000 MG in DEXTROSE 5%-WATER - 250 ML IVPB ONE (13:47)
[2020-07-16] MEDS ORDERED: VANCOMYCIN 1 GRAM (PRE-DOCKED) 1,000 MG/250 ML BAG IVPB ONE (13:55)
[2020-07-16] MEDS: MEROPENEM 1 GM in DEXTROSE 5%-WATER 100 ML IVPB SCH (18:09)
[2020-07-17] MEDS ORDERED: MORPHINE SULFATE 2 MG/ML VIAL ONE (00:29)
[2020-07-17] MEDS: MORPHINE SULFATE 2 MG/ML VIAL IVPUSH PRN ×2 (00:36→03:10)
[2020-07-17] MEDS ORDERED: DEXTROSE 5%-WATER 100 ML IVPB ONE ×3 (03:15→18:00)
[2020-07-17] MEDS ORDERED: MEROPENEM 1 GM VIAL (RESTRICTED TO ID) IVPB ONE ×3 (03:15→18:00)
[2020-07-17] MEDS: MEROPENEM 1 GM in DEXTROSE 5%-WATER 100 ML IVPB SCH ×3 (03:29→18:06)
[2020-07-17 07:22] LABS: BASO % 0.1 % (0-2.0); EOS % 0.1 % (0-4.5); HEMATOCRIT 24.9 % (32.4-45.2); HEMOGLOBIN 8.3 GM/dL (10.7-15.3); LYMPH % 3.7 % (8-40); MCH 28.6 pg (25.7-33.7); MCHC 33.3 g/dl (32.0-36.0); MEAN CELL VOLUME 85.8 fl (80-96); MEAN PLT VOLUME 8.5 fl (7.5-11.1); MONO % 6.1 % (3.8-10.2); PLATELET COUNT 351 K/MM3 (134-434); RDW 17.1 % (11.6-15.6); WHITE BLOOD COUNT 24.4 K/mm3 (4.0-10.0)
[2020-07-17 07:46] LABS: POTASSIUM 3.8 mmol/L (3.5-5.1)
[2020-07-17 07:53] LABS: BLOOD UREA NITROGEN 23.1 mg/dL (7-18); CALCIUM 7.5 mg/dL (8.5-10.1); CREATININE 0.7 mg/dL (0.55-1.3)
[2020-07-17 07:54] LABS: ALBUMIN 1.6 g/dl (3.4-5.0); MAGNESIUM 1.3 mg/dL (1.8-2.4)
[2020-07-17 07:55] LABS: BILIRUBIN,TOTAL 0.4 mg/dL (0.2-1); TOT PROT 5.2 g/dl (6.4-8.2)
[2020-07-17 07:56] LABS: PHOSPHOROUS 3.7 mg/dL (2.5-4.9)
[2020-07-17 08:33] LABS: ANISOCYTOSIS 1+; MACROCYTOSIS 1+; PLATELET ESTIMATE NORMAL
[2020-07-17 11:52] LABS: HEMATOCRIT 23.8 % (32.4-45.2); HEMOGLOBIN 7.9 GM/dL (10.7-15.3); MCH 28.5 pg (25.7-33.7); MCHC 33.2 g/dl (32.0-36.0); MEAN CELL VOLUME 85.8 fl (80-96); MEAN PLT VOLUME 8.5 fl (7.5-11.1); PLATELET COUNT 339 K/MM3 (134-434); RBC 2.77 M/mm3 (3.60-5.2); RDW 17.6 % (11.6-15.6); WHITE BLOOD COUNT 22.6 K/mm3 (4.0-10.0)
[2020-07-17] MEDS ORDERED: clonazePAM 0.5 MG TABLET PO PRN (13:22)
[2020-07-17] MEDS ORDERED: MAGNESIUM SULFATE IN WATER 2 GM/50 ML IVPB IVPB ONE (14:00)
[2020-07-17 14:48] VITALS: BMI 22.7
[2020-07-17] MEDS: SODIUM CHLORIDE 1,000 ML IV SCH (15:22)
[2020-07-17] MEDS: SIMETHICONE 80 MG TAB.CHEW (FP) PO PRN (15:26)
[2020-07-17] MEDS: FAMOTIDINE 20 MG TABLET PO SCH (15:27)
[2020-07-17] MEDS: AMINO ACIDS/PROTEIN HYDROLYS 30 ML LIQUID.PKT PO SCH (18:06)
[2020-07-18] MEDS ORDERED: DEXTROSE 5%-WATER 100 ML IVPB ONE ×3 (00:05→18:34)
[2020-07-18] MEDS ORDERED: MEROPENEM 1 GM VIAL (RESTRICTED TO ID) IVPB ONE ×3 (00:05→18:34)
[2020-07-18] MEDS: oxyCODONE HCL 5 MG TABLET PO PRN (00:07)
[2020-07-18] MEDS: SIMETHICONE 80 MG TAB.CHEW (FP) PO PRN ×4 (00:09→20:35)
[2020-07-18] MEDS: MEROPENEM 1 GM in DEXTROSE 5%-WATER 100 ML IVPB SCH ×3 (02:18→18:41)
[2020-07-18 07:12] LABS: BASO % 0.1 % (0-2.0); EOS % 0.3 % (0-4.5); HEMATOCRIT 23.1 % (32.4-45.2); HEMOGLOBIN 7.6 GM/dL (10.7-15.3); LYMPH % 3.4 % (8-40); MCH 28.3 pg (25.7-33.7); MEAN CELL VOLUME 85.7 fl (80-96); MEAN PLT VOLUME 8.5 fl (7.5-11.1); MONO % 6.4 % (3.8-10.2); NEUT % 89.8 % (42.8-82.8); PLATELET COUNT 314 K/MM3 (134-434); RBC 2.69 M/mm3 (3.60-5.2); RDW 17.2 % (11.6-15.6); WHITE BLOOD COUNT 18.6 K/mm3 (4.0-10.0)
[2020-07-18 07:33] LABS: POTASSIUM 3.6 mmol/L (3.5-5.1)
[2020-07-18 07:48] LABS: CALCIUM 7.7 mg/dL (8.5-10.1)
[2020-07-18 07:49] LABS: ALBUMIN 1.5 g/dl (3.4-5.0); BLOOD UREA NITROGEN 21.5 mg/dL (7-18)
[2020-07-18 07:51] LABS: CREATININE 0.5 mg/dL (0.55-1.3)
[2020-07-18 07:54] LABS: BILIRUBIN,TOTAL 0.3 mg/dL (0.2-1); TOT PROT 4.8 g/dl (6.4-8.2)
[2020-07-18 09:05] LABS: ANISOCYTOSIS 2+; MACROCYTOSIS 0; PLATELET ESTIMATE NORMAL; TARGET CELLS 1+
[2020-07-18] MEDS: AMINO ACIDS/PROTEIN HYDROLYS 30 ML LIQUID.PKT PO SCH ×3 (09:34→17:04)
[2020-07-18] MEDS: FAMOTIDINE 20 MG TABLET PO SCH (09:35)
[2020-07-18] MEDS: SODIUM CHLORIDE 1,000 ML IV SCH (09:36)
[2020-07-19] MEDS ORDERED: MEROPENEM 1 GM VIAL (RESTRICTED TO ID) IVPB ONE ×3 (00:59→17:05)
[2020-07-19] MEDS ORDERED: DEXTROSE 5%-WATER 100 ML IVPB ONE ×3 (00:59→17:06)
[2020-07-19] MEDS: MEROPENEM 1 GM in DEXTROSE 5%-WATER 100 ML IVPB SCH ×3 (01:10→18:24)
[2020-07-19] MEDS: SIMETHICONE 80 MG TAB.CHEW (FP) PO PRN ×3 (01:15→15:26)
[2020-07-19] MEDS ORDERED: PORTA CATH FLUSH 10 ML IVPUSH ONE (08:09)
[2020-07-19] MEDS: AMINO ACIDS/PROTEIN HYDROLYS 30 ML LIQUID.PKT PO SCH ×4 (08:59→17:24)
[2020-07-19] MEDS: FAMOTIDINE 20 MG TABLET PO SCH (09:01)
[2020-07-19] MEDS: SODIUM CHLORIDE 1,000 ML IV SCH (09:02)
[2020-07-19] MEDS: oxyCODONE HCL 5 MG TABLET PO PRN ×2 (18:34→22:18)
[2020-07-20] MEDS ORDERED: MEROPENEM 1 GM VIAL (RESTRICTED TO ID) IVPB ONE ×4 (00:31→17:57)
[2020-07-20] MEDS ORDERED: DEXTROSE 5%-WATER 100 ML IVPB ONE ×4 (00:32→17:57)
[2020-07-20] MEDS: MEROPENEM 1 GM in DEXTROSE 5%-WATER 100 ML IVPB SCH ×3 (01:25→18:01)
[2020-07-20] MEDS ORDERED: PT OWN MED DRAWER 7, Y5N ONE (10:05)
[2020-07-20] MEDS: AMINO ACIDS/PROTEIN HYDROLYS 30 ML LIQUID.PKT PO SCH ×4 (10:11→17:54)
[2020-07-20] MEDS: SODIUM CHLORIDE 1,000 ML IV SCH (10:11)
[2020-07-20] MEDS: FAMOTIDINE 20 MG TABLET PO SCH (10:15)
[2020-07-20] MEDS: SIMETHICONE 80 MG TAB.CHEW (FP) PO PRN (20:12)
[2020-07-20] MEDS: MORPHINE SULFATE 2 MG/ML VIAL IVPUSH PRN (23:53)
[2020-07-21] MEDS ORDERED: MEROPENEM 1 GM VIAL (RESTRICTED TO ID) IVPB ONE ×3 (01:27→18:12)
[2020-07-21] MEDS ORDERED: DEXTROSE 5%-WATER 100 ML IVPB ONE ×3 (01:28→18:12)
[2020-07-21] MEDS: MEROPENEM 1 GM in DEXTROSE 5%-WATER 100 ML IVPB SCH ×3 (01:30→18:15)
[2020-07-21] MEDS: AMINO ACIDS/PROTEIN HYDROLYS 30 ML LIQUID.PKT PO SCH ×3 (09:45→16:47)
[2020-07-21] MEDS: FAMOTIDINE 20 MG TABLET PO SCH (11:09)
[2020-07-21] MEDS: SIMETHICONE 80 MG TAB.CHEW (FP) PO PRN ×2 (11:10→19:24)
[2020-07-21] MEDS: SODIUM CHLORIDE 1,000 ML IV SCH (11:12)
[2020-07-21] MEDS ORDERED: SODIUM CHLORIDE 1,000 ML IV SCH (17:28)
[2020-07-21] MEDS ORDERED: FUROSEMIDE 40 MG/4 ML INJECTABLE VIAL IVPUSH ONE (17:35)
[2020-07-21] MEDS: MORPHINE SULFATE 2 MG/ML VIAL IVPUSH PRN (20:45)
[2020-07-21] MEDS: MIRTAZAPINE 15 MG TABLET (FP) PO SCH (22:15)
[2020-07-22] MEDS: MORPHINE SULFATE 2 MG/ML VIAL IVPUSH PRN ×2 (01:26→04:53)
[2020-07-22] MEDS ORDERED: MEROPENEM 1 GM VIAL (RESTRICTED TO ID) IVPB ONE ×3 (02:17→16:30)
[2020-07-22] MEDS ORDERED: DEXTROSE 5%-WATER 100 ML IVPB ONE ×3 (02:17→16:30)
[2020-07-22] MEDS: MEROPENEM 1 GM in DEXTROSE 5%-WATER 100 ML IVPB SCH ×3 (03:23→20:21)
[2020-07-22] MEDS: FAMOTIDINE 20 MG TABLET PO SCH (09:35)
[2020-07-22] MEDS: SIMETHICONE 80 MG TAB.CHEW (FP) PO PRN ×2 (10:09→18:25)
[2020-07-22] MEDS: AMINO ACIDS/PROTEIN HYDROLYS 30 ML LIQUID.PKT PO SCH ×3 (10:10→18:24)
[2020-07-22] MEDS ORDERED: PORTA CATH FLUSH 10 ML IVPUSH ONE (18:36)
[2020-07-22] MEDS: MIRTAZAPINE 15 MG TABLET (FP) PO SCH (22:21)
[2020-07-23] MEDS ORDERED: DEXTROSE 5%-WATER 100 ML IVPB ONE ×2 (02:28→09:09)
[2020-07-23] MEDS ORDERED: MEROPENEM 1 GM VIAL (RESTRICTED TO ID) IVPB ONE ×2 (02:28→09:09)
[2020-07-23] MEDS: MEROPENEM 1 GM in DEXTROSE 5%-WATER 100 ML IVPB SCH ×2 (02:31→09:49)
[2020-07-23] MEDS: AMINO ACIDS/PROTEIN HYDROLYS 30 ML LIQUID.PKT PO SCH ×3 (09:23→16:58)
[2020-07-23] MEDS: FAMOTIDINE 20 MG TABLET PO SCH (09:49)
[2020-07-23] MEDS: SIMETHICONE 80 MG TAB.CHEW (FP) PO PRN ×2 (10:04→19:58)
[2020-07-23] MEDS: MIRTAZAPINE 15 MG TABLET (FP) PO SCH (21:23)
[2020-07-24] MEDS: FAMOTIDINE 20 MG TABLET PO SCH (09:20)
[2020-07-24] MEDS: AMINO ACIDS/PROTEIN HYDROLYS 30 ML LIQUID.PKT PO SCH ×3 (09:20→16:40)
[2020-07-24] MEDS: LOPERAMIDE HCL 2 MG CAPSULE PO PRN ×2 (10:43→22:09)
[2020-07-24] MEDS: SILVER SULFADIAZINE 1% TOP CREAM 400 GM JAR TP SCH (16:40)
[2020-07-24] MEDS: MIRTAZAPINE 15 MG TABLET (FP) PO SCH (21:02)
[2020-07-25] MEDS: AMINO ACIDS/PROTEIN HYDROLYS 30 ML LIQUID.PKT PO SCH ×3 (11:32→16:53)
[2020-07-25] MEDS: SILVER SULFADIAZINE 1% TOP CREAM 400 GM JAR TP SCH (11:33)
[2020-07-25] MEDS: FAMOTIDINE 20 MG TABLET PO SCH (11:33)
[2020-07-25] MEDS: MIRTAZAPINE 15 MG TABLET (FP) PO SCH (22:08)
[2020-07-25] MEDS: SIMETHICONE 80 MG TAB.CHEW (FP) PO PRN (22:08)
[2020-07-26 04:49] VITALS: BP 145/83; PULSE 122; TEMP 98.9
[2020-07-26] MEDS: AMINO ACIDS/PROTEIN HYDROLYS 30 ML LIQUID.PKT PO SCH (09:04)
[2020-07-26] MEDS: SILVER SULFADIAZINE 1% TOP CREAM 400 GM JAR TP SCH (09:44)
[2020-07-26] MEDS: FAMOTIDINE 20 MG TABLET PO SCH (09:44)
== END 2020-07-26 11:33 | disposition home or self-care (01) | DRG 844 ==
LOC: JER 00:14 → JERBED 05:51 → J7W 07-17 01:11
PROVIDERS: ADMIT Internal Medicine; ATTEND Internal Medicine
PROC: 30233N1 Transfusion of Nonautologous Red Blood Cells into Peripheral Vein, Percutaneous Approach (ICD-10-PCS; principal; 2020-07-16)
DX: C79.89 Secondary malignant neoplasm of other specified sites (principal); E87.2 Acidosis; C23 Malignant neoplasm of gallbladder; J98.11 Atelectasis; J90 Pleural effusion, not elsewhere classified; R18.8 Other ascites; R64 Cachexia; E87.1 Hypo-osmolality and hyponatremia; C78.00 Secondary malignant neoplasm of unspecified lung; I10 Essential (primary) hypertension; E78.5 Hyperlipidemia, unspecified; E11.9 Type 2 diabetes mellitus without complications; R00.0 Tachycardia, unspecified; K21.9 Gastro-esophageal reflux disease without esophagitis; M06.9 Rheumatoid arthritis, unspecified; E83.42 Hypomagnesemia; Z68.22 Body mass index [BMI] 22.0-22.9, adult; D50.0 Iron deficiency anemia secondary to blood loss (chronic); D72.829 Elevated white blood cell count, unspecified; R50.9 Fever, unspecified; R62.7 Adult failure to thrive; R19.7 Diarrhea, unspecified
CPT/HCPCS: 36415; 36430; 71045-TC-FY; 74177-TC; 80053; 81003; 82550; 82553; 82803; 83605; 83690; 83735; 84100; 84443; 84484; 85025; 85027; 85610; 85730; 86850; 86900; 86901; 86922; 87040; 87070; 87086; 87186; 87205; 87804; 93005; 93010; 93970-TC; 97116-GP; 97161-GP; 99285-25; C9803; J0131; P9058; U0003